=== PATIENT | female | born 1935 | race Caucasian/White ===

== ENCOUNTER → 2017-11-21 13:14 | Outpatient (POV) | payer MEDICARE, OTHER, SELFPAY | DX: Z00.00 Encounter for general adult medical examination without abnormal findings (principal) ==

== ENCOUNTER → 2017-12-25 16:39 | Outpatient (REF) | payer MEDICARE, OTHER, SELFPAY | LOC: LAB 16:39 | PROVIDERS: Visit Provider Internal Medicine | DX: N61.1 Abscess of the breast and nipple (principal) | CPT/HCPCS: 87070; 87077; 87186; 87205 ==

== ENCOUNTER → 2018-03-06 13:24 | Outpatient (POV) | payer MEDICARE, OTHER, SELFPAY | DX: Z00.00 Encounter for general adult medical examination without abnormal findings (principal) ==

== ENCOUNTER → 2018-06-11 09:41 | Outpatient (CLI) | payer MEDICARE, OTHER, SELFPAY ==
--- NOTE | 2018-06-11 09:56 | MM_ITS ---
MM Dig screening mamm BI w/CAD ORDERING PHYSICIAN : Harpal Ureña MD PATIENT AGE: 83 years GENDER: Female COMPARISON: April 2017, 2014 INDICATION: ITS.REASON: Routine Screening Mammogram TECHNIQUE: Standard CC and MLO images were obtained. R2 CAD reviewed. Additional axillary cc view right breast included FINDINGS: Low-density fatty breast bilaterally. Generalized fatty replacement. Scattered skin moles bilaterally associated skin mole markers bilaterally. RIGHT BREAST:. Stable right breast. With no new findings LEFT BREAST:. Today's studies include a deeper portion of the left breast and thus there are some additional believe moles likely evident at the inferior margin the left breast, towards intramammary fold. Several moles are marked here on the MLO view and cc view. However there appear to be some other areas as well. Follow-up in one year on the adequate in this age patient with this appearance IMPRESSION: ... . Multiple skin nevi/moles bilaterally again evident; & most numerous along inferior most left breast. Multiple skin moles have been seen previously. However mammograms including deeper portion of the left breast, and thus there are some additional I believe skin moles shadows evident.. . Follow-up in one year the adequate but but would be encouraged/emphasized even in this age patient, to confirm stability BI-RADS Category: 2 Benign Finding(s) RECOMMENDED FOLLOW-UP: 1YR 1 YEAR FOLLOW-UP (A letter has been sent to the patient regarding results of the study.)
== END ==
PROVIDERS: PCP Internal Medicine; Visit Provider Nurse Practitioner Obstetrics & Gynecology
DX: Z12.31 Encounter for screening mammogram for malignant neoplasm of breast (principal)
CPT/HCPCS: 77067

== ENCOUNTER → 2018-07-19 11:26 | Outpatient (CLI) | payer MEDICARE, OTHER, SELFPAY ==
--- NOTE | 2018-07-19 11:30 | NVE_ITS ---
Venous Exam Indications: 729.5 Pain in limb. 782.3 Edema. Palpable nodule distal pop. fossa. IMPRESSIONS 1. No evidence of deep or superficial vein thrombosis involving the right lower extremity 2. There is a 1.3cm cystic non-vascularlesion seen back proximal rightcalf. In the area of palpable nodule distal popliteal fossa there is a 1.3cm hyperechoic lesion, probable lipoma. History: Risk factors: Family history of deep vein thrombosis. Obese. Right lower extremity venous duplex evaluation. Doppler flow study including spectral analysis, color and guillen scale imaging. Location: Vascular laboratory. Patient status: Outpatient. Tables: Venous flow and imaging: + +-------+ + Location Overall Flow properties + +-------+ + Right common femoral Patent Normal phasicity; spontaneous; normal augmentation; compressible + +-------+ + Right saphenofemoral junction Patent Compressible + +-------+ + Right profunda femoral Patent Compressible + +-------+ + Right femoral Patent Normal phasicity; spontaneous; normal augmentation; compressible + +-------+ + Right greater saphenous Patent Normal phasicity; spontaneous; normal augmentation; compressible + +-------+ + Right popliteal Patent Normal phasicity; spontaneous; normal augmentation; compressible + +-------+ + Right posterior tibial Patent Compressible + +-------+ + Right peroneal Patent Compressible + +-------+ + Right gastrocnemius Patent Compressible + +-------+ + Right soleal Patent Compressible + +-------+ + (Report amended ) Electronically signed by: Bill Barry [id number]
== END ==
PROVIDERS: PCP Internal Medicine; Visit Provider Internal Medicine
DX: M79.604 Pain in right leg (principal); M79.89 Other specified soft tissue disorders
CPT/HCPCS: 93971

== ENCOUNTER → 2018-11-13 12:51 | Outpatient (POV) | payer MEDICARE, OTHER, SELFPAY | DX: Z00.00 Encounter for general adult medical examination without abnormal findings (principal) ==

== ENCOUNTER → 2019-03-12 13:22 | Outpatient (POV) | payer MEDICARE, OTHER, SELFPAY | DX: Z00.00 Encounter for general adult medical examination without abnormal findings (principal) ==

== ENCOUNTER → 2019-06-13 09:14 | Outpatient (CLI) | payer MEDICARE, OTHER, SELFPAY ==
--- NOTE | 2019-06-13 09:19 | MM_ITS ---
PROCEDURE: MM DIG SCREENING MAMM BI W/CAD CLINICAL INDICATION: SCREENING There is a history of breast cancer patient's mother diagnosed after menopause. There has been a previous biopsy right breast for benign disease. COMPARISON: [facility] DIG MAMM-SCREEN YAA from 05/09/2016 [facility] DIG MAMM-SCREEN YAA W/CAD from 05/11/2017 [facility] MM Dig screening mamm BI w/CAD from 06/11/2018 TECHNIQUE: Standard CC and MLO images were obtained. R2 CAD reviewed. FINDINGS: The breasts are composed primarily of fat with minimal scattered fibroglandular densities throughout each breast. Again noted are multiple mole markers on each breast. There is minimal arterial calcification in each breast. There is no suspicious lesion and no suspicious microcalcifications. IMPRESSION: Fatty type breast parenchyma with no suspicious lesions seen BI-RAD Category: 2 Benign Finding(s) FOLLOW-UP: 1YR 1 Year Follow-up (A letter has been sent to the patient regarding results of the study.) Dictated by: Dr. Saul Rocha MD 06/15/2019 15:[address] Saul Rocha MD in [place] 06/15/2019 15:35
== END ==
PROVIDERS: PCP Internal Medicine; Visit Provider Internal Medicine
DX: Z12.31 Encounter for screening mammogram for malignant neoplasm of breast (principal)
CPT/HCPCS: 77067

== ENCOUNTER → 2019-06-17 13:13 | Outpatient (CLI) | payer MEDICARE, OTHER, SELFPAY ==
--- NOTE | 2019-06-17 13:17 | CT_ITS ---
PROCEDURE: CT ABDOMEN PELVIS WO CON CLINICAL INDICATION: kidney stones Urinary urgency, history of stones COMPARISON: ABDPELW/WO CT ABD PELVIS W/WO CONTRAST from 07/04/2016 TECHNIQUE: Axial images obtained with sagittal and coronal reformats. All CT scans at the facility use one or more dose reduction, viz: automated exposure control, ma/kV adjustment per patient size (including targeted exams where dose is matched to indication, i.e. head), or iterative reconstruction technique. FINDINGS: LOWER THORAX: Are mild atelectatic or fibrotic changes in the left lung base. Stable 4 mm nodular opacity right lung base laterally. There is some calcification of the aortic root/valve area. There is a small hiatal hernia. ABDOMEN & PELVIS: Post cholecystectomy. The liver, spleen, adrenal glands and kidneys show no acute finding. There are few small punctate bilateral renal calculi at 2-3 mm in the lower pole on the left in the upper pole on the right. No ureteral calculi evident. There is a 2 cm exophytic cyst projecting off the superior pole of the left kidney. No evidence of appendicitis. There is a calcific density at the base of the appendix consistent with a small appendicoliths No intestinal obstruction or free air. No evidence of diverticulitis. No pelvic mass or abnormal fluid collection apparent. A no acute bony findings. IMPRESSION: 1. No acute abdominal or pelvic findings. 2. Nonobstructing bilateral renal calculi with small left renal cyst Dictated by: Bill Barry MD 06/17/2019 14:31 Electronically signed by Bill Barry MD in [place] 06/17/2019 14:31
== END ==
PROVIDERS: PCP Internal Medicine; Visit Provider Urology
DX: N20.0 Calculus of kidney (principal)
CPT/HCPCS: 74176

== ENCOUNTER → 2019-12-10 13:57 | Outpatient (POV) | payer MEDICARE, OTHER, SELFPAY | PROVIDERS: PCP Internal Medicine | DX: Z00.00 Encounter for general adult medical examination without abnormal findings (principal) ==

== ENCOUNTER → 2020-01-13 09:28 | Outpatient (POV) | payer MEDICARE, OTHER, SELFPAY | PROVIDERS: PCP Internal Medicine; Visit Provider Physician Assistant | DX: Z00.00 Encounter for general adult medical examination without abnormal findings (principal) ==

== ENCOUNTER → 2020-02-17 15:22 | Outpatient (POV) | payer MEDICARE, OTHER, SELFPAY | PROVIDERS: PCP Internal Medicine; Visit Provider Dermatology | DX: Z00.00 Encounter for general adult medical examination without abnormal findings (principal) ==

== ENCOUNTER → 2020-04-07 13:15 | Outpatient (POV) | payer MEDICARE, OTHER, SELFPAY | DX: Z00.00 Encounter for general adult medical examination without abnormal findings (principal) ==

== ENCOUNTER → 2020-06-08 15:23 | Outpatient (CLI) | payer MEDICARE, OTHER, SELFPAY ==
[2020-06-08 15:25] LABS: Adenovirus F 40/41, stool Not Detected (NotDetected); Astrovirus Not Detected (NotDetected); Campylobacter Not Detected (NotDetected); Clostridium Difficile A/B, PCR Not Detected (NotDetected); Cryptosporidium Not Detected (NotDetected); Cyclospora Cayetanesis Not Detected (NotDetected); Entamoeba histolytica Not Detected (NotDetected); Enteroaggregative E coli Not Detected (NotDetected); Enteropathogenic E coli Not Detected (NotDetected); Enterotoxigenic E coli Not Detected (NotDetected); Giardia lamblia Not Detected (NotDetected); Norovirus Not Detected (NotDetected); Plesimonas Shigalloides, PCR Not Detected (NotDetected); Rotavirus A Not Detected (NotDetected); Salmonella, PCR Not Detected (NotDetected); Sapovirus Not Detected (NotDetected); Shiga-like toxin E coli Not Detected (NotDetected); Shigella Enterovasive E coli Not Detected (NotDetected); Vibrio Cholerae Not Detected (NotDetected); Vibrio, PCR Not Detected (NotDetected); Yersinia Entercolitica, PCR Not Detected (NotDetected)
== END ==
PROVIDERS: Visit Provider Internal Medicine
DX: R10.9 Unspecified abdominal pain (principal); R19.4 Change in bowel habit; R19.7 Diarrhea, unspecified
CPT/HCPCS: 87506

== ENCOUNTER → 2020-06-14 08:52 | Outpatient (CLI) | payer MEDICARE, OTHER, SELFPAY ==
--- NOTE | 2020-06-14 09:01 | MM_ITS ---
PROCEDURE: MM DIG SCREENING MAMM BI W/CAD Digital Breast Tomosynthesis Included CLINICAL INDICATION: SCREENING There is a history of breast cancer in the patient's mother diagnosed at age 60. There has been a previous biopsy right breast for benign disease. COMPARISON: MG [facility] DIG MAMM-SCREEN YAA W/CAD from 05/11/2017 [facility] MM Dig screening mamm BI w/CAD from 06/11/2018 MG MM DIG SCREENING MAMM BI W/CAD from 06/13/2019 TECHNIQUE: Standard CC and MLO images and 3D Tomosynthesis was obtained. R2 CAD reviewed. FINDINGS: The breasts are composed primarily of fat with minimal scattered fibroglandular densities in each breast. There are 4 mole markers on the left breast and 2 mole markers right breast. . There is faint arterial calcification bilaterally. There are densities on each breast near the inframammary fold possibly representing skin tags and these are stable. There is no suspicious lesion and no suspicious microcalcifications. IMPRESSION: Fibrofatty parenchyma with no suspicious lesions seen BI-RAD Category: 2 Benign Finding(s) FOLLOW-UP: 1YR 1 Year Follow-up (A letter has been sent to the patient regarding results of the study.) Dictated by: Dr. Saul Rocha MD 06/18/2020 08:13 Dr. Saul Rocha MD in [place] 06/18/2020 08:13
== END ==
PROVIDERS: PCP Internal Medicine; Visit Provider Internal Medicine
DX: Z12.31 Encounter for screening mammogram for malignant neoplasm of breast (principal)
CPT/HCPCS: 77063; 77067

== ENCOUNTER → 2020-07-26 08:18 | Outpatient (POV) | payer MEDICARE, OTHER, SELFPAY | PROVIDERS: Visit Provider Nurse Practitioner Family | DX: Z00.00 Encounter for general adult medical examination without abnormal findings (principal) ==

== ENCOUNTER → 2020-12-06 13:19 | Outpatient (POV) | payer MEDICARE, OTHER, SELFPAY | PROVIDERS: Visit Provider Nurse Practitioner Family | DX: Z00.00 Encounter for general adult medical examination without abnormal findings (principal) ==

== ENCOUNTER → 2020-12-22 13:57 | Outpatient (POV) | payer MEDICARE, OTHER, SELFPAY | DX: Z00.00 Encounter for general adult medical examination without abnormal findings (principal) ==

== ENCOUNTER → 2021-02-09 10:00 | Outpatient (CLI) | payer MEDICARE, OTHER, SELFPAY ==
--- NOTE | 2021-02-11 09:44 | HMH.ANESCL ---
[facility] Anesthesia Checklist - Patient Identification Patient Identification: Arm Band - Structural Data Admitted From: Home Planned Operative Procedure/s: colonoscopy Consent for Planned Operative Procedure(s) Verified: Yes Verified Documents: Surgical Consent, History and Physical - NPO Status Verified Time NPO: 00:00 - Additional verifications Anesthesia Reactions: No - Airway Assessment C-Spine Mobility Assessed: Yes (mp2) TMJ Mobility Assessed: Yes Dentition: Dentures-good fit - Neurological Assessment Level of Consciousness: Awake, Alert - Anesthesia Plan Anesthesia Risk discussed: Yes Anesthesia Plan: Verified ASA Class: II Anesthesia Type: MAC [facility] History I have reviewed the patient's past medical history: Yes Medical History: Reports:: Asthma, Gastroesophageal Reflux Disease(GERD), Hyperlipidemia, Hypertension, Kidney Stones Denies:: Cancer, Diabetes Mellitus Type 1, Diabetes Mellitus Type 2, Internal Pacemaker, Lung Disease, MRSA, Seizures *Have you ever received a pneumonia vaccine?: Yes *Have you received a flu vaccine this season?: Yes Anesthesia experience/problems:: nac Other Surgeries: Yes: Cholecystectomy, Colonoscopy, Tubal Ligation, Other. No: Pacemaker Amputation: No Fractures: No - *Social History Smoking Status: Never smoker Alcohol Intake: never Substance Use Type: denies use *Occupational Status:: retired Housing: house Household Members: spouse *Travel in the last 8 weeks: None Family Hx:: Cancer, Heart Attack
== END ==
PROVIDERS: Visit Provider Internal Medicine Gastroenterology
DX: Z01.812 Encounter for preprocedural laboratory examination (principal); Z11.52 Encounter for screening for COVID-19; Z12.11 Encounter for screening for malignant neoplasm of colon
CPT/HCPCS: U0003

== ENCOUNTER 2021-02-11 08:19 | Day surgery (SDC) | payer MEDICARE, OTHER, SELFPAY ==
[2021-02-08 10:17] VITALS: BMI 39.1
[2021-02-11 08:37] VITALS: BP 153/79; PULSE 76; RESP 18; TEMP 36.5; O2SAT 97
--- NOTE | 2021-02-11 10:05 | P.PCN_ITS ---
[facility] Procedure Note Procedure Note:: Colonoscopy Procedure Report: Colonoscopy with cold biopsies and cold snare polypectomy Endoscopist: Aj Lim II, MD Referring physician: Chin Lott MD Date of Procedure: February 11, 2021 Equipment: Olympus 190 variable stiffness pediatric colonoscope Sedation: MAC sedation Indication: Mrs. Hawkins is an 85-year-old female with a long history of chronic constipation. 5 to 6 months ago she stopped having constipation and now has more soft and loose bowel movements with intermittent bowel urgency. She has marked gassiness and bloating with some crampy lower abdominal discomfort. The patient had tried stimulant laxatives, suppositories and fiber over the years. She did trial Linzess which resulted in diarrhea. She does have chronic GERD for which she takes pantoprazole. Her last colonoscopy was June 2019 at which time she had a small polyp that was removed. She does have a former history of adenomatous polyps. She had cholecystectomy more than 20 years ago. Her CAT scan in 2018 did not show any significant abnormalities except for a small nonobstructing renal calculus. The patient reports no rectal bleeding or weight loss. She reports no family history of colon cancer. Procedure: Prior to the procedure, a history and physical exam was performed, and patient's medications and allergies were reviewed. The risks, benefits and alternatives of the sedation and procedure were discussed with the patient. All questions were answered and informed consent was obtained. The patient was brought to the procedure room. Patient identification and proposed procedure were verified by the physician and the nurse. The patient was placed in a left lateral decubitus position and the scope was passed under direct vision. Throughout the procedure, the patient's blood pressure, pulse, and oxygen saturations were monitored continuously. The colonoscopy was accomplished without difficulty. The patient tolerated the procedure well. Findings: On digital rectal examination there was normal rectal tone. There were no external hemorrhoids. The colonoscope was introduced through the anal canal to the rectum and advanced to the cecum. The ileocecal valve and appendiceal orifice were identified. The scope was advanced a short distance into the ileum which appeared grossly normal. The scope was then withdrawn into the colon. The cecum, ascending and transverse colon and mucosa were grossly normal. Cold biopsies were taken from the right colon to rule out microscopic colitis. There were a few scattered diverticuli throughout the descending and sigmoid colon (LEFT colon). The rectum itself had a 5 mm polyp removed via cold snare polypectomy. Upon retroflexion within the rectum there were grade 1-2 internal hemorrhoids. The preparation was excellent throughout with [place] Preparation Score of 9. The cecal time was 12 minutes. Impression: 1. Diminutive rectal polyp 2. Mild left-sided diverticulosis 3. Grade 1-2 internal hemorrhoids Plan: I will follow up the polyp histology. I would encourage continuation of FiberCon. She did receive a course of Xifaxan. I would consider sucrose C 13 breath testing and dietary measures. She will not require any further preventive colonoscopy.
[2021-02-11 10:07] VITALS: BP 92/66; PULSE 68; RESP 16; TEMP 36.5; O2SAT 95
[2021-02-11 10:17] VITALS: BP 109/67; PULSE 65; RESP 16; TEMP 36.5; O2SAT 98
[2021-02-11 10:27] VITALS: BP 137/82; PULSE 6; RESP 18; TEMP 36.5; O2SAT 99
[2021-02-11 10:37] VITALS: BP 158/75; PULSE 50; RESP 18; TEMP 36.5; O2SAT 97
[2021-02-11 12:34] VITALS: O2SAT 97
== END 2021-02-11 10:37 | disposition home or self-care (01) ==
PROVIDERS: PCP Internal Medicine; Visit Provider Internal Medicine Gastroenterology
PROC: 0DJD8ZZ Inspection of Lower Intestinal Tract, Via Natural or Artificial Opening Endoscopic (ICD-10-PCS; CPT 45378; principal; 2021-02-11 09:30)
DX: K64.0 First degree hemorrhoids (principal); K62.1 Rectal polyp; K57.30 Diverticulosis of large intestine without perforation or abscess without bleeding; Z86.010 Personal history of colon polyps; I10 Essential (primary) hypertension; E78.5 Hyperlipidemia, unspecified; J45.909 Unspecified asthma, uncomplicated; Z79.82 Long term (current) use of aspirin; Z79.899 Other long term (current) drug therapy
CPT/HCPCS: 45380; 45385; 88305

== ENCOUNTER → 2021-03-25 07:10 | Outpatient (CLI) | payer MEDICARE, OTHER, SELFPAY ==
--- NOTE | 2021-03-25 07:15 | CT_ITS ---
PROCEDURE: CT ABDOMEN PELVIS WO CON CLINICAL INDICATION: DIFFUSE ABD PAIN COMPARISON: CT CT ABDOMEN PELVIS WO CON from 06/17/2019 TECHNIQUE: Axial images obtained with sagittal and coronal reformats. All CT scans at the facility use one or more dose reduction, viz: automated exposure control, ma/kV adjustment per patient size (including targeted exams where dose is matched to indication, i.e. head), or iterative reconstruction technique. FINDINGS: LOWER THORAX: No acute finding ABDOMEN & PELVIS: Prior cholecystectomy. The liver, spleen, adrenal glands, and pancreas have an unremarkable unenhanced appearance. There is a small hiatal hernia. Punctate bilateral renal calcifications which may be vascular. 2 cm exophytic left renal cyst superiorly. No hydronephrosis. 3 mm nonobstructing stone lower pole left kidney versus vascular calcification. No ureteral calculi. No intestinal obstruction or free air. Unremarkable appendix. There is a mild amount of retained colonic feces. There is colonic diverticulosis but no evidence of diverticulitis. No pelvic mass or abnormal fluid collection. Degenerative changes lumbar spine with mild lumbar scoliosis convex right IMPRESSION: No acute finding. Colonic diverticulosis without diverticulitis Possible 3 mm left renal stone versus vascular calcification of the left kidney. Dictated by: Bill Barry MD 03/25/2021 14:32 Bill Barry MD in [place] 03/25/2021 14:32
== END ==
PROVIDERS: PCP Internal Medicine; Visit Provider Internal Medicine
DX: R10.30 Lower abdominal pain, unspecified (principal)
CPT/HCPCS: 74176

== ENCOUNTER → 2021-06-15 10:09 | Outpatient (CLI) | payer MEDICARE, OTHER, SELFPAY ==
--- NOTE | 2021-06-15 10:12 | MM_ITS ---
PROCEDURE INFORMATION: Exam: MG Bilateral Screening 3D Mammography Exam date and time: 06/15/2021 10:12 AM Age: 86 years old Clinical indication: Encounter for screening mammogram for malignant neoplasm of breast TECHNIQUE: Imaging protocol: Bilateral screening tomosynthesis and 2D mammography including computer-aided detection (CAD) when performed. COMPARISON: 1. MG MM DIG SCREENING MAMM BI W/CAD 06/14/2020 9:01 AM 2. MG MM DIG SCREENING MAMM BI W/CAD 06/13/2019 9:50 AM FINDINGS: MAMMOGRAPHY: Breast composition: The breasts are almost entirely fatty. Mass: None. Architectural distortion: None. Calcifications: No suspicious calcifications. Asymmetric density: None. Skin thickening: None. Axillary adenopathy: None. IMPRESSION: No mammographic evidence of malignancy. Annual screening is recommended unless otherwise clinically indicated. ASSESSMENT: BI-RADS Category 1: Negative
== END ==
PROVIDERS: PCP Internal Medicine; Visit Provider Internal Medicine
DX: Z12.31 Encounter for screening mammogram for malignant neoplasm of breast (principal)
CPT/HCPCS: 77063; 77067

== ENCOUNTER → 2021-07-13 10:20 | Outpatient (CLI) | payer MEDICARE, OTHER, SELFPAY ==
--- NOTE | 2021-07-13 10:24 | XR_ITS ---
PROCEDURE INFORMATION: Exam: XR Lumbosacral Spine Exam date and time: 07/13/2021 10:24 AM Age: 86 years old Clinical indication: Pain; Lumbago with sciatica; Additional info: Lumbago w/ RT sciatica TECHNIQUE: Imaging protocol: XR of the lumbosacral spine. Views: 4 or 5 views. COMPARISON: CT ABDOMEN PELVIS WO CON 03/25/2021 7:19 AM FINDINGS: Bones/joints: No acute fracture. Dextrocurvature of the lumbar spine centered at L3-L4. Moderate degenerative disc disease at L4-L5. Mild degenerative disc disease throughout the remainder of the lumbar spine. Soft tissues: Unremarkable. Intraperitoneal space: Cholecystectomy clips. Vasculature: Atherosclerotic calcification of the abdominal aorta. IMPRESSION: 1. No acute fracture. 2. Moderate degenerative disc disease at L4-L5.
== END ==
PROVIDERS: PCP Internal Medicine; Visit Provider Internal Medicine
DX: M54.41 Lumbago with sciatica, right side (principal)
CPT/HCPCS: 72110

== ENCOUNTER → 2021-07-25 16:48 | Outpatient (CLI) | payer MEDICARE, OTHER, SELFPAY | PROVIDERS: Visit Provider Internal Medicine | DX: L02.92 Furuncle, unspecified (principal); B95.8 Unspecified staphylococcus as the cause of diseases classified elsewhere | CPT/HCPCS: 87070; 87077; 87186; 87205 ==

== ENCOUNTER → 2021-09-05 11:22 | Outpatient (CLI) | payer MEDICARE, OTHER, SELFPAY ==
--- NOTE | 2021-09-05 11:29 | CA_ITS ---
FINAL REPORT TECHNIQUE: Color Doppler, duplex Doppler and compression sonography of the left lower extremity deep venous systems was performed. CLINICAL HISTORY: LT CALF PAIN, EDEMA LT CALF FINDINGS: There is no evidence of deep venous thrombosis from the level of the groin to the calf. The veins are patent and compressible. IMPRESSION: No evidence of deep venous thrombosis left lower extremity. Reviewed, Interpreted and Dictated by Scot Peck III, MD Transcribed by Janie Post Authenticated by Scot Peck III, MD on 09/05/2021 01:07:[address] [facility]
== END ==
PROVIDERS: PCP Internal Medicine; Visit Provider Internal Medicine
DX: M79.662 Pain in left lower leg (principal); R60.0 Localized edema
CPT/HCPCS: 93971

== ENCOUNTER → 2021-10-07 13:01 | Outpatient (CLI) | payer MEDICARE, OTHER, SELFPAY ==
[2021-10-07 15:05] LABS: Chloride 98 mmol/L (98-107); Potassium 4.4 mmoL/L (3.5-5.1); Sodium 138 mmol/L (136-145)
[2021-10-07 15:07] LABS: Alanine Aminotransferase 9 U/L (12-78); Aspartate Amino Transferase 27 U/L (14-36)
[2021-10-07 15:08] LABS: Albumin Level 4.1 g/dl (3.5-5.0); Albumin/Globulin Ratio 1.6 (1.1-1.8); Alkaline Phosphatase 89 U/L (38-126); Bilirubin,Total 0.8 mg/dl (0.2-1.3); Calcium 8.8 mg/dl (8.4-10.2); Carbon Dioxide 34 mmol/L (22.0-30.0); Chol/HDL Ratio 3.4 (1-3.5); Cholesterol 148 mg/dl (140-200); Globulin 2.6 g/dL (1.3-3.2); Glucose 81 mg/dl (74-100); HDL Cholesterol 44 mg/dl (40-60); Total Protein,Serum 6.7 g/dl (6.3-8.2); Triglycerides 147 mg/dl (30-150); VLDL Cholesterol 29 mg/dL (0-40)
[2021-10-07 15:19] LABS: Anion Gap 10.4 mEq/L (5-15); Direct LDL Cholesterol 62.31 mg/dL (100-129)
[2021-10-07 15:52] LABS: Blood Urea Nitrogen 22 mg/dl (7-17); Estimated Glomerular Filt Rate 80 ml/min (>60); GFR (African American) 96 ML/MIN (>60)
== END ==
PROVIDERS: Visit Provider Internal Medicine
DX: I10 Essential (primary) hypertension (principal); E78.5 Hyperlipidemia, unspecified; K21.9 Gastro-esophageal reflux disease without esophagitis; M15.0 Primary generalized (osteo)arthritis
CPT/HCPCS: 80053; 80061

== ENCOUNTER → 2021-12-09 12:31 | Outpatient (CLI) | payer MEDICARE, OTHER, SELFPAY ==
--- NOTE | 2021-12-09 13:03 | US_ITS ---
FINAL REPORT CLINICAL HISTORY: .DISCOLORATION FEET, PAIN LOWER EXTREMITIES,HLP,HTN FINDINGS: ANKLE/BRACHIAL INDICES FINDINGS: Pressure indices are as follows: RIGHT LOWER EXTREMITY: Ankle brachial pressure index: 1.2 Comments: Normal LEFT LOWER EXTREMITY: Ankle brachial pressure index: 1.1 Comments: Normal IMPRESSION: No evidence of significant obstructive peripheral vascular disease of the lower extremities. Reviewed, Interpreted and Dictated by Scot Peck III, MD Transcribed by Teo Vazquez Authenticated by Scot Peck III, MD on 12/09/2021 02:21:53 PM [facility]
== END ==
PROVIDERS: PCP Internal Medicine; Visit Provider Internal Medicine
DX: R09.89 Other specified symptoms and signs involving the circulatory and respiratory systems (principal); I73.9 Peripheral vascular disease, unspecified
CPT/HCPCS: 93923

== ENCOUNTER → 2022-03-14 10:18 | Outpatient (POV) | payer MEDICARE, OTHER, SELFPAY ==
[2022-03-14 10:26] VITALS: BP 173/82; PULSE 67; RESP 20; O2SAT 97; BMI 39.1
--- NOTE | 2022-03-14 14:30 | HMH.PMCON ---
Assessment and Plan (1) Degenerative disc disease, lumbar Status: Acute Category: Medical Code(s): M51.36 - Other intervertebral disc degeneration, lumbar region (2) Lumbar radiculopathy Status: Acute Category: Medical Code(s): M54.16 - Radiculopathy, lumbar region (3) Right hip pain Status: Acute Category: Medical Code(s): M25.551 - Pain in right hip - Assessment and plan all Dx Assessment and Plan for all problems:: Patient is experiencing significant pain in her low back that radiates down her right hip and right leg. Patient had limited flexion and extension of her lumbar spine. She had positive point tenderness along bilateral hips and lumbar spine during today's exam. I have discussed with the patient regarding trying a diagnostic epidural steroid injection. Risk and benefits were discussed with the patient. She would like to proceed forward with this injection. Patient is not currently taking any blood thinners. Patient just recently started her tramadol and we will reevaluate her symptoms at her upcoming follow-up visit. I did discuss with the patient about possibly adding diclofenac to her medication regimen in the future. At this time we will wait until after her epidural injection. I will prescribe the patient a compounding cream at today's visit. We will schedule the patient for a lumbar epidural steroid injection at L4-L5. Patient has been instructed to contact the clinic with any concerns before the next appointment. Dr. Myrick has reviewed this note and agrees with this plan of care. This note was dictated using voice recognition software and make contain errors or omissions. HPI - Data of Consult Patient: new to practice Consult date: 03/14/22 Requesting Physician: Cristina Greene APRN Primary Care Provider: Chin Lott MD - Consult Narrative Reason for consult: Low back pain, right hip pain, right leg pain History of present illness: Ms. Hawkins is a 86 year old female who presents today as a new patient. She is a referral from Dr. Eliane Zapata. Patient states she has pain in her low back that radiates to her right hip and down her right side to her foot. Patient describes this as a throbbing sensation that is worse with activity. Patient did fall last year around March or April while she was weed eating and stated that she seemed to notice more of the pain following this episode. Patient states it does not affect her activities of daily living. She has tried massage therapy in the past with moderate improvement. She was also given steroids at the time of injury which did provide moderate improvement. Patient is also seen a chiropractor in the past however this made her back worse. Patient has tried [id number] Tylenol with minimal relief. Patient states she does take Advil that seems to help. She was recently prescribed tramadol [address] Eliane zapata. Patient states that she is unsure whether or not if it is helping just yet. Patient states that she is not scheduled to have any follow-ups with this physician and has no refills on this medication. Her Davy is [phone]. It has been reviewed and appropriate. CC: Cristina Greene APRN [facility] History I have reviewed the patient's past medical history: Yes Medical History: Reports:: Asthma, Gastroesophageal Reflux Disease(GERD), Hyperlipidemia, Hypertension, Kidney Stones Denies:: Cancer, Diabetes Mellitus Type 1, Diabetes Mellitus Type 2, Internal Pacemaker, Lung Disease, MRSA, Seizures *Have you ever received a pneumonia vaccine?: Yes *Have you received a flu vaccine this season?: Yes Other Medical History: Reports: Arthritis Other Surgeries: Yes: Cholecystectomy, Colonoscopy, Tubal Ligation, Other. No: Pacemaker Amputation: No Fractures: No - *Social History Smoking Status: Never smoker Alcohol Intake: never Substance Use Type: denies use *Occupational Status:: retired Housing: house Household Members:
== END ==
PROVIDERS: PCP Internal Medicine; Visit Provider Nurse Practitioner Family
DX: M51.16 Intervertebral disc disorders with radiculopathy, lumbar region (principal); M25.551 Pain in right hip
CPT/HCPCS: 99202; G0463

== ENCOUNTER 2022-03-28 08:12 | Day surgery (SDC) | payer MEDICARE, OTHER, SELFPAY ==
[2022-03-28 08:16] VITALS: BP 138/72; BP 179/74; PULSE 82; PULSE 86; RESP 18; RESP 20; TEMP 36.3; O2SAT 96; O2SAT 97; BMI 39.1
[2022-03-28 08:40] VITALS: RESP 17
--- NOTE | 2022-03-28 09:19 | EXP.PAIN.PRO ---
Procedure Date: 03/28/22 Time: 09:19 Anesthesiologist:: Noam Garcia CRNA Complications:: None Pre-procedure Diagnosis:: Degenerative disc disease lumbar spine multilevels. Lumbar radiculopathy symptoms. Post-procedure Diagnosis:: Same Indications for Procedure:: Very pleasant 86-year-old female that comes our clinic today for an initial lumbar epidural steroid injection at L4-5 level. Patient rates her low back pain is 6/10. She complains also of bilateral hip and leg radicular symptoms. Procedure Details:: Procedure: Lumbar epidural steroid injection under fluoroscopy Informed consent was obtained and the risks and benefits of the procedure were explained to the patient. The patient was taken to the procedure room and noninvasive monitors placed, including noninvasive blood pressure cuff and pulse oximeter. The back was viewed using C-arm Fluoroscopy and prepped using Betadine as a cleansing solution and the L4-L5 interspace was palpated. Skin and subcutaneous tissues were anesthetized using lidocaine 1.5% and a 25-gauge needle. After this, an 18-gauge Touhy epidural needle was placed into the L4-L5 interspace and advanced using fluoroscopic guidance and loss of resistance to air until the epidural space was encountered. After confirmation of needle placement in the epidural space, with dye, a solution containing lidocaine 1.5%, 4 mL and Depo-Medrol 80 mg were incrementally injected into the lumbar epidural space. The patient tolerated the procedure well with no complications. The patient was observed in the Pain Clinic and then discharged home neurologically intact. Plan and Disposition:: Patient was discharged without incident
== END 2022-03-28 08:51 | disposition home or self-care (01) ==
LOC: SC.PAINP 08:12
PROVIDERS: PCP Internal Medicine; Visit Provider Nurse Anesthetist, Certified Registered
DX: M51.16 Intervertebral disc disorders with radiculopathy, lumbar region (principal)
CPT/HCPCS: 62323; J1040

== ENCOUNTER → 2022-04-10 13:26 | Outpatient (POV) | payer MEDICARE, OTHER, SELFPAY ==
[2022-04-10 13:41] VITALS: BP 133/67; PULSE 88; RESP 18; TEMP 36.9; O2SAT 97; BMI 39.1
--- NOTE | 2022-04-10 13:44 | EXP.PAIN.SOA ---
[facility] Pain Management SOAP Note Subjective:: Patient is a pleasant 86-year-old female who presents today for follow-up of lumbar epidural steroid injection at L4-L5 on 03/28/2022. 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 Patient states that she has had at least 50% improvement in her pain symptoms following this injection. She feels like this injection is still helping and that she has not had to take her tramadol as often as well a her [id number] Advil. Today she rates her pain a 5 out of 10 and states it is primarily in her low back and right hip. Patient describes this as a throbbing sensation that is worse with increased activity. Patient denies any new trauma or injury to the site. She denies any change in the location or type of pain she experiences. Patient has tried massage therapy that provided moderate improvement of her symptoms. Patient did see a chiropractor however it did make her back worse. Patient does use Advil as needed to help with her pain. She is prescribed tramadol [address] Eliane Zapata. Her Davy is [phone] with a morphine equivalent of 0. It has been reviewed and appropriate. Review of Systems: General: No recent weight changes, no fever, no sleep disturbances Respiratory: No cough, no shortness of air, no recurring pulmonary infections Cardiovascular/peripheral vascular: No chest pain, no palpitations, no edema, no shortness of breath Gastrointestinal: No new onset incontinence, normal bowel movements reported Genitourinary: No new onset incontinence Musculoskeletal: Low back pain, right hip pain Psychiatric: [Normal mood/affect] Neurological: [Denies weakness in extremities], [denies balance issues] Objective:: Physical Exam: General: Alert and oriented x3, no acute distress, pleasant and cooperative Lungs: Respirations even and unlabored, symmetrical chest expansion Eyes: PERRL Musculoskeletal: Flexion and extension of [lumbar] [spine] somewhat guarded secondary to pain, [antalgic gait noted] Neurological: Speech clear, no gross sensory deficit Assessment:: Degenerative disc disease of lumbar spine multilevel with lumbar radiculopathy symptoms, right hip pain Plan:: Patient has had significant improvement of her pain symptoms following the lumbar epidural steroid injection. Patient continues to have limited range of motion of her lumbar spine however she has been able to decrease her use of Advil and tramadol following this injection. At this time the patient does not need additional injective therapy. I have counseled the patient that we may do repeat therapy in the future based off of her pain symptoms. Patient will follow-up in 1 month. Patient will return to clinic in 1 month for reevaluation of her symptoms. Patient has been instructed to contact the clinic with any concerns before the next appointment. Dr. Myrick has reviewed this note and agrees with this plan of care. This note was dictated using voice recognition software and make contain errors or omissions. [facility] Surgical History (Updated 03/28/22 @ 08:21 by Coral Nelson RN) History of cholecystectomy History of tubal ligation Social History Smoking Status: Never smoker second hand exposure: No alcohol intake: never substance use type: denies use current occupational status: retired Travel in the last 8 weeks: None household members: other housing: house current occupational exposures/hazards: No caffeine: Yes
== END ==
PROVIDERS: Visit Provider Nurse Practitioner Family
DX: M51.16 Intervertebral disc disorders with radiculopathy, lumbar region (principal); M25.551 Pain in right hip
CPT/HCPCS: 99212; G0463

== ENCOUNTER → 2022-04-14 13:02 | Outpatient (CLI) | payer MEDICARE, OTHER, SELFPAY ==
[2022-04-14 15:23] LABS: Basophils # 0.1 K/mm3 (0-0.2); Basophils % 1.1 % (0.1-2.0); Eosinophils # 0.2 K/mm3 (0.0-0.4); Eosinophils % 2.8 % (0.1-12.0); Hematocrit 39.3 % (37.0-47.0); Lymphocytes # 1.3 K/mm3 (0.7-4.5); Lymphocytes % 17.3 % (10-50); Mean Corpuscular HGB Conc 33.1 g/dL (31.8-35.4); Mean Corpuscular Hemoglobin 30.7 pg (27.0-31.2); Mean Corpuscular Volume 92.7 fl (81-99); Mean Platelet Volume 9.8 fl (7.4-10.4); Monocytes # 0.5 K/mm3 (0.1-1.0); Neutrophils # 5.5 K/mm3 (1.8-7.8); Neutrophils % 72.7 % (37.0-80.0); Platelet Count 258 K/mm3 (142-424); Red Blood Count 4.24 M/mm3 (4.20-5.40); Red Cell Distribution Width 13.9 % (11.5-17.5); White Blood Count 7.6 K/mm3 (4.8-10.8)
[2022-04-14 15:52] LABS: Alanine Aminotransferase 11 U/L (12-78); Albumin/Globulin Ratio 1.4 (1.1-1.8); Alkaline Phosphatase 105 U/L (38-126); Anion Gap 14.3 mEq/L (5-15); Aspartate Amino Transferase 28 U/L (14-36); Blood Urea Nitrogen 27 mg/dl (7-17); Calcium 8.9 mg/dl (8.4-10.2); Carbon Dioxide 34 mmol/L (22.0-30.0); Chloride 96 mmol/L (98-107); Chol/HDL Ratio 3.4 (1-3.5); Cholesterol 165 mg/dl (140-200); Estimated Glomerular Filt Rate 60 ml/min (>60); GFR (African American) 72 ML/MIN (>60); Globulin 2.8 g/dL (1.3-3.2); Glucose 82 mg/dl (74-100); HDL Cholesterol 49 mg/dl (40-60); Potassium 4.3 mmoL/L (3.5-5.1); Sodium 140 mmol/L (136-145); Total Protein,Serum 6.8 g/dl (6.3-8.2); Triglycerides 136 mg/dl (30-150); VLDL Cholesterol 27 mg/dL (0-40)
[2022-04-14 16:02] LABS: Direct LDL Cholesterol 69.63 mg/dL (100-129)
== END ==
PROVIDERS: PCP Internal Medicine; Visit Provider Internal Medicine
DX: I10 Essential (primary) hypertension (principal); E78.5 Hyperlipidemia, unspecified; K21.9 Gastro-esophageal reflux disease without esophagitis; M15.0 Primary generalized (osteo)arthritis
CPT/HCPCS: 80053; 80061; 85025

== ENCOUNTER → 2022-05-01 14:34 | Outpatient (POV) | payer MEDICARE, OTHER, SELFPAY ==
--- NOTE | 2022-05-01 15:13 | EXP.PAIN.SOA ---
[facility] Pain Management SOAP Note Subjective:: Patient is a pleasant 86-year-old female who presents today for follow-up. 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 Today the patient states that her pain is a 6 out of 10. Patient states it is all in her low back that radiates into her bilateral lower extremities. She describes this as a throbbing sensation that is worse with increased activity. Patient denies any new trauma or injury. She denies any change to the location or type of pain she experiences. We have done injective therapy in the past that provided at least 50% improvement of her pain symptoms lasting 3 weeks. She is interested in scheduling another injection at today's visit. Patient has tried massage therapy with some improvement of her symptoms. She also saw a chiropractor however that made her back worse. Patient is prescribed tramadol 50 mg daily by an outside provider. Patient denies any side effects from this medication. She states this medication does adequately help manage her pain including her symptoms in her feet. Patient does use Advil as needed for pain. Review of Systems: General: No recent weight changes, no fever, no sleep disturbances Respiratory: No cough, no shortness of air, no recurring pulmonary infections Cardiovascular/peripheral vascular: No chest pain, no palpitations, no edema, no shortness of breath Gastrointestinal: No new onset incontinence, normal bowel movements reported Genitourinary: No new onset incontinence Musculoskeletal: Low back pain, bilateral leg pain Psychiatric: [Normal mood/affect] Neurological: [Denies weakness in extremities], [denies balance issues] Objective:: Physical Exam: General: Alert and oriented x3, no acute distress, pleasant and cooperative Lungs: Respirations even and unlabored, symmetrical chest expansion Eyes: PERRL Musculoskeletal: Flexion and extension of lumbar [spine] somewhat guarded secondary to pain, [antalgic gait noted] Neurological: Speech clear, no gross sensory deficit Assessment:: Degenerative disc disease lumbar spine multilevels with lumbar radiculopathy symptoms, right hip pain Plan:: Patient continues to have significant pain in her low back that radiates into her bilateral extremities. Patient had limited range of motion of her lumbar spine during today's visit. Previous injective therapy did provide significant improvement of her symptoms. I have discussed with the patient regarding having a repeat lumbar epidural injection. Risk and benefits were discussed with the patient. She would like to proceed forward with this option. She is not currently on any blood thinners. We will schedule her for a lumbar epidural steroid injection of L4-L5. Patient has been instructed to contact the clinic with any concerns before the next appointment. Dr. Myrick has reviewed this note and agrees with this plan of care. This note was dictated using voice recognition software and make contain errors or omissions. [facility] Surgical History (Updated 03/28/22 @ 08:21 by Coral Nelson RN) History of cholecystectomy History of tubal ligation Social History Smoking Status: Never smoker second hand exposure: No alcohol intake: never substance use type: denies use current occupational status: retired Travel in the last 8 weeks: None household members: other housing: house current occupational exposures/hazards: No caffeine: Yes
[2022-05-01 15:25] VITALS: BP 154/68; PULSE 94; RESP 18; TEMP 36.8; O2SAT 98; BMI 39.1
== END ==
PROVIDERS: PCP Internal Medicine; Visit Provider Nurse Practitioner Family
DX: M51.16 Intervertebral disc disorders with radiculopathy, lumbar region (principal); M25.551 Pain in right hip; Z79.899 Other long term (current) drug therapy
CPT/HCPCS: 99212; G0463

== ENCOUNTER 2022-05-09 13:58 | Day surgery (SDC) | payer MEDICARE, OTHER, SELFPAY ==
[2022-05-09 14:10] VITALS: BP 133/70; PULSE 91; RESP 16; TEMP 36.2; O2SAT 93; BMI 39.1
[2022-05-09 14:35] VITALS: BP 143/71; PULSE 87; RESP 18; O2SAT 98
[2022-05-09 14:36] VITALS: BP 143/71; PULSE 87; RESP 18; O2SAT 98
[2022-05-09 14:42] VITALS: BP 143/67; PULSE 85; RESP 18; O2SAT 96
--- NOTE | 2022-05-09 14:54 | EXP.PAIN.PRO ---
Procedure Date: 05/09/22 Time: 14:45 Anesthesiologist:: Noam Garcia CRNA Complications:: None Pre-procedure Diagnosis:: Degenerative disc disease lumbar spine multilevels. Lumbar radiculopathy. Post-procedure Diagnosis:: Same. Indications for Procedure:: Very pleasant 86-year-old female comes to our injection clinic today for second lumbar epidural steroid injection L4-5 level. Patient reports 2 and half weeks of significant improvement terms of her low back pain as well as bilateral hip and leg radicular symptoms with her first injection. She rates her pain today 6/10. Procedure Details:: Procedure: Lumbar epidural steroid injection under fluoroscopy Informed consent was obtained and the risks and benefits of the procedure were explained to the patient. The patient was taken to the procedure room and noninvasive monitors placed, including noninvasive blood pressure cuff and pulse oximeter. The back was viewed using C-arm Fluoroscopy and prepped using Betadine as a cleansing solution and the L4-L5 interspace was palpated. Skin and subcutaneous tissues were anesthetized using lidocaine 1.5% and a 25-gauge needle. After this, an 18-gauge Touhy epidural needle was placed into the L4-L5 interspace and advanced using fluoroscopic guidance and loss of resistance to air until the epidural space was encountered. After confirmation of needle placement in the epidural space, with dye, a solution containing lidocaine 1.5%, 4 mL and Depo-Medrol 80 mg were incrementally injected into the lumbar epidural space. The patient tolerated the procedure well with no complications. The patient was observed in the Pain Clinic and then discharged home neurologically intact. Plan and Disposition:: Patient was discharged without incident
== END 2022-05-09 14:43 | disposition home or self-care (01) ==
PROVIDERS: PCP Internal Medicine; Visit Provider Nurse Anesthetist, Certified Registered
DX: M51.16 Intervertebral disc disorders with radiculopathy, lumbar region (principal)
CPT/HCPCS: 62323; J1040

== ENCOUNTER → 2022-05-25 11:24 | Outpatient (POV) | payer MEDICARE, OTHER, SELFPAY ==
--- NOTE | 2022-05-25 11:48 | A.OFFVIS_ITS ---
[facility] Pain Management SOAP Note Subjective:: Patient is a pleasant 86-year-old female who presents today for follow-up of lumbar epidural steroid injection at L4-L5 on 05/09/2022. 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 Today the patient states that she has had at least 50% improvement following this injection and feels like it is still continuing to help. Patient rates her pain a 4 out of 10 today. She denies any new trauma or injury. Patient denies any change location or type of pain she experiences. Patient does state the pain is primarily in her low back that radiates into her lower extremities. Patient does state this is a aching, throbbing sensation that is worse with increased activity. Patient has been prescribed in the past tramadol 50 mg from an outside provider. Patient denies any side effects from this medication. She states this medication did help with her feet pain. Patient also states she occasionally will use Advil as needed. Patient does state that she has more trouble at night due to the pain. Her Felix per is [phone]. It has been reviewed and appropriate. Review of Systems: General: No recent weight changes, no fever, no sleep disturbances Respiratory: No cough, no shortness of air, no recurring pulmonary infections Cardiovascular/peripheral vascular: No chest pain, no palpitations, no edema, no shortness of breath Gastrointestinal: No new onset incontinence, normal bowel movements reported Genitourinary: No new onset incontinence Musculoskeletal: Low back pain Psychiatric: [Normal mood/affect] Neurological: [Denies weakness in extremities], [denies balance issues] Objective:: Physical Exam: General: Alert and oriented x3, no acute distress, pleasant and cooperative Lungs: Respirations even and unlabored, symmetrical chest expansion Eyes: PERRL Musculoskeletal: Flexion and extension of [lumbar] [spine] somewhat guarded secondary to pain, [antalgic gait noted] Neurological: Speech clear, no gross sensory deficit Assessment:: Degenerative disc disease of lumbar spine multilevel with lumbar radiculopathy symptoms Plan:: Patient has had significant improvement of her pain symptoms following this last epidural injection. At this time the patient does not require any additional injective therapy. I have discussed with the patient regarding adding a muscle relaxer to her medication regimen. Patient agrees with this plan of care. I will prescribe her tizanidine 4 mg at at bedtime and provide a 1 month supply of this medication. Patient has been counseled to discontinue this medication if she experiences significant side effects. Patient will follow-up in clinic in 1 month. Patient will return to clinic in 1 month for reevaluation of symptoms, medication refill and follow-up. Patient has been instructed to contact the clinic with any concerns before the next appointment. Dr. Myrick has reviewed this note and agrees with this plan of care. This note was dictated using voice recognition software and make contain errors or omissions. [facility] Surgical History History of cholecystectomy History of tubal ligation Social History (Updated 05/09/22 @ 14:12 by Swati Castaneda RN) Smoking Status: Never smoker second hand exposure: No alcohol intake: never substance use type: denies use current occupational status: retired Travel in the last 8 weeks: None household members: other housing: house current occupational exposures/hazards: No caffeine: Yes
[2022-05-25 12:30] VITALS: BP 142/79; PULSE 80; RESP 18; TEMP 36.6; O2SAT 98; BMI 39.1
== END | disposition home or self-care (01) ==
PROVIDERS: PCP Internal Medicine; Visit Provider Nurse Practitioner Family
DX: M51.16 Intervertebral disc disorders with radiculopathy, lumbar region (principal); Z79.899 Other long term (current) drug therapy
CPT/HCPCS: 99212; G0463

== ENCOUNTER → 2022-06-16 10:17 | Outpatient (CLI) | payer MEDICARE, OTHER, SELFPAY ==
--- NOTE | 2022-06-16 10:21 | MM_ITS ---
PROCEDURE INFORMATION: Exam: MG Bilateral Screening 3D Mammography Exam date and time: 06/16/2022 10:13 AM Age: 87 years old Clinical indication: Screening examination TECHNIQUE: Imaging protocol: Bilateral Screening tomosynthesis and 2D mammography including computer-aided detection (CAD) when performed. COMPARISON: 1. MG MM DIG SCREENING MAMM BI W/CAD 06/15/2021 10:21 AM 2. MG MM DIG SCREENING MAMM BI W/CAD 06/14/2020 9:01 AM 3. MG MM DIG SCREENING MAMM BI W/CAD 06/13/2019 9:50 AM 4. MG SCBI MM Dig screening mamm BI w/CAD 06/11/2018 10:03 AM FINDINGS: MAMMOGRAPHY: Breast composition: There are scattered areas of fibroglandular density. Mass: None. Architectural distortion: No new or suspicious architectural distortion. Calcifications: Stable benign-appearing calcifications are present. No new or suspicious cluster of microcalcifications have developed. Asymmetric density: No new or suspicious asymmetric density is present Skin thickening: None. Axillary adenopathy: None. IMPRESSION: No mammographic evidence of malignancy. Recommend annual screening mammography unless otherwise clinically indicated. ASSESSMENT: BI-RADS category 2: Benign
== END ==
PROVIDERS: PCP Internal Medicine; Visit Provider Internal Medicine
DX: Z12.31 Encounter for screening mammogram for malignant neoplasm of breast (principal)
CPT/HCPCS: 77063; 77067

== ENCOUNTER → 2022-06-28 10:18 | Outpatient (POV) | payer MEDICARE, OTHER, SELFPAY ==
[2022-06-28 10:29] VITALS: BP 106/53; PULSE 86; RESP 18; O2SAT 93; BMI 38.4
--- NOTE | 2022-06-28 10:41 | A.OFFVIS_ITS ---
[facility] Pain Management SOAP Note Subjective:: Patient is a pleasant 87-year-old female who presents today for follow-up. 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 Today she rates her pain a 4 out of 10. She states the pain is all in her low back along the right side and radiates into her right leg. Patient states this is a achy, throbbing sensation that is worse with increased activity. Patient states that she cannot tolerate prolonged standing, walking due to the pain. Patient states she will take Advil as needed for pain. I did prescribe the patient tizanidine 4 mg twice daily on her last visit however the patient states that she had numbness in her mouth following this medication and has stopped taking it. Her Davy is [phone]. It has been reviewed and appropriate. Review of Systems: General: No recent weight changes, no fever, no sleep disturbances Respiratory: No cough, no shortness of air, no recurring pulmonary infections Cardiovascular/peripheral vascular: No chest pain, no palpitations, no edema, no shortness of breath Gastrointestinal: No new onset incontinence, normal bowel movements reported Genitourinary: No new onset incontinence Musculoskeletal: Low back pain, right leg pain, right hip pain Psychiatric: [Normal mood/affect] Neurological: [Denies weakness in extremities], [denies balance issues] Objective:: Physical Exam: General: Alert and oriented x3, no acute distress, pleasant and cooperative Lungs: Respirations even and unlabored, symmetrical chest expansion Eyes: PERRL Musculoskeletal: Flexion and extension of lumbar [spine] somewhat guarded secondary to pain, [antalgic gait noted]. Point tenderness along right SI and right greater trochanteric bursa and positive right Za's, Prasanna's, Gaenslen's, compression and distraction exam Neurological: Speech clear, no gross sensory deficit Assessment:: Degenerative disc disease of lumbar spine multilevels with lumbar radiculopathy symptoms, sacroiliitis right-sided, right greater trochanteric bursitis Plan:: Patient is experiencing significant pain in her low back along the right side that radiates into her right hip and leg. Patient did have limited range of motion of her lumbar spine and point tenderness along her right SI and right greater trochanteric bursa. Patient also had a positive right Za's, Prasanna's, Gaenslen's, compression and distraction exam during today's visit. I have discussed with the patient that she may benefit from diagnostic right SI and right bursa injections. Risk and benefits were discussed with the patient. She would like to proceed forward with this plan of care. I will also order the patient a compounding cream at today's visit. We will schedule the patient for a right sacroiliac joint injection and right greater trochanteric bursa injection. Patient has been instructed to contact the clinic with any concerns before the next appointment. Dr. Myrick has reviewed this note and agrees with this plan of care. This note was dictated using voice recognition software and make contain errors or omissions. [facility] Surgical History History of cholecystectomy History of tubal ligation Social History (Updated 05/09/22 @ 14:12 by Swati Castaneda RN) Smoking Status: Never smoker second hand exposure: No alcohol intake: never substance use type: denies use current occupational status: retired Travel in the last 8 weeks: None household members: other housing: house current occupational exposures/hazards: No caffeine: Yes
== END | disposition home or self-care (01) ==
PROVIDERS: PCP Internal Medicine; Visit Provider Nurse Practitioner Family
DX: M51.16 Intervertebral disc disorders with radiculopathy, lumbar region (principal); M70.61 Trochanteric bursitis, right hip; M46.1 Sacroiliitis, not elsewhere classified
CPT/HCPCS: 99212; G0463

== ENCOUNTER 2022-07-04 10:22 | Day surgery (SDC) | payer MEDICARE, OTHER, SELFPAY ==
[2022-07-04 10:44] VITALS: BP 160/85; PULSE 80; RESP 18; TEMP 36.4; O2SAT 98; BMI 38.4
[2022-07-04 10:59] VITALS: BP 157/66; PULSE 89; RESP 18; O2SAT 97
--- NOTE | 2022-07-04 11:06 | P.PCN_ITS ---
Procedure Date: 07/04/22 Time: 11:00 Anesthesiologist:: Noam Garcia CRNA Complications:: None Pre-procedure Diagnosis:: Right sacroiliitis. Right trochanteric bursitis Post-procedure Diagnosis:: Same. Indications for Procedure:: Patient is a pleasant 87-year-old female comes our clinic today for right sacroiliac joint injection as well as right trochanteric bursa injection. Patient has extreme point tenderness over both areas. She rates her pain 8/10. Procedure Details:: Procedure: Right trochanteric bursa injection under fluoroscopy We then moved to the right trochanteric bursa.~ C-arm fluoroscopy was used to view the left greater trochanter.~ The skin and subcutaneous tissues overlying the right greater trochanter were anesthetized using lidocaine, 1.5% and a 25- gauge needle.~ After this, a 22-gauge spinal needle was inserted and advanced until it contacted the right greater trochanter.~ Dye was injected and good spread was seen throughout the right trochanteric bursa. After this, approximately 5 mL of bupivacaine, 0.25% and Depo-Medrol, 40 mg was incrementally injected into the right right trochanteric bursa.~ The patient tolerated the procedure well with no complications. Procedure: Right sacroliliac joint injection under fluoroscopy Informed consent was obtained and the risk and benefits of the procedure were explained to the patient.~ The patient was taken to the procedure room and noninvasive monitors were placed including noninvasive blood pressure cuff and pulse oximeter.~ The patient was placed prone on the procedure table.~ The~ right hip was cleansed using Betadine as a cleansing solution.~ C-arm fluorosocpy was used to view the right SI joint.~ The skin and subcutaneous tissues were anesthetized using Lidocaine 1.5% and a 25-gauge needle.~ After this, a 22-gauge spinal needle was inserted under fluoroscopic guidance into the inferior aspect of the right SI joint.~ Omnipaque dye was injected and a good spread was seen throughout the joint.~ After this, approximately 5 mL of bupivacaine 0.25% and Depo-Medrol 40 mg was incrementally injected into the sacroiliac joint.~ The patient tolerated the procedure well with no complications.~ The patient was observed in the Pain Clinic, then discharged home neurologically intact.~ Plan and Disposition:: Patient was discharged without incident
[2022-07-04 11:09] VITALS: BP 169/71; PULSE 79; RESP 20
== END 2022-07-04 11:11 | disposition home or self-care (01) ==
PROVIDERS: PCP Internal Medicine; Visit Provider Nurse Anesthetist, Certified Registered
DX: M46.1 Sacroiliitis, not elsewhere classified (principal); M70.61 Trochanteric bursitis, right hip
CPT/HCPCS: 20610; 27096; 77002; G0260; J1030

== ENCOUNTER → 2022-07-25 10:10 | Outpatient (POV) | payer MEDICARE, OTHER, SELFPAY ==
--- NOTE | 2022-07-25 10:39 | EXP.PAIN.SOA ---
[facility] Pain Management SOAP Note Subjective:: Patient is a pleasant 87-year-old female who presents today for follow-up of right bursa and right SI injection on 07/04/2022. 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 Today the patient states that she did have significant improvement following this injections of approximately 40 to 50% however she is rating her pain a 4 out of 10 and feels like she is back to her baseline during today's visit. Patient does state the pain is in her low back that radiates down her right leg. Patient describes this as an aching, throbbing sensation that is worse with increased activity. Patient cannot tolerate prolonged sitting, standing, walking due to the pain. Patient does take Advil as needed and was prescribed compounding cream at our last visit however the patient states she was not able to order this due to her insurance not covering it. Patient has started using Voltaren cream and does state this does provide some additional improvement. Patient denies any cardiac or kidney issues. Her Davy is [phone]. Its been reviewed and appropriate. Review of Systems: General: No recent weight changes, no fever, no sleep disturbances Respiratory: No cough, no shortness of air, no recurring pulmonary infections Cardiovascular/peripheral vascular: No chest pain, no palpitations, no edema, no shortness of breath Gastrointestinal: No new onset incontinence, normal bowel movements reported Genitourinary: No new onset incontinence Musculoskeletal: Low back pain, right leg pain Psychiatric: [Normal mood/affect] Neurological: [Denies weakness in extremities], [denies balance issues] Objective:: Physical Exam: General: Alert and oriented x3, no acute distress, pleasant and cooperative Lungs: Respirations even and unlabored, symmetrical chest expansion Eyes: PERRL Musculoskeletal: Flexion and extension of lumbar [spine] somewhat guarded secondary to pain, [antalgic gait noted] point tenderness along right greater trochanteric bursa and right SI along with positive right Za's, Prasanna's, Gaenslen's, compression and distraction exam Neurological: Speech clear, no gross sensory deficit Assessment:: Degenerative disc disease of lumbar spine multilevels with lumbar radiculopathy symptoms, right greater trochanteric bursitis, right sacroiliitis Plan:: Patient continues to experience significant pain in her low back with radiating symptoms into her right leg. Patient did have limited range of motion of her lumbar spine and point tenderness along her right greater trochanteric bursa along with right sacroiliac joint. Patient also had positive right Za's, Prasanna's, Gaenslen's, compression and distraction exam. I have discussed with the patient that she may benefit from repeat right SI and right bursa injections. Risk and benefits were discussed with the patient. She would like to proceed forward with this plan of care. I will also order the patient diclofenac 75 mg twice daily with a 14-day supply. I have counseled the patient to take this medication with food to prevent GI upset and to stop all other NSAID medications while taking this medicine. We will schedule the patient for a right SI and right bursa injection. Patient has been instructed to contact the clinic with any concerns before the next appointment. Dr. Myrick has reviewed this note and agrees with this plan of care. This note was dictated using voice recognition software and make contain errors or omissions. [facility] Disclaimer: The information contained in this section may have been updated after the patient was seen, as this information can be updated by other users. Surgical History History of cholecystectomy History of tubal ligation Family History (Updated
[2022-07-25 10:40] VITALS: BP 159/57; PULSE 84; RESP 18; O2SAT 97; BMI 38.4
== END | disposition home or self-care (01) ==
PROVIDERS: PCP Internal Medicine; Visit Provider Nurse Practitioner Family
DX: M51.16 Intervertebral disc disorders with radiculopathy, lumbar region (principal); M70.61 Trochanteric bursitis, right hip; M46.1 Sacroiliitis, not elsewhere classified
CPT/HCPCS: 99212; G0463

== ENCOUNTER 2022-07-28 10:27 | Day surgery (SDC) | payer MEDICARE, OTHER, SELFPAY ==
[2022-07-28 10:36] VITALS: BP 160/81; PULSE 82; RESP 18; TEMP 36.5; O2SAT 95; BMI 38.4
[2022-07-28 10:41] VITALS: BP 203/71; PULSE 85; RESP 18; O2SAT 98
[2022-07-28 10:42] VITALS: BP 203/71; PULSE 85; RESP 18; O2SAT 98
--- NOTE | 2022-07-28 10:49 | P.PCN_ITS ---
Procedure Date: 07/28/22 Time: 10:45 Anesthesiologist:: Noam Garcia CRNA Complications:: None Pre-procedure Diagnosis:: Degenerative disc disease of lumbar spine with lumbar radiculopathy symptoms, right greater trochanteric bursitis, right sacroiliitis Post-procedure Diagnosis:: Same Indications for Procedure:: Patient is a pleasant 87-year-old female who presents today for right bursa and right SI injection. 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 Today the patient rates her pain a 4 out of 10. Patient denies any new trauma or injury. Patient denies any change in location or type of pain she experiences. Patient does currently use [id number] Tylenol and compounding cream to provide additional improvement along with Voltaren gel. General: Alert and oriented x3, no acute distress, pleasant and cooperative Lungs: Respiration even unlabored, symmetrical chest expansion Eyes: PERRL Musculoskeletal: Flexion and extension of lumbar spine somewhat guarded secondary to pain, antalgic gait noted. Extreme point tenderness along right SI and right bursa with positive right Za's, Prasanna's, Gaenslen's, compression and distraction exam Neurological: Speech clear, no gross sensory deficit Procedure Details:: Procedure: Right sacroiliac joint injection and right greater trochanteric bursa injection under fluoroscopy Informed consent was obtained and the risks and benefits of the procedure were explained to the patient.~ The patient was taken to the procedure room and noninvasive monitors were placed including a noninvasive blood pressure cuff and pulse oximeter.~ The patient was placed prone on the procedure table. Patient's right buttocks/hip were cleansed using ChloraPrep as a cleansing solution. C-arm fluoroscopy was used to view the right sacroiliac joint.~ The skin and subcutaneous tissues were anesthetized using lidocaine 1.5% and a 25-gauge need le.~ After this, a 22-gauge spinal needle was inserted under fluoroscopic guidance into the inferior aspect of the right sacroiliac joint.~ Omnipaque dye was injected and good spread was seen throughout the joint.~ After this, approximately 5 mL of bupivacaine, 0.25% and Depo-Medrol, 40 mg was incrementally injected into the right sacroiliac joint. We then moved to the right greater trochanteric bursa.~ The skin and subcutaneous tissues were anesthetized using lidocaine 1.5% and a 25-gauge needle.~ After this, a 22-gauge spinal needle was inserted under fluoroscopic guidance into the inferior aspect of the right trochanteric bursa joint.~ Omnipaque dye was injected and good spread was seen throughout the joint. After this, approximately 5 mL of bupivacaine, 0.25% and Depo-Medrol, 40 mg was incrementally injected into the right greater trochanteric bursa ~ The patient tolerated the procedure well with no complications. The patient was observed in the Pain Clinic and then was discharged home neurologically intact. Plan and Disposition:: Patient will return to clinic in 2 weeks for reevaluation of symptoms and follow-up. Patient has been counseled to contact the office with any questions or concerns before the next appointment date. Dr. Myrick is read this note and agrees with this plan of care. This note was dictated using voice recognition software and may contain errors or omissions.
[2022-07-28 11:00] VITALS: BP 149/80; PULSE 80; RESP 20
== END 2022-07-28 11:01 | disposition home or self-care (01) ==
PROVIDERS: PCP Internal Medicine; Visit Provider Nurse Anesthetist, Certified Registered
DX: M51.16 Intervertebral disc disorders with radiculopathy, lumbar region (principal); M70.61 Trochanteric bursitis, right hip; M46.1 Sacroiliitis, not elsewhere classified
CPT/HCPCS: 20610; 27096; 77002; G0260; J1040

== ENCOUNTER → 2022-09-11 10:50 | Outpatient (POV) | payer MEDICARE, OTHER, SELFPAY ==
--- NOTE | 2022-09-11 11:16 | EXP.PAIN.SOA ---
[facility] Pain Management SOAP Note Subjective:: Patient is a pleasant 87-year-old female who presents today for follow-up. We are currently treating the patient for degenerative disc disease of lumbar spine with lumbar radiculopathy symptoms, greater trochanteric bursitis, sacroiliitis. Today she rates her pain a 7 out of 10. Patient denies any new trauma or injury. Patient denies any change in location or type of pain she experiences. Patient does state her pain is all in her low back along the right side with radiating symptoms into her right hip and down her right leg to her knee. Patient does describe this as a aching, throbbing sensation that is worse with increased activity. Patient cannot tolerate prolonged sitting, standing, walking due to the pain. Patient did have a previous right SI and right bursa injection at the end of June that provided at least 50% improvement lasting a little over 1 month. Patient does take Advil as needed along with Voltaren cream for additional relief. Her Davy is [phone]. Its been reviewed and appropriate. Review of Systems: General: No recent weight changes, no fever, no sleep disturbances Respiratory: No cough, no shortness of air, no recurring pulmonary infections Cardiovascular/peripheral vascular: No chest pain, no palpitations, no edema, no shortness of breath Gastrointestinal: No new onset incontinence, normal bowel movements reported Genitourinary: No new onset incontinence Musculoskeletal: Low back pain, right hip pain, right leg pain Psychiatric: [Normal mood/affect] Neurological: [Denies weakness in extremities], [denies balance issues] Objective:: Physical Exam: General: Alert and oriented x3, no acute distress, pleasant and cooperative Lungs: Respirations even and unlabored, symmetrical chest expansion Eyes: PERRL Musculoskeletal: Flexion and extension of lumbar [spine] somewhat guarded secondary to pain, [antalgic gait noted] extreme point tenderness along right SI and right bursa with positive right Za's, Prasanna's, Gaenslen's, compression and distraction exam Neurological: Speech clear, no gross sensory deficit ORT score updated with low risk Assessment:: Degenerative disc disease of lumbar spine with lumbar radiculopathy symptoms, greater trochanteric bursitis, sacroiliitis Plan:: Patient is experiencing worsening pain along her low back with radiating symptoms into her right hip and leg. Patient did have limited range of motion of her lumbar spine along with extreme point tenderness at her right SI and right greater trochanteric bursa. Patient also had a positive right Za's, Prasanna's, Gaenslen's, compression and distraction exam. I have discussed with the patient that she may benefit from repeat right SI and right bursa injections. Her previous injections provided at least 50% improvement for over 1 month. Risk and benefits of these injections were discussed with the patient and she would like to proceed forward with this plan of care. We will schedule her for diagnostic right SI and right bursa injection. Patient has been instructed to contact the clinic with any concerns before the next appointment. Dr. Myrick has reviewed this note and agrees with this plan of care. This note was dictated using voice recognition software and make contain errors or omissions. [facility] Disclaimer: The information contained in this section may have been updated after the patient was seen, as this information can be updated by other users. Surgical History History of cholecystectomy History of tubal ligation Family History Other No significant family history Social History Smoking Status: Never smoker second hand exposure: No alcohol intake: never substance use type: denies use current occupational status:
[2022-09-11 12:44] VITALS: BP 156/76; PULSE 78; RESP 18; O2SAT 98; BMI 36.9
== END ==
PROVIDERS: PCP Internal Medicine; Visit Provider Nurse Practitioner Family
DX: M51.16 Intervertebral disc disorders with radiculopathy, lumbar region (principal); M70.60 Trochanteric bursitis, unspecified hip; M46.1 Sacroiliitis, not elsewhere classified
CPT/HCPCS: 99212; G0463

== ENCOUNTER 2022-09-12 08:21 | Day surgery (SDC) | payer MEDICARE, OTHER, SELFPAY ==
[2022-09-12 08:32] VITALS: BP 132/70; PULSE 85; RESP 18; TEMP 36.3; O2SAT 95; BMI 36.9
[2022-09-12 08:42] VITALS: BP 165/75; PULSE 85; RESP 18; O2SAT 97
[2022-09-12 08:43] VITALS: BP 165/75; PULSE 85; RESP 18; O2SAT 98
[2022-09-12 08:48] VITALS: BP 157/68; PULSE 73; RESP 18; O2SAT 95
--- NOTE | 2022-09-12 08:48 | P.PCN_ITS ---
Procedure Date: 09/12/22 Time: 08:45 Anesthesiologist:: Noam Garcia CRNA Complications:: None Pre-procedure Diagnosis:: Right sacroiliitis. Right trochanteric bursitis Post-procedure Diagnosis:: Same. Indications for Procedure:: This patient is a pleasant 87-year-old female comes our clinic today for right sacroiliac joint injection as well as right trochanteric bursa injection. Patient has had this in the past with significant improvement. She rates her pain today 8/10. She describes pain over the low lumbar right as well as right posterior hip pain. Also, right lateral hip pain. Procedure Details:: Procedure: Right sacroliliac joint injection under fluoroscopy Informed consent was obtained and the risk and benefits of the procedure were explained to the patient.~ The patient was taken to the procedure room and noninvasive monitors were placed including noninvasive blood pressure cuff and pulse oximeter.~ The patient was placed prone on the procedure table.~ The~ right hip was cleansed using Betadine as a cleansing solution.~ C-arm fluorosocpy was used to view the right SI joint.~ The skin and subcutaneous tissues were anesthetized using Lidocaine 1.5% and a 25-gauge needle.~ After this, a 22-gauge spinal needle was inserted under fluoroscopic guidance into the inferior aspect of the right SI joint.~ Omnipaque dye was injected and a good spread was seen throughout the joint.~ After this, approximately 5 mL of bupivacaine 0.25% and Depo-Medrol 40 mg was incrementally injected into the sacroiliac joint.~ The patient tolerated the procedure well with no complications.~ The patient was observed in the Pain Clinic, then discharged home neurologically intact.~ Procedure: Right trochanteric bursa injection under fluoroscopy We then moved to the right trochanteric bursa.~ C-arm fluoroscopy was used to view the left greater trochanter.~ The skin and subcutaneous tissues overlying the right greater trochanter were anesthetized using lidocaine, 1.5% and a 25- gauge needle.~ After this, a 22-gauge spinal needle was inserted and advanced until it contacted the right greater trochanter.~ Dye was injected and good spread was seen throughout the right trochanteric bursa. After this, approximately 5 mL of bupivacaine, 0.25% and Depo-Medrol, 40 mg was incrementally injected into the right right trochanteric bursa.~ The patient tolerated the procedure well with no complications. Plan and Disposition:: Patient was discharged without incident.
== END 2022-09-12 08:48 | disposition home or self-care (01) ==
PROVIDERS: PCP Internal Medicine; Visit Provider Nurse Anesthetist, Certified Registered
DX: M46.1 Sacroiliitis, not elsewhere classified (principal); M70.61 Trochanteric bursitis, right hip
CPT/HCPCS: 20610; 27096; 77002; G0260; J1040

== ENCOUNTER → 2022-10-10 12:52 | Outpatient (CLI) | payer MEDICARE, OTHER, SELFPAY ==
[2022-10-10 17:41] LABS: Alanine Aminotransferase 13 U/L (12-78); Albumin Level 3.9 g/dl (3.5-5.0); Albumin/Globulin Ratio 1.4 (1.1-1.8); Alkaline Phosphatase 86 U/L (38-126); Anion Gap 7.4 mEq/L (5-15); Aspartate Amino Transferase 28 U/L (14-36); Bilirubin,Total 0.8 mg/dl (0.2-1.3); Blood Urea Nitrogen 22 mg/dl (7-17); Calcium 8.8 mg/dl (8.4-10.2); Carbon Dioxide 37 mmol/L (22.0-30.0); Chloride 98 mmol/L (98-107); Cholesterol 166 mg/dl (140-200); Estimated Glomerular Filt Rate 68 ml/min (>60); GFR (African American) 82 ML/MIN (>60); Globulin 2.7 g/dL (1.3-3.2); Glucose 82 mg/dl (74-100); HDL Cholesterol 42 mg/dl (40-60); Potassium 4.4 mmoL/L (3.5-5.1); Sodium 138 mmol/L (136-145); Total Protein,Serum 6.6 g/dl (6.3-8.2); Triglycerides 184 mg/dl (30-150); VLDL Cholesterol 37 mg/dL (0-40)
[2022-10-10 17:52] LABS: Direct LDL Cholesterol 73.14 mg/dL (100-129)
== END ==
PROVIDERS: PCP Internal Medicine; Visit Provider Internal Medicine
DX: I10 Essential (primary) hypertension (principal); E78.5 Hyperlipidemia, unspecified
CPT/HCPCS: 80053; 80061

== ENCOUNTER → 2022-10-13 11:28 | Outpatient (POV) | payer MEDICARE, OTHER, SELFPAY ==
--- NOTE | 2022-10-13 12:11 | EXP.PAIN.SOA ---
[facility] Pain Management SOAP Note Subjective:: Patient is a pleasant 87-year-old female who presents today for 1 month follow-up. We are currently treating the patient for degenerative disc disease of lumbar spine with lumbar radiculopathy symptoms, sacroiliitis, greater trochanteric bursitis. Today she rates her pain a 6 out of 10. Patient denies any new trauma or injury. Patient denies any change location or type of pain she experiences. Patient states her pain is all in her low back along the right side with radiating symptoms into her right hip and leg. Patient previously had a right SI and right greater trochanteric bursa injection in August that provided at least 50% improvement lasting over 1 month. She does state that she still feels like this injection is helping some however she is more back to her baseline. She does describe this as an aching, throbbing sensation that is worse with increased activity. Patient cannot tolerate prolonged sitting, standing, walking due to the pain. It does interfere with her activities of daily living such as cooking and cleaning. Patient is not on any scheduled medications. Her Davy is [phone]. Its been reviewed and appropriate. Review of Systems: General: No recent weight changes, no fever, no sleep disturbances Respiratory: No cough, no shortness of air, no recurring pulmonary infections Cardiovascular/peripheral vascular: No chest pain, no palpitations, no edema, no shortness of breath Gastrointestinal: No new onset incontinence, normal bowel movements reported Genitourinary: No new onset incontinence Musculoskeletal: Low back pain, right hip pain, right leg pain Psychiatric: [Normal mood/affect] Neurological: [Denies weakness in extremities], [denies balance issues] Objective:: Physical Exam: General: Alert and oriented x3, no acute distress, pleasant and cooperative Lungs: Respirations even and unlabored, symmetrical chest expansion Eyes: PERRL Musculoskeletal: Flexion and extension of lumbar [spine] somewhat guarded secondary to pain, [antalgic gait noted] extreme point tenderness at right SI and right greater trochanteric bursa with positive right Za's, Prasanna's, Gaenslen's, compression and distraction exam Neurological: Speech clear, no gross sensory deficit Assessment:: Degenerative disc disease of lumbar spine with lumbar radiculopathy symptoms, sacroiliitis, greater trochanteric bursitis Plan:: Patient is starting to experience worsening pain in her low back along the right side and right hip. She did have limited range of motion of her lumbar spine with extreme point tenderness at her right SI and right greater trochanteric bursa. She also had a positive right Za's, Prasanna's, Gaenslen's, compression and distraction exam. I have discussed with the patient that she may benefit from a repeat right SI and right bursa injection. Risk and benefits were discussed with the patient and she would like to proceed forward with these injections. I have also discussed with the patient that she may benefit from a SI stabilization procedure in the future. Educational handouts were given on the trans LOC SI stabilization during today's visit. We will schedule the patient for a right SI and right greater trochanteric bursa injection. Patient has been instructed to contact the clinic with any concerns before the next appointment. Dr. Myrick has reviewed this note and agrees with this plan of care. This note was dictated using voice recognition software and make contain errors or omissions. [facility] Disclaimer: The information contained in this section may have been updated after the patient was seen, as this information can be updated by other users. Surgical History History of cholecystectomy History of tubal ligation Family History Other No significant family history Social
[2022-10-13 12:13] VITALS: BP 151/86; PULSE 89; RESP 20; BMI 37.9
== END ==
PROVIDERS: PCP Internal Medicine; Visit Provider Nurse Practitioner Family
DX: M51.16 Intervertebral disc disorders with radiculopathy, lumbar region (principal); M46.1 Sacroiliitis, not elsewhere classified; M70.60 Trochanteric bursitis, unspecified hip
CPT/HCPCS: 99212; G0463

== ENCOUNTER 2022-10-24 11:15 | Day surgery (SDC) | payer MEDICARE, OTHER, SELFPAY ==
[2022-10-24 11:30] VITALS: BP 180/78; PULSE 79; RESP 18; TEMP 36.7; O2SAT 94; BMI 37.9
[2022-10-24 11:47] VITALS: BP 166/95; PULSE 83; RESP 18; O2SAT 98
[2022-10-24 11:51] VITALS: BP 151/71; PULSE 66; RESP 18; O2SAT 94
--- NOTE | 2022-10-24 12:07 | P.PCN_ITS ---
Procedure Date: 10/24/22 Time: 11:20 Anesthesiologist:: Noam Garcia CRNA Complications:: None Pre-procedure Diagnosis:: Right sacroiliitis Post-procedure Diagnosis:: Same Indications for Procedure:: Very pleasant 87-year-old female who comes our clinic today for right sacroiliac joint injection. She has had this injection in the past with significant improvement. There is a limit to the time of relief. Patient states 6 to 8 weeks. After which time her pain returns in its entirety. She has extreme point tenderness over the right sacroiliac joint area. She rates her pain 7/10. Procedure Details:: Procedure: Right sacroliliac joint injection under fluoroscopy Informed consent was obtained and the risk and benefits of the procedure were explained to the patient.~ The patient was taken to the procedure room and noninvasive monitors were placed including noninvasive blood pressure cuff and pulse oximeter.~ The patient was placed prone on the procedure table.~ The~ right hip was cleansed using Betadine as a cleansing solution.~ C-arm fluorosocpy was used to view the right SI joint.~ The skin and subcutaneous tissues were anesthetized using Lidocaine 1.5% and a 25-gauge needle.~ After this, a 22-gauge spinal needle was inserted under fluoroscopic guidance into the inferior aspect of the right SI joint.~ Omnipaque dye was injected and a good spread was seen throughout the joint.~ After this, approximately 5 mL of bupiv acaine 0.25% and Depo-Medrol 40 mg was incrementally injected into the sacroiliac joint.~ The patient tolerated the procedure well with no complications.~ The patient was observed in the Pain Clinic, then discharged home neurologically intact.~ Plan and Disposition:: Patient was discharged without incident
== END 2022-10-24 11:51 | disposition home or self-care (01) ==
PROVIDERS: PCP Internal Medicine; Visit Provider Nurse Anesthetist, Certified Registered
DX: M46.1 Sacroiliitis, not elsewhere classified (principal)
CPT/HCPCS: 27096; G0260; J1040

== ENCOUNTER 2022-10-31 11:14 | Day surgery (SDC) | payer MEDICARE, OTHER, SELFPAY ==
[2022-10-31 11:30] VITALS: BP 155/85; PULSE 74; RESP 18; TEMP 36.7; O2SAT 98; BMI 37.9
[2022-10-31 11:50] VITALS: BP 171/80; PULSE 70; RESP 18; O2SAT 98
--- NOTE | 2022-10-31 11:52 | P.PCN_ITS ---
Procedure Date: 10/31/22 Time: 11:50 Anesthesiologist:: Noam Garcia CRNA Complications:: None Pre-procedure Diagnosis:: Right greater trochanteric bursitis Post-procedure Diagnosis:: Same Indications for Procedure:: Very pleasant 87-year-old female that comes our clinic today for right greater trochanteric bursa injection. She has extreme point tenderness over the right bursa area. She rates her pain 7/10. Procedure Details:: Procedure: Right trochanteric bursa injection under fluoroscopy We then moved to the right trochanteric bursa.~ C-arm fluoroscopy was used to view the left greater trochanter.~ The skin and subcutaneous tissues overlying the right greater trochanter were anesthetized using lidocaine, 1.5% and a 25- gauge needle.~ After this, a 22-gauge spinal needle was inserted and advanced until it contacted the right greater trochanter.~ Dye was injected and good spread was seen throughout the right trochanteric bursa. After this, approximately 5 mL of bupivacaine, 0.25% and Depo-Medrol, 40 mg was incrementally injected into the right right trochanteric bursa.~ The patient tolerated the procedure well with no complications. Plan and Disposition:: Patient was discharged without incident.
== END 2022-10-31 11:52 | disposition home or self-care (01) ==
PROVIDERS: PCP Internal Medicine; Visit Provider Nurse Practitioner Family
DX: M70.61 Trochanteric bursitis, right hip (principal)
CPT/HCPCS: 20610; 77002; J1040

== ENCOUNTER → 2022-11-08 10:13 | Outpatient (CLI) | payer MEDICARE, OTHER, SELFPAY ==
[2022-11-08 10:52] LABS: Basophils # 0.1 K/mm3 (0-0.2); Basophils % 0.8 % (0.1-2.0); Eosinophils # 0.2 K/mm3 (0.0-0.4); Eosinophils % 1.8 % (0.1-12.0); Hematocrit 42.2 % (37.0-47.0); Hemoglobin 13.2 g/dL (12.2-16.2); Lymphocytes # 2.1 K/mm3 (0.7-4.5); Lymphocytes % 17.4 % (10-50); Mean Corpuscular HGB Conc 31.3 g/dL (31.8-35.4); Mean Corpuscular Hemoglobin 29.6 pg (27.0-31.2); Mean Corpuscular Volume 94.5 fl (81-99); Mean Platelet Volume 8.8 fl (7.4-10.4); Monocytes # 0.6 K/mm3 (0.1-1.0); Monocytes % 4.6 % (1.7-9.3); Neutrophils # 9.2 K/mm3 (1.8-7.8); Neutrophils % 75.4 % (37.0-80.0); Platelet Count 258 K/mm3 (142-424); Red Blood Count 4.46 M/mm3 (4.20-5.40); Red Cell Distribution Width 14.3 % (11.5-17.5); White Blood Count 12.2 K/mm3 (4.8-10.8)
[2022-11-08 11:19] LABS: Chloride 100 mmol/L (98-107); Potassium 4.2 mmoL/L (3.5-5.1); Sodium 142 mmol/L (136-145)
[2022-11-08 11:22] LABS: Anion Gap 10.2 mEq/L (5-15); Blood Urea Nitrogen 25 mg/dl (7-17); Calcium 9.3 mg/dl (8.4-10.2); Carbon Dioxide 36 mmol/L (22.0-30.0); Estimated Glomerular Filt Rate 68 ml/min (>60); GFR (African American) 82 ML/MIN (>60); Glucose 94 mg/dl (74-100)
== END ==
PROVIDERS: PCP Internal Medicine; Visit Provider Anesthesiology
DX: Z01.812 Encounter for preprocedural laboratory examination (principal); M46.1 Sacroiliitis, not elsewhere classified
CPT/HCPCS: 36415; 80048; 85025

== ENCOUNTER 2022-11-10 06:50 | Day surgery (SDC) | payer MEDICARE, OTHER, SELFPAY ==
[2022-11-09 10:46] VITALS: BMI 37.6
[2022-11-10] VITALS (10 sets, daily range): BP systolic 138–159; BP diastolic 69–109; PULSE 58–71; RESP 16–17; TEMP 36.2–36.4; O2SAT 91–100
--- NOTE | 2022-11-10 09:02 | P.PN_ITS ---
[facility] Disclaimer: The information contained in this section may have been updated after the patient was seen, as this information can be updated by other users. Medical History GERD (gastroesophageal reflux disease) HLD (hyperlipidemia) HTN (hypertension) Surgical History History of cholecystectomy History of tubal ligation History of ureteroscopy Family History Other Family history of cancer No significant family history Social History Smoking Status: Never smoker second hand exposure: No alcohol intake: never substance use type: denies use current occupational status: retired Travel in the last 8 weeks: None household members: other housing: house current occupational exposures/hazards: No caffeine: Yes [facility] Anesthesia Checklist Patient Identification Patient Identification: Arm Band Structural Data Admitted From: Home Planned Operative Procedure/s: Right Sacroiliac Joint Fusion Consent for Planned Operative Procedure(s) Verified: Yes Verified Documents: Surgical Consent and History and Physical NPO Status Verified Time NPO: 00:00 Additional verifications Anesthesia Reactions: No Hx Blood Transfusions: No Blood Transfusion Reaction: No Airway Assessment C-Spine Mobility Assessed: Yes TMJ Mobility Assessed: Yes Dentition: Good Dentition (upper dentures removed) Neurological Assessment Level of Consciousness: Awake and Alert Anesthesia Plan Anesthesia Risk discussed: Yes Anesthesia Plan: Verified ASA Class: II Anesthesia Type: General
--- NOTE | 2022-11-10 10:14 | P.OP_ITS ---
Date of procedure: 11/10/22 Pre-op Diagnosis:: Sacroiliitis Post-op Diagnosis:: Same Procedure performed:: Right SI joint fusion Surgeon:: Jian Myrick MD [employer]Y PLAN DEALER:: Jose Lopez Anesthesia: GETA Estimated blood loss (mL): 5 Clinical Note:: This patient is a pleasant 87-year-old white female who we are treating for chronic sacroiliitis. She gets good relief from SI joint injections for approximately 6 to 8 weeks. However this pain does come back. She has had 2 successful diagnostic blocks. She presents for right SI joint fusion today to help her with long-term relief of her pain symptoms. Operative findings:: 2 screws placed with the Transloc system Operative note:: Informed consent was obtained and the risk and benefits of the procedure were explained to the patient. The patient was taken to the operating room and placed prone on the procedure table. She was prepped and draped in sterile fashion. A view was taken of the right SI joint. A sacral outlet view of the sacrum was obtained. The PSIS was palpated and marked off. The lines were drawn on the skin and aligned overlying the S1 and S2 neural foramen. An approximate 1 cm incision was made just lateral to the PSIS between the S1 and S2 markings. A Jamshidi needle was placed through the incision in a cranial to caudal and lateral to the medial trajectory using a mallet under intermittent fluoroscopy to a stop depth. Trocar depth was confirmed under a sacral inlet view to a depth that did not breach the anterior sacral cortex. The guidewire was placed through the trocar and the needle removed over the wire. The ilium and sacral cortex were drilled and decorticated under live fluoroscopy to the 50 mm stop depth with no advancement of the guidewire noted. A 40 mm length transloc screw was selected. The selected screw implant was placed onto the escort car driver and screwed into the created channel until it was flush with the ilium transfixing and compressing the joint. Next a second transloc screw implant was placed in a similar fashion approximately 8 to 10 mm inferior to the first implant. The incision was irrigated and subcutaneous tissue was closed with 2-0 Vicryl followed by 4-0 nylon. The patient tolerated the procedure well with no complications. He was taken recovery in stable condition. Patient was discharged home neurologic intact with good relief of pain symptoms. He was discharged with Bactrim DS twice a day for 5 days. Plan and disposition: We will follow-up with this patient in 1 week for wound check and in 2 weeks for suture removal. If she has any problems or questions she is to call us back in the pain clinic. Condition: stable Disposition: PACU Complications:: none
--- NOTE | 2022-11-10 10:19 | P.PNANES_ITS ---
[facility] Anesthesia Record Part I Anesthesia Record I Intake, IV Amount: 600 Estimated blood loss (mL): 5 Urine output (mL): 0 Blood Products used (#): none Blood Pressure: 155/109 SaO2: 91 Pulse Rate: 71 Respiratory Rate: 16 Temperature: 97.5 F Patient is:: Drowsy and Stable Stable to PACU at:: 10:20
--- NOTE | 2022-11-10 13:55 | EXP.ANES.II ---
[facility] Anesthesia Record Part II Anesthesia Record Part II Discharge Time: 10:50 Destination: Surgical Day Care (OP Surgery) PACU nurse assessment reviewed?: Yes Patient Condition:: Good Anesthesia Complications:: None Swallowing reflex intact?: Yes Cyanosis?: No Blood Pressure: 157/69 Pulse Rate: 59 Temperature: 97.6 F Mental Status: Alert & Oriented Pain level:: 0 Nausea and/or vomitting:: None Intake, IV Amount: 0
== END 2022-11-10 11:30 | disposition home or self-care (01) ==
PROVIDERS: PCP Internal Medicine; Visit Provider Anesthesiology
DX: M46.1 Sacroiliitis, not elsewhere classified (principal); Z79.899 Other long term (current) drug therapy
CPT/HCPCS: 27279; 96374; C1713; J2405; J3370

== ENCOUNTER → 2022-11-23 11:25 | Outpatient (POV) | payer MEDICARE, OTHER, SELFPAY ==
[2022-11-23 11:40] VITALS: BP 147/72; PULSE 84; RESP 17; TEMP 36.7; O2SAT 100; BMI 37.6
--- NOTE | 2022-11-23 12:03 | EXP.PAIN.SOA ---
[facility] Pain Management SOAP Note Subjective:: Patient is a pleasant 87-year-old female who presents today for follow-up of SI stabilization procedure right sided on 11/10/2022. We are currently treating the patient for degenerative disc disease of lumbar spine with lumbar radiculopathy symptoms, sacroiliitis, greater trochanteric bursitis.? Today she rates her pain a 3 out of 10. She states she has had significant improvement following this procedure and states last week she felt great. Today she states that she does have a little soreness but does believe it is related to arthritis. Patient does take Tylenol as needed and feels like this does work well. Patient denies any complications following this procedure. Patient was given [place] 7.5 mg with a 4-day supply following her postop care. Patient denies any side effects from this medication. Her Davy is [phone]. Its been reviewed and appropriate. Review of Systems: General: No recent weight changes, no fever, no sleep disturbances Respiratory: No cough, no shortness of air, no recurring pulmonary infections Cardiovascular/peripheral vascular: No chest pain, no palpitations,? no edema, no shortness of breath Gastrointestinal: No new onset incontinence, normal bowel movements reported Genitourinary: No new onset incontinence Musculoskeletal: Low back pain Psychiatric: [Normal mood/affect] Neurological: [Denies weakness in extremities], [denies balance issues] Objective:: Physical Exam: General: Alert and oriented x3, no acute distress, pleasant and cooperative Lungs: Respirations even and unlabored, symmetrical chest expansion Eyes: PERRL Musculoskeletal: Flexion and extension of lumbar [spine] somewhat guarded secondary to pain, [antalgic gait noted] Neurological: Speech clear, no gross sensory deficit Skin: Incision site clean, dry, well approximated with no erythema and sutures intact Assessment:: Degenerative disc disease of lumbar spine with lumbar radiculopathy symptoms, sacroiliitis, greater trochanteric bursitis Plan:: Patient is doing well following her SI stabilization procedure on the right side. Patient did have her sutures removed and Dermabond applied during today's visit. I have counseled the patient to continue her postop restrictions and to return to clinic in 1 month for reevaluation of symptoms and plan of care. Patient has been instructed to contact the clinic with any concerns before the next appointment. Dr. Myrick has reviewed this note and agrees with this plan of care. This note was dictated using voice recognition software and make contain errors or omissions. [facility] Disclaimer: The information contained in this section may have been updated after the patient was seen, as this information can be updated by other users. Medical History GERD (gastroesophageal reflux disease) HLD (hyperlipidemia) HTN (hypertension) Surgical History History of cholecystectomy History of tubal ligation History of ureteroscopy Family History Other Family history of cancer No significant family history Social History Smoking Status: Never smoker second hand exposure: No alcohol intake: never substance use type: denies use current occupational status: other Travel in the last 8 weeks: None household members: other housing: house current occupational exposures/hazards: No caffeine: Yes
== END ==
PROVIDERS: PCP Internal Medicine; Visit Provider Nurse Practitioner Family
DX: M51.16 Intervertebral disc disorders with radiculopathy, lumbar region (principal); M46.1 Sacroiliitis, not elsewhere classified; M70.60 Trochanteric bursitis, unspecified hip
CPT/HCPCS: 99213; G0463

== ENCOUNTER → 2022-12-21 14:24 | Outpatient (POV) | payer MEDICARE, OTHER, SELFPAY ==
--- NOTE | 2022-12-21 14:26 | EXP.PAIN.SOA ---
[facility] Pain Management SOAP Note Subjective:: Patient is a pleasant 87-year-old female who presents today for 1 month follow-up. We are currently treating the patient for degenerative disc disease of lumbar spine with lumbar radiculopathy symptoms, sacroiliitis, greater trochanteric bursitis.? Today she rates her pain a 6 out of 10.? Patient had a right SI stabilization procedure on 11/10/2022. At her last visit she did have significant improvement however today she feels like her pain is back and is now experiencing it on the left side as well. Patient does describe this as an aching, throbbing sensation that is worse with increased activity. She states it does interfere with her ability perform activities of daily living such as cooking and cleaning. She does take Tylenol as needed.? Patient denies any complications following this procedure.? Her Davy is [phone]. Its been reviewed and appropriate. Review of Systems: General: No recent weight changes, no fever, no sleep disturbances Respiratory: No cough, no shortness of air, no recurring pulmonary infections Cardiovascular/peripheral vascular: No chest pain, no palpitations,? no edema, no shortness of breath Gastrointestinal: No new onset incontinence, normal bowel movements reported Genitourinary: No new onset incontinence Musculoskeletal: Low back pain Psychiatric: [Normal mood/affect] Neurological: [Denies weakness in extremities], [denies balance issues] Objective:: Physical Exam: General: Alert and oriented x3, no acute distress, pleasant and cooperative Lungs: Respirations even and unlabored, symmetrical chest expansion Eyes: PERRL Musculoskeletal: Flexion and extension of lumbar [spine] somewhat guarded secondary to pain, [antalgic gait noted] negative point tenderness at her bilateral SI location and negative Za's test; positive point tenderness on bilateral greater trochanteric bursa's Neurological: Speech clear, no gross sensory deficit Assessment:: Degenerative disc disease of lumbar spine with lumbar radiculopathy symptoms, sacroiliitis, greater trochanteric bursitis, status post right SI stabilization procedure Plan:: Patient is experiencing significant pain in her low back with radiating symptoms into her bilateral hips. Patient had limited range of motion of her lumbar spine along with point tenderness at her bilateral greater trochanteric bursa's during today's visit. I have discussed with patient that she may benefit from bilateral bursa injections. Risk and benefits were discussed with the patient and she would like to proceed forward with this plan of care. I will also send in a prescription of tramadol 50 mg twice daily and provide a 2-week supply of this medication. Patient will be scheduled for bilateral greater trochanteric bursa injections. Patient has been instructed to contact the clinic with any concerns before the next appointment. Dr. Myrick has reviewed this note and agrees with this plan of care. This note was dictated using voice recognition software and make contain errors or omissions. [facility] Disclaimer: The information contained in this section may have been updated after the patient was seen, as this information can be updated by other users. Medical History GERD (gastroesophageal reflux disease) HLD (hyperlipidemia) HTN (hypertension) Surgical History History of cholecystectomy History of tubal ligation History of ureteroscopy Family History Other Family history of cancer No significant family history Social History Smoking Status: Never smoker second hand exposure: No alcohol intake: never substance use type: denies use current occupational status: other Travel in the last 8 weeks: None household members: other ho
[2022-12-21 15:44] VITALS: BP 141/81; PULSE 84; RESP 18; O2SAT 96; BMI 38.4
== END | disposition home or self-care (01) ==
PROVIDERS: PCP Internal Medicine; Visit Provider Nurse Practitioner Family
DX: M51.16 Intervertebral disc disorders with radiculopathy, lumbar region (principal); M46.1 Sacroiliitis, not elsewhere classified; M70.60 Trochanteric bursitis, unspecified hip; Z98.890 Other specified postprocedural states
CPT/HCPCS: 99212; G0463

== ENCOUNTER → 2023-03-05 12:37 | Outpatient (POV) | payer MEDICARE, SELFPAY ==
[2023-03-05 13:25] VITALS: BP 146/92; PULSE 80; RESP 18; O2SAT 95; BMI 38.4
--- NOTE | 2023-03-05 13:42 | EXP.PAIN.SOA ---
[facility] Pain Management SOAP Note Subjective:: Patient is a pleasant 87-year-old female who presents today for follow-up. We are currently treating the patient for degenerative disc disease of the lumbar spine with lumbar radiculopathy symptoms, sacroiliitis, greater trochanteric bursitis. Today she rates her pain a 5 out of 10. Patient denies any new trauma or injury. She denies any change location or type of pain she experiences. She does state that she continues to have low back pain along the right side with radiating symptoms down into her right leg with numbness and tingling. Patient does describe this as an aching, throbbing sensation that is worse with increased activity. Patient does state that the mornings are typically worse as well as with increased standing. It does interfere with her ability perform activities of daily living such as cooking and cleaning. At her last visit we did send in a 2-week supply of tramadol 50 mg twice a day however she did experience significant itching when she takes this medication. She does state that she is afraid that she may have had a reaction. Her Davy is [phone]. Its been reviewed Review of Systems: General: No recent weight changes, no fever, no sleep disturbances Respiratory: No cough, no shortness of air, no recurring pulmonary infections Cardiovascular/peripheral vascular: No chest pain, no palpitations, no edema, no shortness of breath Gastrointestinal: No new onset incontinence, normal bowel movements reported Genitourinary: No new onset incontinence Musculoskeletal: Low back pain, right leg pain Psychiatric: [Normal mood/affect] Neurological: [Denies weakness in extremities], [denies balance issues] Objective:: Physical Exam: General: Alert and oriented x3, no acute distress, pleasant and cooperative Lungs: Respirations even and unlabored, symmetrical chest expansion Eyes: PERRL Musculoskeletal: Flexion and extension of lumbar [spine] somewhat guarded secondary to pain, [antalgic gait noted] positive right leg raise with decreased Achilles reflex and decreased sensation to light touch along the right leg Neurological: Speech clear, no gross sensory deficit Assessment:: degenerative disc disease of the lumbar spine with lumbar radiculopathy symptoms, sacroiliitis, greater trochanteric bursitis Plan:: Patient is experiencing significant pain in her low back along the right side with radiating symptoms down her right leg. Patient does have limited range of motion of her lumbar spine along with a positive right leg raise and decreased Achilles reflex and sensation to light touch along the right leg. I have discussed with the patient that she may benefit from a right transforaminal epidural steroid injection. Risk and benefits were discussed with the patient and she would like to proceed forward with this plan of care. Patient is not on any blood thinners. I have counseled the patient to discontinue the tramadol for possible allergy and that I will send in a 2-week dose of Tylenol 3 twice daily. Patient will be scheduled for a right transforaminal epidural steroid injection L3-L4 and L4-L5. Patient has been instructed to contact the clinic with any concerns before the next appointment. Dr. Myrick has reviewed this note and agrees with this plan of care. This note was dictated using voice recognition software and make contain errors or omissions. [facility] Disclaimer: The information contained in this section may have been updated after the patient was seen, as this information can be updated by other users. Medical History GERD (gastroesophageal reflux disease) HLD (hyperlipidemia) HTN (hypertension) Surgical History History of cholecystectomy History of tubal ligation History of ureteroscopy Family History Other Family history
== END | disposition home or self-care (01) ==
PROVIDERS: PCP Internal Medicine; Visit Provider Nurse Practitioner Family
DX: M51.16 Intervertebral disc disorders with radiculopathy, lumbar region (principal); M46.1 Sacroiliitis, not elsewhere classified; M70.60 Trochanteric bursitis, unspecified hip
CPT/HCPCS: 99212; G0463

== ENCOUNTER 2023-03-13 11:06 | Day surgery (SDC) | payer MEDICARE, SELFPAY ==
[2023-03-13 11:26] VITALS: BP 147/70; PULSE 77; RESP 18; TEMP 36.4; O2SAT 94; BMI 36.9
--- NOTE | 2023-03-13 11:36 | P.PCN_ITS ---
Procedure Date: 03/13/23 Time: 11:32 Anesthesiologist:: Noam Garcia CRNA Complications:: None Pre-procedure Diagnosis:: Degenerative disc lumbar spine multilevels. Lumbar radiculopathy. Multilevel disc bulge lumbar spine. Right hip and leg radicular symptoms. Post-procedure Diagnosis:: Same. Indications for Procedure:: Patient is a very pleasant 87-year-old female that comes our clinic today for right L3-4, L4-5 transforaminal epidural steroid injection. Patient had the same procedure with significant improvement in the past. Patient states right hip and leg radicular pain is constant, dull, aching. She rates pain 7/10. Procedure Details:: Details of the procedure were explained to the patient. The patient was taken the procedure room placed in the prone position. The area of the lumbar spine was cleansed using chlorhexidine as a cleansing solution. At this time using fluoroscopy guidance markers were placed on the right lateral border of the L4 and L5 vertebral body. The skin and subcutaneous tissue was anesthetized using 1% lidocaine and 25-gauge needle. At this time using a 22-gauge 3-1/2 inch spinal needle the right upper one third of the L4-5 foramen was accessed. The same was done at the right L5-S1 foramen. Needle positions were confirmed and a lateral view using fluoroscopy and contrast dye. At this time 1 cc of 1% lidocaine +20 mg of Depo-Medrol was injected at each level after negative aspiration. [place] were removed. Band-Aid applied. Patient tolerated the procedure without difficulty. There are no complications. Plan and Disposition:: Patient was discharged without incident.
[2023-03-13 11:40] VITALS: BP 186/89; PULSE 79; RESP 16; O2SAT 94
== END 2023-03-13 11:40 | disposition home or self-care (01) ==
PROVIDERS: PCP Internal Medicine; Visit Provider Nurse Anesthetist, Certified Registered
DX: M51.16 Intervertebral disc disorders with radiculopathy, lumbar region (principal)
CPT/HCPCS: 64483; 64484; J1030

== ENCOUNTER → 2023-03-29 10:37 | Outpatient (POV) | payer MEDICARE, SELFPAY ==
--- NOTE | 2023-03-29 11:14 | EXP.PAIN.SOA ---
[facility] Pain Management SOAP Note Subjective:: Patient is a pleasant 87-year-old female who presents today for follow-up of right transforaminal epidural steroid injection L3-L4 and L4-L5 on 03/13/2023. We are currently treating the patient for degenerative disc disease of lumbar spine with lumbar radiculopathy symptoms, sacroiliitis, greater trochanteric bursitis. Today she rates her pain a 3 out of 10. Patient denies any new trauma or injury. She does state that she had at least 50% improvement following the transforaminal epidural and that it is still continuing to provide additional relief. At our last visit we had changed her tramadol to Tylenol 3 twice a day and she also states this is provided significant improvement and done much better than the tramadol ever did. Patient does state that some days she does have to take it twice a day however there are many days that she may only take it once. Patient denies any side effects from it. She is requesting a refill at today's visit. Her Davy is [phone]. Its been reviewed and appropriate. Review of Systems: General: No recent weight changes, no fever, no sleep disturbances Respiratory: No cough, no shortness of air, no recurring pulmonary infections Cardiovascular/peripheral vascular: No chest pain, no palpitations, no edema, no shortness of breath Gastrointestinal: No new onset incontinence, normal bowel movements reported Genitourinary: No new onset incontinence Musculoskeletal: Low back pain Psychiatric: [Normal mood/affect] Neurological: [Denies weakness in extremities], [denies balance issues] Objective:: Physical Exam: General: Alert and oriented x3, no acute distress, pleasant and cooperative Lungs: Respirations even and unlabored, symmetrical chest expansion Eyes: PERRL Musculoskeletal: Flexion and extension of lumbar [spine] somewhat guarded secondary to pain, [antalgic gait noted] Neurological: Speech clear, no gross sensory deficit Assessment:: Degenerative disc disease of lumbar spine with lumbar radiculopathy symptoms, sacroiliitis, greater trochanteric bursitis Plan:: Patient has had significant improvement following her right transforaminal epidural steroid injection and does not require any additional injective therapy at this time. I will refill the patient's Tylenol 3 twice a day and provide a 30-day supply of this medication. Patient will return to clinic in 1 month for reevaluation of symptoms and medication refill. Patient has been advised of risks of oversedation with the prescribed medication. Narcan has been offered to the patient in the event of oversedation. Patient has been advised that a family member should also be educated regarding administration of Narcan. Patient has been instructed to contact the clinic with any concerns before the next appointment. Dr. Myrick has reviewed this note and agrees with this plan of care. This note was dictated using voice recognition software and make contain errors or omissions. [facility] Disclaimer: The information contained in this section may have been updated after the patient was seen, as this information can be updated by other users. Medical History GERD (gastroesophageal reflux disease) HLD (hyperlipidemia) HTN (hypertension) Surgical History History of cholecystectomy History of tubal ligation History of ureteroscopy Family History Other Family history of cancer No significant family history Social History Smoking Status: Never smoker second hand exposure: No alcohol intake: never substance use type: denies use current occupational status: retired Travel in the last 8 weeks: None household members: other housing: house current occupational exposures/gabriel
[2023-03-29 12:57] VITALS: BP 144/82; PULSE 73; RESP 18; O2SAT 95; BMI 23.6
== END | disposition home or self-care (01) ==
PROVIDERS: PCP Internal Medicine; Visit Provider Nurse Practitioner Family
DX: M51.16 Intervertebral disc disorders with radiculopathy, lumbar region (principal); M46.1 Sacroiliitis, not elsewhere classified; M70.60 Trochanteric bursitis, unspecified hip
CPT/HCPCS: 99212; G0463

== ENCOUNTER → 2023-04-11 13:02 | Outpatient (CLI) | payer MEDICARE, SELFPAY ==
[2023-04-11 13:48] LABS: Basophils # 0.1 K/mm3 (0-0.2); Basophils % 0.8 % (0.1-2.0); Eosinophils # 0.2 K/mm3 (0.0-0.4); Eosinophils % 3.7 % (0.1-12.0); Hematocrit 41.5 % (37.0-47.0); Hemoglobin 12.9 g/dL (12.2-16.2); Lymphocytes # 1.3 K/mm3 (0.7-4.5); Lymphocytes % 20.2 % (10-50); Mean Corpuscular HGB Conc 31.1 g/dL (31.8-35.4); Mean Corpuscular Hemoglobin 29.2 pg (27.0-31.2); Mean Corpuscular Volume 93.8 fl (81-99); Mean Platelet Volume 9.7 fl (7.4-10.4); Monocytes # 0.4 K/mm3 (0.1-1.0); Neutrophils # 4.5 K/mm3 (1.8-7.8); Neutrophils % 69.4 % (37.0-80.0); Platelet Count 212 K/mm3 (142-424); Red Blood Count 4.43 M/mm3 (4.20-5.40); White Blood Count 6.5 K/mm3 (4.8-10.8)
[2023-04-11 14:56] LABS: Alanine Aminotransferase 11 U/L (12-78); Albumin Level 3.9 g/dl (3.5-5.0); Albumin/Globulin Ratio 1.3 (1.1-1.8); Alkaline Phosphatase 100 U/L (38-126); Aspartate Amino Transferase 28 U/L (14-36); Bilirubin,Total 0.7 mg/dl (0.2-1.3); Blood Urea Nitrogen 29 mg/dl (7-17); Calcium 9.3 mg/dl (8.4-10.2); Carbon Dioxide 36 mmol/L (22.0-30.0); Cholesterol 151 mg/dl (140-200); Estimated Glomerular Filt Rate 60 ml/min (>60); GFR (African American) 72 ML/MIN (>60); Globulin 2.9 g/dL (1.3-3.2); Glucose 89 mg/dl (74-100); HDL Cholesterol 38 mg/dl (40-60); Potassium 4.5 mmoL/L (3.5-5.1); Sodium 141 mmol/L (136-145); Total Protein,Serum 6.8 g/dl (6.3-8.2); Triglycerides 166 mg/dl (30-150); VLDL Cholesterol 33 mg/dL (0-40)
[2023-04-11 15:11] LABS: Anion Gap 10.5 mEq/L (5-15); Chloride 99 mmol/L (98-107)
[2023-04-11 16:12] LABS: Direct LDL Cholesterol 61.55 mg/dL (100-129)
== END ==
PROVIDERS: PCP Internal Medicine; Visit Provider Internal Medicine
DX: I10 Essential (primary) hypertension (principal); E78.5 Hyperlipidemia, unspecified; K21.9 Gastro-esophageal reflux disease without esophagitis; M15.0 Primary generalized (osteo)arthritis; M54.41 Lumbago with sciatica, right side
CPT/HCPCS: 80053; 80061; 85025

== ENCOUNTER → 2023-04-26 10:23 | Outpatient (POV) | payer MEDICARE, SELFPAY ==
--- NOTE | 2023-04-26 10:45 | EXP.PAIN.SOA ---
[facility] Pain Management SOAP Note Subjective:: Patient is a pleasant 87-year-old female who presents today for 1 month follow-up. We are currently treating the patient for degenerative disc disease of lumbar spine with lumbar radiculopathy symptoms, sacroiliitis, greater trochanteric bursitis. Today she rates her pain a 4 out of 10. Patient denies any new trauma or injury. She states that she has continued to have improvement following her right transforaminal epidural that was done back in February. She does state that she has had more pain since our last follow-up however it is still very bearable and does not feel like she needs an injection at this time. Patient states that she has still been able to increase her activity with decreased pain. Patient is currently managed on Tylenol 3 twice a day. Patient denies any side effects from this medication. She does state that she does not need any additional refills at this time. Her Davy is [phone]. Its been reviewed and appropriate. Review of Systems: General: No recent weight changes, no fever, no sleep disturbances Respiratory: No cough, no shortness of air, no recurring pulmonary infections Cardiovascular/peripheral vascular: No chest pain, no palpitations, no edema, no shortness of breath Gastrointestinal: No new onset incontinence, normal bowel movements reported Genitourinary: No new onset incontinence Musculoskeletal: Low back pain Psychiatric: [Normal mood/affect] Neurological: [Denies weakness in extremities], [denies balance issues] Objective:: Physical Exam: General: Alert and oriented x3, no acute distress, pleasant and cooperative Lungs: Respirations even and unlabored, symmetrical chest expansion Eyes: PERRL Musculoskeletal: Flexion and extension of lumbar [spine] somewhat guarded secondary to pain, [antalgic gait noted] Neurological: Speech clear, no gross sensory deficit Assessment:: Degenerative disc disease of lumbar spine with lumbar radiculopathy symptoms, sacroiliitis, greater trochanteric bursitis Plan:: Patient continues to do well with her current medication regimen and does not require any injections at this time. Patient will return to clinic in 1 month for reevaluation of symptoms and plan of care. Patient has been instructed to contact the clinic with any concerns before the next appointment. Dr. Myrick has reviewed this note and agrees with this plan of care. This note was dictated using voice recognition software and make contain errors or omissions. [facility] Disclaimer: The information contained in this section may have been updated after the patient was seen, as this information can be updated by other users. Medical History GERD (gastroesophageal reflux disease) HLD (hyperlipidemia) HTN (hypertension) Surgical History History of cholecystectomy History of tubal ligation History of ureteroscopy Family History Other Family history of cancer No significant family history Social History Smoking Status: Never smoker second hand exposure: No alcohol intake: never substance use type: denies use current occupational status: retired Travel in the last 8 weeks: None household members: other housing: house current occupational exposures/hazards: No caffeine: Yes
[2023-04-26 10:57] VITALS: BP 144/72; PULSE 79; RESP 18; O2SAT 96; BMI 37.6
== END ==
PROVIDERS: PCP Internal Medicine; Visit Provider Nurse Practitioner Family
DX: M51.16 Intervertebral disc disorders with radiculopathy, lumbar region (principal); M46.1 Sacroiliitis, not elsewhere classified; M70.60 Trochanteric bursitis, unspecified hip
CPT/HCPCS: 99212; G0463

== ENCOUNTER → 2023-05-24 11:30 | Outpatient (POV) | payer MEDICARE, SELFPAY ==
--- NOTE | 2023-05-24 11:52 | EXP.PAIN.SOA ---
[facility] Pain Management SOAP Note Subjective:: Patient is a pleasant 87-year-old female who presents today for medication refill and follow-up. We are currently treating the patient for degenerative disc disease of lumbar spine with lumbar radiculopathy symptoms, greater trochanteric bursitis, sacroiliitis, right hip pain. Today she rates her pain a 4 out of 10. Patient denies any new trauma or injury from her last visit. She does state that she is starting to have more pain along her right hip however her back is doing well. Patient does state that she has tenderness along the outside of her leg. She does describe her pain as an aching, throbbing sensation that is worse with increased activity and does affect her ability perform activities of daily living such as cooking and cleaning. Patient is currently managed on Tylenol 3. Patient denies any side effects from this medication. She is requesting a refill. She is also requesting her a prescription for diclofenac gel if possible. Her Davy has been reviewed and is appropriate. Review of Systems: General: No recent weight changes, no fever, no sleep disturbances Respiratory: No cough, no shortness of air, no recurring pulmonary infections Cardiovascular/peripheral vascular: No chest pain, no palpitations, no edema, no shortness of breath Gastrointestinal: No new onset incontinence, normal bowel movements reported Genitourinary: No new onset incontinence Musculoskeletal: Right hip pain Psychiatric: [Normal mood/affect] Neurological: [Denies weakness in extremities], [denies balance issues] Objective:: Physical Exam: General: Alert and oriented x3, no acute distress, pleasant and cooperative Lungs: Respirations even and unlabored, symmetrical chest expansion Eyes: PERRL Musculoskeletal: Flexion and extension of lumbar [spine] somewhat guarded secondary to pain, [antalgic gait noted] point tenderness along right bursa Neurological: Speech clear, no gross sensory deficit Assessment:: Degenerative disc disease of lumbar spine with lumbar radiculopathy symptoms, right hip pain, sacroiliitis, right greater trochanteric bursitis Plan:: patient is experiencing worsening pain in her right hip with point tenderness noted during today's exam. I have discussed with the patient that she may benefit from a right bursa injection. Risk and benefits were discussed with the patient and she would like to proceed forward with this plan of care. I will also refill the patient's Tylenol 3 twice a day and send in a prescription of diclofenac 1% gel and provide a 1 month supply of these medications. Patient will be scheduled for a right greater trochanteric bursa injection. Patient has been advised of risks of oversedation with the prescribed medication. Narcan has been offered to the patient in the event of oversedation. Patient has been advised that a family member should also be educated regarding administration of Narcan. Patient has been instructed to contact the clinic with any concerns before the next appointment. Dr. Myrick has reviewed this note and agrees with this plan of care. This note was dictated using voice recognition software and make contain errors or omissions. [facility] Disclaimer: The information contained in this section may have been updated after the patient was seen, as this information can be updated by other users. Medical History GERD (gastroesophageal reflux disease) HLD (hyperlipidemia) HTN (hypertension) Surgical History History of cholecystectomy History of tubal ligation History of ureteroscopy Family History Other Family history of cancer No significant family history Social History Smoking Status: Never smoker second hand exposure:
[2023-05-24 12:48] VITALS: BP 150/83; PULSE 69; RESP 18; O2SAT 94; BMI 37.6
== END | disposition home or self-care (01) ==
PROVIDERS: PCP Internal Medicine; Visit Provider Nurse Practitioner Family
DX: M51.16 Intervertebral disc disorders with radiculopathy, lumbar region (principal); M25.551 Pain in right hip; M46.1 Sacroiliitis, not elsewhere classified; M70.61 Trochanteric bursitis, right hip
CPT/HCPCS: 99212; G0463

== ENCOUNTER 2023-06-05 10:30 | Day surgery (SDC) | payer MEDICARE, SELFPAY ==
[2023-06-05 10:40] VITALS: BP 184/85; PULSE 87; RESP 18; TEMP 36.2; O2SAT 100; BMI 37.6
[2023-06-05 10:48] VITALS: BP 173/108; PULSE 85; RESP 18; O2SAT 94
[2023-06-05 10:53] VITALS: PULSE 77; O2SAT 94
--- NOTE | 2023-06-05 10:55 | P.PCN_ITS ---
Procedure Date: 06/05/23 Time: 10:45 Anesthesiologist:: Noam Garcia CRNA Complications:: None Pre-procedure Diagnosis:: Right trochanteric bursitis Post-procedure Diagnosis:: Same Indications for Procedure:: Patient is a pleasant 88-year-old female that comes our clinic today for right trochanteric bursa injection. She has extreme point tenderness over the right lateral hip. She rates her pain 7/10. Procedure Details:: Procedure: Right trochanteric bursa injection under fluoroscopy We then moved to the right trochanteric bursa.~ C-arm fluoroscopy was used to view the left greater trochanter.~ The skin and subcutaneous tissues overlying the right greater trochanter were anesthetized using lidocaine, 1.5% and a 25- gauge needle.~ After this, a 22-gauge spinal needle was inserted and advanced until it contacted the right greater trochanter.~ Dye was injected and good spread was seen throughout the right trochanteric bursa. After this, approximately 5 mL of bupivacaine, 0.25% and Depo-Medrol, 40 mg was incrementally injected into the right right trochanteric bursa.~ The patient tolerated the procedure well with no complications. Plan and Disposition:: Patient was discharged without incident.
[2023-06-05 10:59] VITALS: BP 155/82; PULSE 65; RESP 18; O2SAT 98
== END 2023-06-05 10:59 | disposition home or self-care (01) ==
PROVIDERS: PCP Internal Medicine; Visit Provider Nurse Anesthetist, Certified Registered
DX: M70.61 Trochanteric bursitis, right hip (principal)
CPT/HCPCS: 20610; 77002; J1040

== ENCOUNTER → 2023-06-18 10:18 | Outpatient (CLI) | payer MEDICARE, SELFPAY ==
--- NOTE | 2023-06-18 10:21 | MM_ITS ---
PROCEDURE INFORMATION: Exam: MG Bilateral Screening 3D Mammography Exam date and time: 06/18/2023 10:08 AM Age: 88 years old Clinical indication: Screening examination TECHNIQUE: Imaging protocol: Bilateral Screening tomosynthesis and 2D mammography including computer-aided detection (CAD) when performed. COMPARISON: 1. MG MM DIG SCREENING MAMM BI W/CAD 06/16/2022 10:13 AM 2. MG MM DIG SCREENING MAMM BI W/CAD 06/15/2021 10:21 AM FINDINGS: MAMMOGRAPHY: Breast composition: The breasts are almost entirely fatty. Mass: No new or suspicious masses Architectural distortion: None. Calcifications: No suspicious calcifications. Asymmetric density: None. Skin thickening: None. Axillary adenopathy: None. IMPRESSION: No mammographic evidence of malignancy. Annual screening is recommended unless otherwise clinically indicated. ASSESSMENT: BI-RADS Category 1: Negative
== END ==
PROVIDERS: PCP Internal Medicine; Visit Provider Internal Medicine
DX: Z12.31 Encounter for screening mammogram for malignant neoplasm of breast (principal)
CPT/HCPCS: 77063; 77067

== ENCOUNTER → 2023-10-03 10:28 | Outpatient (POV) | payer MEDICARE, SELFPAY ==
[2023-10-03 10:34] VITALS: BP 136/88; PULSE 76; RESP 20; BMI 37.6
--- NOTE | 2023-10-03 10:47 | A.OFFVIS_ITS ---
[facility] Pain Management SOAP Note Subjective:: Patient is a pleasant 88-year-old female who presents today for follow-up of right bursa injection on 06/05/2023. We are currently treating the patient for degenerative disc disease of lumbar spine with lumbar radiculopathy symptoms, greater trochanteric bursitis, sacroiliitis, right hip pain. Today she states her pain is a 5 out of 10. Patient denies any new trauma or injury. She does state that she did get approximately 50% relief with the bursa injection and it lasted for about 4 to 6 weeks. Patient does state that she is back to her baseline today. She states she continues to have pain in her low back that radiates down into her right hip all the way down to her right foot. She does describe this as an aching, throbbing sensation that is worse with increased activity and does have some numbness and tingling into the extremity. Patient does state the pain interferes with her ability to perform activities of daily living such as cooking or cleaning or even simple ambulation. Patient did previously have a right transforaminal injection in the past that did provide more than 50% improvement and did make it easier for her to move around and walk. Patient is interested in repeating this injection. Patient has been prescribed Tylenol 3 in the past and states that this helped as well. Patient states that she has not been on this for a while since she has not been into our office to get a refill. Her Davy has been reviewed and is appropriate. Review of Systems: General: No recent weight changes, no fever, no sleep disturbances Respiratory: No cough, no shortness of air, no recurring pulmonary infections Cardiovascular/peripheral vascular: No chest pain, no palpitations, no edema, no shortness of breath Gastrointestinal: No new onset incontinence, normal bowel movements reported Genitourinary: No new onset incontinence Musculoskeletal: Low back pain, right leg pain, right hip pain Psychiatric: [Normal mood/affect] Neurological: [Denies weakness in extremities], [denies balance issues] Objective:: Physical Exam: General: Alert and oriented x3, no acute distress, pleasant and cooperative Lungs: Respirations even and unlabored, symmetrical chest expansion Eyes: PERRL Musculoskeletal: Flexion and extension of lumbar [spine] somewhat guarded secondary to pain, [antalgic gait noted] positive right leg raise with decreased sensation to light touch and decreased reflexes Neurological: Speech clear, no gross sensory deficit Assessment:: Degenerative disc disease of lumbar spine with lumbar radiculopathy symptoms, greater trochanteric bursitis right-sided, right sacroiliitis, right hip pain Plan:: Patient is experiencing worsening pain in her low back with symptoms radiating down her entire right leg. Patient had limited range of motion of her lumbar spine and a positive right leg raise with decreased sensation light touch and decreased reflexes. I discussed with the patient that she may have beneficial relief with a right transforaminal epidural steroid injection. Risk and benefits were discussed with the patient and she would like to proceed forward with this plan of care. Patient states that the last transforaminal epidural did provide more than 50% relief lasting some time. We will schedule the patient for a right transforaminal epidural steroid injection L3-L4 and L4-L5 under fluoroscopy. I will also refill the patient's Tylenol 3 and provide a 2- month supply of this medication. Risks and benefits of the medication have been explained in detail to the patient. The patient does understand the risk of dependence on the medication when given over a prolonged period. Patient has been advised of risks of oversedation with the prescribed medication. Narcan has been offered to the paitent in the event of oversedation. Patient has been advised that a family member should also be educated regarding administration of Narcan. The patient has been advised to consult with his/her primary care provider and pharmacist regarding drug-drug interaction of medications currently prescribed. Patient has been prescribed a controlled substance after being counseled on the medication, medication safety, and possible side effects. Opioid contract was reviewed and signed by the patient, and that they have agreed to all of the terms set forth by our compliance program. Patient has been instructed to contact the clinic with any concerns before the next appointment. Dr. Myrick has reviewed this note and agrees with this plan of care. This note was dictated using voice recognition software and make contain errors or omissions. [facility] Disclaimer: The information contained in this section may have been updated after the patient was seen, as this information can be updated by other users. Medical History GERD (gastroesophageal reflux disease) HLD (hyperlipidemia) HTN (hypertension) Surgical History History of ureteroscopy History of tubal ligation History of cholecystectomy Family History Other Family history of cancer No significant family history Social History Smoking Status: Never smoker second hand exposure: No alcohol intake: never substance use type: denies use current occupational status: other Travel in the last 8 weeks: None household members: other housing: house current occupational exposures/hazards: No caffeine: Yes
== END | disposition home or self-care (01) ==
PROVIDERS: PCP Internal Medicine; Visit Provider Nurse Practitioner Family
DX: M51.16 Intervertebral disc disorders with radiculopathy, lumbar region (principal); M70.61 Trochanteric bursitis, right hip; M46.1 Sacroiliitis, not elsewhere classified; M25.551 Pain in right hip
CPT/HCPCS: 99212; G0463

== ENCOUNTER 2023-10-10 13:13 | Outpatient (CLI) | payer MEDICARE, SELFPAY ==
[2023-10-10 14:44] LABS: Basophils # 0.1 K/mm3 (0-0.2); Basophils % 0.9 % (0.1-2.0); Eosinophils # 0.2 K/mm3 (0.0-0.4); Eosinophils % 2.7 % (0.1-12.0); Hematocrit 40.4 % (37.0-47.0); Hemoglobin 13.1 g/dL (12.2-16.2); Lymphocytes # 1.3 K/mm3 (0.7-4.5); Lymphocytes % 18.8 % (10-50); Mean Corpuscular HGB Conc 32.5 g/dL (31.8-35.4); Mean Corpuscular Volume 98.3 fl (81-99); Mean Platelet Volume 9.5 fl (7.4-10.4); Monocytes # 0.4 K/mm3 (0.1-1.0); Monocytes % 6.2 % (1.7-9.3); Neutrophils # 4.9 K/mm3 (1.8-7.8); Neutrophils % 71.4 % (37.0-80.0); Platelet Count 203 K/mm3 (142-424); Red Blood Count 4.11 M/mm3 (4.20-5.40); Red Cell Distribution Width 14.1 % (11.5-17.5); White Blood Count 6.9 K/mm3 (4.8-10.8)
[2023-10-10 15:16] LABS: Chloride 102 mmol/L (98-107); Potassium 4.3 mmoL/L (3.5-5.1); Sodium 140 mmol/L (136-145)
[2023-10-10 15:18] LABS: Alanine Aminotransferase 12 U/L (12-78); Aspartate Amino Transferase 32 U/L (14-36); Blood Urea Nitrogen 22 mg/dl (7-17); Estimated Glomerular Filt Rate 68 ml/min (>60); GFR (African American) 82 ML/MIN (>60)
[2023-10-10 15:19] LABS: Albumin/Globulin Ratio 1.6 (1.1-1.8); Alkaline Phosphatase 102 U/L (38-126); Anion Gap 7.3 mEq/L (5-15); Bilirubin,Total 1.1 mg/dl (0.2-1.3); Calcium 9.2 mg/dl (8.4-10.2); Carbon Dioxide 35 mmol/L (22.0-30.0); Chol/HDL Ratio 4.1 (1-3.5); Cholesterol 164 mg/dl (140-200); Globulin 2.5 g/dL (1.3-3.2); Glucose 87 mg/dl (74-100); HDL Cholesterol 40 mg/dl (40-60); Total Protein,Serum 6.5 g/dl (6.3-8.2); Triglycerides 166 mg/dl (30-150); VLDL Cholesterol 33 mg/dL (0-40)
[2023-10-10 15:30] LABS: Direct LDL Cholesterol 65.32 mg/dL (100-129)
== END 2023-10-10 23:59 ==
PROVIDERS: PCP Internal Medicine; Visit Provider Internal Medicine
DX: I10 Essential (primary) hypertension (principal); E78.5 Hyperlipidemia, unspecified; K64.4 Residual hemorrhoidal skin tags; K21.9 Gastro-esophageal reflux disease without esophagitis; M15.0 Primary generalized (osteo)arthritis; M47.27 Other spondylosis with radiculopathy, lumbosacral region
CPT/HCPCS: 80053; 80061; 85025

== ENCOUNTER → 2023-10-23 14:19 | Day surgery (SDC) | payer MEDICARE, SELFPAY ==
[2023-10-23 14:38] VITALS: BP 139/63; PULSE 87; RESP 20; TEMP 36.6; O2SAT 94; BMI 37.6
--- NOTE | 2023-10-23 14:57 | EXP.PAIN.PRO ---
Procedure Date: 10/23/23 Time: 14:58 Anesthesiologist:: Noam Garcia CRNA Complications:: None Pre-procedure Diagnosis:: Degenerative disc lumbar spine multilevels. Lumbar radiculopathy. Disc bulge multilevel lumbar spine. Lumbar spondylosis. Multilevel lumbar facet arthropathy. Post-procedure Diagnosis:: Same. Indications for Procedure:: Patient is a very pleasant 88-year-old female comes our clinic today for repeat right L3-4, L4-5 transforaminal epidural steroid injection. Patient had the same injection in the past with 50+ percent improvement terms of her overall right hip and leg symptoms. Patient does report some low back pain on the right side. However her main complaint is right leg radiculopathy. She rates her pain 7/10 Procedure Details:: Details of the procedure were explained to the patient. The patient was taken the procedure room placed in the prone position. The area of the lumbar spine was cleansed using chlorhexidine as a cleansing solution. At this time using fluoroscopy guidance markers were placed on the right lateral border of the L4 and L5 vertebral body. The skin and subcutaneous tissue was anesthetized using 1% lidocaine and 25-gauge needle. At this time using a 22-gauge 3-1/2 inch spinal needle the right upper one third of the L4-5 foramen was accessed. The same was done at the right L5-S1 foramen. Needle positions were confirmed and a lateral view using fluoroscopy and contrast dye. At this time 1 cc of 1% lidocaine +20 mg of Depo-Medrol was injected at each level after negative aspiration. [place] were removed. Band-Aid applied. Patient tolerated the procedure without difficulty. There are no complications. Plan and Disposition:: Patient was discharged without incident.
[2023-10-23 15:10] VITALS: BP 162/79; PULSE 78; RESP 20
== END | disposition home or self-care (01) ==
PROVIDERS: PCP Internal Medicine; Visit Provider Nurse Anesthetist, Certified Registered
DX: M51.16 Intervertebral disc disorders with radiculopathy, lumbar region (principal); M51.26 Other intervertebral disc displacement, lumbar region; M47.26 Other spondylosis with radiculopathy, lumbar region
CPT/HCPCS: 64483; 64484

== ENCOUNTER 2023-11-12 13:55 | Outpatient (POV) | payer MEDICARE, SELFPAY ==
[2023-11-12 14:08] VITALS: BP 129/64; PULSE 85; RESP 18; TEMP 36.7; O2SAT 98; BMI 38.7
--- NOTE | 2023-11-12 14:13 | EXP.PAIN.SOA ---
[facility] Pain Management SOAP Note Subjective:: Patient is a pleasant 88-year-old female who presents today for follow-up of right transforaminal epidural steroid injection L3-L4 and L4-L5 on 10/23/2023. She rates her pain a 2 out of 10. Patient states she has had at least 60% relief following this injection and feels like it still currently helping. Patient states she has been able to increase her activity with decreased pain symptoms and feels overall more functional. Patient is prescribed Tylenol 3 however she states that she has not even been taking this on a regular basis due to the improvement she is experiencing following this injection. Her Davy has been reviewed and is appropriate. Review of Systems: General: No recent weight changes, no fever, no sleep disturbances Respiratory: No cough, no shortness of air, no recurring pulmonary infections Cardiovascular/peripheral vascular: No chest pain, no palpitations, no edema, no shortness of breath Gastrointestinal: No new onset incontinence, normal bowel movements reported Genitourinary: No new onset incontinence Musculoskeletal: Low back pain Psychiatric: [Normal mood/affect] Neurological: [Denies weakness in extremities], [denies balance issues] Objective:: Physical Exam: General: Alert and oriented x3, no acute distress, pleasant and cooperative Lungs: Respirations even and unlabored, symmetrical chest expansion Eyes: PERRL Musculoskeletal: Flexion and extension of lumbar [spine] somewhat guarded secondary to pain, [antalgic gait noted] Neurological: Speech clear, no gross sensory deficit Assessment:: Degenerative disc disease of lumbar spine with lumbar radiculopathy symptoms, greater trochanteric bursitis, sacroiliitis, right hip pain Plan:: Patient has had significant improvement following her transforaminal epidural and does not require any additional injection therapy at this time. Patient will return to clinic in 1 month for reevaluation of symptoms and plan of care. Patient was given a 3-month supply of her Tylenol 3 at her last visit in September and does not require any refills. Patient has been instructed to contact the clinic with any concerns before the next appointment. Dr. Myrick has reviewed this note and agrees with this plan of care. This note was dictated using voice recognition software and make contain errors or omissions. [facility] Disclaimer: The information contained in this section may have been updated after the patient was seen, as this information can be updated by other users. Medical History GERD (gastroesophageal reflux disease) HLD (hyperlipidemia) HTN (hypertension) Surgical History History of ureteroscopy History of tubal ligation History of cholecystectomy Family History Other Family history of cancer No significant family history Social History Smoking Status: Never smoker second hand exposure: No alcohol intake: never substance use type: denies use current occupational status: other Travel in the last 8 weeks: None household members: other housing: house current occupational exposures/hazards: No caffeine: Yes
[2023-11-12 15:08] LABS: Opiate Screen,Urine Positive ng/ml (<300)
[2023-11-12 15:09] LABS: Phencyclidine Screen,Urine Negative ng/ml (<25)
[2023-11-12 15:10] LABS: Amphetamine/Metha Screen,Urine Negative ng/ml (<1000)
[2023-11-12 15:11] LABS: Barbiturates Screen,Urine Negative ng/ml (<200); Benzodiazepines Screen,Urine Negative ng/ml (<200)
[2023-11-12 15:14] LABS: Cocaine Screen,Urine Negative ng/ml (<300)
[2023-11-12 15:15] LABS: Cannabinoid Screen,Urine Negative ng/ml (<50)
[2023-11-12 15:18] LABS: Methadone Screen,Urine Negative ng/ml (<300)
[2023-11-18 09:12] LABS: Opiates Negative (Cutoff=100)
== END 2023-11-12 23:59 ==
PROVIDERS: PCP Internal Medicine; Visit Provider Nurse Practitioner Family
DX: Z79.891 Long term (current) use of opiate analgesic (principal); M51.16 Intervertebral disc disorders with radiculopathy, lumbar region; M70.60 Trochanteric bursitis, unspecified hip; M46.1 Sacroiliitis, not elsewhere classified; M25.551 Pain in right hip
CPT/HCPCS: 80307; 80361; 80365; 99212; G0463; G0480

== ENCOUNTER 2023-12-12 14:13 | Outpatient (POV) | payer MEDICARE, SELFPAY ==
[2023-12-12 14:29] VITALS: BP 143/77; PULSE 75; RESP 18; O2SAT 97; BMI 39.5
--- NOTE | 2023-12-12 14:38 | EXP.PAIN.SOA ---
[facility] Pain Management SOAP Note Subjective:: Patient is a pleasant 88-year-old female who presents today for 1 month follow-up. Today she rates her pain a 5 out of 10. Patient does state that she feels like she is starting to have more pain related to her low back and right leg symptoms. She feels like the right transforaminal epidural that she had back in September does seem like it is starting to really wear off. Patient states she will continue to use ice and her compounded cream. Patient states that the Tylenol 3 she tries to minimize use so she does still have that medication and denies any side effects from it. Patient does state that the injection did really help providing more than 60% relief however she states that the cost was $500 [id number]. Patient states that although it worked towards her deductible it is rather costly to do this on a regular basis. Her Davy has been reviewed and is appropriate. Review of Systems: General: No recent weight changes, no fever, no sleep disturbances Respiratory: No cough, no shortness of air, no recurring pulmonary infections Cardiovascular/peripheral vascular: No chest pain, no palpitations, no edema, no shortness of breath Gastrointestinal: No new onset incontinence, normal bowel movements reported Genitourinary: No new onset incontinence Musculoskeletal: Low back pain, right leg pain Psychiatric: [Normal mood/affect] Neurological: [Denies weakness in extremities], [denies balance issues] Objective:: Physical Exam: General: Alert and oriented x3, no acute distress, pleasant and cooperative Lungs: Respirations even and unlabored, symmetrical chest expansion Eyes: PERRL Musculoskeletal: Flexion and extension of lumbar [spine] somewhat guarded secondary to pain, [antalgic gait noted] positive right leg raise with decreased sensation to light touch and decreased reflexes Neurological: Speech clear, no gross sensory deficit Assessment:: Degenerative disc disease of lumbar spine with lumbar radiculopathy symptoms, greater trochanteric bursitis, sacroiliitis, right hip pain Plan:: I have discussed with the patient in future we can have her follow-up with financial services and see whether or not if they can provide any discounts regarding these injections. I have also discussed with the patient if they are unable to decrease the overall cost that we do have our [facility] that is a stand-alone facility outside of the hospital that may be able to do the injections for a lower cost. We will follow-up with this at future visits. Patient will return to clinic in 2 months for reevaluation of symptoms and plan of care. Patient has been instructed to contact the clinic with any concerns before the next appointment. Dr. Myrick has reviewed this note and agrees with this plan of care. This note was dictated using voice recognition software and make contain errors or omissions. [facility] Disclaimer: The information contained in this section may have been updated after the patient was seen, as this information can be updated by other users. Medical History GERD (gastroesophageal reflux disease) HLD (hyperlipidemia) HTN (hypertension) Surgical History History of ureteroscopy History of tubal ligation History of cholecystectomy Family History Other Family history of cancer No significant family history Social History Smoking Status: Never smoker second hand exposure: No alcohol intake: never substance use type: denies use current occupational status: other Travel in the last 8 weeks: None household members: other housing: house current occupational exposures/hazards: No caffeine: Yes
== END 2023-12-12 23:59 | disposition home or self-care (01) ==
PROVIDERS: PCP Internal Medicine; Visit Provider Nurse Practitioner Family
DX: M51.16 Intervertebral disc disorders with radiculopathy, lumbar region (principal); M70.60 Trochanteric bursitis, unspecified hip; M46.1 Sacroiliitis, not elsewhere classified; M25.551 Pain in right hip
CPT/HCPCS: 99212; G0463

== ENCOUNTER 2024-02-11 13:29 | Outpatient (POV) | payer MEDICARE, SELFPAY ==
[2024-02-11 13:49] VITALS: BP 131/64; PULSE 76; RESP 16; O2SAT 95; BMI 38.7
--- NOTE | 2024-02-11 15:57 | EXP.PAIN.SOA ---
[facility] Disclaimer: The information contained in this section may have been updated after the patient was seen, as this information can be updated by other users. Medical History GERD (gastroesophageal reflux disease) HLD (hyperlipidemia) HTN (hypertension) Surgical History History of ureteroscopy History of tubal ligation History of cholecystectomy Family History Other Family history of cancer No significant family history Social History Smoking Status: Never smoker second hand exposure: No alcohol intake: never substance use type: denies use current occupational status: retired Travel in the last 8 weeks: None household members: other housing: house current occupational exposures/hazards: No caffeine: Yes PM Subjective & Objective Subjective Subjective:: Patient is a pleasant 88-year-old female who presents today for follow-up. Today she rates her pain a 4 out of 10 however states the pain will get up to a 5 or 6 out of 10 with increased activity or ambulation. Patient denies any new trauma or injury. She does state that she is having more pain in and around her right hip. She describes it as an aching, throbbing sensation that limits her ability perform activities of daily living such as cooking and cleaning. Patient does have a prior history of right SI fusion. Patient has been prescribed Tylenol 3 in the past however she does only use this as needed along with her compounded cream. Her Davy has been reviewed and is appropriate. Review of Systems: General: No recent weight changes, no fever, no sleep disturbances Respiratory: No cough, no shortness of air, no recurring pulmonary infections Cardiovascular/peripheral vascular: No chest pain, no palpitations, no edema, no shortness of breath Gastrointestinal: No new onset incontinence, normal bowel movements reported Genitourinary: No new onset incontinence Musculoskeletal: Right hip pain Psychiatric: [Normal mood/affect] Neurological: [Denies weakness in extremities], [denies balance issues] Pain at rest (0-10 scale): 5 Objective Objective:: Physical Exam: General: Alert and oriented x3, no acute distress, pleasant and cooperative Lungs: Respirations even and unlabored, symmetrical chest expansion Eyes: PERRL Musculoskeletal: Flexion and extension of right hip somewhat guarded secondary to pain, [antalgic gait noted] point tenderness along the right greater trochanteric bursa Neurological: Speech clear, no gross sensory deficit Has patient had previous pain injection?: No Conservative treatment options previously tried: Home exercise plan Length of treatment: Longer than 6 weeks Meds Home Medications and Allergies Home Medications Medication Instructions Recorded Confirmed Type aspirin 81 mg tablet,delayed 81 mg PO DAILY Blood thinner 05/14/18 02/11/24 History release (Adult Low Dose Aspirin) atorvastatin 80 mg tablet 80 mg PO DAILY Cholesterol 05/14/18 02/11/24 History hydrochlorothiazide 25 mg tablet 25 mg PO DAILY bp 05/14/18 02/11/24 History latanoprost 0.005 % eye drops 1 drp ophthalmic (eye) QPM eyes 05/14/18 02/11/24 History lisinopril 40 mg tablet 40 mg PO DAILY bp 05/14/18 02/11/24 History multivitamin (Daily Multi-Vitamin 1 tab PO DAILY Supplement 05/14/18 02/11/24 History tablet) potassium bicarbonate-citric acid 25 meq PO DAILY supplement 07/17/18 02/11/24 History 25 mEq effervescent tablet tramadol 50 mg tablet 50 mg PO BID PRN pain #28 tabs 12/21/22 02/11/24 Rx diclofenac sodium 1 % topical gel 2 g topical QID #100 grams 05/24/23 02/11/24 Rx acetaminophen 300 mg-codeine 30 mg 1 tab PO BID PRN pain #60 tabs 10/03/23 02/11/24 Rx tablet hydrocortisone 2.5 % topical cream 1 applic topical DIRECTED 10/18/23 02/11/24 History lidocaine 5 % topical cream 1 applic topical BID PRN pain #15 10/18/23 02/11/24 Rx grams pantoprazole 40 mg tablet,delayed 40 mg PO DAILY Reflux/Acid reflux 01/21/24 02/11/24 Rx release #90 tabs New Prescriptions to Start Prescriptions: Allergies Allergy/AdvReac Type Severity Reaction Status Date / Time No Known Allergies Allergy Verified 10/18/23 10:39 Assessment and Plan *Assessment and plan (1) Right hip pain: Status: Acute Category: Medical Code(s): M25.551 - Pain in right hip (2) Lumbar radiculopathy: Status: Acute Category: Medical Code(s): M54.16 - Radiculopathy, lumbar region (3) Degenerative disc disease, lumbar: Status: Acute Category: Medical Code(s): M51.36 - Other intervertebral disc degeneration, lumbar region (4) Annual physical exam: Status: Acute Category: Medical Code(s): Z00.00 - Encounter for general adult medical examination without abnormal findings (5) Greater trochanteric bursitis of right hip: Status: Acute Category: Medical Code(s): M70.61 - Trochanteric bursitis, right hip Plan Patient is experiencing significant pain throughout her right hip with point tenderness along her greater trochanteric bursa on the right side. I did discuss with the patient that she may benefit from a right hip bursa injection. Risk and benefits were discussed with the patient and she would like to proceed forward with this plan of care. Patient does however state that her last injection here at [facility] cost her $500 [id number] and she cannot afford this option. I did discuss this at length with the patient and have discussed that we can send her to the [place] office to have this injection and then follow-up with our office after. Patient is agreeable to this. Patient has tried and failed conservative therapy including oral medications, heat and ice, topicals and continued at home stretching exercise between injections. Patient will be scheduled for a right hip greater trochanteric bursa injection at the [facility] location. Patient has been instructed to contact the clinic with any concerns before the next appointment. Dr. Myrick has reviewed this note and agrees with this plan of care. This note was dictated using voice recognition software and make contain errors or omissions.
== END 2024-02-11 23:59 | disposition home or self-care (01) ==
LOC: SC.PAIN 13:30
PROVIDERS: PCP Internal Medicine; Visit Provider Nurse Practitioner Family
DX: M25.551 Pain in right hip (principal); M54.16 Radiculopathy, lumbar region; M51.36 Other intervertebral disc degeneration, lumbar region; Z00.00 Encounter for general adult medical examination without abnormal findings; M70.61 Trochanteric bursitis, right hip
CPT/HCPCS: 99212; G0463

== ENCOUNTER 2024-04-10 10:00 | Outpatient (CLI) | payer MEDICARE, SELFPAY ==
[2024-04-10 19:03] LABS: Alanine Aminotransferase 12 U/L (12-78); Albumin Level 3.9 g/dl (3.5-5.0); Albumin/Globulin Ratio 1.3 (1.1-1.8); Alkaline Phosphatase 87 U/L (38-126); Aspartate Amino Transferase 33 U/L (14-36); Bilirubin,Total 0.7 mg/dl (0.2-1.3); Blood Urea Nitrogen 24 mg/dl (7-17); Calcium 9.3 mg/dl (8.4-10.2); Carbon Dioxide 35 mmol/L (22.0-30.0); Chloride 103 mmol/L (98-107); Chol/HDL Ratio 3.2 (1-3.5); Cholesterol 158 mg/dl (140-200); Estimated Glomerular Filt Rate 79 ml/min (>60); GFR (African American) 96 ML/MIN (>60); Glucose 79 mg/dl (74-100); HDL Cholesterol 49 mg/dl (40-60); Sodium 140 mmol/L (136-145); Total Protein,Serum 6.9 g/dl (6.3-8.2); Triglycerides 131 mg/dl (30-150); VLDL Cholesterol 26 mg/dL (0-40)
[2024-04-10 19:14] LABS: Direct LDL Cholesterol 62.72 mg/dL (100-129)
== END 2024-04-10 23:59 | disposition home or self-care (01) ==
LOC: LAB.DROPOF 04-11 12:48
PROVIDERS: PCP Internal Medicine; Visit Provider Internal Medicine
DX: E78.5 Hyperlipidemia, unspecified (principal); I10 Essential (primary) hypertension; K21.9 Gastro-esophageal reflux disease without esophagitis
CPT/HCPCS: 80053; 80061

== ENCOUNTER 2024-07-07 11:04 | Emergency (ER) | payer MEDICARE, SELFPAY ==
[2024-07-07 11:25] VITALS: BP 109/55; PULSE 101; RESP 18; TEMP 36.7; O2SAT 98; BMI 36.5
--- NOTE | 2024-07-07 11:33 | EXP.UTC ---
Discharge Plan Disposition Patient Disposition: Home, Self-Care Condition: Good Prescriptions Prescriptions: New Eliquis 5 mg tablet 5 mg PO BID Qty: 90 0RF Rx Instructions: Please take 10 mg twice daily for 7 days, then transition to 5 mg twice daily for 3 months. No Action aspirin [Adult Low Dose Aspirin] 81 mg tablet,delayed release (DR/EC) 81 mg PO DAILY hydrocortisone 2.5 % cream 1 applic topical DIRECTED lisinopril 40 mg tablet See Rx Instructions .ROUTE .COMPLEX Qty: 180 1RF Dose Instruction: TAKE 1 TABLET TWICE DAILY Rx Instructions: TAKE 1 TABLET TWICE DAILY hydrochlorothiazide 25 mg tablet See Rx Instructions .ROUTE .COMPLEX Qty: 90 1RF Dose Instruction: TAKE 1 TABLET EVERY DAY Rx Instructions: TAKE 1 TABLET EVERY DAY atorvastatin 80 mg tablet See Rx Instructions .ROUTE .COMPLEX Qty: 90 1RF Dose Instruction: TAKE 1 TABLET AT BEDTIME FOR CHOLESTEROL Rx Instructions: TAKE 1 TABLET AT BEDTIME FOR CHOLESTEROL potassium chloride 20 mEq tablet,ER particles/crystals See Rx Instructions .ROUTE .COMPLEX Qty: 90 1RF Dose Instruction: TAKE 1 TABLET EVERY DAY Rx Instructions: TAKE 1 TABLET EVERY DAY pantoprazole 40 mg tablet,delayed release (DR/EC) See Rx Instructions .ROUTE .COMPLEX Qty: 90 3RF Dose Instruction: TAKE 1 TABLET EVERY DAY FOR ACID REFLUX Rx Instructions: TAKE 1 TABLET EVERY DAY FOR ACID REFLUX tramadol 50 mg tablet 50 mg PO BID PRN (Reason: pain) Qty: 28 0RF diclofenac sodium 1 % gel 2 g topical QID Qty: 100 0RF Rx Instructions: apply to single elbow, wrist or hand; for hand includes palm/fingers/back of hand acetaminophen-codeine 300-30 mg tablet 1 tab PO BID PRN (Reason: pain) Qty: 60 0RF levetiracetam 250 mg tablet 250 mg PO DIRECTED Referrals Follow up/Referrals: Chin Lott MD [Primary Care Provider] - See instructions Activity Restrictions/Add. Instructions Additional Instructions/Restrictions: Please start taking 10 mg Eliquis p.o. twice daily and then position to 5 mg p.o. twice daily for 3 months follow-up with neurosurgeon and other hematology oncology team regarding ongoing cancer, return to the emergency department any worsening signs or symptoms to include chest pain shortness of breath worsening lower extremity swelling redness or pain Clinical Impressions Clinical Impression: Acute deep vein thrombosis (DVT) of right tibial vein Instructions Patient Instructions: DI for Deep Vein Thrombosis Print Language Print Language: Sami Discharge ED Provider: Moshe Murray [facility] General Chief complaint: Extremity Injury, Lower Stated complaint: red spot to lower R leg, hot to touch Mode of Arrival: Ambulatory Source of Information: Patient Time Seen by Provider: 07/07/24 11:33 Description of Symptoms (Recalled from Triage Doc. by RN): SWELLING OF RIGHT FOOT AND ANKLE HEENT Symptoms (Recalled from RN notes): No Resp Symptoms (Recalled from RN notes): No Skin Symptoms (Recalled from RN notes): Yes MS Symptoms (Recalled from RN notes): Yes Functional Status (Recalled from RN notes): WNL History of Present Illness Provider Complaint: Patient states that she has a healing area on her right lower leg where she had a mole removed a couple months ago and worried that it may be infected States that she has had some redness, swelling and warmth to the area on for about 4 days now and swelling in her ankle, States that she has been elevating it at home and she used a warm water bottle on it thinking that may help States that swelling and redness did go down a little but still swollen and tender, worried she may have cellulitis so she came in Related Data Home Medications ?Medication ?Instructions ?Recorded ?Confirmed aspirin 81 mg tablet,delayed 81 mg PO DAILY Blood thinner 05/14/18 04/10/24 release (Adult Low Dose Aspirin) hydrocortisone 2.5 % topical cream 1 applic topical DIRECTED 10/18/23 04/10/24 levetiracetam 250 mg tablet 250 mg PO DIRECTED 07/07/24 07/07/24 Previous Rx's ?Medication ?Instructions ?Recorded tramadol 50 mg tablet 50 mg PO BID PRN pain #28 tabs 12/21/22 diclofenac sodium 1 % topical gel 2 g topical QID #100 grams 05/24/23 acetaminophen 300 mg-codeine 30 mg 1 tab PO BID PRN pain #60 tabs 10/03/23 tablet atorvastatin 80 mg tablet See Rx Instructions .Route 03/19/24 .COMPLEX #90 tabs hydrochlorothiazide 25 mg tablet See Rx Instructions .Route 03/19/24 .COMPLEX #90 tabs lisinopril 40 mg tablet See Rx Instructions .Route 03/19/24 .COMPLEX #180 tabs potassium chloride 20 mEq See Rx Instructions .Route 03/19/24 tablet,extended release(part/cryst) .COMPLEX #90 tabs pantoprazole 40 mg tablet,delayed See Rx Instructions .Route 06/25/24 release .COMPLEX #90 tabs apixaban 5 mg tablet (Eliquis) 5 mg PO BID #90 tabs 07/07/24 Allergies Allergy/AdvReac Type Severity Reaction Status Date / Time No Known Allergies Allergy Verified 04/10/24 09:24 Worker's Comp Is this a Worker's Comp case?: [facility] Dis[facility]: The information contained in this section may have been updated after the patient was seen, as this information can be updated by other users. Medical History GERD (gastroesophageal reflux disease) HLD (hyperlipidemia) HTN (hypertension) Surgical History History of ureteroscopy History of tubal ligation History of cholecystectomy Family History Other Family history of cancer No significant family history Social History Smoking Status: Never smoker second hand exposure: No alcohol intake: never substance use type: denies use current occupational status: retired Travel in the last 8 weeks: None household members: other housing: house current occupational exposures/hazards: No caffeine: Yes ROS Obtained: Yes All systems reviewed & no additional complaints except as documented and Yes Systems reviewed as appropriate & no additional complaints except as documented Constitutional Constitutional: Reports system reviewed and no additional complaints, except as documented and Reports as per HPI ENT Ears, Nose, Mouth, and Throat: Reports system reviewed and no additional complaints, except as documented and Reports as per HPI Cardiovascular Cardiovascular: Reports system reviewed and no additional complaints, except as documented and Reports as per HPI Respiratory Respiratory: Reports system reviewed and no additional complaints, except as documented and Reports as per HPI Gastrointestinal Gastrointestingal: Reports system reviewed and no additional complaints, except as documented and as per HPI Genitourinary Female Genitourinary: Reports system reviewed and no additional complaints, except as documented and Reports as per HPI Integumentary/Breasts Skin/Breast: Reports system reviewed and no additional complaints, except as documented and Reports as per HPI Comments: redness, swelling and warmth to right lower extremitiy around her case and ankle area for several days Physical Exam General General appearance: alert and in no apparent distress ENT ENT exam: Present mucous membranes moist Respiratory Respiratory exam: Present normal lung sounds bilaterally; Absent respiratory distress or wheezes Cardiovascular Cardiovascular exam: Present regular rate, normal rhythm and normal heart sounds Expanded Lower Extremity Exam Right: Leg image: 1. area noted where mole was removed in Sept with mild discoloration noted Lower leg exam: Present swelling and erythema (small healing area where mole removed noted, mild redness, warmth and swelling noted in area and and in ankle, denies ,known injury) Ankle exam: Present tenderness (mild) and swelling; Absent ecchymosis or deformity Foot/toe exam: Present other (mild discoloration noted to toes, patient reports has been that color on and off for awhile ) Neurological Exam Neurological exam: Present alert, oriented X3 and normal gait Medical Decision Making Medical Records Screening: Per USPSTF and CDC recommendations, given the prevalence of disease in our region, it is our hospital?s policy to screen for HIV and viral Hepatitis for all patients aged 18 and over and those with ongoing risk factors. Davy Inquiry Pt receiving controlled substance: No Davy was queried for this patient: No Vital Signs: 07/07/24 11:25 Temperature 98.0 F Temperature Source Oral Pulse Rate [Left Radial] 101 H Respiratory Rate 18 Blood Pressure [Left Arm] 109/55 L Blood Pressure Mean [Left Arm] 73 02 Sat by Pulse Oximetry 98 Lab Data 07/07/24 13:15 07/07/24 13:15 Medical Decision Narrative: Venous Doppler performed on right lower extremity Vascular advised that patient did have a non-compensable area noted on posterior tib positive for DVT, patient recently had surgery at for brain tumor and just got her joslyn removed, spoke with Cardiology and they recommended transfer to the ED for furhter work up and evaluation spoke with patient and she was agreeable to transfer, spoke with ED staff and patient was moved to room 2
--- NOTE | 2024-07-07 11:40 | CA_ITS ---
FINAL REPORT TECHNIQUE: Color Doppler, duplex Doppler and compression sonography of the right lower extremity venous system was performed. CLINICAL HISTORY: REDNESS AND EDEMA RT LOWER LEG,WARM TO TOUCH,PT IS S/P BRAIN TUMOR REMOVAL LAST MONTH COMPARISON: None FINDINGS: There is visible venous thrombus in the right posterior tibial vein. The remainder of the right lower extremity venous system is unremarkable. IMPRESSION: Visible venous thrombus right posterior tibial vein. Reviewed, Interpreted and Dictated by Scot Peck III, MD Transcribed by Munira Catherine Authenticated and [facility]
[2024-07-07 12:36] VITALS: BP 99/56; PULSE 83; RESP 20; TEMP 36.8; O2SAT 99; BMI 36.8
[2024-07-07 13:01] VITALS: BP 106/54; PULSE 84; O2SAT 97
--- NOTE | 2024-07-07 13:02 | HMH.EDGENADL ---
Discharge Plan Disposition Patient Disposition: Home, Self-Care Condition: Good Prescriptions Prescriptions: New Eliquis 5 mg tablet 5 mg PO BID Qty: 90 0RF Rx Instructions: Please take 10 mg twice daily for 7 days, then transition to 5 mg twice daily for 3 months. No Action aspirin [Adult Low Dose Aspirin] 81 mg tablet,delayed release (DR/EC) 81 mg PO DAILY hydrocortisone 2.5 % cream 1 applic topical DIRECTED lisinopril 40 mg tablet See Rx Instructions .ROUTE .COMPLEX Qty: 180 1RF Dose Instruction: TAKE 1 TABLET TWICE DAILY Rx Instructions: TAKE 1 TABLET TWICE DAILY hydrochlorothiazide 25 mg tablet See Rx Instructions .ROUTE .COMPLEX Qty: 90 1RF Dose Instruction: TAKE 1 TABLET EVERY DAY Rx Instructions: TAKE 1 TABLET EVERY DAY atorvastatin 80 mg tablet See Rx Instructions .ROUTE .COMPLEX Qty: 90 1RF Dose Instruction: TAKE 1 TABLET AT BEDTIME FOR CHOLESTEROL Rx Instructions: TAKE 1 TABLET AT BEDTIME FOR CHOLESTEROL potassium chloride 20 mEq tablet,ER particles/crystals See Rx Instructions .ROUTE .COMPLEX Qty: 90 1RF Dose Instruction: TAKE 1 TABLET EVERY DAY Rx Instructions: TAKE 1 TABLET EVERY DAY pantoprazole 40 mg tablet,delayed release (DR/EC) See Rx Instructions .ROUTE .COMPLEX Qty: 90 3RF Dose Instruction: TAKE 1 TABLET EVERY DAY FOR ACID REFLUX Rx Instructions: TAKE 1 TABLET EVERY DAY FOR ACID REFLUX tramadol 50 mg tablet 50 mg PO BID PRN (Reason: pain) Qty: 28 0RF diclofenac sodium 1 % gel 2 g topical QID Qty: 100 0RF Rx Instructions: apply to single elbow, wrist or hand; for hand includes palm/fingers/back of hand acetaminophen-codeine 300-30 mg tablet 1 tab PO BID PRN (Reason: pain) Qty: 60 0RF levetiracetam 250 mg tablet 250 mg PO DIRECTED Referrals Follow up/Referrals: Chin Lott MD [Primary Care Provider] - See instructions Activity Restrictions/Add. Instructions Additional Instructions/Restrictions: Please start taking 10 mg Eliquis p.o. twice daily and then position to 5 mg p.o. twice daily for 3 months follow-up with neurosurgeon and other hematology oncology team regarding ongoing cancer, return to the emergency department any worsening signs or symptoms to include chest pain shortness of breath worsening lower extremity swelling redness or pain Clinical Impressions Clinical Impression: Acute deep vein thrombosis (DVT) of right tibial vein Instructions Patient Instructions: DI for Deep Vein Thrombosis Print Language Print Language: Jordanian Discharge ED Provider: Moshe Murray General Adult HPI <NOELLE Gleason - Last Filed: 07/07/24 14:56> General Chief complaint: Extremity Injury, Lower Stated complaint: red spot to lower R leg, hot to touch Time Seen by Provider: 07/07/24 11:33 Mode of Arrival: Ambulatory Source of Information: Patient Limitations: No Limitations Description of Symptoms (Recalled from ER Triage Doc. 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 Patient was recently diagnosed with a glioblastoma had what sounds like a craniotomy to remove portion of the tumor at [facility] on June 05, was discharged on June 07, was placed on Keppra for seizure prophylaxis, her initial symptomatology was a seizure. Denies any other acute complaints, was seen in the urgent care treatment facility had an ultrasound performed with concern for cellulitis versus DVT. Other past medical history consistent with osteoarthritis, IBS, GERD, hyperlipidemia, hypertension, MOHS procedure on the right lower extremity, degenerative disc disease of the lumbar spine. She is a non-smoker, no alcohol or drug use, initial triage vitals notable for blood pressure at 99 systolic otherwise unremarkable. Onset (ago): day(s) Related Data Home Medications ?Medication ?Instructions ?Recorded ?Confirmed aspirin 81 mg tablet,delayed 81 mg PO DAILY Blood thinner 05/14/18 04/10/24 release (Adult Low Dose Aspirin) hydrocortisone 2.5 % topical cream 1 applic topical DIRECTED 10/18/23 04/10/24 levetiracetam 250 mg tablet 250 mg PO DIRECTED 07/07/24 07/07/24 Previous Rx's ?Medication ?Instructions ?Recorded tramadol 50 mg tablet 50 mg PO BID PRN pain #28 tabs 12/21/22 diclofenac sodium 1 % topical gel 2 g topical QID #100 grams 05/24/23 acetaminophen 300 mg-codeine 30 mg 1 tab PO BID PRN pain #60 tabs 10/03/23 tablet atorvastatin 80 mg tablet See Rx Instructions .Route 03/19/24 .COMPLEX #90 tabs hydrochlorothiazide 25 mg tablet See Rx Instructions .Route 03/19/24 .COMPLEX #90 tabs lisinopril 40 mg tablet See Rx Instructions .Route 03/19/24 .COMPLEX #180 tabs potassium chloride 20 mEq See Rx Instructions .Route 03/19/24 tablet,extended release(part/cryst) .COMPLEX #90 tabs pantoprazole 40 mg tablet,delayed See Rx Instructions .Route 06/25/24 release .COMPLEX #90 tabs apixaban 5 mg tablet (Eliquis) 5 mg PO BID #90 tabs 07/07/24 Allergies Allergy/AdvReac Type Severity Reaction Status Date / Time No Known Allergies Allergy Verified 04/10/24 09:24 PFS <NOELLE Gleason - Last Filed: 07/07/24 14:56> [facility] Disclaimer: The information contained in this section may have been updated after the patient was seen, as this information can be updated by other users. Medical History GERD (gastroesophageal reflux disease) HLD (hyperlipidemia) HTN (hypertension) Surgical History History of ureteroscopy History of tubal ligation History of cholecystectomy Family History Other Family history of cancer No significant family history Social History Smoking Status: Never smoker second hand exposure: No alcohol intake: never substance use type: denies use current occupational status: retired Travel in the last 8 weeks: None household members: other housing: house current occupational exposures/hazards: No caffeine: Yes Other Medical History Have you received the Flu Vaccine for this season: Yes Have you received the Pneumonia Vaccine: Yes <NOELLE Gleason - Last Filed: 07/07/24 14:56> ROS Obtained: Yes All systems reviewed & no additional complaints except as documented Physical Exam <NOELLE Gleason - Last Filed: 07/07/24 14:56> General General appearance: alert and in no apparent distress Head Head exam: atraumatic and normocephalic Eye Eye exam: Present PERRL and EOMI ENT ENT exam: Present mucous membranes moist Neck Neck exam: Present normal inspection Chest Chest inspection: Present normal inspection and symmetric chest wall rise Respiratory Respiratory exam: Present normal lung sounds bilaterally; Absent respiratory distress Cardiovascular Cardiovascular exam: Present regular rate and normal rhythm Abdominal Exam Abdominal exam: Present soft; Absent tenderness Extremities Exam Extremities exam: Present normal inspection, edema and other (There is some +2 pitting edema on the patient's right lower extremity, there is no real erythema, no fluctuance, no real tenderness to palpation on the patient's deep vein, faintly positive Homans' sign on the right) Neurological Exam Neurological exam: Present alert and oriented X3 Psychiatric Psychiatric exam: Present normal affect Skin Skin exam: Present warm and dry Medical Decision Making <NOELLE Gleason - Last Filed: 07/07/24 14:56> Medical Records Medical records reviewed: Yes I reviewed the patient's medical records. Screening: Per USPSTF and CDC recommendations, given the prevalence of disease in our region, it is our hospital?s policy to screen for HIV and viral Hepatitis for all patients aged 18 and over and those with ongoing risk factors. Davy Inquiry Pt receiving controlled substance: No Davy was queried for this patient: No Vital Signs: 07/07/24 11:25 07/07/24 12:36 07/07/24 13:01 Temperature 98.0 F 98.2 F Temperature Source Oral Oral Pulse Rate 84 Pulse Rate [Left Radial] 101 H 83 Respiratory Rate 18 20 Blood Pressure 106/54 L Blood Pressure [Left Arm] 109/55 L 99/56 L Blood Pressure Mean 70 Blood Pressure Mean [Left Arm] 73 70 02 Sat by Pulse Oximetry 98 99 97 Oxygen Delivery Method Room Air 07/07/24 15:12 Temperature 98.2 F Temperature Source Pulse Rate 79 Pulse Rate [Left Radial] Respiratory Rate 20 Blood Pressure 106/74 L Blood Pressure [Left Arm] Blood Pressure Mean Blood Pressure Mean [Left Arm] 02 Sat by Pulse Oximetry Oxygen Delivery Method Room Air Lab Data Lab results reviewed: Yes I reviewed the patient's lab results. Lab Results 07/07/24 13:15: WBC 5.9, RBC 4.09 L, Hgb 12.4, Hct 36.2 L, MCV 88.6, MCH 30.3, MCHC 34.2, RDW 14.5, Plt Count 127 L, MPV 8.8, Neut % (Auto) 75.0, Lymph % (Auto) 15.7, [place] % (Auto) 3.7, Eos % (Auto) 4.7, Baso % (Auto) 0.9, Neut # (Auto) 4.4, Lymph # (Auto) 0.9, [place] # (Auto) 0.2, Eos # (Auto) 0.3, Baso # (Auto) 0.1, Sodium 134 L, Potassium 4.4, Chloride 101, Carbon Dioxide 30, Anion Gap 7.4, BUN 45 H, Creatinine 1.20 H, Estimated Creat Clear 57, Estimated GFR 42 L, Est GFR ( Amer) 51 L, Glucose 123 H, Calcium 9.1, Total Bilirubin 1.2, AST 40 H, ALT 19, Alkaline Phosphatase 79, NT-Pro-B Natriuret Pep 164, Total Protein 6.3, Albumin 3.7, Globulin 2.6, Albumin/Globulin Ratio 1.4 07/07/24 13:15 07/07/24 13:15 Orders (Tests/Meds): ORDERS Category Date Time Status Complete Blood Count Auto Diff Stat Lab 07/07/24 13:15 Completed Comprehensive Metabolic Panel Stat Lab 07/07/24 13:15 Completed NT Pro Brain Natriuretic Pep. Stat Lab 07/07/24 13:15 Completed CA venous doppler LE RT Stat Y 07/07/24 11:40 Completed Medical Decision Narrative: 89-year-old female presents to the emergency department with right lower extremity swelling, differential diagnose include but not limited to, DVT, lymphedema, CHF exacerbation, dependent edema, cellulitis, venous stasis. I discussed this patient's case with the attending physician Dr. Murray, he saw and examined the patient as well. Obtain basic laboratory studies, proBNP, will wait for formal report on the duplex lower extremity ultrasound performed at the urgent care treatment facility. CBC is notable for with her cytopenia at 4.09, thrombocytopenia 127. I along with the attending physician reviewed the patient's EKG, sinus rhythm with first-degree AV block at 82 bpm VA interval was elongated to 48, QT interval within normal limits there is no STEMI. CMP is notable for hyponatremia at 134, elevated BUN and creatinine at 45/1.2 respectively, acute kidney injury slightly elevated outside of her baseline, proBNP within normal limits. I reviewed the patient's duplex ultrasound of the right lower extremity along with corresponding radiologic report, there is a visible venous thrombus in the right posterior tibial vein. Will prescribe the patient after speaking with pharmacist approximately 2:45 PM, will have the patient, please start taking 10 mg Eliquis p.o. twice daily and then position to 5 mg p.o. twice daily for 3 months follow-up with neurosurgeon and other hematology oncology team regarding ongoing cancer, return to the emergency department any worsening signs or symptoms to include chest pain shortness of breath worsening lower extremity swelling redness or pain. Patient and family voiced understand agree with current treatment plan/discharge plan. <Moshe Murray MD - Last Filed: 07/07/24 15:47> Vital Signs: 07/07/24 11:25 07/07/24 12:36 07/07/24 13:01 Temperature 98.0 F 98.2 F Temperature Source Oral Oral Pulse Rate 84 Pulse Rate [Left Radial] 101 H 83 Respiratory Rate 18 20 Blood Pressure 106/54 L Blood Pressure [Left Arm] 109/55 L 99/56 L Blood Pressure Mean 70 Blood Pressure Mean [Left Arm] 73 70 02 Sat by Pulse Oximetry 98 99 97 Oxygen Delivery Method Room Air 07/07/24 15:12 Temperature 98.2 F Temperature Source Pulse Rate 79 Pulse Rate [Left Radial] Respiratory Rate 20 Blood Pressure 106/74 L Blood Pressure [Left Arm] Blood Pressure Mean Blood Pressure Mean [Left Arm] 02 Sat by Pulse Oximetry Oxygen Delivery Method Room Air Lab Data Lab Results 07/07/24 13:15: WBC 5.9, RBC 4.09 L, Hgb 12.4, Hct 36.2 L, MCV 88.6, MCH 30.3, MCHC 34.2, RDW 14.5, Plt Count 127 L, MPV 8.8, Neut % (Auto) 75.0, Lymph % (Auto) 15.7, [place] % (Auto) 3.7, Eos % (Auto) 4.7, Baso % (Auto) 0.9, Neut # (Auto) 4.4, Lymph # (Auto) 0.9, [place] # (Auto) 0.2, Eos # (Auto) 0.3, Baso # (Auto) 0.1, Sodium 134 L, Potassium 4.4, Chloride 101, Carbon Dioxide 30, Anion Gap 7.4, BUN 45 H, Creatinine 1.20 H, Estimated Creat Clear 57, Estimated GFR 42 L, Est GFR ( Amer) 51 L, Glucose 123 H, Calcium 9.1, Total Bilirubin 1.2, AST 40 H, ALT 19, Alkaline Phosphatase 79, NT-Pro-B Natriuret Pep 164, Total Protein 6.3, Albumin 3.7, Globulin 2.6, Albumin/Globulin Ratio 1.4 Orders (Tests/Meds): ORDERS Category Date Time Status Complete Blood Count Auto Diff Stat Lab 07/07/24 13:15 Completed Comprehensive Metabolic Panel Stat Lab 07/07/24 13:15 Completed NT Pro Brain Natriuretic Pep. Stat Lab 07/07/24 13:15 Completed CA venous doppler LE RT Stat Y 07/07/24 11:40 Completed Medical Decision Narrative: 89-year-old female presents to the emergency department with right lower extremity swelling, differential diagnose include but not limited to, DVT, lymphedema, CHF exacerbation, dependent edema, cellulitis, venous stasis. I discussed this patient's case with the attending physician Dr. Murray, he saw and examined the patient as well. Obtain basic laboratory studies, proBNP, will wait for formal report on the duplex lower extremity ultrasound performed at the urgent care treatment facility. CBC is notable for with her cytopenia at 4.09, thrombocytopenia 127. I along with the attending physician independently interpreted the patient's EKG, sinus rhythm with first-degree AV block at 82 bpm VA interval was elongated to 48, QT interval within normal limits there is no STEMI. CMP is notable for hyponatremia at 134, elevated BUN and creatinine at 45/1.2 respectively, acute kidney injury slightly elevated outside of her baseline, proBNP within normal limits. I reviewed the patient's duplex ultrasound of the right lower extremity along with corresponding radiologic report, there is a visible venous thrombus in the right posterior tibial vein. Will prescribe the patient after speaking with pharmacist approximately 2:45 PM, will have the patient, please start taking 10 mg Eliquis p.o. twice daily and then position to 5 mg p.o. twice daily for 3 months follow-up with neurosurgeon and other hematology oncology team regarding ongoing cancer, return to the emergency department any worsening signs or symptoms to include chest pain shortness of breath worsening lower extremity swelling redness or pain. Patient and family voiced understand agree with current treatment plan/discharge plan. JASON attestation I was consulted by the JASON, and we discussed the complexity of problems being addressed. I approved the treatment and management plan for this patient's care in the emergency department, thus performing a substantial portion of the medical decision making. Patient had multiple risk factors for VTE including active malignancy, recent surgery and hospitalization. Ultrasound was independently interpreted by me revealing of a right tibial vein thrombosis. Initiated on Eliquis. She is to follow-up with her specialists at . No chest pain or shortness of breath or oxygen requirement necessitating CT PE. Moshe Murray MD Critical Care <NOELLE Gleason - Last Filed: 07/07/24 14:56> Critical Care Time Critical Care Time: No
--- NOTE | 2024-07-07 13:11 | ECG_ITS ---
APPROVED REPORT Exam: Resting ECG HR:82 bpm ECG Measurements Heart Rate 82 AXES TX 248 P 41 QRSd 130 QRS -22 QT 365 T 36 QTc 404 Conclusion SINUS RHYTHM WITH FIRST DEGREE AV BLOCK RIGHT BUNDLE BRANCH BLOCK [120+ ms QRS DURATION, UPRIGHT V1, 40+ ms S IN I/aVL/V4/V5/V6] POSSIBLE ANTERIOR MYOCARDIAL INFARCTION , PROBABLY OLD [30 ms Q WAVE IN V3/V4, OR R < 0.2 mV IN V4] ABNORMAL ECG UNCONFIRMED REPORT Electronically signed by : Moshe Murray, 07/07/2024 14:55:47
[2024-07-07 13:28] LABS: Basophils # 0.1 K/mm3 (0-0.2); Basophils % 0.9 % (0.1-2.0); Eosinophils # 0.3 K/mm3 (0.0-0.4); Eosinophils % 4.7 % (0.1-12.0); Hematocrit 36.2 % (37.0-47.0); Hemoglobin 12.4 g/dL (12.2-16.2); Lymphocytes # 0.9 K/mm3 (0.7-4.5); Lymphocytes % 15.7 % (10-50); Mean Corpuscular HGB Conc 34.2 g/dL (31.8-35.4); Mean Corpuscular Hemoglobin 30.3 pg (27.0-31.2); Mean Corpuscular Volume 88.6 fl (81-99); Mean Platelet Volume 8.8 fl (7.4-10.4); Monocytes # 0.2 K/mm3 (0.1-1.0); Monocytes % 3.7 % (1.7-9.3); Neutrophils # 4.4 K/mm3 (1.8-7.8); Platelet Count 127 K/mm3 (142-424); Red Blood Count 4.09 M/mm3 (4.20-5.40); Red Cell Distribution Width 14.5 % (11.5-17.5); White Blood Count 5.9 K/mm3 (4.8-10.8)
[2024-07-07 13:44] LABS: Albumin Level 3.7 g/dl (3.5-5.0); Chloride 101 mmol/L (98-107)
[2024-07-07 13:45] LABS: Potassium 4.4 mmoL/L (3.5-5.1); Sodium 134 mmol/L (136-145)
[2024-07-07 13:47] LABS: Alanine Aminotransferase 19 U/L (12-78); Anion Gap 7.4 mEq/L (5-15); Aspartate Amino Transferase 40 U/L (14-36); Blood Urea Nitrogen 45 mg/dl (7-17); Carbon Dioxide 30 mmol/L (22.0-30.0); Creatinine Clearance Estimated 57 mL/min (50-200); Estimated Glomerular Filt Rate 42 ml/min (>60); GFR (African American) 51 ML/MIN (>60)
[2024-07-07 13:48] LABS: Albumin/Globulin Ratio 1.4 (1.1-1.8); Alkaline Phosphatase 79 U/L (38-126); Bilirubin,Total 1.2 mg/dl (0.2-1.3); Calcium 9.1 mg/dl (8.4-10.2); Globulin 2.6 g/dL (1.3-3.2); Glucose 123 mg/dl (74-100); Total Protein,Serum 6.3 g/dl (6.3-8.2)
--- NOTE | 2024-07-07 13:50 | PC.NURSE ---
I spoke with radiology, they report her doppler is being read by a radiologist at this time.
[2024-07-07 13:56] LABS: NT Pro Brain Natriuretic Pep. 164 pg/mL (0-450)
[2024-07-07 15:12] VITALS: BP 106/74; PULSE 79; RESP 20; TEMP 36.8; O2SAT 98
== END 2024-07-07 15:13 | disposition home or self-care (01) ==
LOC: UTC 11:08 → ER 12:24
PROVIDERS: Physician Assistant; Emergency Provider Student in an Organized Health Care Education/Training Program; PCP Internal Medicine
DX: I82.441 Acute embolism and thrombosis of right tibial vein (principal); R22.41 Localized swelling, mass and lump, right lower limb
CPT/HCPCS: 80053; 83880; 85025; 93005; 93971; 99283

== ENCOUNTER 2024-09-25 11:31 | Outpatient (CLI) | payer MEDICARE, SELFPAY ==
[2024-09-25 12:00] LABS: Basophils % 0.6 % (0.1-2.0); Eosinophils # 0.2 K/mm3 (0.0-0.4); Eosinophils % 3.7 % (0.1-12.0); Hematocrit 36.1 % (37.0-47.0); Hemoglobin 11.7 g/dL (12.2-16.2); Lymphocytes # 0.9 K/mm3 (0.7-4.5); Lymphocytes % 18.4 % (10-50); Mean Corpuscular HGB Conc 32.4 g/dL (31.8-35.4); Mean Corpuscular Hemoglobin 30.2 pg (27.0-31.2); Mean Corpuscular Volume 93.3 fl (81-99); Mean Platelet Volume 11.4 fl (7.4-10.4); Monocytes # 0.4 K/mm3 (0.1-1.0); Monocytes % 7.8 % (1.7-9.3); Neutrophils # 3.5 K/mm3 (1.8-7.8); Neutrophils % 69.3 % (37.0-80.0); Platelet Count 150 K/mm3 (142-424); Red Blood Count 3.87 M/mm3 (4.20-5.40); Red Cell Distribution Width 14.6 % (11.5-17.5); White Blood Count 5.1 K/mm3 (4.8-10.8)
[2024-09-25 15:56] LABS: Alanine Aminotransferase 11 U/L (12-78); Albumin Level 4.2 g/dl (3.5-5.0); Albumin/Globulin Ratio 1.9 (1.1-1.8); Alkaline Phosphatase 79 U/L (38-126); Anion Gap 7.9 mEq/L (5-15); Aspartate Amino Transferase 27 U/L (14-36); Blood Urea Nitrogen 68 mg/dl (7-17); Calcium 9.6 mg/dl (8.4-10.2); Carbon Dioxide 33 mmol/L (22.0-30.0); Chloride 103 mmol/L (98-107); Estimated Glomerular Filt Rate 28 ml/min (>60); GFR (African American) 34 ML/MIN (>60); Globulin 2.2 g/dL (1.3-3.2); Glucose 104 mg/dl (74-100); Potassium 3.9 mmoL/L (3.5-5.1); Sodium 140 mmol/L (136-145); Total Protein,Serum 6.4 g/dl (6.3-8.2)
== END 2024-09-25 23:59 | disposition home or self-care (01) ==
LOC: LAB 11:34
PROVIDERS: PCP Internal Medicine; Visit Provider Internal Medicine Hematology & Oncology
DX: C71.9 Malignant neoplasm of brain, unspecified (principal)
CPT/HCPCS: 36415; 80053; 85025

== ENCOUNTER 2024-10-15 11:00 | Outpatient (CLI) | payer MEDICARE, SELFPAY ==
[2024-10-15 17:15] LABS: Basophils # 0.1 K/mm3 (0-0.2); Basophils % 1.4 % (0.1-2.0); Eosinophils # 0.5 K/mm3 (0.0-0.4); Hematocrit 38.3 % (37.0-47.0); Hemoglobin 12.3 g/dL (12.2-16.2); Lymphocytes # 1.1 K/mm3 (0.7-4.5); Lymphocytes % 19.7 % (10-50); Mean Corpuscular HGB Conc 32.1 g/dL (31.8-35.4); Mean Corpuscular Volume 93.4 fl (81-99); Mean Platelet Volume 12.2 fl (7.4-10.4); Monocytes # 0.4 K/mm3 (0.1-1.0); Monocytes % 6.6 % (1.7-9.3); Neutrophils # 3.7 K/mm3 (1.8-7.8); Platelet Count 167 K/mm3 (142-424); Red Cell Distribution Width 14.9 % (11.5-17.5); White Blood Count 5.8 K/mm3 (4.8-10.8)
[2024-10-15 18:12] LABS: Alanine Aminotransferase 12 U/L (12-78); Albumin Level 4.4 g/dl (3.5-5.0); Albumin/Globulin Ratio 1.8 (1.1-1.8); Alkaline Phosphatase 93 U/L (38-126); Anion Gap 7.2 mEq/L (5-15); Aspartate Amino Transferase 28 U/L (14-36); Bilirubin,Total 0.9 mg/dl (0.2-1.3); Blood Urea Nitrogen 51 mg/dl (7-17); Calcium 10.4 mg/dl (8.4-10.2); Carbon Dioxide 36 mmol/L (22.0-30.0); Chloride 100 mmol/L (98-107); Estimated Glomerular Filt Rate 27 ml/min (>60); GFR (African American) 32 ML/MIN (>60); Globulin 2.4 g/dL (1.3-3.2); Glucose 79 mg/dl (74-100); HDL Cholesterol 39 mg/dl (40-60); Potassium 4.2 mmoL/L (3.5-5.1); Sodium 139 mmol/L (136-145); Total Protein,Serum 6.8 g/dl (6.3-8.2)
[2024-10-15 18:31] LABS: Direct LDL Cholesterol 71.66 mg/dL (100-129)
[2024-10-15 19:29] LABS: Chol/HDL Ratio 4.5 (1-3.5); Cholesterol 175 mg/dl (140-200); Triglycerides 196 mg/dl (30-150); VLDL Cholesterol 39 mg/dL (0-40)
== END 2024-10-15 23:59 | disposition home or self-care (01) ==
LOC: LAB.DROPOF 10-16 12:59
PROVIDERS: PCP Internal Medicine; Visit Provider Internal Medicine
DX: E78.5 Hyperlipidemia, unspecified (principal); I10 Essential (primary) hypertension
CPT/HCPCS: 80053; 80061; 85025

== ENCOUNTER 2024-10-27 11:05 | Outpatient (CLI) | payer MEDICARE, SELFPAY ==
[2024-10-27 11:40] LABS: Basophils # 0.1 K/mm3 (0-0.2); Basophils % 1.2 % (0.1-2.0); Eosinophils # 0.4 K/mm3 (0.0-0.4); Eosinophils % 7.6 % (0.1-12.0); Hematocrit 36.2 % (37.0-47.0); Hemoglobin 11.8 g/dL (12.2-16.2); Lymphocytes # 1.2 K/mm3 (0.7-4.5); Lymphocytes % 23.5 % (10-50); Mean Corpuscular HGB Conc 32.6 g/dL (31.8-35.4); Mean Corpuscular Hemoglobin 30.3 pg (27.0-31.2); Mean Corpuscular Volume 92.8 fl (81-99); Mean Platelet Volume 11.9 fl (7.4-10.4); Monocytes # 0.4 K/mm3 (0.1-1.0); Monocytes % 7.4 % (1.7-9.3); Neutrophils % 60.3 % (37.0-80.0); Platelet Count 172 K/mm3 (142-424); Red Cell Distribution Width 14.1 % (11.5-17.5)
[2024-10-27 12:12] LABS: Alanine Aminotransferase 10 U/L (12-78); Albumin Level 4.1 g/dl (3.5-5.0); Albumin/Globulin Ratio 1.5 (1.1-1.8); Alkaline Phosphatase 75 U/L (38-126); Aspartate Amino Transferase 26 U/L (14-36); Bilirubin,Total 0.8 mg/dl (0.2-1.3); Blood Urea Nitrogen 65 mg/dl (7-17); Carbon Dioxide 30 mmol/L (22.0-30.0); Chloride 102 mmol/L (98-107); Estimated Glomerular Filt Rate 30 ml/min (>60); GFR (African American) 37 ML/MIN (>60); Globulin 2.8 g/dL (1.3-3.2); Glucose 98 mg/dl (74-100); Sodium 141 mmol/L (136-145); Total Protein,Serum 6.9 g/dl (6.3-8.2)
== END 2024-10-27 23:59 | disposition home or self-care (01) ==
LOC: LAB 11:06
PROVIDERS: PCP Internal Medicine; Visit Provider Internal Medicine Hematology & Oncology
DX: C71.9 Malignant neoplasm of brain, unspecified (principal)
CPT/HCPCS: 36415; 80053; 85025

== ENCOUNTER 2024-12-29 11:34 | Outpatient (CLI) | payer MEDICARE, SELFPAY ==
--- OUTSIDE RECORDS SUMMARY | 2024-12-29 11:37 | XMS_ITS | Data Portability ---
Author Organization [facility] Address [address] [place] [address] Assessment Encounter Date Assessment Date Assessment LastModified by Organization Details LastModified Time 02/28/2024 02/28/2024 This patient is a [place] patient that presents to us for right-sided trochanteric bursitis. She received a right trochanteric bursa injection today. We will follow-up with her with a telemedicine visit in 2 weeks. Will evaluate efficacy of this injection. Patient will transfer her care here As it is much cheaper to get injections in the office setting. abux Not available 02/28/2024 17:13:44 03/11/2024 03/11/2024 Patient is a pleasant 88-year-old female who presents today for follow-up of right greater trochanteric bursa injection on 02/28/2024. Today she rates her pain a 2 out of 10. Patient states that she has had at least 75% relief following this injection and has been able to walk around easier with decreased pain.Patient states that she has been able to decrease her oral medications since having this injection. Patient is currently managed with Tylenol 3 twice a day from our office. She denies any side effects and states she does not need refills at this time. Her Davy is [phone]. Its been reviewed and is appropriate. This appointment was done by telehealth while it was occurring at the patient's home and she did give verbal consent for this audio appointment. This appointment did last from [id number]. Patient had significant relief following her injection and does not require any additional injection therapy at this time. Patient will return to clinic in 1 month for reevaluation of symptoms and plan of care. Patient has been instructed to contact the clinic with any concerns before the next appointment. Dr. Myrick has reviewed this note and agrees with this plan of care. This note was dictated using voice recognition software and may contain errors or omissions. [email or web address] Not available 03/11/2024 10:24:07 Plan of Treatment Reminders Order Date Submit Date Provider Last Modified By Organization Details Last Modified Time Details Appointments None record ed. Lab None record ed. Referral None record ed. Procedures None record ed. Surgeries None record ed. Imaging None record ed. Medication Orders None record ed. Patient TargetsNo targets recorded. Patient Instructions Encounter Date Encounter Id Patient Instructions Last Modified By Organization Details Last Modified Time 02/28/2024 [id number] back pain: care instructions abux Not available 02/28/2024 17:14:17 learning about relief for back pain abux Not available 02/28/2024 17:14:17 Reason for Referral None Reported. Problems Name Problem SNOMED Code Status Onset Date Resolution Date Notes Provider Name and Address Organization Details Recorded Time Trochanteri c bursitis of right hip 7920232674744 00 Active 2023 Jian Myrick MD [address] [place] [address], [address], [place] [facility] 17:14:04 Pain of hip region 66878527 Active 2023 Jian Myrick MD [address], [address], [place] [facility] 17:14:05 Problem Notes None recorded. Procedures Surgical History Date Name Laterality Status Provider Name and Address Organization Details Recorded Time 02/28/20 24 Greater Trochanteric Bursa Steroid Injection completed Jian Myrick MD [address], [address], [place] [facility] 02/28/2024 17:12:59 ligation of fallopian tube completed Gabriela Villalobos [place] [facility] 02/28/2024 10:44:19 Cholecystectomy completed Gabriela Villalobos [place] [facility] 02/28/2024 10:44:29 ureteroscopy completed Gabriela Villalobos [place] [facility] 02/28/2024 10:44:45 Imaging Results None recorded. Procedure Notes None recorded. Medical Equipment None Reported. Allergies No known drug allergies Medications Name Sig Start Date Stop Date Status Note LastModified by Organization Details LastModified Time furosemide 40 mg tablet TAKE 1 TABLET BY MOUTH IN THE MORNING NEEDED FOR SWELLING active Not Available Not Available No t Available latanoprost 0.005 % eye drops active Not Available Not Available Not Available atorvastatin 80 mg tablet active Not Available Not Available Not Available prednisone 10 mg tablet active Not Available Not Available Not Available doxycycline hyclate 100 mg capsule active Not Available Not Available N ot Available prednisone 20 mg tablet active Not Available Not Available Not Available acetaminophe n 300 mg-codeine 30 mg tablet active Not Available Not Available Not Available tramadol 50 mg tablet active Not Available Not Available No t Available potassium chloride ER 20 mEq tablet,exten ded release(part /cryst) active Not Available Not Available Not Available pantoprazole 40 mg tablet,delay ed release active Not Available Not Available N ot Available hydrocortiso ne 2.5 % topical cream active Not Available Not Available Not Available hydrochlorot hiazide 25 mg tablet active Not Available Not Available No t Available mupirocin 2 % topical ointment active Not Available Not Available Not Available lisinopril 40 mg tablet active Not Available Not Available Not Available naproxen 500 mg tablet TAKE 1 TABLET BY MOUTH TWICE DAILY WITH FOOD NEEDED FOR PAIN INFLAMMATIO N active Not Available Not Available No t Available diclofenac 1 % topical gel active Not Available Not Available Not Available Vitals Date Recorded Body height Body mass index (BMI) Body weight Provider Name and Address Organization Details Last Updated DateTime 02/28/2024 172.72 cm 38 kg/m2 324966.09 g Gabriela Villalobos [place] [facility] 02/28/2024 10:37:11 Social History None recorded. Functional Status Question Answer Note LastModified by Organizat ion Details LastModified Time Do you use any illicit or recreational drugs? No [email or web address] Information not available 02/28/2024 Do you or have you ever used any other forms of tobacco or nicotine? No [email or web address] Information not available 02/28/2024 What is your level of alcohol consumption? None [email or web address] Information not available 02/28/2024 Mental Status None recorded. Family History Nothing Reported. Medical History Condition Response Coronary Artery Disease N Gout N Head Trauma/Injury N Depression N COPD N Anxiety Disorder N Arthritis N Acid Reflux (GERD) Y Cancer N Stroke N Headaches N Fibromyalgia N Kidney Disease N Ulcers N Bleeding Disorder N Tuberculosis N AIDS/HIV N Asthma N Substance Abuse N Hepatitis N Hernia N Back Injury N High Cholesterol N Liver Disease N Thyroid Problems N Anemia N Heart Attack (ID) N Diabetes N Heart Disease N Hypertension Y Osteoporosis N Gynecological HistoryNo gynecological history recorded. Obstetrics History GPAL:G 0 P 0 0 0 0 Past Encounters Encounter ID Performer Location Encounter Start Date Encounter Closed Date Diagnosis/Indication Diagnosis SNOMED-CT Code Diagnosis ICD10 Code Diagnosis Note [id number] Jian Myrick MD [address] MICHELLE [address] [place] [phone] 02/28/2024 10:27:24 02/28/2024 11:18:41 Pain of hip region 61865311 M25.551 Trochanter ic bursitis of right hip 1693333055 06705 M70.61 Degenerati on of lumbar intervertebral disc 21433590 M51.36 [id number] Cristina Greene NP [address] MICHELLE [address] [place] [phone] 03/11/2024 10:00:41 03/11/2024 10:45:15 Trochanteric bursitis of right hip 5746138261 76295 M70.61 Health Concerns Section Related Observation LastModified by Organization Detai ls LastModified Time None Recorded Concern Status LastModified by Organization Details LastModified Time None Recorded Advance Directives Directive None Recorded Payers Encounter Date Sequence Insurance Name Policy Number Policy Bruner Covered Member ID Bruner Member ID Guarantor Name 02/28/2024 1 [employer] (MEDICARE REPLACEMENT/A DVANTAGE - PPO) Mariella Hawkins [id number] Mariella Hawkins 03/11/2024 1 [employer] (MEDICARE REPLACEMENT/A DVANTAGE - PPO) Mariella Hawkins [id number] Mariella Hawkins Notes Date Note Type Note Provider Name and Address Organization Details Recorded Time 02/28/2024 text/html Hip(s)Reported bypatient.Location: right Quality:aching; burning; throbbing Severity:moderate; pain level 4/10; worst pain /10 Timing:constant Context:cannot identify Aggravating Factors:standing; walking; twisting; bending/squatting; weightbearing Previous Surgery:surgical procedure: (Right Si fusion) Jian Myrick MD [address], [address], [place] [facility] 02/28/2024 17:14:39 03/11/2024 text/html Hip(s)Reported bypatient.Location: right Quality:aching; burning; throbbing Severity:moderate; pain level 4/10; worst pain /10 Timing:constant Context:cannot identify Aggravating Factors:standing; walking; twisting; bending/squatting; weightbearing Previous Surgery:surgical procedure: (Right Si fusion) Cristina Greene NP [address] [address], [place], [address], [place] [facility] 03/11/2024 10:24:19 OBGyn Episode No OBEpisode recorded.
[2024-12-29 12:19] LABS: Basophils # 0.1 K/mm3 (0-0.2); Basophils % 1.1 % (0.1-2.0); Eosinophils # 0.4 Kmm3 (0.0-0.4); Eosinophils % 6.7 % (0.1-12.0); Hematocrit 34.5 % (37.0-47.0); Hemoglobin 11.6 g/dL (12.2-16.2); Immature Granulocytes # 0.01 10^3uL; Immature Granulocytes % 0.2 %; Lymphocytes # 1.1 K/mm3 (0.7-4.5); Lymphocytes % 20.3 % (10-50); Mean Corpuscular HGB Conc 33.6 g/dL (31.8-35.4); Mean Corpuscular Hemoglobin 32.4 pg (27.0-31.2); Mean Corpuscular Volume 96.4 fl (81-99); Mean Platelet Volume 11.8 fl (7.4-10.4); Monocytes # 0.4 K/mm3 (0.1-1.0); Monocytes % 7.3 % (1.7-9.3); Neutrophils # 3.4 K/mm3 (1.8-7.8); Neutrophils % 64.4 % (37.0-80.0); Nucleated Red Blood Cells # 0 10^3/uL; Nucleated Red Blood Cells % 0 %; Platelet Count 174 K/mm3 (142-424); Red Blood Count 3.58 M/mm3 (4.20-5.40); Red Cell Distribution Width 13.2 % (11.5-17.5); Red Cell Distribution Width-SD 46.9 fL; White Blood Count 5.2 K/mm3 (4.8-10.8)
[2024-12-29 12:39] LABS: Alanine Aminotransferase 9 U/L (12-78); Albumin Level 4.1 g/dl (3.5-5.0); Albumin/Globulin Ratio 1.6 (1.1-1.8); Alkaline Phosphatase 94 U/L (38-126); Anion Gap 8.9 mEq/L (5-15); Aspartate Amino Transferase 23 U/L (14-36); Blood Urea Nitrogen 46 mg/dl (7-17); Calcium 9.5 mg/dl (8.4-10.2); Carbon Dioxide 32 mmol/L (22.0-30.0); Chloride 106 mmol/L (98-107); Estimated Glomerular Filt Rate 36 ml/min (>60); GFR (African American) 43 ML/MIN (>60); Globulin 2.5 g/dL (1.3-3.2); Glucose 92 mg/dl (74-100); Potassium 3.9 mmoL/L (3.5-5.1); Sodium 143 mmol/L (136-145); Total Protein,Serum 6.6 g/dl (6.3-8.2)
== END 2024-12-29 23:59 | disposition home or self-care (01) ==
LOC: LAB 11:35
PROVIDERS: PCP Internal Medicine; Visit Provider Internal Medicine Hematology & Oncology
DX: C71.9 Malignant neoplasm of brain, unspecified (principal)
CPT/HCPCS: 36415; 80053; 85025

== ENCOUNTER 2025-01-23 11:40 | Outpatient (CLI) | payer MEDICARE, SELFPAY ==
--- OUTSIDE RECORDS SUMMARY | 2024-11-26 15:41 | XMS_ITS | Encounter Summary ---
Author Organization [facility] Address [address] [place] [address] Care Team Providers Care Outside Sales Representative Insurance Name Role Phone Chin Lott MD Primary Care Provider [phone] Chin Lott MD Unavailable [phone] Reason for Referral * Imaging (Routine) - Closed Specialty Diagnoses / Procedures Referred By Contac t Referred To Contact Radiology Diagnoses Glioblastoma (CMS/HCC) Procedures MR Head w and wo IV Contrast Karlee Baird MD [address] [address] Phone: tel: fax: Referral ID Status Reason Start Date Expiration Date Visits Re quested Visits Authorized [id number] Closed 10/29/2024 04/30/2026 1 1 Reason for Visit * Imaging (Routine) - Closed Specialty Diagnoses / Procedures Referred By Contac t Referred To Contact Radiology Diagnoses Glioblastoma (CMS/HCC) Procedures MR Head w and wo IV Contrast Karlee Baird MD [address] [address] Phone: tel: fax: Referral ID Status Reason Start Date Expiration Date Visits Re quested Visits Authorized [id number] Closed 10/29/2024 04/30/2026 1 1 Encounter Details Date Type Department Care Team (Latest Contact Info) Description 11/26/2024 3:41 PM EDT - 11/26/2024 11:59 PM EDT Hospital Encounter [facility] Radiology [address] [place] [address] Glioblastoma ([facility]) Discharge Disposition: Home or Self Care Social History Tobacco Use Types Packs/Day Years Used Date Smoking Tobacco: Never Smokeless Tobacco: Never Alcohol Use Standard Drinks/Week Comments Never 0 (1 standard drink = 0.6 oz pur e alcohol) Humiliation, Afraid, Rape, and Kick questionnair e Answer Date Recorded Within the last year, have y ou been afraid of your partner or ex-partner? No 06/13/2024 Within the last year, have y ou been humiliated or emotionally abused in other ways by your partner or ex-partner? No Within the last year, have y ou been kicked, hit, slapped, or otherwise physically hurt by your partner or ex-partner? No 06/13/2024 Within the last year, have y ou been raped or forced to have any kind of sexual activity by your partner or ex-partner? No 06/13/2024 Social Connection and Isolation Panel Answer Date Recorded In a typical week, how many times do you talk on the phone with family, friends, or neighbors? Patient unable to answer 06/13/2024 How often do you get togethe r with friends or relatives? Patient unable to answer 06/13/2024 How often do you attend [facility] or voodoo services? Patient unable to answer 06/13/2024 Do you belong to any clubs o r organizations such as roman catholic groups, unions, fraternal or athletic groups, or school groups? Patient unable to answer 06/13/2024 How often do you attend meet ings of the clubs or organizations you belong to? Never 06/13/2024 Are you , , di vorced, , never , or living with a partner? 06/13/2024 AUDIT-C Answer Date Recorded Q1: How often do you have a drink containing alcohol? Patient unable to answer 06/13/2024 Q2: How many drinks containi ng alcohol do you have on a typical day when you are drinking? Patient unable to answer Q3: How often do you have si x or more drinks on one occasion? Patient unable to answer 06/13/2024 Overall Financial Resource Strain (CARDIA) Answe r Date Recorded How hard is it for you to pa y for the very basics like food, housing, medical care, and heating? Somewhat hard 06/13/2024 [facility] - Occupational Stress Questionnaire Answer Date Recorded Do you feel stress - tense, restless, nervous, or anxious, or unable to sleep at night because your mind is troubled all the time - these days? Patient unable to answer 06/13/2024 Exercise Vital Sign Answer Date Recorde d On average, how many days pe r week do you engage in moderate to strenuous exercise (like a brisk walk)? 0 days 06/13/2024 On average, how many minutes do you engage in exercise at this level? 0 min 06/13/2024 Hunger Vital Sign Answer Date Recorded Within the past 12 months, y ou worried that your food would run out before you got the money to buy more. Never true 06/13/20 24 Within the past 12 months, t he food you bought just didn't last and you didn't have money to get more. Never true 06/13/2024 PRAPARE - Transportation Answer Date Re corded In the past 12 months, has l ack of transportation kept you from medical appointments or from getting medications? No 05/30 In the past 12 months, has l ack of transportation kept you from meetings, work, or from getting things needed for daily living? No 06/13/2024 Housing Stability Vital Sign Answer Compa e Recorded In the last 12 months, was t here a time when you were not able to pay the mortgage or rent on time? No 06/13/2024 Number of Times Moved in the Last Year Not on fi le 06/13/2024 At any time in the past 12 m [facility], were you homeless or living in a detention (including now)? No 06/13/2024 Utilities Answer Date Recorded In the past 12 months has th e electric, gas, oil, or water company threatened to shut off services in your home? No 06/13/2024 Comments No Sex and Gender Information Value Date Recorded Sex Assigned at Not on file Legal Sex Female 6:33 PM EDT Gender Identity Not on file Sexual Orientation Not on file documented as of this encounter Medications at Time of Discharge aprepitant (Emend Tri-Pack) 80 & 125 MG capsule Take along with Zofran as anti-nausea pre-medication 30 minutes prior to Temodar (oral chemotherapy) on Days 1-3 of each cycle. 1 kit 5 09/29/2024 aspirin 81 MG EC tablet Take 1 tablet (81 mg) by mouth 1 (one) time each day. 06/27/2024 atorvastatin (Lipitor) 80 MG tablet 06/10/2024 cephalexin (Keflex) 500 MG capsule 05/13/2024 Eliquis 5 MG tablet 07/07/2024 furosemide (Lasix) 40 MG tablet 10/22/2023 hydroCHLOROthiazi de (HYDRODiuril) 25 MG tablet Take 1 tablet (25 mg) by mouth daily. latanoprost (Xalatan) 0.005 % ophthalmic solution 03/19/2024 lisinopril 40 MG tablet Take 1 tablet (40 mg) by mouth 2 (two) times a day. ondansetron (Zofran) 8 MG tabletIndications :Glioblastoma (CMS/HCC) Take 1 tab (8mg) by mouth daily 30 minutes prior to temozolomide, then up to every 8 hours (max: 3/day) as needed for nausea/vomitin g 90 tablet 1 07/10/2024 ondansetron (Zofran) 8 MG tabletIndications :Glioblastoma (CMS/HCC) Take 1 tab (8mg) by mouth daily 30 minutes prior to temozolomide, then up to every 8 hours (max: 3/day) as needed for nausea/vomitin g 90 tablet 1 10/28/2024 pantoprazole (Protonix) 40 MG EC tablet Take 1 tablet (40 mg) by mouth daily. 09/11/2024 polyethylene glycol (Miralax) 17 g packet Take 17 g by mouth 1 (one) time each day. 30 packet 06/15/2024 potassium chloride CR (Klor-Con M20) 20 MEQ ER tablet 06/10/2024 prochlorperazine (Compazine) 10 MG tabletIndications :Glioblastoma (CMS/HCC) Take 1 tablet (10 mg) by mouth every 6 (six) hours if needed for nausea or vomiting. 30 tablet 5 07/10/2024 temozolomide (Temodar) 100 MG chemo capsuleIndication s:Glioblastoma (CMS/HCC) Take 2 capsules (200 mg total) by mouth nightly. Take on Days 1-5 every 28 days 10 capsule 10 09/29/2024 temozolomide (Temodar) 20 MG chemo capsuleIndication s:Glioblastoma (CMS/HCC) Take 1 capsule (20 mg total) by mouth nightly. Take on Days 1-5 every 28 days 5 capsule 10 09/29/2024 documented as of this encounter Miscellaneous Notes * Da Herron S - 11/26/2024 4:12 PM EDT Images from the original note were not included. 1639 Caring for Yourself after Contrast Imaging If you had ORAL contrast: ?? You can go back to your normal diet and activities as tolerated. ?? Drink plenty of fluids, unless told otherwise. If you had IV contrast: ?? You can go back to your normal diet and activities as tolerated. ?? Drink plenty of fluids, unless told otherwise. ?? Leave a bandage on the site for 30 minutes (where the IV was inserted or blood was drawn). If you had Intravesical (bladder) contrast: ?? Return to normal diet and activity. What you need to know about delayed reaction to IV contrast What is IV Contrast? ?? Contrast is a dye that is put into your body through an IV. ?? It is used for imaging scans such as CT scans and MRIs. ?? The contrast makes blood vessels, organs and other parts of your body show up better on the scan. What do I need to do after IV contrast? ?? Drink lots of fluids. This will help flush the contrast out of your system. ?? Drink 2-3 extra glasses or bottles of water within 4 hours of your scan. What is a contrast reaction? ?? A contrast reaction is a bad side effect from the contrast dye. ?? It is rare but it does happen. ?? They can be mild - such as sneezing, itching, or hives. ?? They can be severe - such as trouble breathing, throat swelling, and irregular heart beat. When do these reactions happen? ?? They often happen right after the contrast is injected. ?? Some happen hours after going home. Go to the nearest Emergency Department right away if you have any of these symptoms after you leavethe clinic or hospital. ?? Sneezing ?? Itching in your mouth, throat, eyes, ears, or skin ?? Rash or hives ?? Throwing up or stomach sickness ?? High heart rate or ?racing? of your heart ?? Feeling dizzy or woozy ?? Feeling short of breath or like you can?t take a deep breath ?? Feeling very anxious for no other reason It is very important that these reactions be treated. Tell the doctor or nurse that you are having a reaction to IV contrast dye. Do not ignore any sign of a reaction! All reactions must be assessed by a doctor. Call 911 if you are alone and your reaction is more than mild sneezing or itching. If you have a mild reaction, call to speak with a Radiologist, explain that you havehad a contrast reaction, as this needs to be added to your medical record. documented in this encounter Plan of Treatment Upcoming Encounters Date Type Department Care Team (Late st Contact Info) Description 01/28/2025 2:20 PM EDT Office Visit Pav [facility] Head[facility] Res[facility] [address] [facility] [place] [address] Karlee Baird MD [address] [facility] Dena Ferreira [facility] [address] [place] [address] documented as of this encounter Procedures Procedure Name Priority Date/Time Associated Diagnosis Comments MR HEAD W AND WO IV CONTRAST Routine 11/26/2024 5:00 PM EDT Glioblastoma (CMS/HCC) documented in this encounter Results * MR Head w and wo IV Contrast (11/26/2024 5:00 PM EDT) Anatomical Region Laterality Modality Head Magnetic Resonan ce Impressions 12/02/2024 12:14 PM EDT Restaging of right parietal glioblastoma. Compared to most recent prior, brain MRI to 10/16/2024: * Slight interval increase in size of residual enhancing glioblastoma in the right parietal lobe. Associated slight interval increase in perilesional T2/FLAIR hyperintensity which may reflect a combination of edema and infiltrating tumor. * Otherwise, similar postsurgical changes related to right parietal craniotomy for subtotal resection of right parietal glioblastoma. * There is no evidence of intracranial hemorrhage or acute infarction. * Potential nonocclusive thrombus in the left distal transverse sinus, sagittal sinus, and proximal internal jugular vein. RECOMMENDATION: CT or MR venogram could be considered for further characterization of potential left venous sinus thrombus. CRITICAL RESULT: Yes. COMMUNICATION: Per this written report. A -MD page request was sent for the responding clinician, KARLEE BAIRD, on 12/02/2024 12:11 PM. Findings were discussed with the responding clinician, KARLEE BAIRD, on 12/02/2024 12:14 PM. Drafted by Gal Do MD on 12/02/2024 11:57 AM Final report signed by Gal Do MD on 12/02/2024 12:14 PM Narrative 12/02/2024 12:14 PM EDT CLINICAL INDICATION: Glioma TECHNIQUE: Multiplanar multiecho sequences were performed through the brain utilizing T1 and T2 weighting, as well as either axial susceptibility weighted or gradient echo sequences, and axial diffusion weighted images. A coronal post-contrast 1mm thick T1-weighted 3D MP RAGE sequence was performed and multiplanar reformatted images were created. Imaging was performed with and without contrast administration: 10.5 mL of Gadavist. COMPARISON: Brain MRI 09/01/2024 FINDINGS: Diagnostic Quality: Adequate. Again noted are postsurgical changes related to right parietal craniotomy for subtotal resection of a right parietal biopsy proven glioblastoma. Unchanged irregular dural thickening and enhancement subjacent to the craniotomy site. As before, there is susceptibility within the resection cavity consistent with postsurgical blood products. Slight interval increase in irregular nodular enhancement along the resection margin, most pronounced along the anterior and inferior aspects of the resection margin. As before, there is a small cystic element within the nodular enhancement. There is a cleft of DWI-trace hyperintensity corresponding to the peripheral aspect of the enhancing soft tissue without definite restricted diffusion on ADC image. Slight interval increase in perilesional T2/FLAIR hyperintensity. No midline shift, mass effect, parenchymal hemorrhage, or evidence of acute infarct. There are nonspecific punctate and patchy T2/FLAIR hyperintensities in the periventricular and subcortical white matter which may represent sequela of small vessel disease. No extra-axial fluid collections. Basal cisterns are patent. No hydrocephalus. There is mild prominence of the sulci, cisterns, and ventricles suggestive of generalized brain parenchymal volume loss without a regional predominance. The callosal angle is obtuse. Vascular Flow Voids: Loss of the distal left transverse sinus, left sagittal sinus, and proximal left internal jugular flow voids. There is a questionable associated nonocclusive filling defect on postcontrast imaging. Paranasal Sinuses and Mastoid Air Cells: Trace right septal deviation. No masses involving the nasal canals, paranasal sinuses, or mastoid air cells. Orbits: Bilateral lens implants. Otherwise orbits and globes are unremarkable in appearance. Extracranial Findings: None. Craniocervical Junction and Skull Base: No tonsillar ectopia or mass is present. Procedure Note Gal Do MD - 12/02/2024 CLINICAL INDICATION: Glioma TECHNIQUE: Multiplanar multiecho sequences were performed through the brain utilizingT1 and T2 weighting, as well as either axial susceptibility weighted orgradient echo sequences, and axial diffusion weighted images. A coronalpost-contrast 1mm thick T1- weighted 3D MP RAGE sequence was performed andmultiplanar reformatted images were created. Imaging was performed withand without contrast administration: 10.5 mL of Gadavist. COMPARISON: Brain MRI 09/01/2024 FINDINGS: Diagnostic Quality: Adequate. Again noted are postsurgical changes related to right parietal craniotomyfor subtotal resection of a right parietal biopsy proven glioblastoma.Unchanged irregular dural thickening and enhancement subjacent to thecraniotomy site. As before, there is susceptibility within the resectioncavity consistent with postsurgical blood products. Slight intervalincrease in irregular nodular enhancement along the resection margin, mostpronounced along the anterior and inferior aspects of the resectionmargin. As before, there is a small cystic element within the nodularenhancement. There is a cleft of DWI-trace hyperintensity corresponding tothe peripheral aspect of the enhancing soft tissue without definiterestricted diffusion on ADC image. Slight interval increase inperilesional T2/FLAIR hyperintensity. No midline shift, mass effect, parenchymal hemorrhage, or evidence ofacute infarct. There are nonspecific punctate and patchy T2/FLAIRhyperintensities in the periventricular and subcortical white matter whichmay represent sequela of small vessel disease. No extra-axial fluid collections. Basal cisterns are patent. Nohydrocephalus. There is mild prominence of the sulci, cisterns, andventricles suggestive of generalized brain parenchymal volume loss withouta regional predominance. The callosal angle is obtuse. Vascular Flow Voids: Loss of the distal left transverse sinus, leftsagittal sinus, and proximal left internal jugular flow voids. There is aquestionable associated nonocclusive filling defect on postcontrastimaging. Paranasal Sinuses and Mastoid Air Cells: Trace right septal deviation. Nomasses involving the nasal canals, paranasal sinuses, or mastoid aircells. Orbits: Bilateral lens implants. Otherwise orbits and globes areunremarkable in appearance. Extracranial Findings: None. Craniocervical Junction and Skull Base: No tonsillar ectopia or mass ispresent. IMPRESSION: Restaging of right parietal glioblastoma. Compared to most recent prior,brain MRI to 10/16/2024: *Slight interval increase in size of residual enhancing glioblastoma inthe right parietal lobe. Associated slight interval increase inperilesional T2/FLAIR hyperintensity which may reflect a combination ofedema and infiltrating tumor. *Otherwise, similar postsurgical changes related to right parietalcraniotomy for subtotal resection of right parietal glioblastoma. *There is no evidence of intracranial hemorrhage or acute infarction. *Potential nonocclusive thrombus in the left distal transverse sinus,sagittal sinus, and proximal internal jugular vein. RECOMMENDATION: CT or MR venogram could be considered for further characterization ofpotential left venous sinus thrombus. CRITICAL RESULT: Yes. COMMUNICATION: Per this written report. A -MD page request was sent for the responding clinician, KARLEE RICHARDS, on 12/02/2024 12:11 PM. Findings were discussed with the responding clinician, KARLEE BAIRD, on12/02/2024 12:14 PM. Drafted by Gal Do MD on 12/02/2024 11:57 AM Final report signed by Gal Do MD on 12/02/2024 12:14 PM Karlee Baird MD IMG MRI PROCEDURES Final Resul t documented in this encounter Visit Diagnoses Diagnosis Glioblastoma (CMS/HCC) Malignant neoplasm of brain, unspecified site documented in this encounter Administered Medications Inactive Administered Medications - up to 3 most recent administrations Medication Order MAR Action Action Date Dose Rate Site gadobutrol (Gadavist) injection 10.5 mL 10.5 mL (0.1 mL/kg 105 kg), Intravenous, Once in imaging, 1 dose, Starting on Sun11/26/24 at 1611, Until Sun11/26/24 at 1627, Routine, Imaging Protocol Orders Given 11/26/2024 4:27 PM EDT 10.5 mL Right Antecubital documented in this encounter Additional Health Concerns Assessment Noted Time A fall risk assessment has been complete d for the patient 09/23/2024 2:09 PM EST A Body Mass Index follow-up plan has been documented for the patient 10/30/2024 1:03 AM EDT documented as of this encounter Care Teams Outside Sales Representative Insurance Relationship Specialty Start Date End Date Chin Lott MD [address] [place] [address] [address] [place] [address] PCP - General 05/11/24 Chin Lott MD [address] [place] [address] [address] [place] [address] 05/11/24 documented as of this encounter
--- OUTSIDE RECORDS SUMMARY | 2024-11-27 13:00 | XMS_ITS | Encounter Summary ---
Author Organization Healthcare Address [address] [id number] Care Team Providers Care Food Tr[employer] Assistants Name Role Phone Chin Lott MD Primary Care Provider [phone] Chin Lott MD Unavailable [phone] Encounter Details Date Type Department Care Team (Late st Contact Info) Description 11/27/2024 1:00 PM EDT Office Visit Pav CC Head, Neck & Respiratory [address] [facility], [address]nd [place] [address] Regulo Odonnell MD [address] [facility] [address] [place] [address] Glioblastoma (CMS/HCC) (Primary Dx) Social History Tobacco Use Types Packs/Day Years [...] answer 06/13/2024 How often do you attend [facility] or buddhism services? Patient unable to answer 06/13/2024 Do you belong to any clubs o r organizations such as sikhism groups, unions, fraternal or athletic groups, or [...] medical care, and heating? Somewhat hard 06/13/2024 [facility] - Occupational Stress Questionnaire Answer Date Recorded [...] any time in the past 12 m [facility], were you homeless or living in a half-way (including now)? No 06/13/2024 Utilities Answer Date Recorded In the past 12 months has th e [employer], gas, oil, or water company threatened to shut off services in your home? No 06/13/2024 Comments No Sex and Gender Information Value Date Recorded Sex Assigned at Not on file Legal Sex Female 6:33 PM EDT Gender Identity Not on file Sexual Orientation Not on file documented as of this encounter Miscellaneous Notes * Progress Notes - Zee Lux, PharmD - 11/27/2024 1:00 PM EDT Pharmacy Hematology/Oncology Treatment Note Mariella Hawkins is a 89 y.o. female with Cancer Staging Glioblastoma (CMS/HCC) Staging form: High Grade Glioma - Clinical: Histology: Glioblastoma multiforme - Unsigned Study Patient: no Treatment Plan reviewed for Cycle 4 temozolomide maintenance Interval History: Patient underwent resection of right parietal mass on 06/13/24. Pathology showed GBM. MGMT status still pending. Will initiate treatment with concurrent Temodar + XRT. Radiation oncology plans for 3 week radiation course, start date pending. I counseled the patient on this regimenin clinic. Patient and family understand that she will not start taking Temodar until the radiationstart date. 07/17/24: Patient has not yet started treatment. Concurrent TMZ+XRT start date scheduled for 07/21/24. 08/14/24: Patient finishing concurrent TMZ+XRT today. Has tolerated treatment well. Will discuss TMZmaintenance at next visit in 3 weeks. 09/01/24: Patient doing well after completing concurrent TMZ+XRT. Ready to start Temodar maintenance.She was counseled on this regimen in clinic today and a calendar was provided for cycles 1 through 3. Plan to start C1 Temodar maintenance on 09/08/24. Labs have been reviewed and are appropriate to proceed. 09/29/24: Patient reports some delayed nausea following cycle 1 on TMZ maintenance. Will add Emend topre-medication regimen on days 1-3 of upcoming cycles of Temodar. Local labs obtained on 09/25/24 remain appropriate for treatment. Creatinine remains elevated - will continue to monitor. Plan to brian nue with 100 mg/m2/dose dosing strategy throughout TMZ maintenance. 10/29/24: Patient assessed by Dr. Odonnell via telehealth. Tolerating therapy. Local labs collected 10/27/24 have been assessed and remain appropriate for continuation of therapy with no changes at this time. Today's Wt: Wt Readings from Last 1 Encounters: 11/26/24 105 kg (230 lb 13.2 oz) Dosing Wt: 108 kg Dosing Ht: 172.7 cm DosingBSA: 2.2 m2 Recent Labs: Lab Results Component Value Date WBC 5.84 11/26/2024 NEUTROABS 3.28 11/26/2024 HGB 11.8 11/26/2024 PLT 218 11/26/2024 Lab Results Component Value Date GLUCOSE 93 11/26/2024 CALCIUM 9.8 11/26/2024 NA 140 11/26/2024 K 4.2 11/26/2024 CO2 30 (H) 11/26/2024 CL 102 11/26/2024 BUN 34 (H) 11/26/2024 CREATININE 1.03 11/26/2024 Lab Results Component Value Date ALT 6 (L) 11/26/2024 AST 21 11/26/2024 ALKPHOS 100 11/26/2024 BILITOT 0.6 11/26/2024 Vitals: There were no vitals taken for this visit. Other Relevant Monitoring: none Treatment/Therapy Plan: Temozolomide 220 mg (100 mg cap x2 + 20 mg cap x1; ~100 mg/m2/dose) orally once nightly on days 1-5 Every 28 days [x] No dose adjustments made Rx sent to: [facility] Refills due: N/A Current Treatment Plan History: Temodar maintenance C1: 09/08-09/12/24 C2: 10/06-10/10/24 C3: 11/03-11/07/24 C4: 12/01-12/05/24 Prior Treatment History: Concurrent TMZ + XRT (07/21/24-08/14/24) Plan: Patient will follow-up in 4 weeks. Pharmacist Attestation: Zee Lux PharmD Clinical Oncology Pharmacist * Progress Notes - Regulo Odonnell MD - 11/27/2024 1:00 PM EDT NEURO ONCOLOGY FOLLOW-UP NOTE Patient Information Patient Name: Mariella Hawkins Date of : 1935 Encounter Date: 11/27/24 Treatment Diagnosis: Glioblastoma, IDH wt, ATRX intact, and MGMT + Telehealth Statement Patient Verification Patient identity has been confirmed using name and date of ? Yes Authorizations and Agreements/Telemedicine Consent sent and consent confirmed? Yes Patient Location: Home/Other Patient confirms they are physically located in [place]? Yes If the patient is not physically located in [place], the provider has confirmed with [facility] thatthe provider is authorized to provide services in patient's stated location? Yes Provider Location: [facility] facility Audio and video or audio only? Audio and video Total visit time: 30 minutes History of Present Illness: Mariella Hawkins is a 89 y.o. presented with seizure and imaging demonstrated enhancing right parietal lobe and on Jun 13, 2024 had a near gross total resection. Pathology demonstrated Glioblastoma, IDH wt, ATRX intact, and MGMT positive. She was soon discharged. Concurrent TMZ+XRT Dates: 07/21/24-08/14/24 Current Treatment Plan History: Temozolomide maintenance C1: 09/08-09/12/24 (~100 mg/m2) C2: 10/06-10/10/24 Today: She comes as a video TH and has been on lower doses of temozolomide (TMZ). She has been adherent with treatment with main complaint is delayed nausea hs improved significantly with Emend beingadded. She denies neurologic deficits as well as additional seizures. She has been on Keppra as faring well with good QOL. Stable memory issues and minor episodes of confusion. She hopes to write an autobiography. Denies having seizures, debilitating headaches, falls or vision problems. Past Medical, Surgical, Family and Social History Reviewed in this encounter by me personally Subjective Review of Systems: Rest of 14 point organ based review of system was conducted and pertinent negatives and positives are placed in the HPI. Objective Performance Status 70-80% There were no vitals taken for this visit. EXAM She is able to follow commands and her voice is intact with fluent speech. She is able to provide adetailed hx and is able to answer questions properly. She had no respiratory distress, with a normal breathing pattern during our conversation. She moved all extremities smoothly without effort or strain. LABORATORIES AND STUDIES: reviewed by me personally Lab Results Component Value Date BUN 34 (H) 11/26/2024 CL 102 11/26/2024 NA 140 11/26/2024 K 4.2 11/26/2024 TP 7.3 11/26/2024 AST 21 11/26/2024 ALT 6 (L) 11/26/2024 @NEUTOPHILPCT@ Lab Results Component Value Date WBC 5.84 11/26/2024 HGB 11.8 11/26/2024 HCT 36.5 11/26/2024 MCV 95 11/26/2024 PLT 218 11/26/2024 Assessment/Plan Mariella Hawkins is a 89 y.o. presented with seizure and imaging demonstrated enhancing right parietal lobe and on Jun 13, 2024 had a near gross total resection. Pathology demonstrated Glioblastoma, IDH wt, ATRX intact, and MGMT positive. She was soon discharged. Concurrent TMZ+XRT Dates: 07/21/24-08/14/24 MRI Brain last on 11-26-24; images reviewed directly as well as report assessed. 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 Clinically stable Current Treatment Plan History: Temozolomide maintenance C1: 09/08-09/12/24 C2: 10/06-10/10/24 C3: 11/03-11/07/24 C4: 12/01-12/05/24 (pending) Plan: will have Ms. Hawkins come in 4 wks for as TH visit, tox eval, labs, and plan for initiation of maintenance TMZ. Her labs collected at on 11/26/24 are good for cycle #5 of TMZ. Re: thrombus findings on MRI brain; will Rx anticoag, but dec dosage. Had discussion with Ms. Hawkins and then son. Sent Apixiban Rx for her to [facility]. Dose is lower as she is 89 y/o., and will start with 5 mg every day for 7 days and alternate 2 with 1 tab (2.5 mg tab) every other day (average dose is 3.75 mg). Medications reviewed; for delayed nausea much improved with added Emend We also discussed the potential for depression, she is stable [facility] We also discussed Phys. Therapy, which she has orders for. We also recommended for her to remain engaged socially. We plan to have her come back in 4 wks as TH. and she knows how to get hold of us if he has questions. Regulo Odonnell MD, PhD [facility] HEAD[facility] NECK & RESPIRATORY [address] [facility] [address] No referring provider defined for this encounter documented in this encounter Plan of Treatment Upcoming Encounters Date Type Department Care Team (Late st Contact Info) Description 01/28/2025 2:20 PM EDT Office Visit Pav CC Head, Neck & Respiratory [address] [facility], [address] [place] [address] Regulo Odonnell MD [address] [facility] [address] [place] [address] Scheduled Orders Name Type Priority Associated Diagnoses Orde r Schedule CBC and Differential Lab Routine Glioblastoma (CMS/HCC) Expected: 12/25/2024 (Approximate), Expires: 11/27/2025 Comprehensive Metabolic Panel, Plasma Lab Routine Glioblastoma (CMS/HCC) Expected: 12/25/2024 (Approximate), Expires: 11/27/2025 documented as of this encounter Visit Diagnoses Diagnosis Glioblastoma (CMS/HCC)- Primary Malignant neoplasm of brain, unspecified site documented in this encounter Additional Health Concerns Assessment Noted Time A fall risk assessment has been complete d for the patient 09/23/2024 2:09 PM EST A Body Mass Index follow-up plan has been documented for the patient 10/30/2024 1:03 AM EDT documented as of this encounter Care Teams Food Trades Assistants Relationship Specialty Start Date End Date Chin Lott MD [address] [place] [address] PCP - General 05/11/24 Chin Lott MD [address] [place] [address] 05/11/24 documented as of this encounter
--- OUTSIDE RECORDS SUMMARY | 2025-01-01 13:00 | XMS_ITS | Encounter Summary ---
Author Organization Healthcare Address [address] [id number] Care Team Providers Care Sales And Customer Relations Rep Name Role Phone Chin Lott MD Primary Care Provider [phone] Chin Lott MD Unavailable [phone] Encounter Details Date Type Department Care Team (Late st Contact Info) Description 01/01/2025 1:00 PM EDT Office Visit Pav CC Head, Neck & Respiratory 800 [facility], 2nd [place] [address] Regulo Odonnell MD 800 [facility] [address] [place] [address] Glioblastoma (CMS/HCC) (Primary Dx) Social History Tobacco [...] answer 06/13/2024 How often do you attend [facility] or rastafari services? Patient unable to answer 06/13/2024 Do you belong to any clubs o r organizations such as scientologist groups, unions, fraternal or athletic groups, or [...] medical care, and heating? Somewhat hard 06/13/2024 [facility] - Occupational Stress Questionnaire Answer Date [...] any time in the past 12 m [facility], were you homeless or living in a detention (including now)? No 06/13/2024 Utilities Answer Date Recorded In the past 12 months has th e [employer], gas, oil, or water company threatened to shut off services in your home? No 06/13/2024 Comments No Sex and Gender Information Value Date Recorded Sex Assigned at Not on file Legal Sex Female 6:33 PM EDT Gender Identity Not on file Sexual Orientation Not on file documented as of this encounter Miscellaneous Notes * Progress Notes - Zee Lux, PharmD - 01/01/2025 1:00 PM EDT Pharmacy Hematology/Oncology Treatment Note Mariella Hawkins is a 89 y.o. 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 01/01/25: Patient assessed by Dr. Odonnell via . Patient noted that she didn't receive her Emend with her November cycle. Will follow up with specialty on that. Cycle 5 delayed 1 week due to appointment scheduling. Today's Wt: Wt Readings from Last 1 Encounters: 11/26/24 105 kg (230 lb 13.2 oz) Dosing Wt: 108 kg Dosing Ht: 172.7 cm DosingBSA: 2.2 m2 Recent Labs: OSH labs from 12/29 in media - reviewed and appropriate for continuation. Lab Results Component Value Date WBC 5.84 [...] No dose adjustments made Rx sent to: [facility] Refills due: N/A Current Treatment Plan History: Temodar maintenance C1: 09/08-09/12/24 C2: 10/06-10/10/24 C3: 11/03-11/07/24 C4: 12/01-12/05/24 C5: 01/05- (delayed per MD scheduling) Prior Treatment History: Concurrent TMZ + XRT (07/21/24-08/14/24) Plan: Patient will follow-up in 4 weeks. Pharmacist Attestation: Verna CastroD Clinical Oncology Pharmacist * Progress Notes - Regulo Odonnell MD - 01/01/2025 1:00 PM EDT NEURO ONCOLOGY FOLLOW-UP NOTE Patient Information Patient Name: Mariella Hawkins Date of : 1935 Encounter Date: 01/01/25 Treatment Diagnosis: Glioblastoma, IDH wt, ATRX intact, and MGMT + Telehealth Statement Patient Verification Patient identity has been confirmed using name and date of ? Yes Authorizations and Agreements/Telemedicine Consent sent and consent confirmed? Yes Patient Location: Home/Other Patient confirms they are physically located in [place]? Yes If the patient is not physically located in [place], the provider has confirmed with [facility] thatthe provider is authorized to provide services in patient's stated location? N/A Provider Location: [facility] facility Audio and video or audio only? Audio and video Total visit time: 25 minutes History of Present Illness: Mariella Hawkins is a 89 y.o. presented with seizure and imaging demonstrated enhancing right parietal lobe and on Jun 13, 2024 had a near gross total resection. Pathology demonstrated Glioblastoma, IDH wt, ATRX intact, and MGMT positive. She was soon discharged. Concurrent TMZ+XRT Dates: 07/21/24-08/14/24 Current Treatment Plan History: Temozolomide maintenance C1: 09/08-09/12/24 (~100 mg/m2) C2: 10/06-10/10/24 C3: 11/03-11/07/24 C4: 12/01-12/05/24 Today: She comes as a video TH and has been on lower doses of temozolomide (TMZ). She has been adherent with treatment tolerating chemotherapy received at the beginning of November. The patient mentioned having longstanding abdominal pain that occurs particularly when lying down. She stated that the weight has been stable, although a weight loss of 27 pounds was noted. She reported good appetite and sleep quality, but the energy level was described as not optimal. The patient reported not experiencing nausea currently although she was not given Emend for her last cycle. Past Medical, Surgical, Family and Social History [...] directly as well as report assessed. 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 Clinically stable Current Treatment Plan History: Temozolomide maintenance C1: 09/08-09/12/24 C2: 10/06-10/10/24 C3: 11/03-11/07/24 C4: 12/01-12/05/24 C5: 01/05- (delayed per MD scheduling--pending) Plan: will have Ms. Hawkins come in 4 wks for as TH visit, tox eval, labs, and plan for continuationof maintenance TMZ. Her labs collected locally on 12/29/24 are good for cycle #5 of TMZ. Re: thrombus findings on MRI brain; will Rx anticoag, but dec dosage. Had discussion with Ms. Hawkins and then son. Sent Apixiban Rx for her to [facility]. Dose is lower as she is 89 y/o., and will start with 5 mg every day for 7 days and alternate 2 with 1 tab (2.5 mg tab) every other day (average dose is 3.75 mg). Nausea: will provide Emend--overall stable Abdominal pain: She reported persistent abdominal pain, especially when lying down, which has been a chronic issue for years. Despite this, the patient's weight has remained relatively stable, suggesting that the pain may not be significantly affecting nutritional intake or overall health status. Will allow magnetic prospector to eval, if unable will refer to our GI team Medications reviewed; for delayed nausea much improved with added Emend - Monitor kidney function due to previously noted mild elevation in kidney function labs. We also discussed the potential for depression, she is stable We offered access to [employer] [facility] We also discussed Phys. Therapy, which she has orders for. We also recommended for her to remain engaged socially. We plan to have her come back in 4 wks as TH. and she knows how to get hold of us if he has questions. Regulo Odonnell MD, PhD [facility] P[facility] CC HEAD, NECK & RESPIRATORY [address] [facility] [phone] No referring provider defined for this encounter documented in this encounter Plan of Treatment Upcoming Encounters Date Type Department Care Team (Late st Contact Info) Description 01/28/2025 2:20 PM EDT Office Visit Pav CC Head, Neck & Respiratory 800 [facility], [address]nd [place] [address] Regulo Odonnell MD 800 [facility] Dena Ferreira [facility] [address] [place] [phone] Scheduled Orders Name Type Priority Associated Diagnoses Orde r Schedule CBC and Differential Lab Routine Glioblastoma (CMS/HCC) Expected: 01/26/2025 (Approximate), Expires: 07/05/2026 Comprehensive Metabolic Panel, Plasma Lab Routine Glioblastoma (CMS/HCC) Expected: 01/26/2025 (Approximate), Expires: 07/05/2026 documented as of this encounter Visit Diagnoses [...] documented as of this encounter Care Teams Sales And Customer Relations Rep Relationship Specialty Start Date End Date Chin Lott MD [address] [place] [address] PCP - General 05/11/24 Chin Lott MD [address] [place] [address] 05/11/24 documented as of this encounter
--- OUTSIDE RECORDS SUMMARY | 2025-01-23 11:45 | XMS_ITS | Encounter Summary ---
Author Organization [facility] Address [address] [id number] Care Team Providers Care Stretcher Helper Name Role Phone Chin Lott MD Primary Care Provider [phone] Chin Lott MD Unavailable [phone] Reason for Visit * Auth/Cert (Routine) Specialty Diagnoses / Procedures Referred By Contac t Referred To Contact Diagnoses AMS (altered mental status) Senia Hernandez MD [address] [place] [address] Phone: tel: fax: PAV A Emergency Department [address] [place] [address] Phone: tel: Referral ID Status Reason Start Date Expiration Date Visits Re quested Visits Authorized [id number] 1 1 Encounter Details Date Type Department Care Team (Late st Contact Info) Description 06/18/2024 Lab Requisition PAV H Lab [address] [place] [address] Yenni Soto MD [address] [place] [address] Localized swelling, mass and lump, head Social History Tobacco Use Types Packs/Day Years [...] answer 06/13/2024 How often do you attend [facility] or jain services? Patient unable to answer 06/13/2024 Do you belong to any clubs o r organizations such as alevism groups, unions, fraternal or athletic groups, or [...] medical care, and heating? Somewhat hard 06/13/2024 [facility] Health - Occupational Stress Questionnaire Answer Date [...] time in the past 12 m [facility], were you homeless or living in a penitentiary (including now)? No 06/13/2024 Utilities Answer Date Recorded In the past 12 months has th e electric, gas, oil, or water company threatened to shut off services in your home? No 06/13/2024 Comments Unknown Sex and Gender Information Value Date Recorded Sex Assigned at Not on file Legal Sex Female 6:33 PM EDT Gender Identity Not on file Sexual Orientation Not on file documented as of this encounter Plan of Treatment Upcoming Encounters Date Type Department Care Team (Late st Contact Info) Description 01/28/2025 2:20 PM EDT Office Visit Pav CC Head, Neck & Respiratory 800 [facility], 2nd [place] [address] Regulo Odonnell MD [address] [facility] Dena Ferreira [facility] [address] [place] [address] documented as of this encounter Procedures Procedure Name Priority Date/Time Associated Diagnosis Comments MGMT PROMOTER METHYLATION DET BY DDPCR (SO) Routine 06/13/2024 8:59 AM EST Localized swelling, mass and lump, head documented in this encounter Results * (ABNORMAL) MGMT Promoter Methylation Det by ddPCR (SO) (06/13/2024 8:59 AM EST) MGMT METH Result Detected(A) 06/28/2024 9:26 AM EST [facility] ([email or web address]) MGMT METH Specimen Tissue 06/28/2024 9:26 AM EST [facility] ([email or web address]) BLOCK ID [id number] 06/28/2024 9:26 AM EST [facility] ([email or web address]) Tissue Tissue specimen / Unknown 06/13/2024 8:59 AM EST 06/18/2024 2:12 PM EST Narrative [facility] ([email or web address]) - 06/28/2024 9:26 AM EST This result has been reviewed and approved by Paolo Larsen M.D. MGMT promoter methylation was detected. INTERPRETIVE INFORMATION: MGMT Promoter Methylation Detection by ddPCR CHARACTERISTICS: This assay is designed to detect MGMT promoter methylation. MGMT promoter methylation status is a prognostic biomarker in patients with high-grade gliomas and is useful in treatment decisions. For specific treatment recommendations, please refer to NCCN Clinical Practice Guidelines in Oncology for Central Nervous System Cancers (www.nccn.org). METHODOLOGY: Genomic DNA is isolated from microscopically-guided dissection of tumor tissue followed by bisulfite conversion. Two droplet digital PCR reactions with conversion-specific primers and differentially labeled probes complementary to methylated and unmethylated MGMT promoter sequence are performed. Methylation status of CpG sites 75-78 is evaluated in reaction 1 and of CpG sites 79-82 in reaction 2. Percent methylation for each reaction is calculated as a ratio of methylated to all amplifiable alleles. The average percent methylation of both reactions is used for qualitative calls and reported as follows: average percent methylation of 0 to less than 5 percent is reported as Not detected, 5 to less than 25 percent as Low level, and equal or more than 25 percent as Detected. LIMITATIONS: Methylation at locations other than those listed above will not be detected. ANALYTICAL SENSITIVITY: 5 percent methylation. This test was developed and its performance characteristics determined by [employer] It has not been cleared or approved by the US Food and Drug Administration. This test was performed in a CLIA certified laboratory and is intended for clinical purposes. Performed By: [facility] [address] [place] [address] [employer] I Assembler: Chava Sibley MD, PhD CLIA Number: [id number] us Yenni Soto MD LAB REF LAB BLOOD AND FLUID ORD Final Result [facility] [address] [place] [address] documented in this encounter Visit Diagnoses Diagnosis Localized swelling, mass and lump, head documented in this encounter Additional Health Concerns Assessment Noted Time A Body Mass Index follow-up plan has been documented for the patient 06/15/2024 12:54 PM EST documented as of this encounter Care Teams Stretcher Helper Relationship Specialty Start Date End Date Chin Lott MD [address] [place] [address] [address] [place] [address] PCP - General 05/11/24 Chin Lott MD [address] [place] [address] [address] [place] [address] 05/11/24 documented as of this encounter
--- OUTSIDE RECORDS SUMMARY | 2025-01-23 11:45 | XMS_ITS | Encounter Summary ---
Author Organization Healthcare Address [address] [place] [address] Care Team Providers Care Retort Or Condenser Press Operator Name Role Phone Chin Lott MD Primary Care Provider [phone] Chin Lott MD Unavailable [phone] Encounter Details Date Type Department Care Team (Latest Contact Info) Description 01/01/2025 Travel Social History Tobacco Use Types Packs/Day Years [...] answer 06/13/2024 How often do you attend chur ch or jehovah's witness services? Patient unable to answer 06/13/2024 Do you belong to any clubs o r organizations such as episcopal groups, unions, fraternal or athletic groups, or [...] medical care, and heating? Somewhat hard 06/13/2024 [facility] - Occupational Stress [...] any time in the past 12 m [facility], were you homeless or living in a care home (including now)? No 06/13/2024 Utilities Answer Date [...] Pav CC Head, Neck & Respiratory 800 [facility], [address]nd [place] [address] Regulo Odonnell MD 800 [facility] [address] [place] [address] documented as of this encounter Visit Diagnoses Not on filedocumented in this encounter Additional Health Concerns Assessment Noted Time A fall risk assessment has been complete d for the patient 09/23/2024 2:09 PM EST A Body Mass Index follow-up plan has been documented for the patient 10/30/2024 1:03 AM EDT documented as of this encounter Care Teams Retort Or Condenser Press Operator Relationship Specialty Start Date End Date Chin Lott MD [address] [place] [address] PCP - General 05/11/24 Chin Lott MD [address] [place] [address] 05/11/24 documented as of this encounter
--- OUTSIDE RECORDS SUMMARY | 2025-01-23 11:45 | XMS_ITS | Encounter Summary ---
Author Organization Healthcare Address [address] [id number] Care Team Providers Care Mortuary Operations Manager Name Role Phone Chin Lott MD Primary Care Provider [phone] Chin Lott MD Unavailable [phone] Encounter Details Date Type Department Care Team (Late st Contact Info) Description 01/23/2025 Telephone Pav CC Head, Neck & Respiratory 800 [facility], [address]nd [place] [address] Regulo Odonnell MD 800 [facility] [address] [place] [address] Social History Tobacco Use Types Packs/Day Years [...] answer 06/13/2024 How often do you attend [facility] or sikh services? Patient unable to answer 06/13/2024 Do you belong to any clubs o r organizations such as hindu groups, unions, fraJobspot or athletic groups, or school groups? Patient [...] medical care, and heating? Somewhat hard 06/13/2024 [facility] Occup[facility] ional Health - Occupational Stress [...] any time in the past 12 m onths, were you homeless or living in a intermediate (including now)? No 06/13/2024 Utilities Answer Date [...] as of this encounter Miscellaneous Notes * Telephone Encounter - Andrew Jones - 01/23/2025 10:07 AM EDT Patient calling to find out when she was able to do her labs. Per Zuleika GASTON, patient is able to do them anytime. Patient will do them today. documented in this encounter Plan of Treatment Upcoming Encounters Date Type Department Care Team (Late st Contact Info) Description 01/28/2025 2:20 PM EDT Office Visit Pav CC Head, Neck & Respiratory 800 [facility], [address]nd [place] [address] Regulo Odonnell MD 800 [facility] [address] [place] [address] documented as of this encounter Visit Diagnoses Not on filedocumented in this encounter Additional Health Concerns Assessment Noted Time A fall risk assessment has been complete d for the patient 09/23/2024 2:09 PM EST A Body Mass Index follow-up plan has been documented for the patient 10/30/2024 1:03 AM EDT documented as of this encounter Care Teams Mortuary Operations Manager Relationship Specialty Start Date End Date Chin Lott MD [address] [place] [address] [address] [place] [address] PCP - General 05/11/24 Chin Lott MD [address] [place] [address] [address] [place] [address] 05/11/24 documented as of this encounter
--- OUTSIDE RECORDS SUMMARY | 2025-01-23 11:45 | XMS_ITS | Encounter Summary ---
Author Organization Healthcare Address [address] [id number] Care Team Providers Care Color Sprayer Name Role Phone Chin Lott MD Primary Care Provider [phone] Chin Lott MD Unavailable [phone] Encounter Details Date Type Department Care Team (Late st Contact Info) Description 11/24/2024 Telephone Pav CC Head, Neck & Respiratory 800 [facility], [address]nd [place] [address] Regulo Odonnell MD 800 [facility] [address] [place] [address] Social History Tobacco Use Types Packs/Day Years [...] answer 06/13/2024 How often [facility] you attend [facility] or hinduism services? Patient unable to answer 06/13/2024 Do you belong to any clubs o r organizations such as religious groups, unions, [place] or athletic groups, or school groups? Patient [...] medical care, and heating? Somewhat hard 06/13/2024 [facility] Occupat ional Health - [...] any time in the past 12 m ont, were you homeless or living in a senior living (including now)? No 06/13/2024 Utilities Answer Date [...] encounter Miscellaneous Notes * Telephone Encounter - Zuleika Linn RN - 11/25/2024 9:00 AM EDT Paperwork has been finished and mailed by Valerie Villanueva RN * Telephone Encounter - Joann Sinha - 11/24/2024 11:39 AM EDT Patient called wanted to check on paperwork that was supposed to be sent back to him. [phone] documented in this encounter Plan of Treatment Upcoming Encounters Date Type Department Care Team (Manuela st Contact Info) Description 01/28/2025 2:20 PM EDT Office Visit Pav CC Head, Neck & Respiratory 800 [facility], [address]nd [place] [address] Regulo Odonnell MD 800 [facility] Dena Ferreira [facility] [address] [place] [address] documented as of this encounter Visit Diagnoses Not on filedocumented in this encounter Additional Health Concerns Assessment Noted Time A fall risk assessment has been complete d for the patient 09/23/2024 2:09 PM EST A Body Mass Index follow-up plan has been documented for the patient 10/30/2024 1:03 AM EDT documented as of this encounter Care Teams Color Sprayer Relationship Specialty Start Date End Date Chin Lott MD [address] [place] [address] [address] [place] [address] PCP - General 05/11/24 Chin Lott MD [address] [place] [address] [address] [place] [address] 05/11/24 documented as of this encounter
--- OUTSIDE RECORDS SUMMARY | 2025-01-23 11:45 | XMS_ITS | Referral Summary ---
Author Organization [employer] Address [address] [place] [address] Care Team Providers Care Retail Sales Manager Name Role Phone Unavailable Primary Care Provider Unavailabl e Social History Tobacco Use Types Packs/Day Years Used Date Smoking Tobacco: Never Assessed Comments Unknown Sex and Gender Information Value Date Recorded Sex Assigned at Not on file Legal Sex Female 5:18 PM CDT Gender Identity Not on file Sexual Orientation Not on file Plan of Treatment Not on file
--- OUTSIDE RECORDS SUMMARY | 2025-01-23 11:46 | XMS_ITS | Clinical Summary ---
Author Organization [facility] Address [address] [place] [address] Care Team Providers Care Electrical Maintenance Man Name Role Phone Chin Lott MD Primary Care Provider [phone] Chin Lott MD Unavailable [phone] Allergies No known active allergies Medications atorvastatin (Lipitor) 80 MG tablet 4 Active cephalexin (Keflex) 500 MG capsule 4 Active furosemide (Lasix) 40 MG tablet 4 Active latanoprost (Xalatan) 0.005 % ophthalmic solution 4 Active potassium chloride CR (Klor-Con M20) 20 MEQ ER tablet 4 Active lisinopril 40 MG tablet Take 1 tablet (40 mg) by mouth 2 (two) times a day. Active hydroCHLOROthia zide (HYDRODiuril) 25 MG tablet Take 1 tablet (25 mg) by mouth daily. Active aspirin 81 MG EC tablet Take 1 tablet (81 mg) by mouth 1 (one) time each day. 4 Active Additional Information Patient not taking.Reported on 09/23/2024 dexamethasone (Decadron) 4 MG tablet Take 1 tablet (4 mg) by mouth 4 (four) times a day for 3 days, THEN 1 tablet (4 mg) 3 (three) times a day for 3 days, THEN 1 tablet (4 mg) 2 (two) times a day for 3 days, THEN 0.5 tablets (2 mg) 2 (two) times a day. 57 tablet 4 Active Additional Information Patient not taking.Reported on 07/24/2024 polyethylene glycol (Miralax) 17 g packet Take 17 g by mouth 1 (one) time each day. 30 packet 4 Active levETIRAcetam (Keppra) 250 MG tablet Take 3 tablets (750 mg) by mouth 2 (two) times a day. 180 tablet 2 4 Active prochlorperazin e (Compazine) 10 MG tabletIndicatio ns:Glioblastoma (CMS/HCC) Take 1 tablet (10 mg) by mouth every 6 (six) hours if needed for nausea or vomiting. 30 tablet 5 4 Active ondansetron (Zofran) 8 MG tabletIndicatio ns:Glioblastoma (CMS/HCC) Take 1 tab (8mg) by mouth daily 30 minutes prior to temozolomide, then up to every 8 hours (max: 3/day) as needed for nausea/vomiting 90 tablet 1 4 Active Eliquis 5 MG tablet 4 Active pantoprazole (Protonix) 40 MG EC tablet Take 1 tablet (40 mg) by mouth daily. 5 Active aprepitant (Emend Tri-Pack) 80 & 125 MG capsule Take along with Zofran as anti-nausea pre-medication 30 minutes prior to Temodar (oral chemotherapy) on Days 1-3 of each cycle. 1 kit 5 5 Active temozolomide (Temodar) 20 MG chemo capsuleIndicati ons:Glioblastom a (CMS/HCC) Take 1 capsule (20 mg total) by mouth nightly. Take on Days 1-5 every 28 days 5 capsule 10 5 Active temozolomide (Temodar) 100 MG chemo capsuleIndicati ons:Glioblastom a (CMS/HCC) Take 2 capsules (200 mg total) by mouth nightly. Take on Days 1-5 every 28 days 10 capsule 10 5 Active ondansetron (Zofran) 8 MG tabletIndicatio ns:Glioblastoma (CMS/HCC) Take 1 tab (8mg) by mouth daily 30 minutes prior to temozolomide, then up to every 8 hours (max: 3/day) as needed for nausea/vomiting 90 tablet 1 5 Active apixaban (Eliquis) 2.5 MG tablet To take 2 tablets a day for 7 days, and then alternate 1 tab every other day with 2 tabs every other day 45 tablet 3 5 Active Active Problems Problem Noted Date Diagnosed Date Glioblastoma 07/06/2024 Cancer Staging:Clinical: Histology: Glioblastoma multiforme - Unsigned Severe obesity (BMI 35.0-39.9) with comorbidity 06/14/2024 AMS (altered mental status) 06/10/2024 Occipital mass 06/10/2024 Encounters Date Type Department Care Team Description 01/23/2025 Telephone [facility] [address] [place] [address] Karlee Baird MD 01/01/2025 1:00 PM EDT Office Visit [facility] [address] , [address] [place] [phone] Karlee Baird MD Glioblastoma ([facility]/HCC) (Primary Dx) 01/01/2025 Telephone [facility] [address] , [address] [place] [phone] Zee Lux, PharmBertha 01/01/2025 Travel 01/01/2025 Orders Only [facility] [address] [place] [phone] Pj Katz MD 12/08/2024 Telephone [facility] [address] , [address] [place] [phone] Karlee Baird MD 12/03/2024 Telephone [facility] [address] , [address] [place] [phone] Karlee Baird MD 11/27/2024 1:00 PM EDT Office Visit [facility] [address], [address] [place] [phone] Karlee Baird MD Glioblastoma ([facility]/HCC) (Primary Dx) 11/27/2024 Travel 11/26/2024 3:41 PM EDT - 11/26/2024 11:59 PM EDT Hospital Encounter [facility] Radiology [address], [address] [place] [phone] Glioblastoma ([facility]) Discharge Disposition: Home or Self Care 11/26/2024 Travel 11/24/2024 Telephone [facility] [address] [place] [address] Karlee Baird MD 11/11/2024 Telephone [facility] [address] [place] [address] Karlee Baird MD 10/29/2024 10:00 AM EDT Office Visit [facility] [address] [place] [address] Karlee Baird MD Glioblastoma ([facility]) (Primary Dx) 10/29/2024 Travel 10/29/2024 Clinical Support [facility] [address] [place] [address] Sage Serrano PharmD 10/29/2024 Orders Only [facility] [address] [place] [address] Zuleika Linn, MARILIN Glioblastoma ([facility]) (Primary Dx) 10/28/2024 Orders Only [facility] 800 [facility], [address] [place] [address] ProviderPj MD 10/28/2024 [facility]ill [facility] [address], [address] [place] [phone] Karlee Baird MD Glioblastoma ([facility]) 10/27/2024 Orders Only [facility] [address] [place] [address] Sage Serrano, PharmD Glioblastoma ([facility]) (Primary Dx) from Last 3 Months Social History Tobacco Use Types Packs/Day Years Used Date Smoking Tobacco: Never Smokeless Tobacco: Never Tobacco Cessation:Counseling Given: Not Answered Alcohol Use Standard Drinks/Week Comments Never 0 [...] answer 06/13/2024 How often do you attend [facility] or orthodox services? Patient unable to answer 06/13/2024 Do you belong to any clubs o r organizations such as religious groups, unions, fraternal or athletic groups, or [...] medical care, and heating? Somewhat hard 06/13/2024 [facility] - Occupational [...] time in the past 12 m [facility], were you homeless or living in a senior care (including now)? No 06/13/2024 Utilities Answer Date Recorded In the past 12 months has th e [employer], gas, oil, or water [employer] threatened to shut off services in your home? No 06/13/2024 Comments No Sex and Gender Information Value Date Recorded Sex Assigned at Not on file Legal Sex Female 6:33 PM EDT Gender Identity Not on file Sexual Orientation Not on file Last Filed Vital Signs Vital Sign Reading Time Taken Comments Blood Pressure 111/72 09/23/2024 2:06 PM EST Pulse 79 09/23/2024 2:06 PM EST Temperature 37.1 C (98.7 F) 09/23/2024 2:06 PM EST Respiratory Rate 20 09/23/2024 2:06 PM EST Oxygen Saturation 95% 09/23/2024 2:06 PM EST Inhaled Oxygen Concentration - - Weight 105 kg (230 lb 13.2 oz) 11/26/2024 3:47 P M EDT Height 172.7 cm (5' 8 ) 09/01/2024 3:05 PM EST Body Mass Index 35.1 09/01/2024 3:05 PM EST Plan of Treatment Upcoming Encounters Date Type Department Care Team (Late st Contact Info) Description 01/28/2025 2:20 PM EDT Office Visit [facility] [address] , [address] [place] [address] Karlee Baird MD 800 [facility] Dena Ferreira dg [address] [place] [address] Health Maintenance Due Date Last Done Comments [facility]-Bone Density Scan 1935 [facility]-Depression Screening 1935 [facility]-Medicare Annual Wellness (AWV) 1935 [facility]-/Child/Adol SDOH Screenings 1935 [facility]-RSV Vaccine: 60+ Years o r (1 - 1-dose 75+ series) 2012 [facility]-Zoster Vaccines (1 of 2) 06/17/2013, 08/17/2009 [facility]-DTaP,Tdap,and Td Vaccine s (2 - Td or Tdap) 03/20/2022 03/20/2012 [id number] Vaccine ( season) 2024 06/30/2021, 10/08/2020, 09/10/2020 [facility]- SDOH Screenings 12/11/2024 [facility]-Adult SDOH Screenings 12/11/2024 06/13/2024 [facility]-Influenza Vaccine (Seaso n Ended) 2025 [facility]-Diabetes: Hemoglobin A1C 06/11/2025 06/11/2024 [facility]-Pneumococcal Vaccine: 50 + Years Completed 08/23/2018, 08/17/2017, 08/17/2009 [facility]-Obesity Intervention Completed 025, 07/03/2024, 06/10/2024 HPV Vaccines Aged Out No longer eligi ble based on patient's age to complete this topic [facility]-HIB Vaccines Aged Out No longer e ligible based on patient's age to complete this topic [facility]-Hepatitis A Vaccines Aged Out No longer eligible based on patient's age to complete this topic [facility]-IPV Vaccines Aged Out No longer e ligible based on patient's age to complete this topic [facility]-Rotavirus Vaccines Aged Out No lo nger eligible based on patient's age to complete this topic Medical Devices Implanted Type Area Nuclear Physicist Device Identifier Shelf Expiration Date Model / Serial / Lot Cover, Neuro María Elena Lp 17mm - Sn/A - [id number] Implanted:Qty: 1 on 06/13/2024 by Nahid Dalal MD at [facility] Plate Right: Cranial [employer] [facility]-[id number] 06/13/2025 [id number] / N/A / Plate, 2 Hole Low Profile - Sn/A - [id number] Implanted:Qty: 2 on 06/13/2024 by Nahid Dalal MD at [facility] Plate Right: Cranial [employer]ynthe[employer] [facility]-[id number] 06/13/2025 [id number] / N/A / Screw Screw Right: Hip Screw Ti [employer] Selfdrill 4mm - Sn/A - [id number] Implanted:Qty: 8 on 06/13/2024 by Nahid Dalal MD at [facility] Screw Right: Cranial [employer]-[id number] 06/13/2025 04.503.10 4.01 / N/A / Graft Dura Repair 2x2 Synthecel - [id number] Implanted:Qty: 1 on 06/13/2024 by Nahid Dalal MD at [facility] Right: Cranial Synthes [facility]-[id number] 10/27/2026 SC.400.02 5.01S / / [id number] Procedures Procedure Name Priority Date/Time Associated Diagnosis Comments CBC W/DIFF Routine 01/01/2025 10:27 AM EDT COMPLETE METABOLIC PROFILE (CMP) Routine 01/01/2025 10:27 AM EDT MR HEAD W AND WO IV CONTRAST Routine 11/26/2024 5:00 PM EDT Glioblastoma (CMS/HCC) CBC WITH AUTO DIFFERENTIAL Routine 11/26/2024 3:14 PM EDT Glioblastoma (CMS/HCC) COMPREHENSIVE METABOLIC PANEL, PLASMA Routine 11/26/2024 3:14 PM EDT Glioblastoma (CMS/HCC) CBC W/DIFF Routine 10/28/2024 2:41 PM EDT COMPLETE METABOLIC PROFILE (CMP) Routine 10/28/2024 2:41 PM EDT HEMOGLOBIN A1C Routine 06/11/2024 8:59 AM EST from Last 3 Months or Most Recently Relevant to Health Maintenance Results * COMPLETE METABOLIC PROFILE (CMP) (01/01/2025 10:27 AM EDT) Only the most recent of2 resultswithin the time period is included. us Historical Provider MD LAB BLOOD ORDERABLES Lissette l Result * CBC W/DIFF (01/01/2025 10:27 AM EDT) Only the most recent of2 resultswithin the time period is included. us Historical Provider MD LAB BLOOD ORDERABLES Lissette l Result * MR Head w and wo IV [...] Yes. COMMUNICATION: Per this written report. A [facility]MD page request was sent for the responding clinician, KARLEE RICHARDS, on 12/02/2024 12:11 PM. Findings were discussed with the responding clinician, KARLEE BAIRD, on12/02/2024 12:14 PM. Drafted by Gal Do MD on 12/02/2024 11:57 AM Final report signed by Gal Do MD on 12/02/2024 12:14 PM Karlee Baird MD IM MRI PROCEDURES Final Resul t * (ABNORMAL) CBC and Differential (11/26/2024 3:14 PM EDT) WBC Count 5.84 3.70 - 10.30 10*3/uL LAB HEMATOLOGY METHOD 11/26/2024 5:20 PM EDT [facility] RBC Count 3.83(L) 3.90 - 5.20 10*6/uL LAB HEMATOLOGY METHOD 11/26/2024 5:20 PM EDT [facility] HGB 11.8 11.2 - 15.7 g/dL LAB HEMATOLOGY METHOD 11/26/2024 5:20 PM EDT [facility] HCT 36.5 34.0 - 45.0 % LAB HEMATOLOGY METHOD 11/26/2024 5:20 PM EDT [facility] Platelet Count 218 155 - 369 10*3/uL LAB HEMATOLOGY METHOD 11/26/2024 5:20 PM EDT [facility] MCV 95 79 - 98 fL LAB HEMATOLOGY METHOD 11/26/2024 5:20 PM EDT [facility] MCH 30.8 26.0 - 32.0 pg LAB HEMATOLOGY METHOD 11/26/2024 5:20 PM EDT [facility] MCHC 32.3 30.7 - 35.5 g/dL LAB HEMATOLOGY METHOD 11/26/2024 5:20 PM EDT [facility] RDW 14.3 11.5 - 14.5 % LAB HEMATOLOGY METHOD 11/26/2024 5:20 PM EDT [facility] MPV 11.5 8.8 - 12.5 fL LAB HEMATOLOGY METHOD 11/26/2024 5:20 PM EDT [facility] nRBC 0.0 <=0.0 per 100 WBCs LAB HEMATOLOGY METHOD 11/26/2024 5:20 PM EDT [facility] Differential Type Automated LAB HEMATOLOGY METHOD 11/26/2024 5:20 PM EDT [facility] Neutrophils % 56 % LAB HEMATOLOGY METHOD 11/26/2024 5:20 PM EDT [facility] Lymphocytes % 31 % LAB HEMATOLOGY METHOD 11/26/2024 5:20 PM EDT [facility] Monocytes % 9 % LAB HEMATOLOGY METHOD 11/26/2024 5:20 PM EDT [facility] Eosinophils % 3 % LAB HEMATOLOGY METHOD 11/26/2024 5:20 PM EDT [facility] Basophils % 1 % LAB HEMATOLOGY METHOD 11/26/2024 5:20 PM EDT [facility] Immature Granulocytes % 0 % LAB HEMATOLOGY METHOD 11/26/2024 5:20 PM EDT [facility] Neutrophils Absolute 3.28 1.60 - 6.10 10*3/uL LAB HEMATOLOGY METHOD 11/26/2024 5:20 PM EDT [facility] Lymphocytes Absolute 1.78 1.20 - 3.90 10*3/uL LAB HEMATOLOGY METHOD 11/26/2024 5:20 PM EDT [facility] Monocytes Absolute 0.50 0.30 - 0.90 10*3/uL LAB HEMATOLOGY METHOD 11/26/2024 5:20 PM EDT [facility] Eosinophils Absolute 0.20 0.00 - 0.50 10*3/uL LAB HEMATOLOGY METHOD 11/26/2024 5:20 PM EDT [facility] Basophils Absolute 0.06 0.00 - 0.10 10*3/uL LAB HEMATOLOGY METHOD 11/26/2024 5:20 PM EDT [facility] Immature Granulocytes Absolute 0.02 0.00 - 0.06 10*3/uL LAB HEMATOLOGY METHOD 11/26/2024 5:20 PM EDT [facility] Blood Venous blood specimen / Unknown Venipuncture / Unknown 11/26/2024 3:14 PM EDT 11/26/2024 3:14 PM EDT Narrative [facility] - 11/26/2024 5:20 PM EDT Therapeutic decision making should be based on absolute values, rather than percentages. us Karlee Baird MD LAB BLOOD ORDERABLES Final Res [facility] [address] [place] [id number] * (ABNORMAL) Comprehensive Metabolic Panel, Plasma (11/26/2024 3:14 PM EDT) Glucose, Plasma 93 74 - 99 mg/dL 11/26/2024 5:50 PM EDT [facility] BUN, Plasma 34(H) 8 - 23 mg/dL 11/26/2024 5:50 PM EDT [facility] Creatinine, Plasma 1.03 0.60 - 1.10 mg/dL 11/26/2024 5:50 PM EDT [facility] BUN/Creatinine Ratio 33 11/26/2024 5:50 PM EDT [facility] Sodium, Plasma 140 136 - 145 mmol/L 11/26/2024 5:50 PM EDT [facility] Potassium, Plasma 4.2 3.6 - 4.9 mmol/L 11/26/2024 5:50 PM EDT [facility] Chloride, Plasma 102 97 - 107 mmol/L 11/26/2024 5:50 PM EDT [facility] CO2, Plasma 30(H) 22 - 29 mmol/L 11/26/2024 5:50 PM EDT [facility] Anion Gap 8 6 - 16 mmol/L 11/26/2024 5:50 PM EDT [facility] Total Calcium, Plasma 9.8 8.9 - 10.2 mg/dL 11/26/2024 5:50 PM EDT [facility] Total Protein 7.3 6.3 - 7.9 g/dL 11/26/2024 5:50 PM EDT [facility] Albumin, Plasma 4.4 3.5 - 5.2 g/dL 11/26/2024 5:50 PM EDT [facility] AST, Plasma 21 10 - 35 U/L 11/26/2024 5:50 PM EDT [facility] ALT, Plasma 6(L) 10 - 35 U/L 11/26/2024 5:50 PM EDT [facility] Alkaline Phosphatase, Plasma 100 46 - 142 U/L 11/26/2024 5:50 PM EDT [facility] Total Bilirubin, Plasma 0.6 0.2 - 1.1 mg/dL 11/26/2024 5:50 PM EDT [facility] eGFRcr 52.7 mL/min/1.7 3m*2 11/26/2024 5:50 PM EDT [facility] Comment:Reported eGFRcr in m L/min/1.73m2 is based the CKD-EPI 2020 equation that does not use a race coefficient. Blood Venous blood specimen / Unknown Venipuncture / Unknown 11/26/2024 3:14 PM EDT 11/26/2024 3:14 PM EDT us Karlee Baird MD LAB BLOOD ORDERABLES Final Res ult [facility] [address] [place] [id number] * (ABNORMAL) Hemoglobin A1c (06/11/2024 8:59 AM EST) Hemoglobin A1c 5.9(H) <5.7 % 06/11/2024 9:33 AM EST [facility] Blood Venous blood specimen / Unknown Venipuncture / Unknown 06/11/2024 8:59 AM EST 06/11/2024 9:16 AM EST Narrative [facility] - 06/11/2024 9:33 AM EST HA1C Interpretive Data: Diagnosis of Diabetes: Diabetic > or = 6.5% Pre-diabetic 5.7 to 6.4% Non-diabetic < or = 5.6% Glycemic Targets for Type I and Type II Diabetics: Non- Adults <7.0% Adults <6.0% Children and Adolescents <7.5% Source: [place] [employer]. Standards of medical care in diabetes,2017. Diabetes Care.2017:40 (suppl 1):S1-S135. HbA1c assay performed by an ion-exchange chromatography method that is certified traceable to the DCCT. Moshe Benson MD LAB BLOOD ORDERABLES Final Result [facility] [address] [place] [address] from Last 3 Months or Most Recently Relevant to Health Maintenance [place] [address] [facility] Advance Directives * Full Code (Latest Code Status on File) Date Activated Date Inactivated Comments 06/10/2024 8:03 PM 06/15/2024 4:46 PM Question Answer Comments Patient has decision-making capacity? No Healthcare Surrogate: Adult child of the patient Care Teams Electrical Maintenance Man Relationship Specialty Start Date End Date Chin Lott MD [address] [place] [address] PCP - General 05/11/24 Chin Lott MD [address] [place] [address] 05/11/24
--- OUTSIDE RECORDS SUMMARY | 2025-01-23 11:46 | XMS_ITS | Encounter Summary ---
Author Organization Healthcare Address [address] [place] [address] Care Team Providers Care Mural Artist Name Role Phone Chin Lott MD Primary Care Provider [phone] Chin Lott MD Unavailable [phone] Encounter Details Date Type Department Care Team (Late st Contact Info) Description 01/01/2025 Telephone [facility] 800 [facility], [address]nd [place] [address] Zee Lux, PharmD [address] [phone] Social History Tobacco Use Types Packs/Day Years [...] 06/13/2024 How often do you attend chur or cheondoism services? Patient unable to answer 06/13/2024 Do you belong to any clubs o r organizations such as muslim groups, unions, fraternal or athletic groups, or [...] Somewhat hard 06/13/2024 [facility] - Occupational Stress Questionnaire Answer Date Recorded [...] were you homeless or living in a prison (including now)? No 06/13/2024 Utilities Answer Date [...] Upcoming Encounters Date Type Department Care Team ([facility] Contact Info) Description 01/28/2025 2:20 PM EDT Office Visit [facility] 800 [facility], [address] [place] [address] Regulo Odonnell MD 800 [facility] [address] [place] [address] documented as of this encounter Visit Diagnoses Not on filedocumented in this encounter Additional Health Concerns Assessment Noted Time A fall risk assessment has been complete d for the patient 09/23/2024 2:09 PM EST A Body Mass Index follow-up plan has been documented for the patient 10/30/2024 1:03 AM EDT documented as of this encounter Care Teams Mural Artist Relationship Specialty Start Date End Date Chin Lott MD [address] [place], [place] [id number] [address] [place] [phone] PCP - General 05/11/24 Chin Lott MD [facility] [address] [place] [id number] 05/11/24 documented as of this encounter
--- OUTSIDE RECORDS SUMMARY | 2025-01-23 11:46 | XMS_ITS | Clinical Summary ---
Author Organization [employer] Address [address] [place] [address] Care Team Providers Care Superintendent Institution Name Role Phone Unavailable Primary Care Provider [...]
--- OUTSIDE RECORDS SUMMARY | 2025-01-23 11:47 | XMS_ITS | Encounter Summary ---
Author Organization Healthcare Address [address] [place] [address] Care Team Providers Care Char House Supervisor Name Role Phone Chin Lott MD Primary Care Provider [phone] Chin Lott MD Unavailable [phone] Encounter Details Date Type Department Care Team (Latest Contact Info) Description 11/27/2024 Travel Social History Tobacco Use Types Packs/Day [...] often do you attend chur ch or mandaen services? Patient unable to answer 06/13/2024 Do you belong to any clubs o r organizations such as amish groups, unions, fraternal or athletic groups, or [...] medical care, and heating? Somewhat hard 06/13/2024 [facility] - [...] any time in the past 12 [facility], were you homeless or living in a assisted (including now)? No 06/13/2024 Utilities Answer Date [...] [facility] 800 [facility], [address] [place] [address] Regulo Odonnell MD 800 [facility] [address] [place] [address] documented as of this encounter Visit Diagnoses Not on filedocumented in this encounter Additional Health Concerns Assessment Noted Time A fall risk assessment has been complete d for the patient 09/23/2024 2:09 PM EST A Body Mass Index follow-up plan has been documented for the patient 10/30/2024 1:03 AM EDT documented as of this encounter Care Teams Char House Supervisor Relationship Specialty Start Date End Date Chin Lott MD [address] [place] [address] PCP - General 05/11/24 Chin Lott MD [address] [place] [address] 05/11/24 documented as of this encounter
--- OUTSIDE RECORDS SUMMARY | 2025-01-23 11:47 | XMS_ITS | Encounter Summary ---
Author Organization [facility] Address [address] [place] [address] Care Team Providers Care Health Care / Medical Job Titles Name Role Phone Chin Lott MD Primary Care Provider [phone] Chin Lott MD Unavailable [phone] Encounter Details Date Type Department Care Team (Latest Contact Info) Description 11/26/2024 Travel Social History Tobacco Use Types Packs/Day [...] often do you attend chur ch or episcopal services? Patient unable to answer 06/13/2024 Do you belong to any clubs o r organizations such as latter day groups, unions, fraternal or athletic groups, or [...] medical care, and heating? Somewhat hard 06/13/2024 [facility] - Occupational [...] any time in the past 12 m [facility], were you homeless or living in a fdc (including now)? No 06/13/2024 Utilities Answer Date [...] [facility] Head[facility] Neck & Respiratory 800 [facility], [address]nd [place] [address] Regulo Odonnell MD 800 [facility] [address] [place] [address] documented as of this encounter Visit Diagnoses Not on filedocumented in this encounter Additional Health Concerns Assessment Noted Time A fall risk assessment has been complete d for the patient 09/23/2024 2:09 PM EST A Body Mass Index follow-up plan has been documented for the patient 10/30/2024 1:03 AM EDT documented as of this encounter Care Teams Health Care / Medical Job Titles Relationship Specialty Start Date End Date Chin Lott MD [address] [place] [address] PCP - General 05/11/24 Chin Lott MD [address] [place] [address] 05/11/24 documented as of this encounter
--- OUTSIDE RECORDS SUMMARY | 2025-01-23 11:47 | XMS_ITS | Encounter Summary ---
Author Organization Healthcare Address [address] [id number] Care Team Providers Care Nuclear Engineer Name Role Phone Chin Lott MD Primary Care Provider [phone] Chin Lott MD Unavailable [phone] Encounter Details Date Type Department Care Team (Late st Contact Info) Description 12/03/2024 Telephone Pav [facility] Res[facility] [address] [facility], [address]nd [place] [id number] eRgulo Odonnell MD 800 [facility] [address] [place] [address] Social History Tobacco Use Types Packs/Day Years [...] answer 06/13/2024 How often do you attend [facility] or mormon services? Patient unable to answer 06/13/2024 Do you belong to any clubs o r organizations such as anglican groups, unions, fraArrowsight or athletic groups, or school groups? Patient [...] medical care, and heating? Somewhat hard 06/13/2024 [facility] - Occupational [...] Telephone Encounter - Zuleika Linn RN - 12/03/2024 10:30 AM EDT RN notified Dr. Odonnell and he contacted patient's son. * Telephone Encounter - Swati Delaney - 12/03/2024 9:19 AM EDT Pts son, Mohit, called stating Dr. Odonnell called his mother this morning and gave her the results of her recent MRI. Pt stated she does not remember the exact findings of the MRI. Pts son would like a call to discuss MRI findings. documented in this encounter Plan of Treatment Upcoming Encounters Date Type Department Care Team ([facility] st Contact Info) Description 01/28/2025 2:20 PM EDT Office Visit [facility] Head[facility] Neck [facility] Respiratory [address] [facility], [address] [place] [address] Regulo Odonnell MD [address] [facility] [address] [place] [address] documented as of this encounter Visit Diagnoses Not on filedocumented in this encounter Additional Health Concerns Assessment Noted Time A fall risk assessment has been complete d for the patient 09/23/2024 2:09 PM EST A Body Mass Index follow-up plan has been documented for the patient 10/30/2024 1:03 AM EDT documented as of this encounter Care Teams Nuclear Engineer Relationship Specialty Start Date End Date Chin Lott MD [address] [place] [address] PCP - General 05/11/24 Chin Lott MD [address] [place] [address] 05/11/24 documented as of this encounter
--- OUTSIDE RECORDS SUMMARY | 2025-01-23 11:47 | XMS_ITS | Encounter Summary ---
Author Organization Healthcare Address [address] [place] [address] Care Team Providers Care Press And Blow Machine Tender Name Role Phone Chin Lott MD Primary Care Provider [phone] Chin Lott MD Unavailable [phone] Encounter Details Date Type Department Care Team (Late st Contact Info) Description 01/01/2025 Orders Only [facility] Res[facility] [address] , [address] [place] [address] Provider, MD Pj [address] [place] [address] Social History Tobacco Use Types Packs/Day Years [...] How often do you attend chur or nondenominational services? Patient unable to answer 06/13/2024 Do you belong to any clubs o r organizations such as catholic groups, unions, fraternal or athletic groups, [...] medical care, and heating? Somewhat hard 06/13/2024 [facility] [...] any time in the past 12 [facility], were you homeless or living in a long-term (including now)? No 06/13/2024 Utilities Answer Date [...] Pav [facility] Head[facility] Neck & Respiratory [address] [facility], [address]nd [place] [address] Regulo Odonnell MD [address] [facility] [address] [place] [address] documented as of this encounter Procedures Procedure Name Priority Date/Time Associated Diagnosis Comments COMPLETE METABOLIC PROFILE (CMP) Routine 01/01/2025 10:27 AM EDT CBC W/DIFF Routine 01/01/2025 10:27 AM EDT documented in this encounter Results * CBC W/DIFF (01/01/2025 10:27 AM EDT) us Historical Provider LAB BLOOD ORDERABLES Lissette l Result * COMPLETE METABOLIC PROFILE (CMP) (01/01/2025 10:27 AM EDT) us Historical Provider LAB BLOOD ORDERABLES Lissette l Result documented in this encounter Visit Diagnoses Not on filedocumented in this encounter Additional Health Concerns Assessment Noted Time A fall risk assessment has been complete d for the patient 09/23/2024 2:09 PM EST A Body Mass Index follow-up plan has been documented for the patient 10/30/2024 1:03 AM EDT documented as of this encounter Care Teams Press And Blow Machine Tender Relationship Specialty Start Date End Date Chin Lott MD [facility] [address] [place] [address] PCP - General 05/11/24 Chin Lott MD [facility] [address] [place] [address] 05/11/24 documented as of this encounter
--- OUTSIDE RECORDS SUMMARY | 2025-01-23 11:47 | XMS_ITS | Encounter Summary ---
Author Organization Healthcare Address [address] [place] [id number] Care Team Providers Care Well Treatment Offsider Name Role Phone Chin Lott MD Primary Care Provider [phone] Chin Lott MD Unavailable [phone] Encounter Details Date Type Department Care Team (Late st Contact Info) Description 12/08/2024 Telephone Pav [facility] Head[facility] Neck [facility] Respiratory 800 [facility], [address] [place] [phone] Regulo Odonnell MD 800 [facility] [address] [place] [address] Social History Tobacco Use Types Packs/Day Years [...] How often do you attend [facility] or anglican services? Patient unable to answer 06/13/2024 Do you belong to any clubs o r organizations such as denominational groups, unions, fraThinkLink or athletic groups, or school groups? Patient [...] medical care, and heating? Somewhat hard 06/13/2024 [facility] [...] were you homeless or living in a chcf (including now)? No 06/13/2024 Utilities Answer Date [...] Telephone Encounter - Zuleika Linn RN - 12/10/2024 4:04 PM EDT RN spoke with patient and let her know we would send her policy form again * Telephone Encounter - Celeste Bustos - 12/10/2024 3:37 PM EDT Patient Phone Message Reason for Call:Patient is needing to get some info for her cancer insurance so they pay her bill. Best contact number and optimal time of day to reach caller:[phone] Note: Please do not reply to this message. Follow-up communication and further actions as a result of this message need to be communicated with the patient directly, if the patient is not active onMyChart. If the patient is active on MyChart, they will receive notification of the communication/outcome via [employer]. * Telephone Encounter - Tracey Nolasco - 12/08/2024 10:03 AM EDT Patient Phone Message Reason for Call: Pt needs information for her cancer insurance policy. Best contact number and optimal time of day to reach caller: [phone] Note: Please do not reply to this message. Follow-up communication and further actions as a result of this message need to be communicated with the patient directly, if the patient is not active onMyChart. If the patient is active on MyChart, they will receive notification of the communication/outcome via [employer]. documented in this encounter Plan of Treatment Upcoming Encounters Date Type Department Care Team (Late st Contact Info) Description 01/28/2025 2:20 PM EDT Office Visit Pav [facility] Head[facility] Neck & Respiratory 800 [facility], [address] [place] [address] Regulo Odonnell MD 800 [facility] [address] [place] [address] documented as of this encounter Visit Diagnoses Not on filedocumented in this encounter Additional Health Concerns Assessment Noted Time A fall risk assessment has been complete d for the patient 09/23/2024 2:09 PM EST A Body Mass Index follow-up plan has been documented for the patient 10/30/2024 1:03 AM EDT documented as of this encounter Care Teams Well Treatment Offsider Relationship Specialty Start Date End Date Chin Lott MD [address] [place] [address] [address] [place] [address] PCP - General 05/11/24 Chin Lott MD [address] [place] [address] [address] [place] [address] 05/11/24 documented as of this encounter
--- OUTSIDE RECORDS SUMMARY | 2025-01-23 11:48 | XMS_ITS ---
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 No medications scheduled. Past Treatment and Therapy Plans Oncology Treatment Plan Name Start Date Discontinue Date Treatment Medications Discontinue Reason Plan Provider Cycles Temozolomide with XRT 07/10/20 24 09/01/2024 temozolomide (Temodar) Therapy Complete Regulo Odonnell MD 1 of 1 cycle started Past Radiation Episodes * VMAT: Right BrainOverview* First Treatment Date Last Treatment Date Treatment Site Technique Goal Episode Provider 07/14/2024 08/14/2024 Right Brain VMAT Control * Linked Problems Brain cancer Treatment Courses* Course C1 07/21/2024 - 08/14/2024 Treatment Period Fraction Dose Fractions Total Dose Plans Planned R Pariet A1A2 07/21/2024 - 08/14/2024 267 cGy 4,005 cGy Reference Points Delivered R Parietal 07/21/2024 - 08/14/2024 4,005 cGy * Course IMRT QA 07/14/2024 - 07/14/2024 Treatment Period Fraction Dose Fractions Total Dose Plans Planned R Pariet A1A2 07/14/2024 - 07/14/2024 267 cGy 0 / 1 267 cGy Reference Points Delivered Verification 07/14/2024 - 07/14/2024 0 cGy
[2025-01-23 12:10] LABS: Basophils # 0.1 K/mm3 (0-0.2); Basophils % 1.3 % (0.1-2.0); Eosinophils # 0.3 Kmm3 (0.0-0.4); Eosinophils % 5.8 % (0.1-12.0); Hematocrit 34.7 % (37.0-47.0); Hemoglobin 11.2 g/dL (12.2-16.2); Immature Granulocytes # 0.01 10^3uL; Immature Granulocytes % 0.2 %; Lymphocytes # 1.3 K/mm3 (0.7-4.5); Lymphocytes % 27.7 % (10-50); Mean Corpuscular HGB Conc 32.3 g/dL (31.8-35.4); Mean Corpuscular Hemoglobin 31.3 pg (27.0-31.2); Mean Corpuscular Volume 96.9 fl (81-99); Mean Platelet Volume 11.3 fl (7.4-10.4); Monocytes # 0.4 K/mm3 (0.1-1.0); Monocytes % 8.6 % (1.7-9.3); Neutrophils # 2.6 K/mm3 (1.8-7.8); Neutrophils % 56.4 % (37.0-80.0); Nucleated Red Blood Cells # 0 10^3/uL; Nucleated Red Blood Cells % 0 %; Platelet Count 187 K/mm3 (142-424); Red Blood Count 3.58 M/mm3 (4.20-5.40); Red Cell Distribution Width-SD 46.5 fL; White Blood Count 4.7 K/mm3 (4.8-10.8)
[2025-01-23 12:27] LABS: Albumin Level 4.4 g/dl (3.5-5.0); Chloride 101 mmol/L (98-107)
[2025-01-23 12:28] LABS: Potassium 4.4 mmoL/L (3.5-5.1); Sodium 141 mmol/L (136-145)
[2025-01-23 12:30] LABS: Alanine Aminotransferase 9 U/L (12-78); Albumin/Globulin Ratio 1.7 (1.1-1.8); Alkaline Phosphatase 99 U/L (38-126); Anion Gap 11.4 mEq/L (5-15); Aspartate Amino Transferase 24 U/L (14-36); Bilirubin,Total 0.8 mg/dl (0.2-1.3); Blood Urea Nitrogen 32 mg/dl (7-17); Carbon Dioxide 33 mmol/L (22.0-30.0); Estimated Glomerular Filt Rate 52 ml/min (>60); GFR (African American) 63 ML/MIN (>60); Globulin 2.6 g/dL (1.3-3.2)
[2025-01-23 12:31] LABS: Calcium 9.8 mg/dl (8.4-10.2); Glucose 105 mg/dl (74-100)
== END 2025-01-23 23:59 | disposition home or self-care (01) ==
LOC: LAB 11:41
PROVIDERS: PCP Internal Medicine; Visit Provider Internal Medicine Hematology & Oncology
DX: C71.9 Malignant neoplasm of brain, unspecified (principal)
CPT/HCPCS: 36415; 80053; 85025

== ENCOUNTER 2025-03-19 10:35 | Outpatient (CLI) | payer MEDICARE, SELFPAY ==
--- OUTSIDE RECORDS SUMMARY | 2025-02-25 11:19 | XMS_ITS | Encounter Summary ---
Author Organization [facility] Address [address] [place] [address] Care Team Providers Care Pharmacy Technician Trainee Name Role Phone Chin Lott MD Primary Care Provider [phone] Chin Lott MD Unavailable [phone] Reason for Referral * Imaging (Routine) - Closed Specialty Diagnoses / Procedures Referred By Contac t Referred To Contact Radiology Diagnoses Glioblastoma (CMS/HCC) Procedures MR Head w and wo IV Contrast Regulo Odonnell MD [address] [address] Phone: tel: fax: Referral ID Status Reason Start Date Expiration Date Visits Re quested Visits Authorized [id number] Closed 01/28/2025 07/30/2026 1 1 Reason for Visit * Imaging (Routine) - Closed Specialty Diagnoses / Procedures Referred By Contac t Referred To Contact Radiology Diagnoses Glioblastoma (CMS/HCC) Procedures MR Head w and wo IV Contrast Regulo Odonnell MD [address] [address] Phone: tel: fax: Referral ID Status Reason Start Date Expiration Date Visits Re quested Visits Authorized [id number] Closed 01/28/2025 07/30/2026 1 1 Encounter Details Date Type Department Care Team (Latest Contact Info) Description 02/25/2025 11:19 AM EDT - 02/25/2025 11:59 PM EDT Hospital Encounter PAV S Radiology [address] [place] [address] Glioblastoma ([facility]) Discharge Disposition: Home or Self Care Social [...] answer 06/13/2024 How often do you attend [facility] or hinduism services? Patient unable to answer 06/13/2024 Do you belong to any clubs o r organizations such as hindu groups, unions, fraternal or athletic groups, or [...] medical care, and heating? Somewhat hard 06/13/2024 [facility] of Occupat ional [facility] - Occupational Stress Questionnaire Answer Date Recorded [...] any time in the past [address] [facility], were you homeless or living in a snf (including now)? No 06/13/2024 Utilities Answer Date [...] on file documented as of this encounter Functional Status * Calculated C-SSRS Risk Score (Lifetime/Recent) Answer Date of Assessment Author No Risk Indicated 02/25/2025 2:33 PM EDT Jillian Huertas * Question Answer Date of Assessment Author 1. Wish to be (Past 1 Month) No 025 2:33 PM EDT Jillian Huertas 2. Non-Specific Active Suici edward Thoughts (Past 1 Month) No 02/25/2025 2:33 PM EDT Jo Huertas 6. Suicidal Behavior (Lifetime) No 2:33 PM EDT Jillian Huertas documented as of this encounter Medications at Time of Discharge apixaban (Eliquis) 2.5 MG tablet To take 2 tablets a day for 7 days, and then alternate 1 tab every other day with 2 tabs every other day 45 tablet 3 12/03/2024 aprepitant (Emend Tri-Pack) 80 & 125 MG [...] 07/07/2024 furosemide (Lasix) 40 MG tablet 10/22/2023 hydroCHLOROthiaz olga lidia (HYDRODiuril) 25 MG tablet Take 1 tablet (25 mg) by mouth daily. latanoprost (Xalatan) 0.005 % ophthalmic solution 03/19/2024 lisinopril 40 MG tablet Take 1 tablet (40 mg) by mouth 2 (two) times a day. ondansetron (Zofran) 8 MG tabletIndication s:Glioblastoma (CMS/HCC) Take 1 tab (8mg) by mouth daily 30 minutes prior to temozolomide, then up to every 8 hours (max: 3/day) as needed for nausea/vomiting 90 tablet 1 07/10/2024 ondansetron (Zofran) 8 MG tabletIndication s:Glioblastoma (CMS/HCC) Take 1 tab (8mg) by mouth daily 30 minutes prior to temozolomide, then up to every 8 hours (max: 3/day) as needed for nausea/vomiting 90 tablet 1 10/28/2024 pantoprazole (Protonix) 40 MG EC tablet Take 1 tablet (40 mg) by mouth daily. 09/11/2024 polyethylene glycol (Miralax) 17 g packet Take 17 g by mouth 1 (one) time each day. 30 packet 06/15/2024 potassium chloride CR (Klor-Con M20) 20 MEQ ER tablet 06/10/2024 prochlorperazine (Compazine) 10 MG tabletIndication s:Glioblastoma (CMS/HCC) Take 1 tablet (10 mg) by mouth every 6 (six) hours if needed for nausea or vomiting. 30 tablet 5 07/10/2024 temozolomide (Temodar) 100 MG chemo capsuleIndicatio ns:Glioblastoma (CMS/HCC) Take 2 capsules (200 mg total) by mouth nightly. Take on Days 1-5 every 28 days 10 capsule 10 09/29/2024 temozolomide (Temodar) 20 MG chemo capsuleIndicatio ns:Glioblastoma (CMS/HCC) Take 1 capsule (20 mg total) by mouth nightly. Take on Days 1-5 every 28 days 5 capsule 10 09/29/2024 documented as of this encounter Miscellaneous Notes * Elana Wetzel H - 02/25/2025 1:52 PM EDT Images from the original note were not included. 1639 Caring for Yourself after Contrast Imaging If you had ORAL contrast: ? You can go back to your normal diet and activities as tolerated. ? Drink plenty of fluids, unless told otherwise. If you had IV contrast: ? You can go back to your normal diet and activities as tolerated. ? Drink plenty of fluids, unless told otherwise. ? Leave a bandage on the site for 30 minutes (where the IV was inserted or blood was drawn). If you had Intravesical (bladder) contrast: ? Return to normal diet and activity. What you need to know about delayed reaction to IV contrast What is IV Contrast? ? Contrast is a dye that is put into your body through an IV. ? It is used for imaging scans such as CT scans and MRIs. ? The contrast makes blood vessels, organs and other parts of your body show up better on the scan. What do I need to do after IV contrast? ? Drink lots of fluids. This will help flush the contrast out of your system. ? Drink 2-3 extra glasses or bottles of water within 4 hours of your scan. What is a contrast reaction? ? A contrast reaction is a bad side effect from the contrast dye. ? It is rare but it does happen. ? They can be mild - such as sneezing, itching, or hives. ? They can be severe - such as trouble breathing, throat swelling, and irregular heart beat. When do these reactions happen? ? They often happen right after the contrast is injected. ? Some happen hours after going home. Go to the nearest Emergency Department right away if you have any of these symptoms after you leavethe clinic or hospital. ? Sneezing ? Itching in your mouth, throat, eyes, ears, or skin ? Rash or hives ? Throwing up or stomach sickness ? High heart rate or ?racing? of your heart ? Feeling dizzy or woozy ? Feeling short of breath or like you can?t take a deep breath ? Feeling very anxious for no other reason [...] Upcoming Encounters Date Type Department Care Team ([facility] st Contact Info) Description 03/25/2025 2:20 PM EDT Office Visit Pav CC Head, Neck & Respiratory [address] [facility], [address]nd [place] [address] Regulo Odonnell MD [address] [facility] [address] [facility] [address] [place] [address] documented as of this encounter Procedures Procedure Name Priority Date/Time Associated Diagnosis Comments MR HEAD W AND WO IV CONTRAST Routine 02/25/2025 2:07 PM EDT Glioblastoma (CMS/HCC) documented in this encounter Results * MR Head w and wo IV Contrast (02/25/2025 2:07 PM EDT) Anatomical Region Laterality Modality Head Magnetic Resonan ce Impressions 02/26/2025 1:35 PM EDT No significant change in the imaging appearance of the resection or treatment cavity margins in the right parietal region including a nodular area of enhancement with mild diffusion restriction concerning for viable neoplastic disease at that site. Herbert Burris MD This report has been electronically signed and verified by the Radiologist whose name is printed above. This report contains privileged and confidential information and is intended solely for the use of the individual or entity to which it is addressed. If you are not the intended recipient of this report, you are hereby notified that any copying, distribution, dissemination or action taken in relation to the contents of this report is strictly prohibited and may be unlawful. If you have received this report in error, please notify the sender immediately at [phone] and permanently delete the original report and destroy any copies or printouts. Narrative 02/26/2025 1:35 PM EDT [employer] - Phone Outpatient NAME: Mariella Hawkins DATE OF EXAM: 02/25/2025 Patient No: [id number] Physician: Blas^Regulo Date of : 1935 Examination: Brain MR with and without contrast Symptoms/Reason For Exam (entered by technologist): Glioblastoma 89 y.o. presented with seizure and imaging demonstrated enhancing right parietal lobe and on Jun 13, 2024 had a near gross total resection. Pathology demonstrated Glioblastoma, IDH wt, ATRX intact, and MGMT positive. She was soon discharged. ? Concurrent TMZ+XRT Dates: 07/21/24-08/14/24 ? Current Treatment Plan History: Temozolomide maintenance C1: 09/08-09/12/24 (~100 mg/m2) C2: 10/06-10/10/24 C3: 11/03-11/07/24 C4: 12/01-12/05/24 C5: 01/05- (delayed per MD scheduling) C6: 02/02-02/06/25 C7: planned for 03/02/2025 Technique: Multiplanar multisequence MR imaging of the brain was performed with and without IV contrast material. Contrast Agent and Dose: 10 cc Gadavist given intravenously Comparison: Brain MR studies with and without contrast dated 11/26/24, 09/01/24, and 06/13/24. FINDINGS: Nodular enhancement persists at the anteromedial margin of the resection or biopsy cavity in the right parietal lobe reference specifically image 140 of series 17. Dimensions of the nodule her about 1.6 cm transverse and about 1.2 cm AP. These appear unchanged. And craniocaudal extent, the nodule involves the inferior margin of the resection or biopsy cavity image 37, series 16 up to about 0.9 cm. This is unchanged. The remaining margins of the resection or biopsy cavity have linear enhancement, grossly unchanged. The T2/flair hyperintense signal in the white matter adjacent to the treatment cavity appears unchanged. No new parenchymal swelling or sulcal effacement identified. No new ventricular effacement. There is some mild diffusion restriction at the nodule of enhancement again concerning for hypercellular tumor image 15, series 7. No change in the susceptibility artifact at the treatment cavity. No new intracranial blood products. Mild white matter T2/flair hyperintense signal abnormalities elsewhere appears unchanged. Moderate global parenchymal volume loss. No midline shift or extra-axial fluid collection. Patent basal cisterns. The expected major arterial intracranial flow voids are identified in the skull base level. No sinusitis. No mastoiditis. Procedure Note Herbert Burris MD - 02/26/2025 [facility] - Phone Outpatient NAME: Mariella Hawkins DATE OF EXAM: 02/25/2025 Patient No: [id number] Physician: Nicole Date of : 1935 Examination: Brain MR with and without contrast Symptoms/Reason For Exam (entered by technologist): Glioblastoma 89 y.o. presented with seizure and imaging demonstrated enhancing rightparietal lobe and on Jun 13, 2024 had a near gross total resection.Pathology demonstrated Glioblastoma, IDH wt, ATRX intact, and MGMTpositive. She was soon discharged. ? Concurrent TMZ+XRT Dates: 07/21/24-08/14/24 ? Current Treatment Plan History: Temozolomide maintenance C1: 09/08-09/12/24 (~100 mg/m2) C2: 10/06-10/10/24 C3: 11/03-11/07/24 C4: 12/01-12/05/24 C5: 01/05- (delayed per MD scheduling) C6: 02/02-02/06/25 C7: planned for 03/02/2025 Technique: Multiplanar multisequence MR imaging of the brain was performedwith and without IV contrast material. Contrast Agent and Dose: 10 cc Gadavist given intravenously Comparison: Brain MR studies with and without contrast dated 11/26/24,09/01/24, and 06/13/24. FINDINGS: Nodular enhancement persists at the anteromedial margin of theresection or biopsy cavity in the right parietal lobe referencespecifically image 140 of series 17. Dimensions of the nodule her about1.6 cm transverse and about 1.2 cm AP. These appear unchanged. Andcraniocaudal extent, the nodule involves the inferior margin of theresection or biopsy cavity image 37, series 16 up to about 0.9 cm. Thisis unchanged. The remaining margins of the resection or biopsy cavityhave linear enhancement, grossly unchanged. The T2/flair hyperintense signal in the white matter adjacent to thetreatment cavity appears unchanged. No new parenchymal swelling or sulcaleffacement identified. No new ventricular effacement. There is some mild diffusion restriction at the nodule of enhancementagain concerning for hypercellular tumor image 15, series 7. No change in the susceptibility artifact at the treatment cavity. No newintracranial blood products. Mild white matter T2/flair hyperintense signal abnormalities elsewhereappears unchanged. Moderate global parenchymal volume loss. No midline shift or extra-axialfluid collection. Patent basal cisterns. The expected major arterialintracranial flow voids are identified in the skull base level. No sinusitis. No mastoiditis. IMPRESSION: No significant change in the imaging appearance of the resection ortreatment cavity margins in the right parietal region including a nodulararea of enhancement with mild diffusion restriction concerning for viableneoplastic disease at that site. Herbert Burris MD This report has been electronically signed and verified by the Radiologistwhose name is printed above. This report contains privileged and confidential information and isintended solely for the use of the individual or entity to which it isaddressed. If you are not the intended recipient of this report, you arehereby notified that any copying, distribution, dissemination or actiontaken in relation to the contents of this report is strictly prohibitedand may be unlawful. If you have received this report in error, pleasenotify the sender immediately at [phone] and permanently delete theoriginal report and destroy any copies or printouts. us Regulo Odonnell MD IMG MRI PROCEDURES Final Resul t documented in this encounter Visit Diagnoses Diagnosis Glioblastoma (CMS/HCC) Malignant neoplasm of brain, unspecified site documented in this encounter Administered Medications Inactive Administered Medications - up to 3 most recent administrations Medication Order MAR Action Action Date Dose Rate Site gadobutrol (Gadavist) injection 10 mL 10 mL (rounded from 9.98 mL = 0.1 mL/kg 99.8 kg), Intravenous, Once in imaging, 1 dose, Starting on Sun02/25/25 at 1252, Until Sun02/25/25 at 1351, Routine, Imaging Protocol Orders Given 02/25/2025 1:51 PM EDT 10 mL Right Antecubital documented in this encounter Additional Health Concerns Assessment Noted Time A fall risk assessment has been complete d for the patient 02/25/2025 2:34 PM EDT A Body Mass Index follow-up plan has been documented for the patient 10/30/2024 1:03 AM EDT documented as of this encounter Care Teams Pharmacy Technician Trainee Relationship Specialty Start Date End Date Chin Lott MD [address] [place] [address] PCP - General 05/11/24 Chin Lott MD [address] [place], [place] [address], [place] [address] 05/11/24 documented as of this encounter
--- OUTSIDE RECORDS SUMMARY | 2025-02-25 14:00 | XMS_ITS | Encounter Summary ---
Author Organization [facility] Address [address] [place] [address] Care Team Providers Care Pesticide Chemist Name Role Phone Chin Lott MD Primary Care Provider [phone] Chin Lott MD Unavailable [phone] Reason for Visit * Reason Comments Follow-up Encounter Details Date Type Department Care Team (Late st Contact Info) Description 02/25/2025 2:00 PM EDT Office Visit Pav [facility] Head, Neck & Respiratory [address] [facility], [address]nd [place] [address] Regulo Odonnell MD 800 [facility] [address] [place] [address] Glioblastoma (CMS/HCC) (Primary Dx) Social History Tobacco [...] [facility] or congregation services? Patient unable to answer 06/13/2024 Do you belong to any clubs o r organizations such as hoahaoism groups, unions, fraternal or athletic groups, or [...] any time in the past 12 m [facility], were you homeless or living in a penitentiary (including now)? No 06/13/2024 Utilities Answer Date Recorded In the past 12 months has th e De Correspondent, gas, oil, or water company threatened to [...] for 03/02/2025 Today: Presents today with her [id number]. She has been on lower doses of [...] intake or overall health status. Will allow final finisher to eval, if unable will refer to [...] [facility] HEAD, NECK & RESPIRATORY [address] [facility] [address] No referring provider defined for this encounter Cosigned by Regulo Odonnell MD at 03/04/2025 9:36 PM EDT Associated attestation - Regluo Odonnell MD - 03/04/2025 9:36 PM EDT [...] No dose adjustments made Rx sent to: [facility] Refills due: N/A Current Treatment Plan [...] Care Team (Late st Contact Info) Description 03/25/2025 2:20 PM EDT Office Visit Pav [facility] Head, Neck & Respiratory [address] [facility]nd [place] [address] Regulo Odonnell MD 800 [facility] [address] [place] [address] Scheduled Orders Name Type Priority Associated Diagnoses Orde r Schedule Comprehensive Metabolic Panel, Plasma Lab Routine Glioblastoma (CMS/HCC) monthly for 12 Occurrences starting 02/25/2025 until 08/28/2026 CBC and Differential Lab Routine Glioblastoma (CMS/HCC) monthly for 12 Occurrences starting 02/25/2025 until 08/28/2026 documented as of this encounter Results * (ABNORMAL) Comprehensive metabolic panel (02/25/2025 2:53 PM EDT) Pathologist [facility] Glucose, Plasma 90 74 - 99 mg/dL 02/25/2025 4:[address] [facility] BUN, Plasma 29(H) 8 - 23 mg/dL 02/25/2025 4:[address] [facility] Creatinine, Plasma 1.02 0.60 - 1.10 mg/dL 02/25/2025 4:[address] [facility] BUN/Creatinine Ratio 28 02/25/2025 4:[address] [facility] Sodium, Plasma 144 136 - 145 mmol/L 02/25/2025 4:[address] [facility] Potassium, Plasma 4.0 3.6 - 4.9 mmol/L 02/25/2025 4:[address] [facility] Chloride, Plasma 105 97 - 107 mmol/L 02/25/2025 4:[address] [facility] CO2, Plasma 27 22 - 29 mmol/L 02/25/2025 4:[address] [facility] Anion Gap 12 6 - 16 mmol/L 02/25/2025 4:[address] [facility] Total Calcium, Plasma 9.8 8.9 - 10.2 mg/dL 02/25/2025 4:[address] [facility] Total Protein 7.1 6.3 - 7.9 g/dL 02/25/2025 4:[address] [facility] Albumin, Plasma 4.2 3.5 - 5.2 g/dL 02/25/2025 4:[address] [facility] AST, Plasma 20 10 - 35 U/L 02/25/2025 4:[address] [facility] ALT, Plasma 7(L) 10 - 35 U/L 02/25/2025 4:[address] [facility] Alkaline Phosphatase, Plasma 110 46 - 142 U/L 02/25/2025 4:[address] [facility] Total Bilirubin, Plasma 0.7 0.2 - 1.1 mg/dL 02/25/2025 4:[address] [facility] eGFRcr 53.4 mL/min/1.7 3m*2 02/25/2025 4:[address] [facility] Comment:Reported eGFRcr in m L/min/1.73m2 is based the CKD-EPI 2020 equation that does not use a race coefficient. Blood Venous blood specimen / Unknown Venipuncture / Unknown 02/25/2025 2:53 PM EDT 02/25/2025 3:30 PM EDT us Regulo Odonnell MD LAB BLOOD ORDERABLES Final Res ult [facility] [address] [place] [address] * (ABNORMAL) CBC and differential (02/25/2025 2:53 PM EDT) [facility] Signature WBC Count 4.29 3.70 - 10.30 10*3/uL LAB HEMATOLOGY METHOD 02/25/2025 3:[address] [facility] RBC Count 3.51(L) 3.90 - 5.20 10*6/uL LAB HEMATOLOGY METHOD 02/25/2025 3:[address] [facility] HGB 11.2 11.2 - 15.7 g/dL LAB HEMATOLOGY METHOD 02/25/2025 3:[address] [facility] HCT 34.7 34.0 - 45.0 % LAB HEMATOLOGY METHOD 02/25/2025 3:[address] [facility] Platelet Count 197 155 - 369 10*3/uL LAB HEMATOLOGY METHOD 02/25/2025 3:[address] [facility] MCV 99(H) 79 - 98 fL LAB HEMATOLOGY METHOD 02/25/2025 3:[address] [facility] MCH 31.9 26.0 - 32.0 pg LAB HEMATOLOGY METHOD 02/25/2025 3:[address] [facility] MCHC 32.3 30.7 - 35.5 g/dL LAB HEMATOLOGY METHOD 02/25/2025 3:[address] [facility] RDW 12.9 11.5 - 14.5 % LAB HEMATOLOGY METHOD 02/25/2025 3:[address] [facility] MPV 11.6 8.8 - 12.5 fL LAB HEMATOLOGY METHOD 02/25/2025 3:[address] [facility] nRBC 0.0 <=0.0 per 100 WBCs LAB HEMATOLOGY METHOD 02/25/2025 3:[address] [facility] Differential Type Automated LAB HEMATOLOGY METHOD 02/25/2025 3:[address] [facility] Neutrophils % 63 % LAB HEMATOLOGY METHOD 02/25/2025 3:[address] [facility] Lymphocytes % 24 % LAB HEMATOLOGY METHOD 02/25/2025 3:[address] [facility] Monocytes % 8 % LAB HEMATOLOGY METHOD 02/25/2025 3:[address] [facility] Eosinophils % 3 % LAB HEMATOLOGY METHOD 02/25/2025 3:[address] [facility] Basophils % 1 % LAB HEMATOLOGY METHOD 02/25/2025 3:[address] [facility] Immature Granulocytes % 1 % LAB HEMATOLOGY METHOD 02/25/2025 3:[address] [facility] Neutrophils Absolute 2.69 1.60 - 6.10 10*3/uL LAB HEMATOLOGY METHOD 02/25/2025 3:[address] [facility] Lymphocytes Absolute 1.04(L) 1.20 - 3.90 10*3/uL LAB HEMATOLOGY METHOD 02/25/2025 3:[address] [facility] Monocytes Absolute 0.35 0.30 - 0.90 10*3/uL LAB HEMATOLOGY METHOD 02/25/2025 3:[address] [facility] Eosinophils Absolute 0.14 0.00 - 0.50 10*3/uL LAB HEMATOLOGY METHOD 02/25/2025 3:[address] [facility] Basophils Absolute 0.05 0.00 - 0.10 10*3/uL LAB HEMATOLOGY METHOD 02/25/2025 3:[address] [facility] Immature Granulocytes Absolute 0.02 0.00 - 0.06 10*3/uL LAB HEMATOLOGY METHOD 02/25/2025 3:[address] [facility] Blood Venous blood specimen / Unknown Venipuncture / Unknown 02/25/2025 2:53 PM EDT 02/25/2025 3:[address] [facility] - 02/25/2025 3:57 PM EDT Therapeutic decision making should be based on absolute values, rather than percentages. us Regulo Odonnell MD LAB BLOOD ORDERABLES Final Res ult [facility] [address] [place] [address] documented in this encounter Visit Diagnoses Diagnosis [...] documented as of this encounter Care Teams Pesticide Chemist Relationship Specialty Start Date End Date Chin Lott MD [address] [place] [address] [address] [place] [address] PCP - General 05/11/24 Chin Lott MD [address] [place] [address] [address] [place] [address] 05/11/24 documented as of this encounter
--- OUTSIDE RECORDS SUMMARY | 2025-02-25 14:15 | XMS_ITS | Encounter Summary ---
Author Organization Healthcare Address [address] [place] [address] Care Team Providers Care Force Dispatcher Name Role Phone Chin Lott MD Primary Care Provider [phone] Chin Lott MD Unavailable [phone] Reason for Visit * Reason Comments Labs Encounter Details Date Type Department Care Team (Latest Contact Info) Description 02/25/2025 2:15 PM EDT Clinical Support Pav CC Head, Neck & Respiratory [address] [place] [address] Glioblastoma ([facility]/HCC) Social History Tobacco Use Types Packs/Day [...] any clubs o r organizations such as orthodoxy groups, unions, fraternal or athletic groups, or [...] medical care, and heating? Somewhat hard 06/13/2024 [facility] [...] any time in the past 12 m [facility], were you homeless or living in a jail (including now)? No 06/13/2024 Utilities Answer Date [...] Pav CC Head, Neck & Respiratory [address] [facility], [address]nd [place] [address] Regulo Odonnell MD [address] [facility] Dena Ferreira [facility] [address] [place] [address] [phone] (work) documented as of this encounter Procedures Procedure Name Priority Date/Time Associated Diagnosis Comments CBC WITH AUTO DIFFERENTIAL Routine 02/25/2025 2:53 PM EDT Glioblastoma (CMS/HCC) COMPREHENSIVE METABOLIC PANEL, PLASMA Routine 02/25/2025 2:53 PM EDT Glioblastoma (CMS/HCC) documented in this encounter Results * (ABNORMAL) CBC and differential (02/25/2025 2:53 PM EDT) Pathologist [facility] WBC Count 4.29 3.70 - 10.30 10*3/uL LAB HEMATOLOGY METHOD 02/25/2025 3:57 PM EDT [facility] RBC Count 3.51(L) 3.90 - 5.20 10*6/uL LAB HEMATOLOGY METHOD 02/25/2025 3:57 PM EDT [facility] HGB 11.2 11.2 - 15.7 g/dL LAB HEMATOLOGY METHOD 02/25/2025 3:57 PM EDT [facility] HCT 34.7 34.0 - 45.0 % LAB HEMATOLOGY METHOD 02/25/2025 3:57 PM EDT [facility] Platelet Count 197 155 - 369 10*3/uL LAB HEMATOLOGY METHOD 02/25/2025 3:57 PM EDT [facility] MCV 99(H) 79 - 98 fL LAB HEMATOLOGY METHOD 02/25/2025 3:57 PM EDT [facility] MCH 31.9 26.0 - 32.0 pg LAB HEMATOLOGY METHOD 02/25/2025 3:57 PM EDT [facility] MCHC 32.3 30.7 - 35.5 g/dL LAB HEMATOLOGY METHOD 02/25/2025 3:57 PM EDT [facility] RDW 12.9 11.5 - 14.5 % LAB HEMATOLOGY METHOD 02/25/2025 3:57 PM EDT [facility] MPV 11.6 8.8 - 12.5 fL LAB HEMATOLOGY METHOD 02/25/2025 3:57 PM EDT [facility] nRBC 0.0 <=0.0 per 100 WBCs LAB HEMATOLOGY METHOD 02/25/2025 3:57 PM EDT [facility] Differential Type Automated LAB HEMATOLOGY METHOD 02/25/2025 3:57 PM EDT [facility] Neutrophils % 63 % LAB HEMATOLOGY METHOD 02/25/2025 3:57 PM EDT [facility] Lymphocytes % 24 % LAB HEMATOLOGY METHOD 02/25/2025 3:57 PM EDT [facility] Monocytes % 8 % LAB HEMATOLOGY METHOD 02/25/2025 3:57 PM EDT [facility] Eosinophils % 3 % LAB HEMATOLOGY METHOD 02/25/2025 3:57 PM EDT [facility] Basophils % 1 % LAB HEMATOLOGY METHOD 02/25/2025 3:57 PM EDT [facility] Immature Granulocytes % 1 % LAB HEMATOLOGY METHOD 02/25/2025 3:57 PM EDT [facility] Neutrophils Absolute 2.69 1.60 - 6.10 10*3/uL LAB HEMATOLOGY METHOD 02/25/2025 3:57 PM EDT [facility] Lymphocytes Absolute 1.04(L) 1.20 - 3.90 10*3/uL LAB HEMATOLOGY METHOD 02/25/2025 3:57 PM EDT [facility] Monocytes Absolute 0.35 0.30 - 0.90 10*3/uL LAB HEMATOLOGY METHOD 02/25/2025 3:57 PM EDT [facility] Eosinophils Absolute 0.14 0.00 - 0.50 10*3/uL LAB HEMATOLOGY METHOD 02/25/2025 3:57 PM EDT [facility] Basophils Absolute 0.05 0.00 - 0.10 10*3/uL LAB HEMATOLOGY METHOD 02/25/2025 3:57 PM EDT [facility] Immature Granulocytes Absolute 0.02 0.00 - 0.06 10*3/uL LAB HEMATOLOGY METHOD 02/25/2025 3:57 PM EDT [facility] Blood Venous blood specimen / Unknown Venipuncture / Unknown 02/25/2025 2:53 PM EDT 02/25/2025 3:40 PM EDT [facility] - 02/25/2025 3:57 PM EDT Therapeutic decision making should be based on absolute values, rather than percentages. us Regulo Odonnell MD LAB BLOOD ORDERABLES Final Res ult [facility] [address] [place] [address] * (ABNORMAL) Comprehensive metabolic panel (02/25/2025 2:53 PM EDT) Glucose, Plasma 90 74 - 99 mg/dL 02/25/2025 4:01 PM EDT [facility] BUN, Plasma 29(H) 8 - 23 mg/dL 02/25/2025 4:01 PM EDT [facility] Creatinine, Plasma 1.02 0.60 - 1.10 mg/dL 02/25/2025 4:01 PM EDT [facility] BUN/Creatinine Ratio 28 02/25/2025 4:01 PM EDT [facility] Sodium, Plasma 144 136 - 145 mmol/L 02/25/2025 4:01 PM EDT [facility] Potassium, Plasma 4.0 3.6 - 4.9 mmol/L 02/25/2025 4:01 PM EDT [facility] Chloride, Plasma 105 97 - 107 mmol/L 02/25/2025 4:01 PM EDT [facility] CO2, Plasma 27 22 - 29 mmol/L 02/25/2025 4:01 PM EDT [facility] Anion Gap 12 6 - 16 mmol/L 02/25/2025 4:01 PM EDT [facility] Total Calcium, Plasma 9.8 8.9 - 10.2 mg/dL 02/25/2025 4:01 PM EDT [facility] Total Protein 7.1 6.3 - 7.9 g/dL 02/25/2025 4:01 PM EDT [facility] Albumin, Plasma 4.2 3.5 - 5.2 g/dL 02/25/2025 4:01 PM EDT [facility] AST, Plasma 20 10 - 35 U/L 02/25/2025 4:01 PM EDT [facility] ALT, Plasma 7(L) 10 - 35 U/L 02/25/2025 4:01 PM EDT [facility] Alkaline Phosphatase, Plasma 110 46 - 142 U/L 02/25/2025 4:01 PM EDT [facility] Total Bilirubin, Plasma 0.7 0.2 - 1.1 mg/dL 02/25/2025 4:01 PM EDT [facility] eGFRcr 53.4 mL/min/1.7 3m*2 02/25/2025 4:01 PM EDT [facility] Comment:Reported eGFRcr in m L/min/1.73m2 is based the CKD-EPI 2020 equation that does not use a race coefficient. Blood Venous blood specimen / Unknown Venipuncture / Unknown 02/25/2025 2:53 PM EDT 02/25/2025 3:30 PM EDT us Regulo Odonnell MD LAB BLOOD ORDERABLES Final Res ult [facility] [address] [place] [address] documented in this encounter Visit Diagnoses Diagnosis Glioblastoma (CMS/HCC) Malignant neoplasm of brain, unspecified site documented in this encounter Additional Health Concerns Assessment Noted Time A fall risk assessment has been complete d for the patient 02/25/2025 2:34 PM EDT A Body Mass Index follow-up plan has been documented for the patient 10/30/2024 1:03 AM EDT documented as of this encounter Care Teams Force Dispatcher Relationship Specialty Start Date End Date Chin Lott MD [address] [place] [id number] PCP - General 05/11/24 Chin Lott MD [address] [place] [address] 05/11/24 documented as of this encounter
--- OUTSIDE RECORDS SUMMARY | 2025-03-19 10:39 | XMS_ITS | Encounter Summary ---
Author Organization [facility] Address [address] [place] [address] Care Team Providers Care Manager Ethics Name Role Phone Chin Lott MD Primary Care Provider [phone] Chin Lott MD Unavailable [phone] Reason for Visit * Auth/Cert (Routine) Specialty Diagnoses / Procedures Referred By Contac t Referred To Contact Diagnoses AMS (altered mental status) Senia Hernandez MD [address] [place] [address] Phone: tel: fax: [facility] Emergency Department [address] [place] [address] Phone: tel: Referral ID Status Reason Start Date Expiration Date Visits Re quested Visits Authorized [id number] 1 1 Encounter Details Date Type Department Care Team (Late st Contact Info) Description 06/18/2024 Lab Requisition [facility] [address] [place] [address] Yenni Soto MD [address] [place] [address] Localized swelling, mass and lump, [...] answer 06/13/2024 How often do you attend [facility] or mu-ism services? Patient unable to answer 06/13/2024 Do you belong to any clubs o r organizations such as judaism groups, unions, fraternal or athletic groups, or [...] medical care, and heating? Somewhat hard 06/13/2024 [facility] - Occupational Stress [...] any time in the past 12 m [facility], were you homeless or living in [...] [facility] Res[facility] [address] [facility] [place] [id number] Regulo Odonnell MD [address] [facility] Dena Ferreira [facility] [address] [place] [address] documented as of this encounter Procedures Procedure Name Priority Date/Time Associated Diagnosis Comments MGMT PROMOTER METHYLATION DET BY DDPCR (SO) Routine 06/13/2024 8:59 AM EST Localized swelling, mass and lump, head documented in this encounter Results * (ABNORMAL) MGMT Promoter Methylation Det by ddPCR (SO) (06/13/2024 8:59 AM EST) MGMT METH Result Detected(A) 06/28/2024 9:26 AM EST [facility] ([place]) MGMT METH Specimen Tissue 06/28/2024 9:26 AM EST [facility]) BLOCK ID [id number] 06/28/2024 9:26 AM EST [facility] ([place]) Tissue Tissue specimen / Unknown 06/13/2024 8:59 AM EST 06/18/2024 2:12 PM EST Narrative [facility] ([place]) - 06/28/2024 9:26 AM EST This result [...] developed and its performance characteristics determined by [facility]. It has not been cleared or approved by the [place] Food and Drug Administration. This test was performed in a CLIA certified laboratory and is intended for clinical purposes. Performed By: [facility] [address] [place] [address] Resizer Operator: Chava Sibley MD, PhD CLIA Number: [id number] us Yenni Soto MD LAB REF LAB BLOOD AND FLUID ORD Final Result [facility] ([facility] [address] [place] [address] documented in this encounter Visit Diagnoses Diagnosis Localized swelling, mass and lump, head documented in this encounter Additional Health Concerns Assessment Noted Time A Body Mass Index follow-up plan has been documented for the patient 06/15/2024 12:54 PM EST documented as of this encounter Care Teams Manager Ethics Relationship Specialty Start Date End Date Chin Lott MD [address] [place] [address] [address] [place] [address] PCP - General 05/11/24 Chin Lott MD [address] [place] [address] [address] [place] [address] 05/11/24 documented as of this encounter
--- OUTSIDE RECORDS SUMMARY | 2025-03-19 10:39 | XMS_ITS | Clinical Summary ---
Author Organization [facility] Address [address] [place] [address] Care Team Providers Care Pipe Smoker Machine Operator Name Role Phone Chin Lott MD Primary Care Provider [phone] Chin Lott MD Unavailable [phone] Allergies No known active allergies Medications [...] Active Additional Information Patient not taking.Reported on 02/25/2025 dexamethasone (Decadron) 4 MG tablet Take 1 [...] Active Additional Information Patient not taking.Reported on 02/25/2025 polyethylene glycol (Miralax) 17 g packet Take [...] Encounters Date Type Department Care Team Description 02/25/2025 2:15 PM EDT Clinical Support [facility] [address] , [address] [place] [address] Glioblastoma ([facility]/HCC) 02/25/2025 2:00 PM EDT Office Visit [facility] Res[facility] [address] , [address] [place] [address] Regulo Odonnell MD Glioblastoma ([facility]) (Primary Dx) 02/25/2025 11:19 AM EDT - 02/25/2025 11:59 PM EDT Hospital Encounter PAV S Radiology [address], [address] [place] [address] Glioblastoma ([facility]) Discharge Disposition: Home or Self Care 02/25/2025 Travel 02/24/2025 Orders Only [facility] Res[facility] [address] [place] [address] Sage Serrano, PharmD 01/28/2025 Orders Only [facility] [address], [address] [place] [address] Zuleika Linn RN Glioblastoma ([facility]/HCC) (Primary Dx) 01/28/2025 Clinical Support [facility] [address] [place] [address] Sage Serrano, PharmD 01/27/2025 Orders Only [facility] Respiratory [address] [place] [address] Provider, Historical 01/23/2025 Telephone [facility] Respiratory [address] [facility], [address]nd [place] [address] Regulo Odonnell MD 01/01/2025 1:00 PM EDT Office Visit [facility]ck [facility] Respiratory [address] [facility], 2nd [place] [address] Regulo Odonnell MD Glioblastoma (CMS/HCC) (Primary Dx) 01/01/2025 Telephone [facility] Respiratory [address] [facility], [address] [place] [address] Zee Lux, PharmD 01/01/2025 Travel 01/01/2025 Orders Only [facility] Neck [facility] Respiratory [address] [facility], [address]nd [place] [address] Provider, Historical from Last 3 Months Social History Tobacco [...] 06/13/2024 How often do you attend [facility] or caodaism services? Patient unable to answer 06/13/2024 Do you belong to any clubs o r organizations such as nondenominational groups, unions, fraternal or athletic groups, or [...] medical care, and heating? Somewhat hard 06/13/2024 [facility] of Occupat ional [facility] - Occupational Stress Questionnaire Answer Date [...] any time in the past 12 m [facility], were you homeless or living in a snf (including now)? No 06/13/2024 Utilities Answer Date Recorded In the past 12 months has th e [employer], gas, oil, or water company threatened to [...] Mass Index 34.12 02/25/2025 2:38 PM EDT Plan of Treatment Upcoming Encounters Date Type Department Care Team (Late st Contact Info) Description 03/25/2025 2:20 PM EDT Office Visit [facility] Head[facility] Neck [facility] Respiratory [address] [facility], [address]nd [place] [address] Regulo Odonnell MD [address] [facility] [address] [place] [address] Health Maintenance Due Date Last Done Comments [facility]-Bone Density Scan 1935 [facility]-Depression Screening 1935 [facility]-Medicare Annual Wellness (AWV) 1935 [facility]-/Child/Adol SDOH Screenings 1935 [facility]-RSV Vaccine: 60+ Years o r (1 - 1-dose 75+ series) 2012 [facility]-Zoster Vaccines (1 of 2) 06/17/2013, 08/17/2009 [facility]-DTaP,Tdap,and Td Vaccine s (2 - Td or Tdap) 03/20/2022 03/20/2012 [id number] Vaccine ( - season) 2024 06/30/2021, 10/08/2020, 09/10/2020 [facility]- SDOH Screenings 12/11/2024 [facility]-Adult SDOH Screenings 12/11/2024 06/13/2024 [facility]-Influenza Vaccine (#1) 2025 [facility]-Diabetes: Hemoglobin A1C 06/11/2025 06/11/2024 [facility]-Pneumococcal [...] this topic Medical Devices Implanted Type Area Service Clerk Device Identifier Shelf Expiration Date Model / Serial / Lot Cover, Neuro Stockwell Lp 17mm - Sn/A - [id number] Implanted:Qty: 1 on 06/13/2024 by Nahid Dalal MD at [facility] Plate Right: Cranial [employer] [id number] 06/13/2025 [id number] / N/A / Plate, 2 Hole Low Profile - Sn/A - [id number] Implanted:Qty: 2 on 06/13/2024 by Nahid Dalal MD at [facility] Plate Right: Cranial [employer] [id number] 06/13/2025 [id number] / N/A / Screw Screw Right: Hip Screw Ti Matrixneuro Selfdrill 4mm - Sn/A - [id number] Implanted:Qty: 8 on 06/13/2024 by Nahid Dalal MD at [facility] Screw Right: Cranial [employer] [id number] 06/13/2025 [id number] 4.01 / N/A / Graft Dura Repair 2x2 [employer] - [id number] Implanted:Qty: 1 on 06/13/2024 by Nahid Dalal MD at [facility] Right: Cranial [employer] [id number] 10/27/2026 [id number] 5.01S / / [id number] Procedures Procedure Name Priority Date/Time Associated Diagnosis Comments CBC WITH AUTO DIFFERENTIAL Routine 02/25/2025 2:53 PM EDT Glioblastoma (CMS/HCC) COMPREHENSIVE METABOLIC PANEL, PLASMA Routine 02/25/2025 2:53 PM EDT Glioblastoma (CMS/HCC) MR HEAD W AND WO IV CONTRAST Routine 02/25/2025 2:07 PM EDT Glioblastoma (CMS/HCC) CBC W/DIFF Routine 01/27/2025 1:41 PM EDT COMPLETE METABOLIC PROFILE (CMP) Routine 01/27/2025 1:41 PM EDT CBC W/DIFF Routine 01/01/2025 10:27 AM EDT COMPLETE METABOLIC PROFILE (CMP) Routine 01/01/2025 10:27 AM EDT HEMOGLOBIN A1C Routine 06/11/2024 8:59 AM EST from Last 3 Months or Most Recently Relevant to Health Maintenance Results * (ABNORMAL) CBC and differential (02/25/2025 2:53 PM EDT) WBC Count 4.29 3.70 - 10.30 10*3/uL LAB HEMATOLOGY METHOD 02/25/2025 3:57 PM EDT [facility] RBC Count 3.51(L) 3.90 - 5.20 10*6/uL LAB HEMATOLOGY METHOD 02/25/2025 3:57 PM EDT [facility] HGB 11.2 11.2 - 15.7 g/dL LAB HEMATOLOGY METHOD 02/25/2025 3:57 PM EDT [facility] HCT 34.7 34.0 - 45.0 % LAB HEMATOLOGY METHOD 02/25/2025 3:57 PM EDT [facility] Platelet Count 197 155 - 369 10*3/uL LAB HEMATOLOGY METHOD 02/25/2025 3:57 PM EDT [facility] MCV 99(H) 79 - 98 fL LAB HEMATOLOGY METHOD 02/25/2025 3:57 PM EDT [facility] MCH 31.9 26.0 - 32.0 pg LAB HEMATOLOGY METHOD 02/25/2025 3:57 PM EDT [facility] MCHC 32.3 30.7 - 35.5 g/dL LAB HEMATOLOGY METHOD 02/25/2025 3:57 PM EDT [facility] RDW 12.9 11.5 - 14.5 % LAB HEMATOLOGY METHOD 02/25/2025 3:57 PM EDT [facility] MPV 11.6 8.8 - 12.5 fL LAB HEMATOLOGY METHOD 02/25/2025 3:57 PM EDT [facility] nRBC 0.0 <=0.0 per 100 WBCs LAB HEMATOLOGY METHOD 02/25/2025 3:57 PM EDT [facility] Differential Type Automated LAB HEMATOLOGY METHOD 02/25/2025 3:57 PM EDT [facility] Neutrophils % 63 % LAB HEMATOLOGY METHOD 02/25/2025 3:57 PM EDT [facility] Lymphocytes % 24 % LAB HEMATOLOGY METHOD 02/25/2025 3:57 PM EDT [facility] Monocytes % 8 % LAB HEMATOLOGY METHOD 02/25/2025 3:57 PM EDT [facility] Eosinophils % 3 % LAB HEMATOLOGY METHOD 02/25/2025 3:57 PM EDT [facility] Basophils % 1 % LAB HEMATOLOGY METHOD 02/25/2025 3:57 PM EDT [facility] Immature Granulocytes % 1 % LAB HEMATOLOGY METHOD 02/25/2025 3:57 PM EDT [facility] Neutrophils Absolute 2.69 1.60 - 6.10 10*3/uL LAB HEMATOLOGY METHOD 02/25/2025 3:57 PM EDT [facility] Lymphocytes Absolute 1.04(L) 1.20 - 3.90 10*3/uL LAB HEMATOLOGY METHOD 02/25/2025 3:57 PM EDT [facility] Monocytes Absolute 0.35 0.30 - 0.90 10*3/uL LAB HEMATOLOGY METHOD 02/25/2025 3:57 PM EDT [facility] Eosinophils Absolute 0.14 0.00 - 0.50 10*3/uL LAB HEMATOLOGY METHOD 02/25/2025 3:57 PM EDT [facility] Basophils Absolute 0.05 0.00 - 0.10 10*3/uL LAB HEMATOLOGY METHOD 02/25/2025 3:57 PM EDT [facility] Immature Granulocytes Absolute 0.02 0.00 - 0.06 10*3/uL LAB HEMATOLOGY METHOD 02/25/2025 3:57 PM EDT [facility] Blood Venous blood specimen / Unknown Venipuncture / Unknown 02/25/2025 2:53 PM EDT 02/25/2025 3:40 PM EDT Narrative [facility] - 02/25/2025 3:57 PM EDT Therapeutic decision making should be based on absolute values, rather than percentages. us Regulo Odonnell MD LAB BLOOD ORDERABLES Final Res ult [facility] [address] [place] [address] * (ABNORMAL) Comprehensive metabolic panel (02/25/2025 2:53 PM EDT) Glucose, Plasma 90 74 - 99 mg/dL 02/25/2025 4:01 PM EDT [facility] BUN, Plasma 29(H) 8 - 23 mg/dL 02/25/2025 4:01 PM EDT [facility] Creatinine, Plasma 1.02 0.60 - 1.10 mg/dL 02/25/2025 4:01 PM EDT [facility] BUN/Creatinine Ratio 28 02/25/2025 4:01 PM EDT [facility] Sodium, Plasma 144 136 - 145 mmol/L 02/25/2025 4:01 PM EDT [facility] Potassium, Plasma 4.0 3.6 - 4.9 mmol/L 02/25/2025 4:01 PM EDT [facility] Chloride, Plasma 105 97 - 107 mmol/L 02/25/2025 4:01 PM EDT [facility] CO2, Plasma 27 22 - 29 mmol/L 02/25/2025 4:01 PM EDT [facility] Anion Gap 12 6 - 16 mmol/L 02/25/2025 4:01 PM EDT [facility] Total Calcium, Plasma 9.8 8.9 - 10.2 mg/dL 02/25/2025 4:01 PM EDT [facility] Total Protein 7.1 6.3 - 7.9 g/dL 02/25/2025 4:01 PM EDT [facility] Albumin, Plasma 4.2 3.5 - 5.2 g/dL 02/25/2025 4:01 PM EDT [facility] AST, Plasma 20 10 - 35 U/L 02/25/2025 4:01 PM EDT [facility] ALT, Plasma 7(L) 10 - 35 U/L 02/25/2025 4:01 PM EDT [facility] Alkaline Phosphatase, Plasma 110 46 - 142 U/L 02/25/2025 4:01 PM EDT [facility] Total Bilirubin, Plasma 0.7 0.2 - 1.1 mg/dL 02/25/2025 4:01 PM EDT [facility] eGFRcr 53.4 mL/min/1.7 3m*2 02/25/2025 4:01 PM EDT [facility] Comment:Reported eGFRcr in m L/min/1.73m2 is based the CKD-EPI 2020 equation that does not use a race coefficient. Blood Venous blood specimen / Unknown Venipuncture / Unknown 02/25/2025 2:53 PM EDT 02/25/2025 3:30 PM EDT us Regulo Odonnell MD LAB BLOOD ORDERABLES Final Res ult [facility] [address] [place] [address] * MR Head w and wo IV [...] error, please notify the sender immediately at [phone] and permanently delete the original report and destroy any copies or printouts. Narrative 02/26/2025 1:35 PM EDT [place] - Phone Outpatient NAME: Mariella Hawkins DATE OF EXAM: 02/25/2025 Patient No: [id number] Physician: Nicole Date of : 1935 Examination: [...] Hawkins DATE OF EXAM: 02/25/2025 Patient No: [id number] Physician: Nicole Date of : 1935 Examination: [...] in error, pleasenotify the sender immediately at [phone] and permanently delete theoriginal report and destroy any copies or printouts. Regulo Odonnell MD IMG MRI PROCEDURES Final Resul t * COMPLETE METABOLIC PROFILE (CMP) (01/27/2025 1:41 PM EDT) Only the most recent of2 resultswithin the time period is included. Historical Provider LAB BLOOD ORDERABLES Final R esult * CBC W/DIFF (01/27/2025 1:41 PM EDT) Only the most recent of2 resultswithin the time period is included. Historical Provider LAB BLOOD ORDERABLES Final R esult * (ABNORMAL) Hemoglobin A1c (06/11/2024 8:59 AM EST) Hemoglobin A1c 5.9(H) <5.7 % 06/11/2024 9:33 AM EST [facility] Blood Venous blood specimen / Unknown Venipuncture / Unknown 06/11/2024 8:59 AM EST 06/11/2024 9:16 AM EST Narrative [facility] - 06/11/2024 9:33 AM EST HA1C Interpretive Data: Diagnosis of Diabetes: Diabetic > or = 6.5% Pre-diabetic 5.7 to 6.4% Non-diabetic < or = 5.6% Glycemic Targets for Type I and Type II Diabetics: Non- Adults <7.0% Adults <6.0% Children and Adolescents <7.5% Source: [place] [employer]. Standards of medical care in diabetes,2017. Diabetes Care.2017:40 (suppl 1):S1-S135. HbA1c assay performed by an ion-exchange chromatography method that is certified traceable to the DCCT. Moshe Benson MD LAB BLOOD ORDERABLES Final Result [facility] [address] [place] [address] from Last 3 Months or Most Recently Relevant to Health Maintenance [place] [address] [facility] Advance Directives * Full Code (Latest Code Status on File) Date Activated Date Inactivated Comments 06/10/2024 8:03 PM 06/15/2024 4:46 PM Question Answer Comments Patient has decision-making capacity? No Healthcare Surrogate: Adult child of the patient Care Teams Pipe Smoker Machine Operator Relationship Specialty Start Date End Date Chin Lott MD [address] [place] [address] [address] [place] [address] PCP - General 05/11/24 Chin Lott MD [facility] [address] [place] [address] 05/11/24
--- OUTSIDE RECORDS SUMMARY | 2025-03-19 10:39 | XMS_ITS | Encounter Summary ---
Author Organization Healthcare Address [address] [place] [address] Care Team Providers Care Outside Sales Professional Name Role Phone Chin Lott MD Primary Care Provider [phone] Chin Lott MD Unavailable [phone] Encounter Details Date Type Department Care Team (Late st Contact Info) Description 01/28/2025 Clinical Support Pav CC Head, Neck & Respiratory [address] [facility], 2nd [place] [address] Sage Serrano, PharmD 800 [facility] [address] [place] [address] Social History Tobacco Use Types Packs/Day Years [...] you attend [facility] or oriental orthodox services? Patient unable to answer 06/13/2024 Do you belong to any clubs o r organizations such as pentecostalism groups, unions, fraternal or athletic groups, or [...] care, and heating? Somewhat hard 06/13/2024 [facility] of Occupat ional Health - Occupational Stress [...] encounter Miscellaneous Notes * Progress Notes - Sage Serrano, PharmD - 01/28/2025 3:15 PM EDT Pharmacy Hematology/Oncology Treatment Note Mariella Hawkins is a 89 y.o. female with Cancer Staging Glioblastoma (CMS/HCC) Staging form: High Grade Glioma - Clinical: Histology: Glioblastoma multiforme - Unsigned Study Patient: no Treatment Plan reviewed for Cycle 6 temozolomide maintenance Interval History: Patient underwent resection [...] changes to current regimen at this time. Today's Wt: Wt Readings from Last 1 Encounters: 11/26/24 105 kg (230 lb 13.2 oz) Dosing Wt: 108 kg Dosing Ht: 172.7 cm DosingBSA: 2.2 m2 Recent Labs: OSH labs from 01/23/25 in media - reviewed and appropriate for [...] No dose adjustments made Rx sent to: [facility] Refills due: N/A Current Treatment Plan History: Temodar maintenance C1: 09/08-09/12/24 C2: 10/06-10/10/24 C3: 11/03-11/07/24 C4: 12/01-12/05/24 C5: 01/05- (delayed per MD scheduling) C6: 02/02-02/06/25 Prior Treatment History: Concurrent TMZ + XRT (07/21/24-08/14/24) Plan: Patient will return to clinic in 4 weeks with imaging prior to visit. Pharmacist Attestation: Sage Serrano PharmD Clinical Oncology Pharmacist documented in this encounter Plan of Treatment Upcoming Encounters Date Type Department Care Team ([facility] Contact Info) Description 03/25/2025 2:20 PM EDT Office Visit Pav CC Head, Neck & Respiratory [address] [facility], [address]nd [place] [address] Regulo Odonnell MD [address] [facility] [address] [place] [address] documented as of this encounter Visit Diagnoses Not on filedocumented in this encounter Additional Health Concerns Assessment Noted Time A fall risk assessment has been complete d for the patient 09/23/2024 2:09 PM EST A Body Mass Index follow-up plan has been documented for the patient 10/30/2024 1:03 AM EDT documented as of this encounter Care Teams Outside Sales Professional Relationship Specialty Start Date End Date Chin Lott MD [facility] [address] [place] [address] PCP - General 05/11/24 Chin Lott MD [address] [place] [address] 05/11/24 documented as of this encounter
--- OUTSIDE RECORDS SUMMARY | 2025-03-19 10:39 | XMS_ITS | Clinical Summary ---
Author Organization [employer] ([place], [place], [place], [place]) Address [address] [place] [address] Care Team Providers Care Roll Picker Name Role Phone Unavailable Primary Care Provider [...]
--- OUTSIDE RECORDS SUMMARY | 2025-03-19 10:39 | XMS_ITS | Encounter Summary ---
Author Organization [facility] Address [address] [place] [address] Care Team Providers Care Arborist Name Role Phone Chin Lott MD Primary Care Provider [phone] Chin Lott MD Unavailable [phone] Encounter Details Date Type Department Care Team (Latest Contact Info) Description 02/25/2025 Travel Social History Tobacco Use Types Packs/Day [...] often do you attend chur ch or holiness services? Patient unable to answer 06/13/2024 Do you belong to any clubs o r organizations such as taoist groups, unions, fraternal or athletic groups, or [...] time in the past 12 m [facility], were you homeless or living in a [...] Pav CC Head, Neck & Respiratory [address] [facility], [address]nd [place] [address] Regulo Odonnell MD [address] [facility] [address] [place] [address] documented as of this encounter Visit Diagnoses Not on filedocumented in this encounter Additional Health Concerns Assessment Noted Time A fall risk assessment has been complete d for the patient 02/25/2025 2:34 PM EDT A Body Mass Index follow-up plan has been documented for the patient 10/30/2024 1:03 AM EDT documented as of this encounter Care Teams Arborist Relationship Specialty Start Date End Date Chin Lott MD [facility] [address] [place] [address] PCP - General 05/11/24 Chin Lott MD [facility] [address] [place] [address] 05/11/24 documented as of this encounter
--- OUTSIDE RECORDS SUMMARY | 2025-03-19 10:39 | XMS_ITS ---
Author Organization [facility] Address [address] [place] [address] Care Team Providers Care Sales Engagement Manager Name Role Phone Chin Lott MD Primary Care Provider [phone] Chin Lott MD Unavailable [phone] Active Problems Problem Noted Date Diagnosed Date Glioblastoma 07/06/2024 Cancer Staging:Clinical: Histology: Glioblastoma multiforme - Unsigned Severe obesity (BMI 35.0-39.9) with comorbidity 06/14/2024 AMS (altered mental status) 06/10/2024 Occipital mass 06/10/2024 Current Treatment and Therapy Plans Temozolomide Every 28 Days* Plan Start Date:08/31/2024 Plan Provider:Regulo Odonnell MD Linked Problems Glioblastoma (CMS/HCC) Treatment Medications Current Day (Day 1 , Cycle 8 - Planned for 03/30/2025) Next Day (Day 1, Cycle 9 - Planned for 04/27/2025) temozolomide (Temodar) No medications scheduled. No medications [...]
--- OUTSIDE RECORDS SUMMARY | 2025-03-19 10:39 | XMS_ITS | Encounter Summary ---
Author Organization [facility] Address [address] [place] [address] Care Team Providers Care Household Personal Assistant Name Role Phone Chin Lott MD Primary Care Provider [phone] Chin Lott MD Unavailable [phone] Reason for Referral * Imaging (Routine) - Closed Specialty Diagnoses / Procedures Referred By Salome sarmiento Referred To Contact Radiology Diagnoses Glioblastoma (CMS/HCC) Procedures MR Head w and wo IV Contrast Regulo Odonnell MD [address] [address] Phone: tel: fax: Referral ID Status Reason Start Date Expiration Date Visits Re quested Visits Authorized [id number] Closed 01/28/2025 07/30/2026 1 1 Encounter Details Date Type Department Care Team (Late st Contact Info) Description 01/28/2025 Orders Only Pav CC Head, Neck & Respiratory 800 [facility], [address] [place] [address] Zuleika Linn RN ``````````````````` ``````HOSP. OBSTETRICS, POST Glioblastoma (CMS/HCC) (Primary Dx) Social History Tobacco [...] answer 06/13/2024 How often do you attend [facility] or latter-day services? Patient unable to answer 06/13/2024 Do you belong to any clubs o r organizations such as faith groups, unions, fraternal or athletic groups, or [...] medical care, and heating? Somewhat hard 06/13/2024 [facility] [place] of Occupat ional Health - Occupational Stress [...] any time in the past 12 m [facility], were you homeless or living in a senior living (including now)? No 06/13/2024 Utilities Answer Date Recorded In the past 12 months has th e [employer], gas, oil, or water company threatened to shut off services in your home? No 06/13/2024 Comments No Sex and Gender Information Value Date Recorded Sex Assigned at Not on file Legal Sex Female 6:33 PM EDT Gender Identity Not on file Sexual Orientation Not on file documented as of this encounter Plan of Treatment Upcoming Encounters Date Type Department Care Team ([facility] Contact Info) Description 03/25/2025 2:20 PM EDT Office Visit Pav CC Head, Neck & Respiratory [address] [facility], [address]nd [place] [address] Regulo Odonnell MD [address] [place] [address] documented as of this encounter Results * MR Head w [...] error, please notify the sender immediately at [phone] and permanently delete the original report and destroy any copies or printouts. Narrative 02/26/2025 1:35 PM EDT [facility] - Phone Outpatient NAME: Mariella Hawkins DATE OF EXAM: 02/25/2025 Patient No: [id number] Physician: Nicole Date of : 1935 Examination: [...] Hawkins DATE OF EXAM: 02/25/2025 Patient No: [id number] Physician: Nicole Date of : 1935 Examination: [...] in error, pleasenotify the sender immediately at [phone] and permanently delete theoriginal report and destroy any copies or printouts. us Regulo Odonnell MD IMG MRI PROCEDURES Final Resul t documented in this encounter Visit Diagnoses Diagnosis Glioblastoma (CMS/HCC)- Primary Malignant neoplasm of brain, unspecified site Glioblastoma (CMS/HCC) Malignant neoplasm of brain, unspecified site documented in this encounter Additional Health Concerns Assessment Noted Time A fall risk assessment has been complete d for the patient 09/23/2024 2:09 PM EST A Body Mass Index follow-up plan has been documented for the patient 10/30/2024 1:03 AM EDT documented as of this encounter Care Teams Household Personal Assistant Relationship Specialty Start Date End Date Chin Lott MD [address] [place] [address] PCP - General 05/11/24 Chin Lott MD [address] [place] [address] 05/11/24 documented as of this encounter
--- OUTSIDE RECORDS SUMMARY | 2025-03-19 10:39 | XMS_ITS | Encounter Summary ---
Author Organization Healthcare Address [address] [place] [address] Care Team Providers Care Link Machine Operator Name Role Phone Chin Lott MD Primary Care Provider Chin Lott MD Unavailable [phone] Encounter Details Date Type Department Care Team (Late st Contact Info) Description 02/24/2025 Orders Only Pav [facility] Respiratory 800 [facility], 2nd [place] [address] Sage Serrano, PharmD 800 [facility] [address] [place] [address] Social History Tobacco Use Types Packs/Day Years [...] answer 06/13/2024 How often do you attend [facility] or yarsani services? Patient unable to answer 06/13/2024 Do you belong to any clubs o r organizations such as latter-day groups, unions, fraternal or athletic groups, or [...] care, and heating? Somewhat hard 06/13/2024 [facility] of Occupat ional Health - Occupational Stress [...] in the past 12 m [facility], were you homeless or living in a [...] Pav CC Head, Neck & Respiratory 800 [facility], 2nd [place] [address] Regulo Odonnell MD 800 [facility] [address] [place] [address] documented as of this encounter Visit Diagnoses Not on filedocumented in this encounter Additional Health Concerns Assessment Noted Time A fall risk assessment has been complete d for the patient 09/23/2024 2:09 PM EST A Body Mass Index follow-up plan has been documented for the patient 10/30/2024 1:03 AM EDT documented as of this encounter Care Teams Link Machine Operator Relationship Specialty Start Date End Date Chin Lott MD [address] [place] [address] PCP - General 05/11/24 Chin Lott MD [address] [place] [address] 05/11/24 documented as of this encounter
--- OUTSIDE RECORDS SUMMARY | 2025-03-19 10:39 | XMS_ITS | Encounter Summary ---
Author Organization Healthcare Address [address] [place] [id number] Care Team Providers Care Tape Weaver Name Role Phone Chin Lott MD Primary Care Provider [phone] Chin Lott MD Unavailable [phone] Encounter Details Date Type Department Care Team (Late st Contact Info) Description 01/23/2025 Telephone Pav CC Head, Neck & Respiratory 800 [facility], 2nd [place] [address] Regulo Odonnell MD 800 [facility] [address] [place] [address] Social History Tobacco Use Types Packs/Day Years [...] answer 06/13/2024 How often do you attend [facility] or presybeterian services? Patient unable to answer 06/13/2024 Do you belong to any clubs o r organizations such as muslim groups, unions, fraAisleBuyer or athletic groups, or school groups? Patient [...] medical care, and heating? Somewhat hard 06/13/2024 [facility] of Occupat ional Health - Occupational [...] Pav CC Head, Neck & Respiratory 800 [facility], 2nd [place] [address] Regulo Odonnell MD 800 [facility] [address] [place] [address] documented as of this encounter Visit Diagnoses Not on filedocumented in this encounter Additional Health Concerns Assessment Noted Time A fall risk assessment has been complete d for the patient 09/23/2024 2:09 PM EST A Body Mass Index follow-up plan has been documented for the patient 10/30/2024 1:03 AM EDT documented as of this encounter Care Teams Tape Weaver Relationship Specialty Start Date End Date Chin Lott MD [address] [place] [address] [address] PCP - General 05/11/24 Chin Lott MD [address] [place] [address] [place] [address] 05/11/24 documented as of this encounter
--- OUTSIDE RECORDS SUMMARY | 2025-03-19 10:39 | XMS_ITS | Referral Summary ---
Author Organization [employer] ([place], [place], [place], [place]) Address [address] [place] [address] Care Team Providers Care Ob Gyn Name Role Phone Unavailable Primary Care Provider [...]
--- OUTSIDE RECORDS SUMMARY | 2025-03-19 10:39 | XMS_ITS | Encounter Summary ---
Author Organization Healthcare Address [address] [place] [address] Care Team Providers Care Resource Manager Name Role Phone Chin Lott MD Primary Care Provider [phone] Chin Lott MD Unavailable [phone] Encounter Details Date Type Department Care Team (Late st Contact Info) Description 01/27/2025 Orders Only Pav CC Head, Neck & Respiratory [address] , [address] [place] [address] Provider, [address] [address] Social History Tobacco Use Types Packs/Day [...] How often do you attend chur or buddhism services? Patient unable to answer 06/13/2024 Do you belong to any clubs o r organizations such as jew groups, unions, fraternal or athletic groups, or [...] medical care, and heating? Somewhat hard 06/13/2024 [facility] of Occupat ional Health - Occupational [...] time in the past 12 m [facility], were you homeless or living in a [...] Pav CC Head, Neck & Respiratory 800 [facility], [address]nd [place] [address] Regulo Odonnell MD 800 [facility] [address] [place] [address] documented as of this encounter Procedures Procedure Name Priority Date/Time Associated Diagnosis Comments COMPLETE METABOLIC PROFILE (CMP) Routine 01/27/2025 1:41 PM EDT CBC W/DIFF Routine 01/27/2025 1:41 PM EDT documented in this encounter Results * CBC W/DIFF (01/27/2025 1:41 PM EDT) us Historical Provider LAB BLOOD ORDERABLES Final R esult * COMPLETE METABOLIC PROFILE (CMP) (01/27/2025 1:41 PM EDT) us Historical Provider LAB BLOOD ORDERABLES Final R esult documented in this encounter Visit Diagnoses Not on filedocumented in this encounter Additional Health Concerns Assessment Noted Time A fall risk assessment has been complete d for the patient 09/23/2024 2:09 PM EST A Body Mass Index follow-up plan has been documented for the patient 10/30/2024 1:03 AM EDT documented as of this encounter Care Teams Resource Manager Relationship Specialty Start Date End Date Chin Lott MD [address] [place] [address] [address] [place] [address] PCP - General 05/11/24 Chin Lott MD [address] [place] [address] [address] [place] [address] 05/11/24 documented as of this encounter
[2025-03-19 11:04] LABS: Hematocrit 34.6 % (37.0-47.0); Hemoglobin 11.1 g/dL (12.2-16.2); Immature Granulocytes % 0.3 %; Mean Corpuscular HGB Conc 32.1 g/dL (31.8-35.4); Mean Corpuscular Hemoglobin 31.6 pg (27.0-31.2); Mean Corpuscular Volume 98.6 fl (81-99); Nucleated Red Blood Cells % 0 %; Platelet Count 169 K/mm3 (142-424); Red Blood Count 3.51 M/mm3 (4.20-5.40); Red Cell Distribution Width-SD 46.4 fL; White Blood Count 4.0 K/mm3 (4.8-10.8)
[2025-03-19 11:26] LABS: Alanine Aminotransferase 8 U/L (12-78); Albumin Level 4.2 g/dl (3.5-5.0); Albumin/Globulin Ratio 1.7 (1.1-1.8); Alkaline Phosphatase 107 U/L (38-126); Anion Gap 11.1 mEq/L (5-15); Aspartate Amino Transferase 24 U/L (14-36); Bilirubin,Total 0.8 mg/dl (0.2-1.3); Blood Urea Nitrogen 35 mg/dl (7-17); Calcium 9.5 mg/dl (8.4-10.2); Carbon Dioxide 30 mmol/L (22.0-30.0); Chloride 107 mmol/L (98-107); Creatinine,Serum 1.20 mg/dl (0.52-1.04); Estimated Glomerular Filt Rate 42 ml/min (>60); GFR (African American) 51 ML/MIN (>60); Globulin 2.5 g/dL (1.3-3.2); Glucose 90 mg/dl (74-100); Potassium 4.1 mmoL/L (3.5-5.1); Sodium 144 mmol/L (136-145); Total Protein,Serum 6.7 g/dl (6.3-8.2)
== END 2025-03-19 23:59 | disposition home or self-care (01) ==
LOC: LAB 10:36
PROVIDERS: PCP Internal Medicine; Visit Provider Internal Medicine Hematology & Oncology
DX: C71.9 Malignant neoplasm of brain, unspecified (principal)
CPT/HCPCS: 36415; 80053; 85025

== ENCOUNTER 2025-04-15 11:42 | Outpatient (CLI) | payer MEDICARE, SELFPAY ==
--- OUTSIDE RECORDS SUMMARY | 2025-02-25 11:19 | XMS_ITS | Encounter Summary ---
Author Organization [facility] Address [address] [place] [address] Care Team Providers Care Four Horse Hitch Driver Name Role Phone Chin Lott MD Primary Care Provider [phone] Chin Lott MD Unavailable [phone] Reason for Referral * Imaging (Routine) - Closed Specialty Diagnoses / Procedures Referred By Contac t Referred To Contact Radiology Diagnoses Glioblastoma (CMS/HCC) Procedures MR Head w and wo IV Contrast Regulo Odonnell MD [address] [address] Phone: tel: fax: Referral ID Status Reason Start Date Expiration Date Visits Re quested Visits Authorized [id number] Closed 01/28/2025 07/30/2026 1 1 Reason for Visit * Imaging (Routine) - Closed Specialty Diagnoses / Procedures Referred By Contac t Referred To Contact Radiology Diagnoses Glioblastoma (CMS/HCC) Procedures MR Head w and wo IV Contrast Regulo Odonnell MD [address] [address] Phone: tel: fax: Referral ID Status Reason Start Date Expiration Date Visits Re quested Visits Authorized [id number] Closed 01/28/2025 07/30/2026 1 1 Encounter Details Date Type Department Care Team (Latest Contact Info) Description 02/25/2025 11:19 AM EDT - 02/25/2025 11:59 PM EDT Hospital Encounter PAV S Radiology [address] [place] [address] Glioblastoma ([facility]) Discharge Disposition: Home or Self [...] answer 06/13/2024 How often do you attend [facility] or yazdanism services? Patient unable to answer 06/13/2024 Do you belong to any clubs o r organizations such as [employer]aritan groups, unions, fraternal or athletic groups, or [...] medical care, and heating? Somewhat hard 06/13/2024 [facility] of Occupat ional [facility] - Occupational Stress Questionnaire Answer Date [...] from the original note were not included. 8679 Caring for Yourself after Contrast Imaging If [...] Upcoming Encounters Date Type Department Care Team ([facility] st Contact Info) Description 04/22/2025 2:00 PM EDT Office Visit Pav CC Head, Neck & Respiratory [address] [place] [address] Regulo Odonnell MD [address] [facility] [address] [place] [address] documented as of this encounter Procedures Procedure [...] error, please notify the sender immediately at [phone] and permanently delete the original report and destroy any copies or printouts. Narrative 02/26/2025 1:35 PM EDT [employer] - Phone Outpatient NAME: Mariella Hawkins DATE OF EXAM: 02/25/2025 Patient No: [id number] Physician: Nicole Date of : 1935 Examination: [...] Hawkins DATE OF EXAM: 02/25/2025 Patient No: [id number] Physician: Nicole Date of : 1935 Examination: [...] in error, pleasenotify the sender immediately at [phone] and permanently delete theoriginal report and destroy [...] documented as of this encounter Care Teams Four Horse Hitch Driver Relationship Specialty Start Date End Date Chin Lott MD [address] [place] [address] [place] [address] PCP - General 05/11/24 Chin Lott MD [address] [place] [facility] [address] [place] [address] 05/11/24 documented as of this encounter
--- OUTSIDE RECORDS SUMMARY | 2025-02-25 14:00 | XMS_ITS | Encounter Summary ---
Author Organization [facility] Address [address] [place] [address] Care Team Providers Care Biometry Teacher Name Role Phone Chin Lott MD Primary Care Provider [phone] Chin Lott MD Unavailable [phone] Reason for Visit * Reason Comments Follow-up Encounter Details Date Type Department Care Team (Late st Contact Info) Description 02/25/2025 2:00 PM EDT Office Visit Pav CC Head, Neck & Respiratory [address] [facility], [address] [place] [address] Regulo Odonnell MD 800 [facility] [address] [place] [address] Glioblastoma (CMS/HCC) (Primary Dx) Social History Tobacco [...] answer 06/13/2024 How often do you attend [facility] or buddhist services? Patient unable to answer 06/13/2024 Do you belong to any clubs o r organizations such as islam groups, unions, fraternal or athletic groups, or [...] medical care, and heating? Somewhat hard 06/13/2024 [facility] - Occupational Stress [...] were you homeless or living in a group home (including now)? No 06/13/2024 Utilities Answer Date Recorded In the past 12 months has th e [employer], gas, oil, or water company threatened to [...] for 03/02/2025 Today: Presents today with her [id number]. She has been on lower doses of [...] intake or overall health status. Will allow primary clinician to eval, if unable will refer to [...] [facility] HEAD[facility]ECK [facility] RESPIRATORY [address] [facility] [address] No referring provider defined for this encounter [...] No dose adjustments made Rx sent to: [facility] Refills due: N/A Current Treatment Plan History: [...] Pav CC Head, Neck & Respiratory [address] [facility], [address] [place] [address] Regulo Odonnell MD 800 [facility] [address] [place] [address] Scheduled Orders Name Type Priority Associated Diagnoses Orde r Schedule Comprehensive Metabolic Panel, Plasma Lab Routine Glioblastoma (CMS/HCC) monthly for 12 Occurrences starting 02/25/2025 until 08/28/2026 CBC and Differential Lab Routine Glioblastoma (CMS/HCC) monthly for 12 Occurrences starting 02/25/2025 until 08/28/2026 documented as of this encounter Results * (ABNORMAL) Comprehensive metabolic panel (02/25/2025 2:53 PM EDT) Pathologist [facility] Glucose, Plasma 90 74 - 99 mg/dL 02/25/2025 4:01 PM EDT [facility] BUN, Plasma 29(H) 8 - 23 mg/dL 02/25/2025 4:01 PM EDT [facility] Creatinine, Plasma 1.02 0.60 - 1.10 mg/dL 02/25/2025 4:01 PM EDT [facility] BUN/Creatinine Ratio 28 02/25/2025 4:01 PM EDT [facility] Sodium, Plasma 144 136 - 145 mmol/L 02/25/2025 4:01 PM EDT [facility] Potassium, Plasma 4.0 3.6 - 4.9 mmol/L 02/25/2025 4:01 PM EDT [facility] Chloride, Plasma 105 97 - 107 mmol/L 02/25/2025 4:01 PM EDT [facility] CO2, Plasma 27 22 - 29 mmol/L 02/25/2025 4:01 PM EDT [facility] Anion Gap 12 6 - 16 mmol/L 02/25/2025 4:01 PM EDT [facility] Total Calcium, Plasma 9.8 8.9 - 10.2 mg/dL 02/25/2025 4:01 PM EDT [facility] Total Protein 7.1 6.3 - 7.9 g/dL 02/25/2025 4:01 PM EDT [facility] Albumin, Plasma 4.2 3.5 - 5.2 g/dL 02/25/2025 4:01 PM EDT [facility] AST, Plasma 20 10 - 35 U/L 02/25/2025 4:01 PM EDT [facility] ALT, Plasma 7(L) 10 - 35 U/L 02/25/2025 4:01 PM EDT [facility] Alkaline Phosphatase, Plasma 110 46 - 142 U/L 02/25/2025 4:01 PM EDT [facility] Total Bilirubin, Plasma 0.7 0.2 - 1.1 mg/dL 02/25/2025 4:01 PM EDT [facility] eGFRcr 53.4 mL/min/1.7 3m*2 02/25/2025 4:01 PM EDT [facility] Comment:Reported eGFRcr in m L/min/1.73m2 is based the CKD-EPI 2020 equation that does not use a race coefficient. Blood Venous blood specimen / Unknown Venipuncture / Unknown 02/25/2025 2:53 PM EDT 02/25/2025 3:30 PM EDT us Regulo Odonnell MD LAB BLOOD ORDERABLES Final Res ult [facility] [address] [place] [address] * (ABNORMAL) CBC and differential (02/25/2025 2:53 PM EDT) [facility] Signature WBC Count 4.29 3.70 - 10.30 10*3/uL LAB HEMATOLOGY METHOD 02/25/2025 3:57 PM EDT [facility] RBC Count 3.51(L) 3.90 - 5.20 10*6/uL LAB HEMATOLOGY METHOD 02/25/2025 3:57 PM EDT [facility] HGB 11.2 11.2 - 15.7 g/dL LAB HEMATOLOGY METHOD 02/25/2025 3:57 PM EDT [facility] HCT 34.7 34.0 - 45.0 % LAB HEMATOLOGY METHOD 02/25/2025 3:57 PM EDT [facility] Platelet Count 197 155 - 369 10*3/uL LAB HEMATOLOGY METHOD 02/25/2025 3:57 PM EDT [facility] MCV 99(H) 79 - 98 fL LAB HEMATOLOGY METHOD 02/25/2025 3:57 PM EDT [facility] MCH 31.9 26.0 - 32.0 pg LAB HEMATOLOGY METHOD 02/25/2025 3:57 PM EDT [facility] MCHC 32.3 30.7 - 35.5 g/dL LAB HEMATOLOGY METHOD 02/25/2025 3:57 PM EDT [facility] RDW 12.9 11.5 - 14.5 % LAB HEMATOLOGY METHOD 02/25/2025 3:57 PM EDT [facility] MPV 11.6 8.8 - 12.5 fL LAB HEMATOLOGY METHOD 02/25/2025 3:57 PM EDT [facility] nRBC 0.0 <=0.0 per 100 WBCs LAB HEMATOLOGY METHOD 02/25/2025 3:57 PM EDT [facility] Differential Type Automated LAB HEMATOLOGY METHOD 02/25/2025 3:57 PM EDT [facility] Neutrophils % 63 % LAB HEMATOLOGY METHOD 02/25/2025 3:57 PM EDT [facility] Lymphocytes % 24 % LAB HEMATOLOGY METHOD 02/25/2025 3:57 PM EDT [facility] Monocytes % 8 % LAB HEMATOLOGY METHOD 02/25/2025 3:57 PM EDT [facility] Eosinophils % 3 % LAB HEMATOLOGY METHOD 02/25/2025 3:57 PM EDT [facility] Basophils % 1 % LAB HEMATOLOGY METHOD 02/25/2025 3:57 PM EDT [facility] Immature Granulocytes % 1 % LAB HEMATOLOGY METHOD 02/25/2025 3:57 PM EDT [facility] Neutrophils Absolute 2.69 1.60 - 6.10 10*3/uL LAB HEMATOLOGY METHOD 02/25/2025 3:57 PM EDT [facility] Lymphocytes Absolute 1.04(L) 1.20 - 3.90 10*3/uL LAB HEMATOLOGY METHOD 02/25/2025 3:57 PM EDT [facility] Monocytes Absolute 0.35 0.30 - 0.90 10*3/uL LAB HEMATOLOGY METHOD 02/25/2025 3:57 PM EDT [facility] Eosinophils Absolute 0.14 0.00 - 0.50 10*3/uL LAB HEMATOLOGY METHOD 02/25/2025 3:57 PM EDT [facility] Basophils Absolute 0.05 0.00 - 0.10 10*3/uL LAB HEMATOLOGY METHOD 02/25/2025 3:57 PM EDT [facility] Immature Granulocytes Absolute 0.02 0.00 - 0.06 10*3/uL LAB HEMATOLOGY METHOD 02/25/2025 3:57 PM EDT [facility] Blood Venous blood specimen / Unknown Venipuncture / Unknown 02/25/2025 2:53 PM EDT 02/25/2025 3:40 PM EDT Narrative [facility] - 02/25/2025 3:57 PM EDT Therapeutic decision making should be based on absolute values, rather than percentages. us Regulo Odonnell MD LAB BLOOD ORDERABLES Final Res ult [facility] [address] [place] [address] documented in this encounter Visit Diagnoses Diagnosis [...] documented as of this encounter Care Teams Biometry Teacher Relationship Specialty Start Date End Date Chin Lott MD [address] [place] [address] [address] [place] [address] PCP - General 05/11/24 Chin Lott MD [address] [place] [address] [address] [place] [address] 05/11/24 documented as of this encounter
--- OUTSIDE RECORDS SUMMARY | 2025-02-25 14:15 | XMS_ITS | Encounter Summary ---
Author Organization Healthcare Address [address] [place] [address] Care Team Providers Care Client Delivery Specialist Name Role Phone Chin Lott MD Primary Care Provider Chin Lott MD Unavailable [phone] Reason for Visit * Reason Comments Labs Encounter Details Date Type Department Care Team (Latest Contact Info) Description 02/25/2025 2:15 PM EDT Clinical Support [facility] [address] , [address] [place] [address] Glioblastoma ([facility]/HCC) Social History Tobacco Use Types Packs/Day [...] often do you attend chur ch or caodaism services? Patient unable to answer 06/13/2024 Do you belong to any clubs o r organizations such as restorationism groups, unions, fraternal or athletic groups, or [...] medical care, and heating? Somewhat hard 06/13/2024 [facility] - Occupational [...] were you homeless or living in a custodial (including now)? No 06/13/2024 Utilities Answer Date [...] [facility] Res[facility] [address] [facility] [place] [address] Regulo Odonnell MD [address] [facility] Dena Ferreira [facility] [address] [place] [address] [phone] (work) documented as of this encounter Procedures Procedure Name Priority Date/Time Associated Diagnosis Comments CBC WITH AUTO DIFFERENTIAL Routine 02/25/2025 2:53 PM EDT Glioblastoma (CMS/HCC) COMPREHENSIVE METABOLIC PANEL, PLASMA Routine 02/25/2025 2:53 PM EDT Glioblastoma (CMS/HCC) documented in this encounter Results * (ABNORMAL) CBC and differential (02/25/2025 2:53 PM EDT) Pathologist [facility] WBC Count 4.29 3.70 - 10.30 10*3/uL LAB HEMATOLOGY METHOD 02/25/2025 3:57 PM EDT [facility] RBC Count 3.51(L) 3.90 - 5.20 10*6/uL LAB HEMATOLOGY METHOD 02/25/2025 3:57 PM EDT [facility] HGB 11.2 11.2 - 15.7 g/dL LAB HEMATOLOGY METHOD 02/25/2025 3:57 PM EDT [facility] HCT 34.7 34.0 - 45.0 % LAB HEMATOLOGY METHOD 02/25/2025 3:57 PM EDT [facility] Platelet Count 197 155 - 369 10*3/uL LAB HEMATOLOGY METHOD 02/25/2025 3:57 PM EDT [facility] MCV 99(H) 79 - 98 fL LAB HEMATOLOGY METHOD 02/25/2025 3:57 PM EDT [facility] MCH 31.9 26.0 - 32.0 pg LAB HEMATOLOGY METHOD 02/25/2025 3:57 PM EDT [facility] MCHC 32.3 30.7 - 35.5 g/dL LAB HEMATOLOGY METHOD 02/25/2025 3:57 PM EDT [facility] RDW 12.9 11.5 - 14.5 % LAB HEMATOLOGY METHOD 02/25/2025 3:57 PM EDT [facility] MPV 11.6 8.8 - 12.5 fL LAB HEMATOLOGY METHOD 02/25/2025 3:57 PM EDT [facility] nRBC 0.0 <=0.0 per 100 WBCs LAB HEMATOLOGY METHOD 02/25/2025 3:57 PM EDT [facility] Differential Type Automated LAB HEMATOLOGY METHOD 02/25/2025 3:57 PM EDT [facility] Neutrophils % 63 % LAB HEMATOLOGY METHOD 02/25/2025 3:57 PM EDT [facility] Lymphocytes % 24 % LAB HEMATOLOGY METHOD 02/25/2025 3:57 PM EDT [facility] Monocytes % 8 % LAB HEMATOLOGY METHOD 02/25/2025 3:57 PM EDT [facility] Eosinophils % 3 % LAB HEMATOLOGY METHOD 02/25/2025 3:57 PM EDT [facility] Basophils % 1 % LAB HEMATOLOGY METHOD 02/25/2025 3:57 PM EDT [facility] Immature Granulocytes % 1 % LAB HEMATOLOGY METHOD 02/25/2025 3:57 PM EDT [facility] Neutrophils Absolute 2.69 1.60 - 6.10 10*3/uL LAB HEMATOLOGY METHOD 02/25/2025 3:57 PM EDT [facility] Lymphocytes Absolute 1.04(L) 1.20 - 3.90 10*3/uL LAB HEMATOLOGY METHOD 02/25/2025 3:57 PM EDT [facility] Monocytes Absolute 0.35 0.30 - 0.90 10*3/uL LAB HEMATOLOGY METHOD 02/25/2025 3:57 PM EDT [facility] Eosinophils Absolute 0.14 0.00 - 0.50 10*3/uL LAB HEMATOLOGY METHOD 02/25/2025 3:57 PM EDT [facility] Basophils Absolute 0.05 0.00 - 0.10 10*3/uL LAB HEMATOLOGY METHOD 02/25/2025 3:57 PM EDT [facility] Immature Granulocytes Absolute 0.02 0.00 - 0.06 10*3/uL LAB HEMATOLOGY METHOD 02/25/2025 3:57 PM EDT [facility] Blood Venous blood specimen / Unknown Venipuncture / Unknown 02/25/2025 2:53 PM EDT 02/25/2025 3:40 PM EDT [facility] - 02/25/2025 3:57 PM EDT Therapeutic decision making should be based on absolute values, rather than percentages. us Regulo Odonnell MD LAB BLOOD ORDERABLES Final Res ult [facility] [address] [place] [address] * (ABNORMAL) Comprehensive metabolic panel (02/25/2025 2:53 PM EDT) Glucose, Plasma 90 74 - 99 mg/dL 02/25/2025 4:01 PM EDT [facility] BUN, Plasma 29(H) 8 - 23 mg/dL 02/25/2025 4:01 PM EDT [facility] Creatinine, Plasma 1.02 0.60 - 1.10 mg/dL 02/25/2025 4:01 PM EDT [facility] BUN/Creatinine Ratio 28 02/25/2025 4:01 PM EDT [facility] Sodium, Plasma 144 136 - 145 mmol/L 02/25/2025 4:01 PM EDT [facility] Potassium, Plasma 4.0 3.6 - 4.9 mmol/L 02/25/2025 4:01 PM EDT [facility] Chloride, Plasma 105 97 - 107 mmol/L 02/25/2025 4:01 PM EDT [facility] CO2, Plasma 27 22 - 29 mmol/L 02/25/2025 4:01 PM EDT [facility] Anion Gap 12 6 - 16 mmol/L 02/25/2025 4:01 PM EDT [facility] Total Calcium, Plasma 9.8 8.9 - 10.2 mg/dL 02/25/2025 4:01 PM EDT [facility] Total Protein 7.1 6.3 - 7.9 g/dL 02/25/2025 4:01 PM EDT [facility] Albumin, Plasma 4.2 3.5 - 5.2 g/dL 02/25/2025 4:01 PM EDT [facility] AST, Plasma 20 10 - 35 U/L 02/25/2025 4:01 PM EDT [facility] ALT, Plasma 7(L) 10 - 35 U/L 02/25/2025 4:01 PM EDT [facility] Alkaline Phosphatase, Plasma 110 46 - 142 U/L 02/25/2025 4:01 PM EDT [facility] Total Bilirubin, Plasma 0.7 0.2 - 1.1 mg/dL 02/25/2025 4:01 PM EDT [facility] eGFRcr 53.4 mL/min/1.7 3m*2 02/25/2025 4:01 PM EDT [facility] Comment:Reported eGFRcr in m L/min/1.73m2 is based the CKD-EPI 2020 equation that does not use a race coefficient. Blood Venous blood specimen / Unknown Venipuncture / Unknown 02/25/2025 2:53 PM EDT 02/25/2025 3:30 PM EDT us Regulo Odnonell MD LAB BLOOD ORDERABLES Final Res ult [facility] [address] [place] [address] documented in this encounter Visit Diagnoses Diagnosis Glioblastoma (CMS/HCC) Malignant neoplasm of brain, unspecified site documented in this encounter Additional Health Concerns Assessment Noted Time A fall risk assessment has been complete d for the patient 02/25/2025 2:34 PM EDT A Body Mass Index follow-up plan has been documented for the patient 10/30/2024 1:03 AM EDT documented as of this encounter Care Teams Client Delivery Specialist Relationship Specialty Start Date End Date Chin Lott MD [address] [place] [id number] PCP - General 05/11/24 Chin Lott MD [address] [place] [id number] 05/11/24 documented as of this encounter
--- OUTSIDE RECORDS SUMMARY | 2025-04-15 11:44 | XMS_ITS | Encounter Summary ---
Author Organization Healthcare Address [address] [place] [address] Care Team Providers Care Yard Coordinator Name Role Phone Chin Lott MD Primary Care Provider [phone] Chin Lott MD Unavailable [phone] Encounter Details Date Type Department Care Team (Late st Contact Info) Description 03/24/2025 Orders Only Pav CC Head, Neck & Respiratory [address] , [address] [place] [address] Provider, [address] [address] Social History Tobacco Use Types [...] How often do you attend chur or anabaptist services? Patient unable to answer 06/13/2024 Do [...] medical care, and heating? Somewhat hard 06/13/2024 [facility] of Occupat ional Health - [...] any time in the past 12 m [facility], were you homeless or living in [...] Pav CC Head, Neck & Respiratory 800 [facility], [address]nd [place] [address] Regulo Odonnell MD 800 [facility] [address] [place] [address] documented as of this encounter Procedures Procedure Name Priority Date/Time Associated Diagnosis Comments COMPLETE METABOLIC PROFILE (CMP) Routine 03/24/2025 2:55 PM EDT CBC W/DIFF Routine 03/24/2025 2:55 PM EDT documented in this encounter Results * CBC W/DIFF (03/24/2025 2:55 PM EDT) us Historical Provider LAB BLOOD ORDERABLES Final R esult * COMPLETE METABOLIC PROFILE (CMP) (03/24/2025 2:55 PM EDT) us Historical Provider LAB BLOOD [...] documented as of this encounter Care Teams Yard Coordinator Relationship Specialty Start Date End Date Chin Lott MD [address] [place] [address] [address] [place] [address] PCP - General 05/11/24 Chin Lott MD [address] [place] [address] [address] [place] [address] 05/11/24 documented as of this encounter
--- OUTSIDE RECORDS SUMMARY | 2025-04-15 11:44 | XMS_ITS | Encounter Summary ---
Author Organization Healthcare Address [address] [place] [address] Care Team Providers Care Sales Project Administrator Name Role Phone Chin Lott MD Primary Care Provider [phone] Chin Lott MD Unavailable [phone] Encounter Details Date Type Department Care Team (Late st Contact Info) Description 03/25/2025 Orders Only Pav CC Head, Neck & Respiratory [address] , [address] [place] [address] Zuleika Linn RN ``````````````````` ``````HOSP. OBSTETRICS, POST [...] 06/13/2024 How often do you attend [facility] or methodist services? Patient unable to answer 06/13/2024 Do you belong to any clubs o r organizations such as episcopalian groups, unions, fraternal or athletic groups, or [...] medical care, and heating? Somewhat hard 06/13/2024 [facility] of Occupat ional Health - Occupational [...] time in the past 12 m [facility], were you homeless or living in a [...] Upcoming Encounters Date Type Department Care Team ([facility] st Contact Info) Description 04/22/2025 2:00 PM EDT Office Visit Pav CC Head, Neck & Respiratory 800 [facility], [address]nd [place] [address] Regulo Odonnell MD 800 [facility] Dena Ferreira [facility] [address] [place] [address] Scheduled Orders Name Type Priority Associated Diagnoses Orde r Schedule CBC and Differential Lab Routine Glioblastoma (CMS/HCC) every 3-4 wks prior to appointment for 4 Occurrences starting 03/25/2025 until 09/25/2026 Comprehensive Metabolic Panel, Plasma Lab Routine Glioblastoma (CMS/HCC) Every 3-4 weeks, prior to telehealth visit for 4 Occurrences starting 03/25/2025 until 09/25/2026 documented as of this encounter Visit Diagnoses [...] as of this encounter Care Teams Sales Project Administrator Relationship Specialty Start Date End Date Chin Lott MD [address] [place] [address] [address] [place] [address] PCP - General 05/11/24 Chin Lott MD [address] [place] [address] [address] [place] [address] 05/11/24 documented as of this encounter
--- OUTSIDE RECORDS SUMMARY | 2025-04-15 11:44 | XMS_ITS | Encounter Summary ---
Author Organization Healthcare Address [address] [place] [address] Care Team Providers Care Vocational Instructor Name Role Phone Chin Lott MD Primary Care Provider [phone] Chin Lott MD Unavailable [phone] Encounter Details Date Type Department Care Team (Late st Contact Info) Description 03/25/2025 Clinical Support Pav CC Head, Neck & Respiratory 800 [facility], 2nd [place] [address] Sage Serrano, PharmD 800 [facility] [address] [place] [address] Social History Tobacco Use Types Packs/Day Years [...] answer 06/13/2024 How often do you attend [facility] or confucianism services? Patient unable to answer 06/13/2024 Do you belong to any clubs o r organizations such as christian groups, unions, fraternal or athletic groups, or [...] care, and heating? Somewhat hard 06/13/2024 [facility] of Occupat ional Health - Occupational [...] Progress Notes - Sage Serrano, PharmD - 03/25/2025 3:40 PM EDT Pharmacy Hematology/Oncology Treatment Note Mariella Hawkins is a 89 y.o. 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 03/25/25: Patient assessed via telehealth. Labs collected locally on 03/19/25 have been reviewed and are appropriate to proceed with next cycle. Cycle 8 TMZ maintenance due to start on 03/30/25. Today's Wt: Wt Readings from Last 1 Encounters: 02/25/25 102 kg (224 lb 6.9 oz) Dosing Wt: 108 kg Dosing Ht: 172.7 cm DosingBSA: 2.2 m2 *Labs collected locally 03/19/25 available for review under Media* Recent Labs: Lab Results Component Value Date [...] ALKPHOS 110 02/25/2025 BILITOT 0.7 02/25/2025 Vitals: There were no vitals taken for this visit. Other Relevant Monitoring: none Treatment/Therapy Plan: Temozolomide 220 mg (100 mg cap x2 + 20 mg cap x1; ~100 mg/m2/dose) orally once nightly on days 1-5 Every 28 days [x] No dose adjustments made Rx sent to: [facility] Refills due: N/A Current Treatment Plan History: Temodar maintenance C1: 09/08-09/12/24 C2: 10/06-10/10/24 C3: 11/03-11/07/24 C4: 12/01-12/05/24 C5: 01/05- (delayed per MD scheduling) C6: 02/02-02/06/25 C7: 03/02-03/06/25 C8: 03/30-04/03/25 Prior Treatment History: Concurrent TMZ + XRT (07/21/24-08/14/24) Plan: Patient will follow-up via telehealth in 4 weeks with labs to be obtained locally prior to visit. Pharmacist Attestation: Sage Serrano PharmD Clinical Oncology Pharmacist documented in this encounter Plan of Treatment Upcoming Encounters Date Type Department Care Team ([facility] st Contact Info) Description 04/22/2025 2:00 PM EDT Office Visit Pav CC Head, Neck & Respiratory 800 [facility], [address]nd [place] [address] Regulo Odonnell MD [address] Dena Ferreira [facility] [address] [place] [address] documented as of this encounter Visit Diagnoses Not on filedocumented in this encounter Additional Health Concerns Assessment Noted Time A fall risk assessment has been complete d for the patient 02/25/2025 2:34 PM EDT A Body Mass Index follow-up plan has been documented for the patient 10/30/2024 1:03 AM EDT documented as of this encounter Care Teams Vocational Instructor Relationship Specialty Start Date End Date Chin Lott MD [address] [place], [place] [id number] PCP - General 05/11/24 Chin Lott MD [address] [place], [place] [address] 05/11/24 documented as of this encounter
--- OUTSIDE RECORDS SUMMARY | 2025-04-15 11:44 | XMS_ITS | Encounter Summary ---
Author Organization [facility] Address [address] [place] [address] Care Team Providers Care Swatch Checker Name Role Phone Chin Lott MD Primary Care Provider [phone] Chin Lott MD Unavailable [phone] Reason for Visit * Reason Onset Date Comments Med Refill 03/24/2025 Encounter Details Date Type Department Care Team (Late st Contact Info) Description 03/24/2025 Refill Pav CC Head, Neck & Respiratory 800 [facility], [address]nd [place] [address] Regulo Odonnell MD 800 [facility] [address] [place] [address] Social History Tobacco Use Types Packs/Day Years [...] often do you attend [facility] or scientologist services? Patient unable to answer 06/13/2024 Do you belong to any clubs o r organizations such as hinduism groups, unions, fraternal or athletic groups, or [...] medical care, and heating? Somewhat hard 06/13/2024 [facility] of Occupat ional Health - Occupational Stress [...] any time in the past 12 m [facility], were you homeless or living in a fci (including now)? No 06/13/2024 Utilities Answer Date [...] Upcoming Encounters Date Type Department Care Team ([facility] Contact Info) Description 04/22/2025 2:00 PM EDT Office Visit Pav CC Head, Neck & Respiratory 800 [facility], [address] [place] [address] eRgulo Odonnell MD 800 [facility] Dena Ferreira [facility] [address] [place] [address] documented as of this encounter Visit Diagnoses Not on filedocumented in this encounter Additional Health Concerns Assessment Noted Time A fall risk assessment has been complete d for the patient 02/25/2025 2:34 PM EDT A Body Mass Index follow-up plan has been documented for the patient 10/30/2024 1:03 AM EDT documented as of this encounter Care Teams Swatch Checker Relationship Specialty Start Date End Date Chin Lott MD [address] [place] [address] [facility] - General 05/11/24 Chin Lott MD [address] [place] [address] 05/11/24 documented as of this encounter
--- OUTSIDE RECORDS SUMMARY | 2025-04-15 11:44 | XMS_ITS | Referral Summary ---
Author Organization [employer] ([place], [place], [place], [place]) Address [address] [place] [address] Care Team Providers Care Scudding Inspector Name Role Phone Unavailable Primary Care Provider [...]
--- OUTSIDE RECORDS SUMMARY | 2025-04-15 11:45 | XMS_ITS | Encounter Summary ---
Author Organization Healthcare Address [address] [place] [address] Care Team Providers Care Mobile Designer Name Role Phone Chin Lott MD Primary Care Provider [phone] Chin Lott MD Unavailable [phone] Encounter Details Date Type Department Care Team (Late st Contact Info) Description 02/24/2025 Orders Only Pav CC Head, Neck & Respiratory 800 [facility], [address]nd [place] [address] Sage Serrano, PharmD 800 [facility] [address] [place] [address] Social History Tobacco Use Types Packs/Day Years [...] answer 06/13/2024 How often do you attend [facility] or congregation services? Patient unable to answer 06/13/2024 Do you belong to any clubs o r organizations such as lutheran groups, unions, fraternal or athletic groups, or [...] care, and heating? Somewhat hard 06/13/2024 [facility] of Occupat ional Health - [...] any time in the past 12 m [facility], were you homeless or living in [...] Pav CC Head, Neck & Respiratory 800 [facility], [address] [place] [address] Regulo Odonnell MD 800 [facility]ena [employer] [address] [place] [address] documented as of this encounter Visit Diagnoses Not on filedocumented in this encounter Additional Health Concerns Assessment Noted Time A fall risk assessment has been complete d for the patient 09/23/2024 2:09 PM EST A Body Mass Index follow-up plan has been documented for the patient 10/30/2024 1:03 AM EDT documented as of this encounter Care Teams Mobile Designer Relationship Specialty Start Date End Date Chin Lott MD [address] [place] [address] PCP - General 05/11/24 Chin Lott MD [address] [place] [address] 05/11/24 documented as of this encounter
--- OUTSIDE RECORDS SUMMARY | 2025-04-15 11:45 | XMS_ITS | Clinical Summary ---
Author Organization [employer] ([place], [place], [place], [place]) Address [address] [place] [address] Care Team Providers Care Family Consumer Science Fcs Teacher Name Role Phone Unavailable Primary Care Provider [...]
--- OUTSIDE RECORDS SUMMARY | 2025-04-15 11:45 | XMS_ITS | Clinical Summary ---
Author Organization [facility] Address [address] [place] [address] Care Team Providers Care Oil Burner Mechanic Name Role Phone Chin Lott MD Primary Care Provider [phone] Chin Lott MD Unavailable [phone] Allergies No known active allergies Medications [...] mouth 2 (two) times a day. Active hydroCHLOROthi azide (HYDRODiuril) 25 MG tablet Take 1 tablet [...] a day. 180 tablet 2 4 Active prochlorperazi ne (Compazine) 10 MG tabletIndicati ons:Glioblasto ma (CMS/HCC) Take 1 tablet (10 mg) by mouth every 6 (six) hours if needed for nausea or vomiting. 30 tablet 5 4 Active ondansetron (Zofran) 8 MG tabletIndicati ons:Glioblasto ma (CMS/HCC) Take 1 tab (8mg) by mouth [...] 5 Active temozolomide (Temodar) 20 MG chemo capsuleIndicat ions:Glioblast asia (CMS/HCC) Take 1 capsule (20 mg total) by mouth nightly. Take on Days 1-5 every 28 days 5 capsule 10 5 Active temozolomide (Temodar) 100 MG chemo capsuleIndicat ions:Glioblast asia (CMS/HCC) Take 2 capsules (200 mg total) by mouth nightly. Take on Days 1-5 every 28 days 10 capsule 10 5 Active ondansetron (Zofran) 8 MG tabletIndicati ons:Glioblasto ma (CMS/HCC) Take 1 tab (8mg) by mouth daily 30 minutes prior to temozolomide, then up to every 8 hours (max: 3/day) as needed for nausea/vomiting 90 tablet 1 5 Active apixaban (Eliquis) 2.5 MG tablet Alternate 1 tab every other day with 2 tabs every other day 45 tablet 3 5 Active apixaban (Eliquis) 2.5 MG tablet To take 2 tablets a day for 7 days, and then alternate 1 tab every other day with 2 tabs every other day 45 tablet 3 5 03/24/20 25 Discontin ued(Reord er) Active Problems Problem Noted Date Diagnosed Date Glioblastoma 07/06/2024 Cancer Staging:Clinical: Histology: Glioblastoma multiforme - Unsigned Severe obesity (BMI 35.0-39.9) with comorbidity 06/14/2024 AMS (altered mental status) 06/10/2024 Occipital mass 06/10/2024 Encounters Date Type Department Care Team Description 03/25/2025 Orders Only [facility] [address] [facility], [address] [place] [address] Zuleika Linn RN Glioblastoma ([facility]/HCC) (Primary Dx) 03/25/2025 Clinical Support [facility] [address] [facility], [address] [place] [address] Sage Serrano, PharmD 03/24/2025 Orders Only [facility] [address] [facility], [address] [place] [address] Provider, Historical 03/24/2025 Refill [facility] [address] , [address] [place] [address] Regulo Odonnell MD 02/25/2025 2:15 PM EDT Clinical Support [facility] [address] [facility], [address] [place] [address] Glioblastoma ([facility]/HCC) 02/25/2025 2:00 PM EDT Office Visit [facility] [address] [facility], [address] [place] [address] Regulo Odonnell MD Glioblastoma ([facility]) (Primary Dx) 02/25/2025 11:19 AM EDT - 02/25/2025 11:59 PM EDT Hospital Encounter [facility] S Radiology [address], [address] [place] [address] Glioblastoma ([facility]) Discharge Disposition: Home or Self Care 02/25/2025 Travel 02/24/2025 Orders Only [facility] Respiratory [address] [facility], [address] [place] [address] Sage Serrano, Kari 01/28/2025 Orders Only [facility] Head[facility] Respiratory [address] [facility], [address] [place] [address] Zuleika Linn RN Glioblastoma ([facility]) (Primary Dx) 01/28/2025 Clinical Support [facility] [address] [facility], [address] [place] [address] Sage Serrano, Kair 01/27/2025 Orders Only [facility]ck [facility] Respiratory [address] [facility], [address] [place] [address] Provider, Historical 01/23/2025 Telephone [facility] Respiratory [address] [facility], [address] [place] [address] Regulo Odonnell MD from Last 3 Months Social History Tobacco [...] How often do you attend chur or hinduism services? Patient unable to answer [...] medical care, and heating? Somewhat hard 06/13/2024 [facility] - Occupational [...] any time in the past 12 m [facility], were you homeless or living in a mcfp (including now)? No 06/13/2024 Utilities Answer Date [...] Department Care Team ([facility] Contact Info) Description 04/22/2025 2:00 PM EDT Office Visit Pav [facility] Head[facility] Neck & Respiratory [address] [facility], [address]nd [place] [address] Regulo Odonnell MD [address] [facility] Dena Ferreira [facility] [address] [place] [address] Health Maintenance Due Date Last Done Comments [facility]-Bone Density Scan 1935 [facility]-Depression Screening 1935 [facility]-Medicare Annual Wellness (AWV) 1935 [facility]-/Child/Adol SDOH Screenings 1935 [facility]-RSV Vaccine: 60+ Years o r (1 - 1-dose 75+ series) 2012 [facility]-Zoster Vaccines (1 of 2) 06/17/2013, 08/17/2009 [facility]-DTaP,Tdap,and Td Vaccine s (2 - Td or Tdap) 03/20/2022 03/20/2012 [facility]- SDOH Screenings 12/11/2024 [facility]-Adult SDOH Screenings 12/11/2024 06/13/2024 [id number] Vaccine ( season) 2025 06/30/2021, 10/08/2020, 09/10/2020 [facility]-Influenza Vaccine (#1) 2025 [facility]-Diabetes: Hemoglobin A1C [...] this topic Medical Devices Implanted Type Area Principal Architect Device Identifier Shelf Expiration Date Model / Serial / Lot Cover, Neuro María Elena Lp 17mm - Sn/A - [id number] Implanted:Qty: 1 on 06/13/2024 by Nahid Dalal MD at [facility] Plate Right: Cranial Synthes [facility]-[id number] 06/13/2025 [id number] / N/A / Plate, 2 Hole Low Profile - Sn/A - [id number] Implanted:Qty: 2 on 06/13/2024 by Nahid Dalal MD at [facility] Plate Right: Cranial Synthes [facility]-[id number] 06/13/2025 [id number] / N/A / Screw Screw Right: Hip Screw Ti Matrixneuro Selfdrill 4mm - Sn/A - [id number] Implanted:Qty: 8 on 06/13/2024 by Nahid Dalal MD at [facility] Screw Right: Cranial Synthes [facility]-[id number] 06/13/2025 04.503.10 4.01 / N/A / Graft Dura Repair 2x2 Synthecel - [id number] Implanted:Qty: 1 on 06/13/2024 by Nahid Dalal MD at [facility] Right: Cranial Synthes [facility]-[id number] 10/27/2026 SC.400.02 5.01S / / [id number] Procedures Procedure Name Priority Date/Time Associated Diagnosis Comments CBC W/DIFF Routine 03/24/2025 2:55 PM EDT COMPLETE METABOLIC PROFILE (CMP) Routine 03/24/2025 2:55 PM EDT CBC WITH AUTO DIFFERENTIAL Routine 02/25/2025 2:53 PM EDT Glioblastoma (CMS/HCC) COMPREHENSIVE METABOLIC PANEL, PLASMA Routine 02/25/2025 2:53 PM EDT Glioblastoma (CMS/HCC) MR HEAD W AND WO IV CONTRAST Routine 02/25/2025 2:07 PM EDT Glioblastoma (CMS/HCC) CBC W/DIFF Routine 01/27/2025 1:41 PM EDT COMPLETE METABOLIC PROFILE (CMP) Routine 01/27/2025 1:41 PM EDT HEMOGLOBIN A1C Routine 06/11/2024 8:59 AM EST from Last 3 Months or Most Recently Relevant to Health Maintenance Results * COMPLETE METABOLIC PROFILE (CMP) (03/24/2025 2:55 PM EDT) Only the most recent of2 resultswithin the time period is included. Historical Provider LAB BLOOD ORDERABLES Final R esult * CBC W/DIFF (03/24/2025 2:55 PM EDT) Only the most recent of2 resultswithin the time period is included. Historical Provider LAB BLOOD ORDERABLES Final R esult * (ABNORMAL) CBC and differential (02/25/2025 2:53 PM EDT) [facility] WBC Count 4.29 3.70 - 10.30 10*3/uL LAB HEMATOLOGY METHOD 02/25/2025 3:[address] [facility] RBC Count 3.51(L) 3.90 - 5.20 10*6/uL LAB HEMATOLOGY METHOD 02/25/2025 3:[address] [facility] HGB 11.2 11.2 - 15.7 g/dL LAB HEMATOLOGY METHOD 02/25/2025 3:[address] [facility] HCT 34.7 34.0 - 45.0 % LAB HEMATOLOGY METHOD 02/25/2025 3:[address] [facility] Platelet Count 197 155 - 369 10*3/uL LAB HEMATOLOGY METHOD 02/25/2025 3:[address] [facility] MCV 99(H) 79 - 98 fL LAB HEMATOLOGY METHOD 02/25/2025 3:[address] [facility] MCH 31.9 26.0 - 32.0 pg LAB HEMATOLOGY METHOD 02/25/2025 3:[address] [facility] MCHC 32.3 30.7 - 35.5 g/dL LAB HEMATOLOGY METHOD 02/25/2025 3:[address] [facility] RDW 12.9 11.5 - 14.5 % LAB HEMATOLOGY METHOD 02/25/2025 3:[address] [facility] MPV 11.6 8.8 - 12.5 fL LAB HEMATOLOGY METHOD 02/25/2025 3:[address] [facility] nRBC 0.0 <=0.0 per 100 WBCs LAB HEMATOLOGY METHOD 02/25/2025 3:[address] [facility] Differential Type Automated LAB HEMATOLOGY METHOD 02/25/2025 3:[address] [facility] Neutrophils % 63 % LAB HEMATOLOGY METHOD 02/25/2025 3:[address] [facility] Lymphocytes % 24 % LAB HEMATOLOGY METHOD 02/25/2025 3:[address] [facility] Monocytes % 8 % LAB HEMATOLOGY METHOD 02/25/2025 3:[address] [facility] Eosinophils % 3 % LAB HEMATOLOGY METHOD 02/25/2025 3:[address] [facility] Basophils % 1 % LAB HEMATOLOGY METHOD 02/25/2025 3:[address] [facility] Immature Granulocytes % 1 % LAB HEMATOLOGY METHOD 02/25/2025 3:[address] [facility] Neutrophils Absolute 2.69 1.60 - 6.10 10*3/uL LAB HEMATOLOGY METHOD 02/25/2025 3:[address] [facility] Lymphocytes Absolute 1.04(L) 1.20 - 3.90 10*3/uL LAB HEMATOLOGY METHOD 02/25/2025 3:[address] [facility] Monocytes Absolute 0.35 0.30 - 0.90 10*3/uL LAB HEMATOLOGY METHOD 02/25/2025 3:[address] [facility] Eosinophils Absolute 0.14 0.00 - 0.50 10*3/uL LAB HEMATOLOGY METHOD 02/25/2025 3:[address] [facility] Basophils Absolute 0.05 0.00 - 0.10 10*3/uL LAB HEMATOLOGY METHOD 02/25/2025 3:[address] [facility] Immature Granulocytes Absolute 0.02 0.00 - 0.06 10*3/uL LAB HEMATOLOGY METHOD 02/25/2025 3:[address] [facility] Blood Venous blood specimen / Unknown Venipuncture / Unknown 02/25/2025 2:53 PM EDT 02/25/2025 3:40 PM EDT [facility] - 02/25/2025 3:57 PM EDT Therapeutic decision making should be based on absolute values, rather than percentages. us Regulo Odonnell MD LAB BLOOD ORDERABLES Final Res ult [facility] [address] [place] [address] * (ABNORMAL) Comprehensive metabolic panel (02/25/2025 2:53 PM EDT) Glucose, Plasma 90 74 - 99 mg/dL 02/25/2025 4:[address] [facility] BUN, Plasma 29(H) 8 - 23 mg/dL 02/25/2025 4:[address] [facility] Creatinine, Plasma 1.02 0.60 - 1.10 mg/dL 02/25/2025 4:[address] [facility] BUN/Creatinine Ratio 28 02/25/2025 4:[address] [facility] Sodium, Plasma 144 136 - 145 mmol/L 02/25/2025 4:[address] [facility] Potassium, Plasma 4.0 3.6 - 4.9 mmol/L 02/25/2025 4:[address] [facility] Chloride, Plasma 105 97 - 107 mmol/L 02/25/2025 4:[address] [facility] CO2, Plasma 27 22 - 29 mmol/L 02/25/2025 4:[address] [facility] Anion Gap 12 6 - 16 mmol/L 02/25/2025 4:[address] [facility] Total Calcium, Plasma 9.8 8.9 - 10.2 mg/dL 02/25/2025 4:[address] [facility] Total Protein 7.1 6.3 - 7.9 g/dL 02/25/2025 4:[address] [facility] Albumin, Plasma 4.2 3.5 - 5.2 g/dL 02/25/2025 4:[address] [facility] AST, Plasma 20 10 - 35 U/L 02/25/2025 4:[address] [facility] ALT, Plasma 7(L) 10 - 35 U/L 02/25/2025 4:[address] [facility] Alkaline Phosphatase, Plasma 110 46 - 142 U/L 02/25/2025 4:[address] [facility] Total Bilirubin, Plasma 0.7 0.2 - 1.1 mg/dL 02/25/2025 4:[address] [facility] eGFRcr 53.4 mL/min/1.7 3m*2 02/25/2025 4:[address] [facility] Comment:Reported eGFRcr in m L/min/1.73m2 is based the CKD-EPI 2020 equation that does not use a race coefficient. Blood Venous blood specimen / Unknown Venipuncture / Unknown 02/25/2025 2:53 PM EDT 02/25/2025 3:30 PM EDT us Regulo Odonnell MD LAB BLOOD ORDERABLES Final Res ult [facility] [address] [place] [address] * MR Head w and wo IV [...] error, please notify the sender immediately at [phone] and permanently delete the original report and destroy any copies or printouts. Narrative 02/26/2025 1:35 PM EDT [facility] - Phone Outpatient NAME: Mariella Hawkins DATE OF EXAM: 02/25/2025 Patient No: [id number] Physician: Nicole Date of : 1935 Examination: [...] Hawkins DATE OF EXAM: 02/25/2025 Patient No: [id number] Physician: Nicole Date of : 1935 Examination: [...] in error, pleasenotify the sender immediately at [phone] and permanently delete theoriginal report and destroy any copies or printouts. us Regulo Odonnell MD IMG MRI PROCEDURES Final Resul t * (ABNORMAL) Hemoglobin A1c (06/11/2024 8:59 AM EST) Hemoglobin A1c 5.9(H) <5.7 % 06/11/2024 9:[address] [facility] Blood Venous blood specimen / Unknown Venipuncture / Unknown 06/11/2024 8:59 AM EST 06/11/2024 9:[address] [facility] - 06/11/2024 9:33 AM EST HA1C Interpretive Data: Diagnosis of Diabetes: Diabetic > or = 6.5% Pre-diabetic 5.7 to 6.4% Non-diabetic < or = 5.6% Glycemic Targets for Type I and Type II Diabetics: Non- Adults <7.0% Adults <6.0% Children and Adolescents <7.5% Source: [place] [employer]. Standards of medical care in diabetes,2017. Diabetes Care.2017:40 (suppl 1):S1-S135. HbA1c assay performed by an ion-exchange chromatography method that is certified traceable to the DCCT. us Moshe Benson MD LAB BLOOD ORDERABLES Final Result [facility] [address] [place] [address] from Last 3 Months or Most Recently Relevant to Health Maintenance Insurance [facility] Advance Directives * Full Code (Latest Code Status on File) Date Activated Date Inactivated Comments 06/10/2024 8:03 PM 06/15/2024 4:46 PM Question Answer Comments Patient has decision-making capacity? No Healthcare Surrogate: Adult child of the patient Care Teams Oil Burner Mechanic Relationship Specialty Start Date End Date Chin Lott MD [address] [place] [address] PCP - General 05/11/24 Chin Lott MD [address] [facility] [address] [place] [address] 05/11/24
--- OUTSIDE RECORDS SUMMARY | 2025-04-15 11:45 | XMS_ITS | Encounter Summary ---
Author Organization [facility] Address [address] [place] [address] Care Team Providers Care Spare Hand Carding Name Role Phone Chin Lott MD Primary Care Provider [phone] Chin Lott MD Unavailable [phone] Encounter Details Date Type Department Care [...] often do you attend chur ch or pentecostal services? Patient unable to answer 06/13/2024 Do [...] Pav CC Head, Neck & Respiratory [address] [facility], [address]nd [place] [address] Regulo Odonnell MD [address] [facility] [address] [place] [address] documented as of this encounter Visit Diagnoses Not on filedocumented in this encounter Additional Health Concerns Assessment Noted Time A fall risk assessment has been complete d for the patient 02/25/2025 2:34 PM EDT A Body Mass Index follow-up plan has been documented for the patient 10/30/2024 1:03 AM EDT documented as of this encounter Care Teams Spare Hand Carding Relationship Specialty Start Date End Date Chin Lott MD [facility] [address] [place] [address] PCP - General 05/11/24 Chin Lott MD [facility] [address] [place] [address] 05/11/24 documented as of this encounter
--- OUTSIDE RECORDS SUMMARY | 2025-04-15 11:45 | XMS_ITS | Encounter Summary ---
Author Organization [facility] Address [address] [place] [address] Care Team Providers Care Data Governance Consultant Name Role Phone Chin Lott MD Primary Care Provider [phone] Chin Lott MD Unavailable [phone] Reason for Visit * Auth/Cert (Routine) Specialty Diagnoses / Procedures Referred By Contac t Referred To Contact Diagnoses AMS (altered mental status) Senia Hernandez MD [address] [place] [address] Phone: tel: fax: [facility] A Emergency Department [address] [place] [address] Phone: tel: Referral ID Status Reason Start Date Expiration Date Visits Re quested Visits Authorized [id number] 1 1 Encounter Details Date Type Department Care Team (Late st Contact Info) Description 06/18/2024 Lab Requisition [facility] Lab [address] [place] [address] Yenni Soto MD [address] [place] [address] Localized swelling, mass and lump, [...] answer 06/13/2024 How often do you attend [facility] or hoahaoism services? Patient unable to answer 06/13/2024 Do you belong to any clubs o r organizations such as anglican groups, unions, fraternal or athletic groups, or [...] Somewhat hard 06/13/2024 [facility] - Occupational [...] time in the past 12 m [facility], were you homeless or living in a correction (including now)? No 06/13/2024 Utilities Answer Date [...] Pav CC Head, Neck & Respiratory [address] [facility], [address] [place] [address] Regulo Odonnell MD [address] [facility] Dena Ferreira [facility] [address] [place] [address] documented as of this encounter Procedures Procedure Name Priority Date/Time Associated Diagnosis Comments MGMT PROMOTER METHYLATION DET BY DDPCR (SO) Routine 06/13/2024 8:59 AM EST Localized swelling, mass and lump, head documented in this encounter Results * (ABNORMAL) MGMT Promoter Methylation Det by ddPCR (SO) (06/13/2024 8:59 AM EST) MGMT METH Result Detected(A) 06/28/2024 9:26 AM EST [facility] ([facility]) MGMT METH Specimen Tissue 06/28/2024 9:26 AM EST [facility] ([facility]) BLOCK ID [id number] 06/28/2024 9:26 AM EST [facility] ([facility]) Tissue Tissue specimen / Unknown 06/13/2024 8:59 AM EST 06/18/2024 2:12 PM EST Narrative [facility] ([facility]) - 06/28/2024 9:26 AM EST This result [...] developed and its performance characteristics determined by [facility]. It has not been cleared or approved by the US Food and Drug Administration. This test was performed in a CLIA certified laboratory and is intended for clinical purposes. Performed By: [facility] [address] [place] [address] Bee Worker: Chava Sibley MD, PhD CLIA Number: [id number] us Yenni Soto MD LAB REF LAB BLOOD AND FLUID ORD Final Result [facility] ([facility]) [address] [place] [address] documented in this encounter Visit Diagnoses Diagnosis Localized swelling, mass and lump, head documented in this encounter Additional Health Concerns Assessment Noted Time A Body Mass Index follow-up plan has been documented for the patient 06/15/2024 12:54 PM EST documented as of this encounter Care Teams Data Governance Consultant Relationship Specialty Start Date End Date Chin Lott MD [address] [place] [address] [address] [place] [address] PCP - General 05/11/24 Chin Lott MD [address] [place] [address] [address] [place] [address] 05/11/24 documented as of this encounter
--- OUTSIDE RECORDS SUMMARY | 2025-04-15 11:45 | XMS_ITS ---
Author Organization [facility] Address [address] [place] [address] Care Team Providers Care Housekeeping Room Inspector Name Role Phone Chin Lott MD Primary Care Provider [phone] Chin Lott MD Unavailable [phone] Active Problems Problem Noted Date Diagnosed Date Glioblastoma 07/06/2024 Cancer Staging:Clinical: Histology: Glioblastoma multiforme - Unsigned Severe obesity (BMI 35.0-39.9) with comorbidity 06/14/2024 AMS (altered mental status) 06/10/2024 Occipital mass 06/10/2024 Current Treatment and Therapy Plans Temozolomide Every 28 Days* Plan Start Date:08/31/2024 Plan Provider:Regulo Odonnell MD Linked Problems Glioblastoma (CMS/HCC) Treatment Medications Current Day (Day 1, Cycle 9 - Planned for 04/27/2025) temozolomide (Temodar) No medications scheduled. Past Treatment and Therapy [...] Pariet A1A2 07/21/2024 - 08/14/2024 267 cGy 15 15 4,005 cGy Reference Points Delivered R Parietal 07/21/2024 - 08/14/2024 4,005 cGy * Course IMRT QA 07/14/2024 - 07/14/2024 Treatment Period Fraction Dose Fractions Total Dose Plans Planned R Pariet A1A2 07/14/2024 - 07/14/2024 267 cGy 0 / 1 267 cGy Reference Points Delivered Verification 07/14/2024 - 07/14/2024 0 cGy
[2025-04-15 12:12] LABS: Hematocrit 33.4 % (37.0-47.0); Hemoglobin 10.9 g/dL (12.2-16.2); Immature Granulocytes % 0.2 %; Mean Corpuscular HGB Conc 32.6 g/dL (31.8-35.4); Mean Corpuscular Hemoglobin 32.4 pg (27.0-31.2); Mean Corpuscular Volume 99.4 fl (81-99); Nucleated Red Blood Cells % 0 %; Platelet Count 162 K/mm3 (142-424); Red Blood Count 3.36 M/mm3 (4.20-5.40); Red Cell Distribution Width-SD 46.6 fL; White Blood Count 4.4 K/mm3 (4.8-10.8)
[2025-04-15 12:38] LABS: Albumin Level 4.1 g/dl (3.5-5.0); Chloride 106 mmol/L (98-107); Potassium 4.6 mmoL/L (3.5-5.1); Sodium 141 mmol/L (136-145)
[2025-04-15 12:40] LABS: Blood Urea Nitrogen 50 mg/dl (7-17); Creatinine,Serum 1.20 mg/dl (0.52-1.04); Estimated Glomerular Filt Rate 42 ml/min (>60); GFR (African American) 51 ML/MIN (>60)
[2025-04-15 12:41] LABS: Alanine Aminotransferase 7 U/L (12-78); Albumin/Globulin Ratio 1.8 (1.1-1.8); Alkaline Phosphatase 80 U/L (38-126); Anion Gap 10.6 mEq/L (5-15); Aspartate Amino Transferase 24 U/L (14-36); Bilirubin,Total 0.8 mg/dl (0.2-1.3); Calcium 9.2 mg/dl (8.4-10.2); Carbon Dioxide 29 mmol/L (22.0-30.0); Globulin 2.3 g/dL (1.3-3.2); Glucose 131 mg/dl (74-100); Total Protein,Serum 6.4 g/dl (6.3-8.2)
== END 2025-04-15 23:59 | disposition home or self-care (01) ==
LOC: LAB 11:43
PROVIDERS: PCP Internal Medicine; Visit Provider Internal Medicine Hematology & Oncology
DX: C71.9 Malignant neoplasm of brain, unspecified (principal)
CPT/HCPCS: 36415; 80053; 85025

== ENCOUNTER 2025-04-20 13:54 | Outpatient (CLI) | payer MEDICARE, SELFPAY ==
--- OUTSIDE RECORDS SUMMARY | 2025-02-25 11:19 | XMS_ITS | Encounter Summary ---
Author Organization [facility] Address [address] [place] [address] Care Team Providers Care Carpentry Specialist Name Role Phone Chin Lott MD Primary Care Provider [phone] Chin Lott MD Unavailable [phone] Reason for Referral * Imaging (Routine) - Closed Specialty Diagnoses / Procedures Referred By Contac t Referred To Contact Radiology Diagnoses Glioblastoma (CMS/HCC) Procedures MR Head w and wo IV Contrast Regulo Odonnell MD [address] [address] Phone: tel: fax: Referral ID Status Reason Start Date Expiration Date Visits Re quested Visits Authorized [id number] Closed 01/28/2025 07/30/2026 1 1 Reason for Visit * Imaging (Routine) - Closed Specialty Diagnoses / Procedures Referred By Contac t Referred To Contact Radiology Diagnoses Glioblastoma (CMS/HCC) Procedures MR Head w and wo IV Contrast Regulo Odonnell MD [address] [address] Phone: tel: fax: Referral ID Status Reason Start Date Expiration Date Visits Re quested Visits Authorized [id number] Closed 01/28/2025 07/30/2026 1 1 Encounter Details Date Type Department Care Team (Latest Contact Info) Description 02/25/2025 11:19 AM EDT - 02/25/2025 11:59 PM EDT Hospital Encounter PAV S Radiology [address] [place] [address] Glioblastoma ([facility]) Discharge Disposition: Home or Self Care Social [...] answer 06/13/2024 How often do you attend [facility] or mosque services? Patient unable to answer 06/13/2024 Do [...] medical care, and heating? Somewhat hard 06/13/2024 [facility] of Occupat ional [facility] - Occupational Stress Questionnaire Answer [...] any time in the past 12 m [facility], were you homeless or living in [...] every 28 days 5 capsule 10 09/29/2024 apixaban (Eliquis) 2.5 MG tablet To take 2 tablets a day for 7 days, and then alternate 1 tab every other day with 2 tabs every other day 45 tablet 3 12/03/2024 5 documented as of this encounter Miscellaneous Notes * Elana Wetzel H - 02/25/2025 1:52 PM EDT Images from the original note were not included. 7464 Caring for Yourself after Contrast Imaging If [...] Upcoming Encounters Date Type Department Care Team ([facility] st Contact Info) Description 04/22/2025 2:00 PM EDT Office Visit Pav CC Head, Neck & Respiratory [address] [place] [address] Regulo Odonnell MD [address] [facility] [address] [place] [address] documented as of this encounter Procedures Procedure [...] error, please notify the sender immediately at [phone] and permanently delete the original report and destroy any copies or printouts. Narrative 02/26/2025 1:35 PM EDT [employer] - Phone Outpatient NAME: Mariella Hawkins DATE OF EXAM: 02/25/2025 Patient No: [id number] Physician: Nicole Date of : 1935 Examination: [...] Hawkins DATE OF EXAM: 02/25/2025 Patient No: [id number] Physician: Nicole Date of : 1935 Examination: [...] in error, pleasenotify the sender immediately at [phone] and permanently delete theoriginal report and destroy any copies or printouts. Regulo Odonnell MD IMG MRI PROCEDURES Final [...] documented as of this encounter Care Teams Carpentry Specialist Relationship Specialty Start Date End Date Chin Lott MD [address] [place] [address] [email or web address] [place] [address] PCP - General 05/11/24 Chin Lott MD [address] [place] [facility] [address] [place] [address] 05/11/24 documented as of this encounter
--- OUTSIDE RECORDS SUMMARY | 2025-02-25 14:00 | XMS_ITS | Encounter Summary ---
Author Organization [facility] Address [address] [place] [address] Care Team Providers Care Insights Strategist Name Role Phone Chin Lott MD Primary Care Provider [phone] Chin Lott MD Unavailable [phone] Reason for Visit * Reason Comments Follow-up Encounter Details Date Type Department Care Team (Late st Contact Info) Description 02/25/2025 2:00 PM EDT Office Visit Pav CC Head, Neck & Respiratory [address] [facility], [address]nd [place] [address] Regulo Odonnell MD 800 [facility] [address] [place] [address] Glioblastoma (CMS/HCC) (Primary Dx) Social History Tobacco [...] answer 06/13/2024 How often do you attend [facility] or gnosticist services? Patient unable to answer 06/13/2024 Do [...] medical care, and heating? Somewhat hard 06/13/2024 [facility] - Occupational [...] any time in the past 12 m [facility], were you homeless or living in a fpc (including now)? No 06/13/2024 Utilities Answer Date Recorded In the past 12 months has th e [employer], gas, oil, or water company threatened to shut off services in your home? No 06/13/2024 Comments No Sex and Gender Information Value Date Recorded Sex Assigned at Not on file Legal Sex Female 6:33 PM EDT Gender Identity Not on file Sexual Orientation Not on file documented as of this encounter Last Filed Vital Signs Vital Sign Reading Time Taken Comments Blood Pressure 133/66 02/25/2025 2:38 PM EDT Pulse 67 02/25/2025 2:38 PM EDT Temperature 36.5 C (97.7 F) 02/25/2025 2:38 PM EDT Respiratory Rate 16 02/25/2025 2:38 PM EDT Oxygen Saturation 99% 02/25/2025 2:38 PM EDT Inhaled Oxygen Concentration - - Weight 102 kg (224 lb 6.9 oz) 02/25/2025 2:38 PM EDT Height 172.7 cm (5' 8 ) 02/25/2025 2:38 PM EDT Body Mass Index 34.12 02/25/2025 2:38 PM EDT documented in this encounter Functional Status * Calculated C-SSRS Risk Score (Lifetime/Recent) Answer Date of Assessment Author No Risk Indicated 02/25/2025 2:33 PM EDT Jillian Huertas * Question Answer Date of Assessment Author 1. Wish to be (Past 1 Month) No 025 2:33 PM EDT Jillian Huertas 2. Non-Specific Active Suici edward Thoughts (Past 1 Month) No 02/25/2025 2:33 PM EDT Jo Huertas M 6. Suicidal Behavior (Lifetime) No 2:33 PM EDT Jillian Huertas documented as of this encounter Miscellaneous Notes * Progress Notes - Lea Lopez MD - 02/25/2025 2:00 PM EDT NEURO ONCOLOGY FOLLOW-UP NOTE Patient Information Patient Name: Mariella Hawkins Date of : 1935 Encounter Date: 02/25/25 Treatment Diagnosis: Glioblastoma, IDH wt, ATRX intact, and MGMT + History of Present Illness: Mariella Hawkins is [...] scheduling) C6: 02/02-02/06/25 C7: planned for 03/02/2025 Today: Presents today with her [id number]. She has been on lower doses of temozolomide (TMZ). She has been adherent with treatment tolerating chemotherapy received at the beginning of November. Today she states she is doing well overall. She denies any debilitating headaches, seizures, vision changes, or focal neurological deficits. Has balance issues but states they are unchanged from last visit. Remains active. Family states she got a cycle machine to use while she is sitting to remain active. She reported good appetite and sleep quality, but reports intermittent fatigue. Past Medical, Surgical, Family and Social History Reviewed in this encounter by me personally Subjective Review of Systems: Rest of 14 point organ based review of system was conducted and pertinent negatives and positives are placed in the HPI. Objective Performance Status 70-80% Visit Vitals BP 133/66 (BP Location: Left arm, Patient Position: Sitting, BP Cuff Size: Adult long) Pulse 67 Temp 36.5 ??C (97.7 ??F) (Oral) Resp 16 EXAM GEN: well developed, no acute distress HEENT: normocephalic, atraumatic, no scleral icterus, oropharynx clear PULM: clear to auscultation bilaterally, no increased work of breathing, normal effort CV: normal rate and regular rhythm, no gallops/murmurs/rubs ABD: soft, non-tender, non-distended MSK: no joint swelling, normal range of motion SKIN: warm and dry, capillary refill <2 seconds PSYCHE: normal mood and affect Neuro Exam Speech clear PERRL, EOMI VF grossly full CN 2-12 grossly intact No drift Strength 5/5 throughout Sensation intact throughout LABORATORIES AND STUDIES: reviewed by me personally [...] TMZ+XRT Dates: 07/21/24-08/14/24 MRI Brain last on 02-25-25; images reviewed directly as well as report assessed. Findings discussed in detail, which demonstrates stable findings Clinically stable Current Treatment Plan History: Temozolomide maintenance C1: 09/08-09/12/24 C2: 10/06-10/10/24 C3: 11/03-11/07/24 C4: 12/01-12/05/24 C5: 01/05- (delayed per MD scheduling--pending) C6: 02/02-02/06/25 C7: planned for 03/02/2025 Plan: - Continue maintenance TMZ. - Her labs were collected today and pending at time of note completion. Labs will be reviewed once available and the patient will be notified of any changes to the plan of care. - Will have Ms. Hawkins RTC 4 wks for as TH visit, tox eval, labs, and plan for continuation of maintenance TMZ. Thrombus - reported on MRI brain; will Rx anticoag, but dec dosage. - Will continue Apixiban Nausea: will provide Emend--overall stable Abdominal pain: previously reported abdominal pain, especially when lying down, which has been a chronic issue for years. Despite this, the patient's weight has remained relatively stable, suggestingthat the pain may not be significantly affecting nutritional intake or overall health status. Will allow linoleum tile layer to eval, if unable will refer to our GI team Medications reviewed. Patient having issues with Keppra refills; will refill for her today. We also discussed the potential for depression, she is stable We offered access to [facility] We also discussed Phys. Therapy, which she has orders for. We also recommended for her to remain engaged socially. We plan to have her come back in 4 wks as TH. and she knows how to get hold of us if he has questions. Lea Lopez MD IM PGY-3 Patient staffed with Attending: Regulo Odonnell MD, PhD [facility] HEAD[facility]ECK [facility] RESPIRATORY [address] [facility] [address] No referring provider defined for this encounter Cosigned by Regulo Odonnell MD at 03/04/2025 9:36 PM EDT Associated attestation - Regulo Odonnell MD - 03/04/2025 9:36 PM EDT I saw and evaluated the patient with the resident/fellow. I discussed the case with the resident/fellow and agree with the findings and plan as documented. * Progress Notes - Sage Serrano, Kari - 02/25/2025 2:00 PM EDT Pharmacy Hematology/Oncology Treatment Note Mariella Hawkins is a 89 y.o. female with Cancer Staging Glioblastoma (CMS/HCC) Staging form: High Grade Glioma - Clinical: Histology: Glioblastoma multiforme - Unsigned Study Patient: no Treatment Plan reviewed for Cycle 7 temozolomide maintenance Interval History: Patient underwent resection [...] delayed 1 week due to appointment scheduling. 01/28/25: Patient assessed by Dr. Odonnell via telehealth. Continues to tolerate therapy. Labs collected locally on 01/23/25 have been assessed and are appropriate to proceed with next treatment cycle starting 02/02/25. No changes to current regimen at this time. 02/25/25: Labs have been reviewed and are appropriate to proceed with next cycle starting 03/02/25. Plan for 9 total cycles of TMZ maintenance. Today's Wt: Wt Readings from Last 1 Encounters: 02/25/25 102 kg (224 lb 6.9 oz) Dosing Wt: 108 kg Dosing Ht: 172.7 cm DosingBSA: 2.2 m2 Recent Labs: Lab Results Component Value Date WBC 4.29 02/25/2025 NEUTROABS 2.69 02/25/2025 HGB 11.2 02/25/2025 PLT 197 02/25/2025 Lab Results Component Value Date GLUCOSE 90 02/25/2025 CALCIUM 9.8 02/25/2025 NA 144 02/25/2025 K 4.0 02/25/2025 CO2 27 02/25/2025 CL 105 02/25/2025 BUN 29 (H) 02/25/2025 CREATININE 1.02 02/25/2025 Lab Results Component Value Date ALT 7 (L) 02/25/2025 AST 20 02/25/2025 ALKPHOS 110 02/25/2025 BILITOT 0.7 02/25/2025 Vitals: Visit Vitals BP 133/66 (BP Location: Left arm, Patient Position: Sitting, BP Cuff Size: Adult long) Pulse 67 Temp 36.5 ??C (97.7 ??F) (Oral) Resp 16 Other Relevant Monitoring: none Treatment/Therapy Plan: Temozolomide 220 mg (100 mg cap x2 + 20 mg cap x1; ~100 mg/m2/dose) orally once nightly on days 1-5 Every 28 days [x] No dose adjustments made Rx sent to: [facility] Refills due: N/A Current Treatment Plan History: Temodar maintenance C1: 09/08-09/12/24 C2: 10/06-10/10/24 C3: 11/03-11/07/24 C4: 12/01-12/05/24 C5: 01/05- (delayed per MD scheduling) C6: 02/02-02/06/25 C7: 03/02-03/06/25 Prior Treatment History: Concurrent TMZ + XRT (07/21/24-08/14/24) Plan: Patient will follow-up via telehealth in 4 weeks with labs to be obtained locally prior to visit. Pharmacist Attestation: Sage Serrano PharmD Clinical Oncology Pharmacist documented in this encounter Plan of Treatment Upcoming Encounters Date Type Department Care Team (Late st Contact Info) Description 04/22/2025 2:00 PM EDT Office Visit Pav CC Head, Neck & Respiratory [address] [facility], [address]nd [place] [address] Regulo Odonnell MD 800 [facility] [address] [place] [address] Scheduled Orders Name Type Priority Associated Diagnoses Orde r Schedule Comprehensive Metabolic Panel, Plasma Lab Routine Glioblastoma (CMS/HCC) monthly for 12 Occurrences starting 02/25/2025 until 08/28/2026 CBC and Differential Lab Routine Glioblastoma (CMS/HCC) monthly for 12 Occurrences starting 02/25/2025 until 08/28/2026 documented as of this encounter Results * (ABNORMAL) Comprehensive metabolic panel (02/25/2025 2:53 PM EDT) Pathologist [facility] Glucose, Plasma 90 74 - 99 mg/dL 02/25/2025 4:01 PM EDT [facility] BUN, Plasma 29(H) 8 - 23 mg/dL 02/25/2025 4:01 PM EDT [facility] Creatinine, Plasma 1.02 0.60 - 1.10 mg/dL 02/25/2025 4:01 PM EDT [facility] BUN/Creatinine Ratio 28 02/25/2025 4:01 PM EDT [facility] Sodium, Plasma 144 136 - 145 mmol/L 02/25/2025 4:01 PM EDT [facility] Potassium, Plasma 4.0 3.6 - 4.9 mmol/L 02/25/2025 4:01 PM EDT [facility] Chloride, Plasma 105 97 - 107 mmol/L 02/25/2025 4:01 PM EDT [facility] CO2, Plasma 27 22 - 29 mmol/L 02/25/2025 4:01 PM EDT [facility] Anion Gap 12 6 - 16 mmol/L 02/25/2025 4:01 PM EDT [facility] Total Calcium, Plasma 9.8 8.9 - 10.2 mg/dL 02/25/2025 4:01 PM EDT [facility] Total Protein 7.1 6.3 - 7.9 g/dL 02/25/2025 4:01 PM EDT [facility] Albumin, Plasma 4.2 3.5 - 5.2 g/dL 02/25/2025 4:01 PM EDT [facility] AST, Plasma 20 10 - 35 U/L 02/25/2025 4:01 PM EDT [facility] ALT, Plasma 7(L) 10 - 35 U/L 02/25/2025 4:01 PM EDT [facility] Alkaline Phosphatase, Plasma 110 46 - 142 U/L 02/25/2025 4:01 PM EDT [facility] Total Bilirubin, Plasma 0.7 0.2 - 1.1 mg/dL 02/25/2025 4:01 PM EDT [facility] eGFRcr 53.4 mL/min/1.7 3m*2 02/25/2025 4:01 PM EDT [facility] Comment:Reported eGFRcr in m L/min/1.73m2 is based the CKD-EPI 2020 equation that does not use a race coefficient. Blood Venous blood specimen / Unknown Venipuncture / Unknown 02/25/2025 2:53 PM EDT 02/25/2025 3:30 PM EDT us Regulo Odonnell MD LAB BLOOD ORDERABLES Final Res ult [facility] [address] [place] [address] * (ABNORMAL) CBC and differential (02/25/2025 2:53 PM EDT) [facility] Signature WBC Count 4.29 3.70 - 10.30 10*3/uL LAB HEMATOLOGY METHOD 02/25/2025 3:57 PM EDT [facility] RBC Count 3.51(L) 3.90 - 5.20 10*6/uL LAB HEMATOLOGY METHOD 02/25/2025 3:57 PM EDT [facility] HGB 11.2 11.2 - 15.7 g/dL LAB HEMATOLOGY METHOD 02/25/2025 3:57 PM EDT [facility] HCT 34.7 34.0 - 45.0 % LAB HEMATOLOGY METHOD 02/25/2025 3:57 PM EDT [facility] Platelet Count 197 155 - 369 10*3/uL LAB HEMATOLOGY METHOD 02/25/2025 3:57 PM EDT [facility] MCV 99(H) 79 - 98 fL LAB HEMATOLOGY METHOD 02/25/2025 3:57 PM EDT [facility] MCH 31.9 26.0 - 32.0 pg LAB HEMATOLOGY METHOD 02/25/2025 3:57 PM EDT [facility] MCHC 32.3 30.7 - 35.5 g/dL LAB HEMATOLOGY METHOD 02/25/2025 3:57 PM EDT [facility] RDW 12.9 11.5 - 14.5 % LAB HEMATOLOGY METHOD 02/25/2025 3:57 PM EDT [facility] MPV 11.6 8.8 - 12.5 fL LAB HEMATOLOGY METHOD 02/25/2025 3:57 PM EDT [facility] nRBC 0.0 <=0.0 per 100 WBCs LAB HEMATOLOGY METHOD 02/25/2025 3:57 PM EDT [facility] Differential Type Automated LAB HEMATOLOGY METHOD 02/25/2025 3:57 PM EDT [facility] Neutrophils % 63 % LAB HEMATOLOGY METHOD 02/25/2025 3:57 PM EDT [facility] Lymphocytes % 24 % LAB HEMATOLOGY METHOD 02/25/2025 3:57 PM EDT [facility] Monocytes % 8 % LAB HEMATOLOGY METHOD 02/25/2025 3:57 PM EDT [facility] Eosinophils % 3 % LAB HEMATOLOGY METHOD 02/25/2025 3:57 PM EDT [facility] Basophils % 1 % LAB HEMATOLOGY METHOD 02/25/2025 3:57 PM EDT [facility] Immature Granulocytes % 1 % LAB HEMATOLOGY METHOD 02/25/2025 3:57 PM EDT [facility] Neutrophils Absolute 2.69 1.60 - 6.10 10*3/uL LAB HEMATOLOGY METHOD 02/25/2025 3:57 PM EDT [facility] Lymphocytes Absolute 1.04(L) 1.20 - 3.90 10*3/uL LAB HEMATOLOGY METHOD 02/25/2025 3:57 PM EDT [facility] Monocytes Absolute 0.35 0.30 - 0.90 10*3/uL LAB HEMATOLOGY METHOD 02/25/2025 3:57 PM EDT [facility] Eosinophils Absolute 0.14 0.00 - 0.50 10*3/uL LAB HEMATOLOGY METHOD 02/25/2025 3:57 PM EDT [facility] Basophils Absolute 0.05 0.00 - 0.10 10*3/uL LAB HEMATOLOGY METHOD 02/25/2025 3:57 PM EDT [facility] Immature Granulocytes Absolute 0.02 0.00 - 0.06 10*3/uL LAB HEMATOLOGY METHOD 02/25/2025 3:57 PM EDT [facility] Blood Venous blood specimen / Unknown Venipuncture / Unknown 02/25/2025 2:53 PM EDT 02/25/2025 3:40 PM EDT Narrative [facility] - 02/25/2025 3:57 PM EDT Therapeutic decision making should be based on absolute values, rather than percentages. us Regulo Odonnell MD LAB BLOOD ORDERABLES Final Res ult [facility] [address] [place] [address] documented in this encounter Visit Diagnoses Diagnosis Glioblastoma (CMS/HCC)- Primary Malignant neoplasm of brain, unspecified site documented in this encounter Additional Health Concerns Assessment Noted Time A fall risk assessment has been complete d for the patient 02/25/2025 2:34 PM EDT A Body Mass Index follow-up plan has been documented for the patient 10/30/2024 1:03 AM EDT documented as of this encounter Care Teams Insights Strategist Relationship Specialty Start Date End Date Chin Lott MD [address] [place] [address] [address] [place] [address] PCP - General 05/11/24 Chin Lott MD [address] [place] [address] [address] [place] [address] 05/11/24 documented as of this encounter
--- OUTSIDE RECORDS SUMMARY | 2025-02-25 14:15 | XMS_ITS | Encounter Summary ---
Author Organization Healthcare Address [address] [place] [address] Care Team Providers Care Mailhouse Operator Name Role Phone Chin Lott MD Primary Care Provider [phone] Chin Lott MD Unavailable [phone] Reason for Visit * Reason Comments Labs Encounter Details Date Type Department Care Team (Latest Contact Info) Description 02/25/2025 2:15 PM EDT Clinical Support Pav CC Head, Neck & Respiratory [address] [place] [address] Glioblastoma ([facility]/HCC) Social History Tobacco Use Types Packs/Day Years [...] often do you attend chur ch or yazdanism services? Patient unable to answer 06/13/2024 Do you belong to any clubs o r organizations such as yazidi groups, unions, fraternal or athletic groups, or [...] medical care, and heating? Somewhat hard 06/13/2024 [facility] - Occupational [...] in the past 12 m [facility], were you homeless or living in a long term (including now)? No 06/13/2024 Utilities Answer Date [...] Jillian Huertas documented as of this encounter Plan of Treatment Upcoming Encounters Date Type Department Care Team (Late st Contact Info) Description 04/22/2025 2:00 PM EDT Office Visit Pav CC Head, Neck & Respiratory [address] [facility], [address]nd [place] [address] Regulo Odonnell MD 800 [facility] Dena Ferreira [facility] [address] [place] [address] [phone] (work) documented as of this encounter Procedures Procedure Name Priority Date/Time Associated Diagnosis Comments CBC WITH AUTO DIFFERENTIAL Routine 02/25/2025 2:53 PM EDT Glioblastoma (CMS/HCC) COMPREHENSIVE METABOLIC PANEL, PLASMA Routine 02/25/2025 2:53 PM EDT Glioblastoma (CMS/HCC) documented in this encounter Results * (ABNORMAL) CBC and differential (02/25/2025 2:53 PM EDT) Pathologist [facility] WBC Count 4.29 3.70 - 10.30 10*3/uL LAB HEMATOLOGY METHOD 02/25/2025 3:57 PM EDT [facility] RBC Count 3.51(L) 3.90 - 5.20 10*6/uL LAB HEMATOLOGY METHOD 02/25/2025 3:57 PM EDT [facility] HGB 11.2 11.2 - 15.7 g/dL LAB HEMATOLOGY METHOD 02/25/2025 3:57 PM EDT [facility] HCT 34.7 34.0 - 45.0 % LAB HEMATOLOGY METHOD 02/25/2025 3:57 PM EDT [facility] Platelet Count 197 155 - 369 10*3/uL LAB HEMATOLOGY METHOD 02/25/2025 3:57 PM EDT [facility] MCV 99(H) 79 - 98 fL LAB HEMATOLOGY METHOD 02/25/2025 3:57 PM EDT [facility] MCH 31.9 26.0 - 32.0 pg LAB HEMATOLOGY METHOD 02/25/2025 3:57 PM EDT [facility] MCHC 32.3 30.7 - 35.5 g/dL LAB HEMATOLOGY METHOD 02/25/2025 3:57 PM EDT [facility] RDW 12.9 11.5 - 14.5 % LAB HEMATOLOGY METHOD 02/25/2025 3:57 PM EDT [facility] MPV 11.6 8.8 - 12.5 fL LAB HEMATOLOGY METHOD 02/25/2025 3:57 PM EDT [facility] nRBC 0.0 <=0.0 per 100 WBCs LAB HEMATOLOGY METHOD 02/25/2025 3:57 PM EDT [facility] Differential Type Automated LAB HEMATOLOGY METHOD 02/25/2025 3:57 PM EDT [facility] Neutrophils % 63 % LAB HEMATOLOGY METHOD 02/25/2025 3:57 PM EDT [facility] Lymphocytes % 24 % LAB HEMATOLOGY METHOD 02/25/2025 3:57 PM EDT [facility] Monocytes % 8 % LAB HEMATOLOGY METHOD 02/25/2025 3:57 PM EDT [facility] Eosinophils % 3 % LAB HEMATOLOGY METHOD 02/25/2025 3:57 PM EDT [facility] Basophils % 1 % LAB HEMATOLOGY METHOD 02/25/2025 3:57 PM EDT [facility] Immature Granulocytes % 1 % LAB HEMATOLOGY METHOD 02/25/2025 3:57 PM EDT [facility] Neutrophils Absolute 2.69 1.60 - 6.10 10*3/uL LAB HEMATOLOGY METHOD 02/25/2025 3:57 PM EDT [facility] Lymphocytes Absolute 1.04(L) 1.20 - 3.90 10*3/uL LAB HEMATOLOGY METHOD 02/25/2025 3:57 PM EDT [facility] Monocytes Absolute 0.35 0.30 - 0.90 10*3/uL LAB HEMATOLOGY METHOD 02/25/2025 3:57 PM EDT [facility] Eosinophils Absolute 0.14 0.00 - 0.50 10*3/uL LAB HEMATOLOGY METHOD 02/25/2025 3:57 PM EDT [facility] Basophils Absolute 0.05 0.00 - 0.10 10*3/uL LAB HEMATOLOGY METHOD 02/25/2025 3:57 PM EDT [facility] Immature Granulocytes Absolute 0.02 0.00 - 0.06 10*3/uL LAB HEMATOLOGY METHOD 02/25/2025 3:57 PM EDT [facility] Blood Venous blood specimen / Unknown Venipuncture / Unknown 02/25/2025 2:53 PM EDT 02/25/2025 3:40 PM EDT [facility] - 02/25/2025 3:57 PM EDT Therapeutic decision making should be based on absolute values, rather than percentages. us Regulo Odonnell MD LAB BLOOD ORDERABLES Final Res ult [facility] [address] [place] [address] * (ABNORMAL) Comprehensive metabolic panel (02/25/2025 2:53 PM EDT) Glucose, Plasma 90 74 - 99 mg/dL 02/25/2025 4:01 PM EDT [facility] BUN, Plasma 29(H) 8 - 23 mg/dL 02/25/2025 4:01 PM EDT [facility] Creatinine, Plasma 1.02 0.60 - 1.10 mg/dL 02/25/2025 4:01 PM EDT [facility] BUN/Creatinine Ratio 28 02/25/2025 4:01 PM EDT [facility] Sodium, Plasma 144 136 - 145 mmol/L 02/25/2025 4:01 PM EDT [facility] Potassium, Plasma 4.0 3.6 - 4.9 mmol/L 02/25/2025 4:01 PM EDT [facility] Chloride, Plasma 105 97 - 107 mmol/L 02/25/2025 4:01 PM EDT [facility] CO2, Plasma 27 22 - 29 mmol/L 02/25/2025 4:01 PM EDT [facility] Anion Gap 12 6 - 16 mmol/L 02/25/2025 4:01 PM EDT [facility] Total Calcium, Plasma 9.8 8.9 - 10.2 mg/dL 02/25/2025 4:01 PM EDT [facility] Total Protein 7.1 6.3 - 7.9 g/dL 02/25/2025 4:01 PM EDT [facility] Albumin, Plasma 4.2 3.5 - 5.2 g/dL 02/25/2025 4:01 PM EDT [facility] AST, Plasma 20 10 - 35 U/L 02/25/2025 4:01 PM EDT [facility] ALT, Plasma 7(L) 10 - 35 U/L 02/25/2025 4:01 PM EDT [facility] Alkaline Phosphatase, Plasma 110 46 - 142 U/L 02/25/2025 4:01 PM EDT [facility] Total Bilirubin, Plasma 0.7 0.2 - 1.1 mg/dL 02/25/2025 4:01 PM EDT [facility] eGFRcr 53.4 mL/min/1.7 3m*2 02/25/2025 4:01 PM EDT [facility] Comment:Reported eGFRcr in m L/min/1.73m2 is based the CKD-EPI 2020 equation that does not use a race coefficient. Blood Venous blood specimen / Unknown Venipuncture / Unknown 02/25/2025 2:53 PM EDT 02/25/2025 3:30 PM EDT us Regulo Odonnell MD LAB BLOOD ORDERABLES Final Res ult [facility] [address] [place] [address] documented in this encounter Visit Diagnoses Diagnosis Glioblastoma (CMS/HCC) Malignant neoplasm of brain, unspecified site documented in this encounter Additional Health Concerns Assessment Noted Time A fall risk assessment has been complete d for the patient 02/25/2025 2:34 PM EDT A Body Mass Index follow-up plan has been documented for the patient 10/30/2024 1:03 AM EDT documented as of this encounter Care Teams Mailhouse Operator Relationship Specialty Start Date End Date Chin Lott MD [address] [place] [id number] PCP - General 05/11/24 Chin Lott MD [address] [place] [address] 05/11/24 documented as of this encounter
--- OUTSIDE RECORDS SUMMARY | 2025-04-20 13:56 | XMS_ITS | Encounter Summary ---
Author Organization [facility] Address [address] [place] [address] Care Team Providers Care Lip Of Shank Cutter Name Role Phone Chin Lott MD Primary Care Provider [phone] Chin Lott MD Unavailable [phone] Encounter Details Date Type Department Care Team (Late st Contact Info) Description 03/25/2025 Clinical Support Pav CC Head, Neck & Respiratory [address] [facility], [address]nd [place] [address] Sage Serrano, PharmD 800 [facility] [address] [place] [address] Social History Tobacco Use Types Packs/Day Years [...] 06/13/2024 How often do you attend [facility] or hinduism services? Patient unable to answer 06/13/2024 Do you belong to any clubs o r organizations such as jewish groups, unions, fraternal or athletic groups, or [...] medical care, and heating? Somewhat hard 06/13/2024 [facility] - [...] appointment scheduling. 01/28/25: Patient assessed by Dr. Oodnnell via telehealth. Continues to tolerate therapy. Labs [...] dose adjustments made Rx sent to: [facility] Refills due: N/A Current Treatment Plan [...] Upcoming Encounters Date Type Department Care Team ([facility] st Contact Info) Description 04/22/2025 2:00 PM EDT Office Visit Pav CC Head, Neck & Respiratory [address] [facility], [address] [place] [address] Regulo Odonnell MD [address] Dena Ferreira [facility] [address] [place] [address] documented as of this encounter Visit Diagnoses Not on filedocumented in this encounter Additional Health Concerns Assessment Noted Time A fall risk assessment has been complete d for the patient 02/25/2025 2:34 PM EDT A Body Mass Index follow-up plan has been documented for the patient 10/30/2024 1:03 AM EDT documented as of this encounter Care Teams Lip Of Shank Cutter Relationship Specialty Start Date End Date Chin Lott MD [address] [place], [place] [id number] PCP - General 05/11/24 Chin Lott MD [address] [place], [place] [id number] 05/11/24 documented as of this encounter
--- OUTSIDE RECORDS SUMMARY | 2025-04-20 13:56 | XMS_ITS | Encounter Summary ---
Author Organization Healthcare Address [address] [place] [address] Care Team Providers Care Jewelsmith Name Role Phone Chin Lott MD Primary Care Provider [phone] Chin Lott MD Unavailable [phone] Encounter Details Date Type Department Care Team (Late st Contact Info) Description 03/25/2025 Orders Only [facility] [address] , [address] [place] [address] Zuleika Linn RN ``````````````````` ``````HOSP. OBSTETRICS, POST [...] answer 06/13/2024 How often do you attend [facility] or temple services? Patient unable to answer 06/13/2024 Do [...] medical care, and heating? Somewhat hard 06/13/2024 [facility] - Occupational [...] Upcoming Encounters Date Type Department Care Team ([facility] st Contact Info) Description 04/22/2025 2:00 PM EDT Office Visit [facility] Head[facility] Neck & Respiratory [address] [facility], [address]nd [place] [address] Regulo Odonnell MD 800 [facility] Dena Ferreira [facility] [address] [place] [address] Scheduled Orders Name Type Priority Associated Diagnoses [...] documented as of this encounter Care Teams Jewelsmith Relationship Specialty Start Date End Date Chin Lott MD [address] [place] [address] [address] [place] [address] PCP - General 05/11/24 Chin Lott MD [address] [place] [address] [address] [place] [address] 05/11/24 documented as of this encounter
--- OUTSIDE RECORDS SUMMARY | 2025-04-20 13:57 | XMS_ITS | Encounter Summary ---
Author Organization Healthcare Address [address] [place] [address] Care Team Providers Care Battery Mechanic Name Role Phone Chin Lott MD Primary Care Provider [phone] Chin Lott MD Unavailable Encounter Details Date Type Department Care Team [...] often do you attend chur ch or anglican services? Patient unable to answer [...] medical care, and heating? Somewhat hard 06/13/2024 [facility] - [...] in the past 12 m [facility], were you homeless or living in a usp (including now)? No 06/13/2024 Utilities Answer Date [...] [facility] Head[facility] Neck [facility] Respiratory 800 [facility], [address]nd [place] [address] Regulo Odonnell MD 800 [facility] [address] [place] [address] documented as of this encounter Visit Diagnoses Not on filedocumented in this encounter Additional Health Concerns Assessment Noted Time A fall risk assessment has been complete d for the patient 02/25/2025 2:34 PM EDT A Body Mass Index follow-up plan has been documented for the patient 10/30/2024 1:03 AM EDT documented as of this encounter Care Teams Battery Mechanic Relationship Specialty Start Date End Date Chin Lott MD [facility] [address] [place] [address] PCP - General 05/11/24 Chin Lott MD [facility] [address] [place] [address] 05/11/24 documented as of this encounter
--- OUTSIDE RECORDS SUMMARY | 2025-04-20 13:57 | XMS_ITS | Encounter Summary ---
Author Organization [facility] Address [address] [place] [address] Care Team Providers Care Order Management Specialist Name Role Phone Chin Lott MD Primary Care Provider [phone] Chin Lott MD Unavailable [phone] Reason for Visit * Reason Onset Date Comments Med Refill 03/24/2025 Encounter Details Date Type Department Care Team (Late st Contact Info) Description 03/24/2025 Refill [facility] Head[facility] Neck & Respiratory 800 [facility], [address]nd [place] [address] Regulo Odonnell MD [address] [facility] [address] [place] [address] Social History Tobacco Use Types Packs/Day Years [...] often do you attend [facility] or episcopal services? Patient unable to answer [...] medical care, and heating? Somewhat hard 06/13/2024 [facility] - [...] any time in the past 12 m [facility], were you homeless or [...] Date Type Department Care Team ([facility] Contact Info) Description 04/22/2025 2:00 PM EDT Office Visit [facility] Head[facility] Neck & Respiratory [address] [facility], [address] [place] [address] Regulo Odonnell MD 800 [facility] Dena Ferreira [facility] Tim [address] [place] [address] documented as of this encounter Visit Diagnoses Not on filedocumented in this encounter Additional Health Concerns Assessment Noted Time A fall risk assessment has been complete d for the patient 02/25/2025 2:34 PM EDT A Body Mass Index follow-up plan has been documented for the patient 10/30/2024 1:03 AM EDT documented as of this encounter Care Teams Order Management Specialist Relationship Specialty Start Date End Date Chin Lott MD [address] [place] [address] [facility] - General 05/11/24 Chin Lott MD [address] [place] [address] 05/11/24 documented as of this encounter
--- OUTSIDE RECORDS SUMMARY | 2025-04-20 13:57 | XMS_ITS | Encounter Summary ---
Author Organization Healthcare Address [address] [place] [address] Care Team Providers Care Speaking Unit Assembler Name Role Phone Chin Lott MD Primary Care Provider [phone] Chin Lott MD Unavailable [phone] Encounter Details Date Type Department Care Team (Late st Contact Info) Description 03/24/2025 Orders Only [facility] Head[facility] Neck [facility] Respiratory [address] , [address] [place] [address] Provider, [address] [address] Social History Tobacco Use Types [...] How often do you attend chur or yarsanism services? Patient unable to answer 06/13/2024 Do you belong to any clubs o r organizations such as methodist groups, unions, fraternal or athletic groups, or [...] medical care, and heating? Somewhat hard 06/13/2024 [facility] - Occupational [...] time in the past 12 m [facility], were you homeless or living in a [...] 800 [facility], [address]nd [place] [address] Regulo Odonnell MD 800 [facility] Tim [address] [place] [address] documented as of this encounter Procedures Procedure [...] documented as of this encounter Care Teams Speaking Unit Assembler Relationship Specialty Start Date End Date Chin Lott MD [address] [place] [address] [address] [place] [address] PCP - General 05/11/24 Chin Lott MD [address] [place] [address] [address] [place] [address] 05/11/24 documented as of this encounter
--- OUTSIDE RECORDS SUMMARY | 2025-04-20 13:57 | XMS_ITS | Clinical Summary ---
Author Organization [employer] ([place], [place], [place], [place]) Address [address] [place] [address] Care Team Providers Care Can Cleaner Name Role Phone Unavailable Primary Care Provider [...]
--- OUTSIDE RECORDS SUMMARY | 2025-04-20 13:57 | XMS_ITS | Encounter Summary ---
Author Organization [facility] Address [address] [place] [address] Care Team Providers Care Mobile Equipment Mechanic Name Role Phone Chin Lott MD Primary Care Provider [phone] Chin Lott MD Unavailable [phone] Reason for Visit * Auth/Cert (Routine) Specialty Diagnoses / Procedures Referred By Contac t Referred To Contact Diagnoses AMS (altered mental status) Senia Hernandez MD [address] [place] [address] Phone: tel: fax: [facility] Emergency Department [address] [place] [address] Phone: tel: Referral ID Status Reason Start Date Expiration Date Visits Re quested Visits Authorized [id number] 1 1 Encounter Details Date Type Department Care Team (Late st Contact Info) Description 06/18/2024 Lab Requisition [facility] [address] [place] [address] Yenni Soto MD [address] [place] [address] Localized swelling, mass and lump, [...] answer 06/13/2024 How often do you attend [facility] or hindu services? Patient unable to answer 06/13/2024 Do you belong to any clubs o r organizations such as gnosticism groups, unions, fraternal or athletic groups, or [...] medical care, and heating? Somewhat hard 06/13/2024 [facility] - Occupational [...] were you homeless or living in a halfway (including now)? No 06/13/2024 Utilities Answer Date [...] [facility] Head[facility] Neck [facility] Respiratory 800 [facility], [address]nd [place] [address] Regulo Odonnell MD [address] [facility] Dena Ferreira [facility] Tim [address] [place] [address] documented as of this encounter Procedures Procedure Name Priority Date/Time Associated Diagnosis Comments MGMT PROMOTER METHYLATION DET BY DDPCR (SO) Routine 06/13/2024 8:59 AM EST Localized swelling, mass and lump, head documented in this encounter Results * (ABNORMAL) MGMT Promoter Methylation Det by ddPCR (SO) (06/13/2024 8:59 AM EST) MGMT METH Result Detected(A) 06/28/2024 9:26 AM EST [facility] MGMT METH Specimen Tissue 06/28/2024 9:26 AM EST [facility]) BLOCK ID [id number] 06/28/2024 9:26 AM EST [facility] ([place]) Tissue Tissue specimen / Unknown 06/13/2024 8:59 AM EST 06/18/2024 2:12 PM EST Narrative [facility] ([place]) - 06/28/2024 9:26 AM EST This result [...] developed and its performance characteristics determined by [facility]. It has not been cleared or approved by the [place] Food and Drug Administration. This test was performed in a CLIA certified laboratory and is intended for clinical purposes. Performed By: [facility] [address] [place] [address] Pilot Boat Operator: Chava Sibley MD, PhD CLIA Number: [id number] us Yenni Soto MD LAB REF LAB BLOOD AND FLUID ORD Final Result [facility] [address] [place] [address] documented in this encounter Visit Diagnoses Diagnosis Localized swelling, mass and lump, head documented in this encounter Additional Health Concerns Assessment Noted Time A Body Mass Index follow-up plan has been documented for the patient 06/15/2024 12:54 PM EST documented as of this encounter Care Teams Mobile Equipment Mechanic Relationship Specialty Start Date End Date Chin Lott MD [address] [place] [address] [address] [place] [address] PCP - General 05/11/24 Chin Lott MD [address] [place] [address] [address] [place] [address] 05/11/24 documented as of this encounter
--- OUTSIDE RECORDS SUMMARY | 2025-04-20 13:57 | XMS_ITS | Encounter Summary ---
Author Organization Healthcare Address [address] [place] [address] Care Team Providers Care Social Media Campaign Manager Name Role Phone Chin Lott MD Primary Care Provider [phone] Chin Lott MD Unavailable [phone] Encounter Details Date Type Department Care Team (Late st Contact Info) Description 02/24/2025 Orders Only [facility] Head[facility] Neck [facility] Respiratory 800 [facility], [address]nd [place] [address] Sage Serrano, PharmD 800 [facility] Tim [address] [place] [address] Social History Tobacco Use Types Packs/Day Years [...] answer 06/13/2024 How often do you attend [facility] or zoroastrian services? Patient unable to answer 06/13/2024 Do you belong to any clubs o r organizations such as congregation groups, unions, fraternal or athletic groups, or [...] any time in the past [address] [facility], were you homeless or living in a mcc (including now)? No 06/13/2024 Utilities Answer Date [...] [address] [facility], [address] [place] [address] Regulo Odonnell MD 800 [facility] [address] [place] [address] documented as of this encounter Visit Diagnoses Not on filedocumented in this encounter Additional Health Concerns Assessment Noted Time A fall risk assessment has been complete d for the patient 09/23/2024 2:09 PM EST A Body Mass Index follow-up plan has been documented for the patient 10/30/2024 1:03 AM EDT documented as of this encounter Care Teams Social Media Campaign Manager Relationship Specialty Start Date End Date Chin Lott MD [address] [place] [address] [place] [address] PCP - General 05/11/24 Chin Lott MD [address] [place] [address] [place] [address] 05/11/24 documented as of this encounter
--- OUTSIDE RECORDS SUMMARY | 2025-04-20 13:57 | XMS_ITS | Clinical Summary ---
Author Organization [facility] Address [address] [place] [address] Care Team Providers Care Solderer Production Line Name Role Phone Chin Lott MD Primary Care Provider [phone] Chin Lott MD Unavailable [phone] Allergies No known active allergies Medications [...] Severe obesity (BMI 35.0-39.9) with comorbidity 06/14/2024 Occipital mass 06/10/2024 Resolved Problems Problem Noted Date Diagnosed Date Resolved Date AMS (altered mental status) 06/10/2024 04/19/2025 Encounters Date Type Department Care Team Description 03/25/2025 Orders Only [facility] [address] [phone] Zuleika Linn RN [facility] (Primary Dx) 03/25/2025 Clinical Support [facility] [address] [phone] Sage Serrano, PharmD 03/24/2025 Orders Only [facility] [address] [phone] Provider, Historical 03/24/2025 Refill [facility] 800 [facility], [address] [place] [phone] Regulo Odonnell MD 02/25/2025 2:15 PM EDT Clinical Support [facility] [address] [phone] Glioblastoma ([facility]) 02/25/2025 2:00 PM EDT Office Visit [facility] [address] [phone] Regulo Odonnell MD Glioblastoma ([facility]) (Primary Dx) 02/25/2025 11:19 AM EDT - 02/25/2025 11:59 PM EDT Hospital Encounter [facility] Radiology [address], [address] [place] [address] [facility]) Discharge Disposition: Home or Self Care 02/25/2025 Travel 02/24/2025 Orders Only [facility] 800 [facility], [address] [place] [phone] Sage Serrano, PharmD 01/28/2025 Orders Only [facility] 800 [facility], [address] [place] [phone] Zuleika Linn RN Glioblastoma ([facility]) (Primary Dx) 01/28/2025 Clinical Support [facility] 800 [facility], [address] [place] [phone] Sage Serrano, PharmD 01/27/2025 Orders Only [facility] 800 [facility], [address] [place] [phone] Provider, Historical 01/23/2025 Telephone [facility] 800 [facility], [address] [place] [phone] Regulo Odonnell MD from Last [...] any clubs o r organizations such as restorationist groups, unions, fraternal or athletic groups, or [...] medical care, and heating? Somewhat hard 06/13/2024 [facility] - [...] any time in the past 12 m [facility], were you homeless or living in [...] [facility] 800 [facility], [address] [place] [phone] Regulo Odonnell MD [address] [place] [address] Health Maintenance Due Date Last Done Comments [facility]-Bone Density Scan 1935 [facility]-Depression Screening 1935 [facility]-Medicare Annual Wellness (AWV) 1935 [facility]-Infant/Child/Adol SDOH Screenings 1935 [facility]-RSV Vaccine: 60+ Years o r (1 - 1-dose 75+ series) 2012 [facility]-Zoster Vaccines (1 of 2) 06/17/2013, 08/17/2009 [facility]-DTaP,Tdap,and Td Vaccine s (2 - Td or Tdap) 03/20/2022 03/20/2012 [facility]- SDOH Screenings 12/11/2024 [facility]-Adult SDOH Screenings 12/11/2024 06/13/2024 [id number] Vaccine (2024- season) 2025 06/30/2021, 10/08/2020, 09/10/2020 [facility]-Influenza Vaccine [...] this topic Medical Devices Implanted Type Area Dentist/Owner Device Identifier Shelf Expiration Date Model / Serial / Lot Cover, Neuro [place] Lp 17mm - Sn/A - [id number] Implanted:Qty: 1 on 06/13/2024 by Nahid Dalal MD at [facility] Plate Right: Cranial Synthes [facility]-[id number] 06/13/2025 [id number] / N/A / Plate, 2 Hole Low Profile - Sn/A - [id number] Implanted:Qty: 2 on 06/13/2024 by Nahid Dalal MD at [facility] Plate Right: Cranial S[employer] [facility]-[id number] 06/13/2025 [id number] / N/A / Screw Screw Right: Hip Screw Ti Matrixneuro Selfdrill 4mm - Sn/A - [id number] Implanted:Qty: 8 on 06/13/2024 by Nahid Dalal MD at [facility] Screw Right: Cranial [employer] [place]-[id number] 06/13/2025 04.503.10 4.01 / N/A / Graft Dura Repair 2x2 Synthecel - [id number] Implanted:Qty: 1 on 06/13/2024 by Nahid Dalal MD at [facility] Right: Cranial Synthes [facility]-[id number] 10/27/2026 SC.400.02 5.01S / / [id number] Procedures Procedure Name Priority Date/Time Associated Diagnosis [...] time period is included. us Historical Provider LAB BLOOD ORDERABLES Final R esult * CBC W/DIFF (03/24/2025 2:55 PM EDT) Only the most recent of2 resultswithin the time period is included. us Historical Provider LAB BLOOD ORDERABLES Final R esult * (ABNORMAL) CBC and differential (02/25/2025 2:53 PM EDT) [facility] WBC Count 4.29 3.70 - 10.30 10*3/uL LAB HEMATOLOGY METHOD 02/25/2025 3:57 PM EDT [facility] RBC Count 3.51(L) 3.90 - 5.20 10*6/uL LAB HEMATOLOGY METHOD 02/25/2025 3:57 PM EDT [facility] HGB 11.2 11.2 - 15.7 g/dL LAB HEMATOLOGY METHOD 02/25/2025 3:57 PM EDT [facility] HCT 34.7 34.0 - 45.0 % LAB HEMATOLOGY METHOD 02/25/2025 3:57 PM EDT [facility] Platelet Count 197 155 - 369 10*3/uL LAB HEMATOLOGY METHOD 02/25/2025 3:57 PM EDT [facility] MCV 99(H) 79 - 98 fL LAB HEMATOLOGY METHOD 02/25/2025 3:57 PM EDT [facility] MCH 31.9 26.0 - 32.0 pg LAB HEMATOLOGY METHOD 02/25/2025 3:57 PM EDT [facility] MCHC 32.3 30.7 - 35.5 g/dL LAB HEMATOLOGY METHOD 02/25/2025 3:57 PM EDT [facility] RDW 12.9 11.5 - 14.5 % LAB HEMATOLOGY METHOD 02/25/2025 3:57 PM EDT [facility] MPV 11.6 8.8 - 12.5 fL LAB HEMATOLOGY METHOD 02/25/2025 3:57 PM EDT [facility] nRBC 0.0 <=0.0 per 100 WBCs LAB HEMATOLOGY METHOD 02/25/2025 3:57 PM EDT [facility] Differential Type Automated LAB HEMATOLOGY METHOD 02/25/2025 3:57 PM EDT [facility] Neutrophils % 63 % LAB HEMATOLOGY METHOD 02/25/2025 3:57 PM EDT [facility] Lymphocytes % 24 % LAB HEMATOLOGY METHOD 02/25/2025 3:57 PM EDT [facility] Monocytes % 8 % LAB HEMATOLOGY METHOD 02/25/2025 3:57 PM EDT [facility] Eosinophils % 3 % LAB HEMATOLOGY METHOD 02/25/2025 3:57 PM EDT [facility] Basophils % 1 % LAB HEMATOLOGY METHOD 02/25/2025 3:57 PM EDT [facility] Immature Granulocytes % 1 % LAB HEMATOLOGY METHOD 02/25/2025 3:57 PM EDT [facility] Neutrophils Absolute 2.69 1.60 - 6.10 10*3/uL LAB HEMATOLOGY METHOD 02/25/2025 3:57 PM EDT [facility] Lymphocytes Absolute 1.04(L) 1.20 - 3.90 10*3/uL LAB HEMATOLOGY METHOD 02/25/2025 3:57 PM EDT [facility] Monocytes Absolute 0.35 0.30 - 0.90 10*3/uL LAB HEMATOLOGY METHOD 02/25/2025 3:57 PM EDT [facility] Eosinophils Absolute 0.14 0.00 - 0.50 10*3/uL LAB HEMATOLOGY METHOD 02/25/2025 3:57 PM EDT [facility] Basophils Absolute 0.05 0.00 - 0.10 10*3/uL LAB HEMATOLOGY METHOD 02/25/2025 3:57 PM EDT [facility] Immature Granulocytes Absolute 0.02 0.00 - 0.06 10*3/uL LAB HEMATOLOGY METHOD 02/25/2025 3:57 PM EDT [facility] Blood Venous blood specimen / Unknown Venipuncture / Unknown 02/25/2025 2:53 PM EDT 02/25/2025 3:40 PM EDT [facility] - 02/25/2025 3:57 PM EDT Therapeutic decision making should be based on absolute values, rather than percentages. us Regulo Odonnell MD LAB BLOOD ORDERABLES Final Res ult [facility] [address] [place] [address] * (ABNORMAL) Comprehensive metabolic panel (02/25/2025 2:53 PM EDT) Glucose, Plasma 90 74 - 99 mg/dL 02/25/2025 4:01 PM EDT [facility] BUN, Plasma 29(H) 8 - 23 mg/dL 02/25/2025 4:01 PM EDT [facility] Creatinine, Plasma 1.02 0.60 - 1.10 mg/dL 02/25/2025 4:01 PM EDT [facility] BUN/Creatinine Ratio 28 02/25/2025 4:01 PM EDT [facility] Sodium, Plasma 144 136 - 145 mmol/L 02/25/2025 4:01 PM EDT [facility] Potassium, Plasma 4.0 3.6 - 4.9 mmol/L 02/25/2025 4:01 PM EDT [facility] Chloride, Plasma 105 97 - 107 mmol/L 02/25/2025 4:01 PM EDT [facility] CO2, Plasma 27 22 - 29 mmol/L 02/25/2025 4:01 PM EDT [facility] Anion Gap 12 6 - 16 mmol/L 02/25/2025 4:01 PM EDT [facility] Total Calcium, Plasma 9.8 8.9 - 10.2 mg/dL 02/25/2025 4:01 PM EDT [facility] Total Protein 7.1 6.3 - 7.9 g/dL 02/25/2025 4:01 PM EDT [facility] Albumin, Plasma 4.2 3.5 - 5.2 g/dL 02/25/2025 4:01 PM EDT [facility] AST, Plasma 20 10 - 35 U/L 02/25/2025 4:01 PM EDT [facility] ALT, Plasma 7(L) 10 - 35 U/L 02/25/2025 4:01 PM EDT [facility] Alkaline Phosphatase, Plasma 110 46 - 142 U/L 02/25/2025 4:01 PM EDT [facility] Total Bilirubin, Plasma 0.7 0.2 - 1.1 mg/dL 02/25/2025 4:01 PM EDT [facility] eGFRcr 53.4 mL/min/1.7 3m*2 02/25/2025 4:01 PM EDT [facility] Comment:Reported eGFRcr in m L/min/1.73m2 is based the CKD-EPI 2020 equation that does not use a race coefficient. Blood Venous blood specimen / Unknown Venipuncture / Unknown 02/25/2025 2:53 PM EDT 02/25/2025 3:30 PM EDT us Regulo Odonnell MD LAB BLOOD ORDERABLES Final Res ult [facility] [address] [place] [address] * MR Head w and wo IV [...] error, please notify the sender immediately at [phone] and permanently delete the original report and destroy any copies or printouts. Narrative 02/26/2025 1:35 PM EDT [facility] - Phone Outpatient NAME: Mariella Hawkins DATE OF EXAM: 02/25/2025 Patient No: [id number] Physician: Nicole Date of : 1935 Examination: [...] Hawkins DATE OF EXAM: 02/25/2025 Patient No: [id number] Physician: Nicole Date of : 1935 Examination: [...] in error, pleasenotify the sender immediately at [phone] and permanently delete theoriginal report and destroy any copies or printouts. Regulo Odonnell MD IM MRI PROCEDURES Final Resul t * (ABNORMAL) Hemoglobin A1c (06/11/2024 8:59 AM EST) Hemoglobin A1c 5.9(H) <5.7 % 06/11/2024 9:33 AM EST [facility] Blood Venous blood specimen / Unknown Venipuncture / Unknown 06/11/2024 8:59 AM EST 06/11/2024 9:16 AM EST Narrative [facility] - 06/11/2024 9:33 AM EST HA1C Interpretive Data: Diagnosis of Diabetes: Diabetic > or = 6.5% Pre-diabetic 5.7 to 6.4% Non-diabetic < or = 5.6% Glycemic Targets for Type I and Type II Diabetics: Non- Adults <7.0% Adults <6.0% Children and Adolescents <7.5% Source: [place] [employer]. Standards of medical care in diabetes,2017. Diabetes Care.2017:40 (suppl 1):S1-S135. HbA1c assay performed by an ion-exchange chromatography method that is certified traceable to the DCCT. us Moshe Benson MD LAB BLOOD ORDERABLES Final Result [facility] [address] [place] [address] from Last 3 Months or Most Recently Relevant to Health Maintenance Insurance MEDICARE [facility] Advance Directives * Full Code (Latest Code Status on File) Date Activated Date Inactivated Comments 06/10/2024 8:03 PM 06/15/2024 4:46 PM Question Answer Comments Patient has decision-making capacity? No Healthcare Surrogate: Adult child of the patient Care Teams Solderer Production Line Relationship Specialty Start Date End Date Chin Lott MD [address] [facility] [address] [place] [address] PCP - General 05/11/24 Chin Lott MD [address] [facility] [address] [place] [address] 05/11/24
--- OUTSIDE RECORDS SUMMARY | 2025-04-20 13:57 | XMS_ITS ---
Author Organization [facility] Address [address] [place] [address] Care Team Providers Care Risk Management Director Name Role Phone Chin Lott MD Primary Care Provider [phone] Chin Lott MD Unavailable [phone] Active Problems Problem Noted Date Diagnosed Date Glioblastoma 07/06/2024 Cancer Staging:Clinical: Histology: Glioblastoma multiforme - Unsigned Severe obesity (BMI 35.0-39.9) with comorbidity 06/14/2024 Occipital mass 06/10/2024 Current Treatment and Therapy [...] Delivered Verification 07/14/2024 - 07/14/2024 0 cGy Resolved Problems Problem Noted Date Diagnosed Date Resolved Date AMS (altered mental status) 06/10/2024 04/19/2025
--- OUTSIDE RECORDS SUMMARY | 2025-04-20 13:57 | XMS_ITS | Referral Summary ---
Author Organization [employer] ([place], [place], [place], [place]) Address [address] [place] [address] Care Team Providers Care Outside Laborer Name Role Phone Unavailable Primary Care Provider [...]
[2025-04-20 16:24] LABS: Albumin Level 4.4 g/dl (3.5-5.0); Chloride 105 mmol/L (98-107); Potassium 4.6 mmoL/L (3.5-5.1); Sodium 145 mmol/L (136-145)
[2025-04-20 16:27] LABS: Alanine Aminotransferase 7 U/L (12-78); Albumin/Globulin Ratio 1.6 (1.1-1.8); Alkaline Phosphatase 109 U/L (38-126); Anion Gap 12.6 mEq/L (5-15); Aspartate Amino Transferase 26 U/L (14-36); Bilirubin,Total 0.7 mg/dl (0.2-1.3); Blood Urea Nitrogen 46 mg/dl (7-17); Calcium 9.9 mg/dl (8.4-10.2); Carbon Dioxide 32 mmol/L (22.0-30.0); Cholesterol 174 mg/dl (140-200); Creatinine,Serum 1.20 mg/dl (0.52-1.04); Estimated Glomerular Filt Rate 42 ml/min (>60); GFR (African American) 51 ML/MIN (>60); Globulin 2.7 g/dL (1.3-3.2); Glucose 100 mg/dl (74-100); Total Protein,Serum 7.1 g/dl (6.3-8.2); Triglycerides 151 mg/dl (30-150)
[2025-04-20 16:28] LABS: HDL Cholesterol 44 mg/dl (40-60)
== END 2025-04-20 23:59 | disposition home or self-care (01) ==
LOC: LAB.DROPOF 13:54
PROVIDERS: PCP Internal Medicine; Visit Provider Internal Medicine
DX: E66.01 Morbid (severe) obesity due to excess calories (principal); I87.2 Venous insufficiency (chronic) (peripheral); I10 Essential (primary) hypertension; E78.5 Hyperlipidemia, unspecified
CPT/HCPCS: 80053; 80061